=== PATIENT | female | born 1940 | race Caucasian/White ===

== ENCOUNTER → 2016-10-26 | Outpatient (CLI) | payer OTHER, MEDICARE | LOC: CIMAGING 11:27 | PROVIDERS: ATTEND Family Medicine | DX: J40 Bronchitis, not specified as acute or chronic (principal); J98.11 Atelectasis | CPT/HCPCS: 71020-PO ==

== ENCOUNTER 2017-01-10 07:35 | Inpatient (IN) | payer OTHER, MEDICARE ==
--- NOTE | 2017-01-10 07:48 | CPEKG ---
Heart Rate: 138 RR Interval: 435 QRSD Interval: 78 QT Interval: 292 QTC Interval: 443 QRS [place]: 88 T Wave [place]: -90 EKG Severity - ABNORMAL ECG - EKG Impression: ATRIAL FIBRILLATION, V-RATE 90-156 EKG Impression: BORDERLINE RIGHT AXIS DEVIATION EKG Impression: CONSIDER ANTERIOR INFARCT EKG Impression: REPOLARIZATION ABNORMALITY, PROB RATE RELATED Electronically Signed By: Gregory Rios 10-Jan-2017 08:15:11
[2017-01-10 08:00] LABS: % IMMATURE GRANULYOCYTES 0.7 % (0.0-1.1); ABSOLUTE IMMATURE GRANULOCYTES 0.05 10^3/uL (0.00-0.10); ADD DIFF? NO; ADD MORPH? NO; ADD SCAN? YES; FRAGMENT RBC FLAG 0 (0-99); HEMATOCRIT 41.1 % (38.0-47.0); HEMOGLOBIN 13.9 g/dL (12.6-16.3); LEFT SHIFT FLG 10 (0-99); LIPEMIA HEMOLYSIS FLAG 90 (0-99); MEAN CELL HEMOGLOBIN 28.3 pg (27.9-34.1); MEAN CELL HEMOGLOBIN CONCENTR. 33.8 g/dL (32.4-36.7); MEAN CELL VOLUME 83.5 fL (81.5-99.8); MEAN PLATELET VOLUME 9.7 fL (8.7-11.7); PLATELET CLUMPS FLAG 0 (0-99); PLATELET COUNT 137 10^3/uL (150-400); RED BLOOD CELL COUNT 4.92 10^6/uL (4.18-5.33); RED CELL DISTRIBUTION WIDTH 14.9 % (11.5-15.2)
[2017-01-10] MEDS ORDERED: DILTIAZEM 25 MG/5 ML VIAL IVP ONE ×2 (08:00→08:26)
[2017-01-10 08:02] LABS: ATYPICAL LYMPHOCYTE FLAG 150 (0-99)
--- NOTE | 2017-01-10 08:07 | EDPHY ---
H & P Stated Complaint: weakness and shortness of breath for 2 days, reports a-fib Time Seen by Provider: 01/10/17 07:44 HPI/ROS: This patient reports a 3 day history of increasing fatigue and weakness. She 1st noticed the symptoms on Tuesday reporting associated decreased appetite. Over the past 48 hours for symptoms of increased. She consider coming yesterday but held off due to mother's Day. She describes increasing lightheadedness while standing and weakness chest generalized over that period of time. At times she has noticed that her heart rate feels faster than usual. She has longstanding history of rate controlled atrial fibrillation on atenolol, cardia and Xarelto. She reports compliance with her medications. She did not take her morning dose yet of the atenolol with the cardia. She reports mild chest pressure at times associated with her symptoms peak intensity 5/10. Currently she does not have any pressure. She notes no exacerbating for this substernal pressure that does not radiate. Patient reports that her dyspnea worsens with exertion. She is accompanied by her son' s girlfriend this morning. ROS: Constitutional: As per HPI fatigue and generalized weakness. No fevers. She reports that she is always cold no recent change in that. HEENT: She has mild seasonal allergies with coryza but no other HEENT complaints Neuro: No headache. No numbness tingling or focal weakness. No confusion. Pulmonary: No cough. Cardiovascular: No recent lower extremity swelling. No diaphoresis. She reports no calf swelling or pain. GI: She has a couple days of intermittent periumbilical discomfort that she describes as slightly achy. She attributes the symptoms to hunger pains. She reports anorexia associated with her generalized weakness for the past 2 days. : No urinary symptoms or other complaints Integumentary: No skin rash Endocrine: She reports that they have been reducing her Synthroid dose which was initially 0.11-2 a current dose of 0.75 mcg. The most recent change in this occurred 2.5 weeks ago Complete review of symptoms is otherwise negative Source: Patient Exam Limitations: No limitations - Personal History Tetanus Vaccine Date: 2013 - Medical/Surgical History PMH: Sick sinus syndrome with dual-chamber pacemaker placed by Dr. Barnes on October 2011 Longstanding atrial fibrillation with rate control Diastolic dysfunction with mild CHF Hypothyroidism Hx Asthma: No Hx Chronic Respiratory Disease: No Hx Diabetes: No Hx Cardiac Disease: Yes Hx Renal Disease: No Hx Cirrhosis: No Hx Alcoholism: No Hx HIV/AIDS: No Hx Splenectomy or Spleen Trauma: No Other PMH: PPM, afib, htn, hypothyroid, CVA 2009 - Family History Significant Family History: No pertinent family hx - Social History Smoking Status: Former smoker Alcohol Use: None Drug Use: None Additional Social History: She lives alone - Physical Exam Exam: General Appearance: Alert, no distress. Eyes: Pupils equal and round no pallor or injection. ENT, Mouth: Mucous membranes moist. Respiratory: There are no retractions, lungs are clear to auscultation except for Minimal rales at the bases. Cardiovascular: Tachycardic with an irregularly irregular rhythm. No significant JVD. No significant peripheral edema. Gastrointestinal: Abdomen is soft and nontender, no masses, bowel sounds normal. Neurological: GCS of 15. Appreciate no focal deficits this morning Skin: Warm and dry, no rashes. Musculoskeletal: Neck is supple nontender. Extremities are symmetrical, full range of motion. Psychiatric: Mood and affect normal DIFFERENTIAL DIAGNOSIS: After history and physical exam differential diagnosis was considered for rapid AFib coma CHF exacerbation, metabolic disarray, UTI, functional thyroid disease-hypo versus hyper thyroid Constitutional: Initial Vital Signs Heart Rate 130 H 01/10/17 07:35 Respiratory Rate 20 01/10/17 07:35 Blood Pressure 122/90 H 01/10/17 07:35 O2 Sat (%) 90 L 01/10/17 07:35 O2 Delivery Mode Nasal Cannula O2 (L/minute) 2 Allergies/Adverse Reactions: NICKEL Allergy (Intermediate, Uncoded 01/10/17 07:44) Rash BRANDT SILVER Allergy (Intermediate, Uncoded 01/10/17 07:44) Rash Home Medications: Medication Instructions Recorded Atenolol [Tenormin 50 mg (*)] 50 mg PO DAILY 10/26/11 Levothyroxine [Synthroid 112 mcg 112 mcg PO DAILY06 05/04/12 (*)] Atorvastatin Calcium [Lipitor 20 20 mg PO HS 08/17/16 mg (*)] C/E/Zn/Cu/OM3/DHA/EPA/LUT/ZEAX 1 each PO BID 08/17/16 [Preservision Areds 2 Softgel] Cyanocobalamin [Vitamin B12 (*)] 1,000 mcg PO DAILY 08/17/16 Diltiazem HCl [Cartia Xt] 120 mg PO BID 08/17/16 Multivitamins [Multivitamin (*)] 1 each PO DAILY 08/17/16 [place]-3 Fatty Acids [Fish Oil 1000 1,000 mg PO DAILY 08/17/16 mg (*)] Rivaroxaban [Xarelto 10mg (*)] 20 mg PO HS 08/17/16 Furosemide [Lasix 20 MG (*)] 20 mg PO DAILY #0 tab 08/18/16 Medical Decision Making - Diagnostics EKG Interpretation: 12 lead EKG performed at 7:45 a.m. reveals atrial fibrillation at 1:38 a.m. Patient has associated right axis deviation and mild rate-related repolarization abnormality. Appreciate no significant interval change when compared to an EKG dated August 17, 2016. That is a EKG revealed AFib at 1: 57 a.m. with similar findings. Overall assessment rapid AFib with right axis deviation Please refer to trace master for complete read. Imaging Results: Chest [id number]-mild cardiomegaly and mild failure by my interpretation Imaging: I viewed and interpreted images myself ED Course/Re-evaluation: IV, monitor, diltiazem IV - 20 mg Her rate only knee decreased slightly to the 1 teens to 120s. After initial diltiazem bolus her systolic pressure is 102. Will hold on IV Lasix at this time and proceed with another diltiazem dose given her low slightly low blood pressure. A repeat diltiazem bolus is given - 30 mg with better rate control between 80 and 100. Her systolic pressure remained around 100. Discussion: Patient with longstanding history of rate controlled atrial fibrillation now with a rapid AFib-cause unclear resulting in mild CHF in dyspnea. Given that she lives alone and reports compliance with all of her medications, I feel she warrants admission for further evaluation workup and rate control. Patient agrees with this plan. No evidence today of acute cardiac ischemia or DC. I spoke with Sharmila, mid-level practitioner with the hospitalist group who agrees with plan for admission to telemetry. Dr. Julian will be the accepting physician At 9:18 a.m. the EMS crew was here for transport. Patient is comfortable with feels improved. A review of her labs reveals BNP elevated to 3200 or so, electrolytes without significant abnormality, CBC normal, TSH pending, troponin negative - Data Points Laboratory Results: Laboratory Results 01/10/17 07:45 01/10/17 07:45 01/10/17 01/10/17 01/10/17 07:45 07:45 07:45 WBC 7.07 10^3/uL 10^3/uL (3.80-9.50) RBC 4.92 10^6/uL 10^6/uL (4.18-5.33) Hgb 13.9 g/dL g/dL (12.6-16.3) Hct 41.1 % % (38.0-47.0) MCV 83.5 fL fL (81.5-99.8) MCH 28.3 pg pg (27.9-34.1) MCHC 33.8 g/dL g/dL (32.4-36.7) RDW 14.9 % % (11.5-15.2) Plt Count 137 10^3/uL L 10^3/uL (150-400) MPV 9.7 fL fL (8.7-11.7) Neut % (Auto) 77.8 % H % (39.3-74.2) Lymph % (Auto) 7.4 % L % (15.0-45.0) [place] % (Auto) 13.3 % H % (4.5-13.0) Eos % (Auto) 0.4 % L % (0.6-7.6) Baso % (Auto) 0.4 % % (0.3-1.7) Nucleat RBC Rel Count 0.0 % % (0.0-0.2) Absolute Neuts (auto) 5.50 10^3/uL 10^3/uL (1.70-6.50) Absolute Lymphs (auto) 0.52 10^3/uL L 10^3/uL (1.00-3.00) Absolute Monos (auto) 0.94 10^3/uL H 10^3/uL (0.30-0.80) Absolute Eos (auto) 0.03 10^3/uL 10^3/uL (0.03-0.40) Absolute Basos (auto) 0.03 10^3/uL 10^3/uL (0.02-0.10) Absolute Nucleated RBC 0.00 10^3/uL 10^3/uL (0-0.01) Immature Gran % 0.7 % % (0.0-1.1) Seg Neutrophils % 68 % % Band Neutrophils % 10 % % Lymphocytes % 12 % % Monocytes % 10 % % Immature Gran # 0.05 10^3/uL 10^3/uL (0.00-0.10) Absolute Seg Neuts 4.8 K/MM3 K/MM3 (1.8-7) Absolute Band Neuts 0.7 K/MM3 K/MM3 (0-0.7) Absolute Lymphocytes 0.8 K/mm3 L K/mm3 (1.0-4.8) Absolute Monocytes 0.7 K/mm3 K/mm3 (0-0.8) RBC/WBC/PLT Morphology NORMAL (NORMAL) Atypical Lymphocytes 3+ H Toxic Granulation PRESENT H Platelet Estimate DECREASED L (ADEQ) Smear Review By Pending Sodium 137 mEq/L mEq/L (134-144) Potassium 4.0 mEq/L mEq/L (3.5-5.2) Chloride 96 mEq/L L mEq/L (97-110) Carbon Dioxide 23 mEq/l mEq/l (22-31) Anion Gap 18 mEq/L H mEq/L (8-16) BUN 15 mg/dL mg/dL (7-23) Creatinine 1.0 mg/dL mg/dL (0.6-1.0) Estimated GFR 54 Glucose 124 mg/dL H mg/dL (70-100) Calcium 9.2 mg/dL mg/dL (8.5-10.4) Troponin I < 0.012 ng/mL ng/mL (0-0.034) NT-Pro-B Natriuret Pep 3260 pg/mL H pg/mL (0-450) TSH 2.820 uIU/mL uIU/mL (0.465-4.680) Medications Given: Discontinued Medications Diltiazem HCl (Cardizem 25 Mg/5 Ml Vial) 20 mg IVP EDNOW ONE Stop: 01/10/17 08:01 Last Admin: 01/10/17 08:10 Dose: 20 mg Diltiazem HCl (Cardizem 25 Mg/5 Ml Vial) 30 mg IVP EDNOW ONE Stop: 01/10/17 08:27 Last Admin: 01/10/17 09:15 Dose: 30 mg Departure - Departure Disposition: [facility] Inpatient Acute Clinical Impression: Rapid atrial fibrillation CHF (congestive heart failure) Qualifiers: Congestive heart failure type: diastolic Congestive heart failure chronicity: acute on chronic Qualified Code(s): I50.33 - Acute on chronic diastolic ( congestive) heart failure Condition: Fair
[2017-01-10 08:21] LABS: ANION GAP 18 mEq/L (8-16); CALCIUM 9.2 mg/dL (8.5-10.4); CARBON DIOXIDE 23 mEq/l (22-31); CHLORIDE 96 mEq/L (97-110); GLOMERULAR FILTRATION RATE 54; GLUCOSE 124 mg/dL (70-100); SCAN POSITIVE; SODIUM 137 mEq/L (134-144)
[2017-01-10 08:28] LABS: PLATELET ESTIMATE DECREASED (ADEQ); TOXIC GRANULATION PRESENT
[2017-01-10 08:44] LABS: TROPONIN I < 0.012 ng/mL (0-0.034)
[2017-01-10] MEDS ORDERED: HYPROMELLOSE EACHEYE PRN (11:32)
[2017-01-10] MEDS ORDERED: CARBOXYMETHYLCELL EACHEYE PRN (11:32)
[2017-01-10] MEDS: ATENOLOL 50 MG TAB PO SCH ×2 (12:25→19:50)
[2017-01-10] MEDS: DILTIAZEM CD 120 MG CAP PO SCH ×2 (12:26→19:50)
--- NOTE | 2017-01-10 13:24 | PDGENHP ---
History and Physical - Chief Complaint weakness, fatigue, and afib - History of Present Illness 76yo female with history of rate controlled atrial fibrillation, CHF, HTN, hypothyroidism presenting to the ED with weakness and fatigue. Last Tuesday morning she reports starting to feel symptoms of lightheadedness, loss of appetite, shortness of breath and a dull headache. She states having a similar episode last July for which she was admitted for complications related to her atrial fibrillation and CHF. Rest, taking deep breaths, and meditation alleviate her symptoms. Exertion makes her symptoms worse. She reports intermittent lower extremity swelling that gets worse when she is on her feet. At night she sleeps on an adjustable reclining bed and cannot lie flat. She reports to be compliant with her medications. She currently denies fevers, chest pain, dyspnea, abdominal pain, nausea, vomiting, and diarrhea. Recently, she had her synthroid adjusted from 100 to 75 3 weeks ago and has not had a blood test since. History Information - Allergies/Home Medication List Allergies/Adverse Reactions: NICKEL Allergy (Intermediate, Uncoded 01/10/17 07:44) Rash BRANDT SILVER Allergy (Intermediate, Uncoded 01/10/17 07:44) Rash Home Medications: Atenolol [Tenormin 50 mg (*)] 50 mg PO BID 10/26/11 [Last Taken 01/09/17 21:00] Atorvastatin Calcium [Lipitor 20 mg (*)] 20 mg PO HS 08/17/16 [Last Taken ] C/E/Zn/Cu/OM3/DHA/EPA/LUT/ZEAX [Preservision Areds 2 Softgel] 1 each PO BID [Last Taken 01/09/17 21:00] Cyanocobalamin [Vitamin B12 (*)] 1,000 mcg PO DAILY 08/17/16 [Last Taken ] Diltiazem HCl [Cartia Xt] 120 mg PO BID 08/17/16 [Last Taken 01/09/17 21:00] Multivitamins [Multivitamin (*)] 1 each PO DAILY 08/17/16 [Last Taken 01/09/17] [place]-3 Fatty Acids [Fish Oil 1000 mg (*)] 1,000 mg PO DAILY 08/17/16 [Last Taken 01/09/17] Rivaroxaban [Xarelto 10mg (*)] 20 mg PO HS 08/17/16 [Last Taken 01/09/17] Carboxymethylcell/Hypromellose [Genteal Gel Drops] 1 drop EACHEYE DAILY PRN [Last Taken Unknown] Cholecalciferol Vit D3 [Vitamin D3 2000 units tab (OTC)] 2,000 units PO DAILY [Last Taken 01/09/17] Levothyroxine [Synthroid 75 mcg (*)] 75 mcg PO DAILY06 01/10/17 [Last Taken ] I have personally reviewed and updated: family history, medical history, social history, surgical history Past Medical History: sick sinus syndrome with dual chamber pacemaker- 2011. atrial fibrillation. Diastolic dysfunction with mild CHF. hypothyroidism. stroke 2009. Macular degeneration. HTN - Surgical History Additional surgical history: right knee replacement. vaginal hysterectomy 2005. ppm - Social History Smoking Status: Former smoker Alcohol Use: None Drug Use: None Review of Systems ROS: 10pt was reviewed & negative except for what was stated in HPI & below Gastrointestinal: Reports: abdominal pain (dull diffuse) Physical Exam Temp Pulse Resp BP Pulse Ox 36.8 C 127 H 20 108/84 H 94 01/10/17 10:57 01/10/17 10:57 01/10/17 10:57 01/10/17 10:57 01/10/17 10:57 O2 (L/minute) 2 Constitutional: no apparent distress, appears nourished, not in pain Eyes: PERRL, anicteric sclera, EOMI Ears, Nose, Mouth, Throat: moist mucous membranes, hearing normal, ears appear normal, no oral mucosal ulcers Cardiovascular: irregularly irregular, JVD, tachycardia, edema (trace), No systolic murmur Respiratory: no respiratory distress, no rales or rhonchi, clear to auscultation , No reduced air movement Gastrointestinal: normoactive bowel sounds, soft, non-tender abdomen, no palpable masses, No ascites, No guarding, No rebound Genitourinary: no bladder fullness, no bladder tenderness Skin: warm, normal color, no rashes or abrasions, no fluctuance, no induration, No mottled Musculoskeletal: full muscle strength, no muscle tenderness, normal joint ROM, no joint effusions Neurologic: AAOx3, CN II-XII Intact, No facial droop Psychiatric: interacting appropriately, not anxious, not encephalopathic, thought process linear Lab Data & Imaging Review 01/10/17 07:45 01/10/17 07:45 WBC 7.07 10^3/uL (3.80-9.50) 01/10/17 07:45 RBC 4.92 10^6/uL (4.18-5.33) 01/10/17 07:45 Hgb 13.9 g/dL (12.6-16.3) 01/10/17 07:45 Hct 41.1 % (38.0-47.0) 01/10/17 07:45 MCV 83.5 fL (81.5-99.8) 01/10/17 07:45 MCH 28.3 pg (27.9-34.1) 01/10/17 07:45 MCHC 33.8 g/dL (32.4-36.7) 01/10/17 07:45 RDW 14.9 % (11.5-15.2) 01/10/17 07:45 Plt Count 137 10^3/uL (150-400) L 01/10/17 07:45 MPV 9.7 fL (8.7-11.7) 01/10/17 07:45 Neut % (Auto) 77.8 % (39.3-74.2) H 01/10/17 07:45 Lymph % (Auto) 7.4 % (15.0-45.0) L 01/10/17 07:45 [place] % (Auto) 13.3 % (4.5-13.0) H 01/10/17 07:45 Eos % (Auto) 0.4 % (0.6-7.6) L 01/10/17 07:45 Baso % (Auto) 0.4 % (0.3-1.7) 01/10/17 07:45 Nucleat RBC Rel Count 0.0 % (0.0-0.2) 01/10/17 07:45 Absolute Neuts (auto) 5.50 10^3/uL (1.70-6.50) 01/10/17 07:45 Absolute Lymphs (auto) 0.52 10^3/uL (1.00-3.00) L 01/10/17 07:45 Absolute Monos (auto) 0.94 10^3/uL (0.30-0.80) H 01/10/17 07:45 Absolute Eos (auto) 0.03 10^3/uL (0.03-0.40) 01/10/17 07:45 Absolute Basos (auto) 0.03 10^3/uL (0.02-0.10) 01/10/17 07:45 Absolute Nucleated RBC 0.00 10^3/uL (0-0.01) 01/10/17 07:45 Immature Gran % 0.7 % (0.0-1.1) 01/10/17 07:45 Seg Neutrophils % 68 % 01/10/17 07:45 Band Neutrophils % 10 % 01/10/17 07:45 Lymphocytes % 12 % 01/10/17 07:45 Monocytes % 10 % 01/10/17 07:45 Immature Gran # 0.05 10^3/uL (0.00-0.10) 01/10/17 07:45 Absolute Seg Neuts 4.8 K/MM3 (1.8-7) 01/10/17 07:45 Absolute Band Neuts 0.7 K/MM3 (0-0.7) 01/10/17 07:45 Absolute Lymphocytes 0.8 K/mm3 (1.0-4.8) L 01/10/17 07:45 Absolute Monocytes 0.7 K/mm3 (0-0.8) 01/10/17 07:45 RBC/WBC/PLT Morphology NORMAL (NORMAL) 01/10/17 07:45 Atypical Lymphocytes 3+ H 01/10/17 07:45 Toxic Granulation PRESENT H 01/10/17 07:45 Platelet Estimate DECREASED (ADEQ) L 01/10/17 07:45 Sodium 137 mEq/L (134-144) 01/10/17 07:45 Potassium 4.0 mEq/L (3.5-5.2) 01/10/17 07:45 Chloride 96 mEq/L (97-110) L 01/10/17 07:45 Carbon Dioxide 23 mEq/l (22-31) 01/10/17 07:45 Anion Gap 18 mEq/L (8-16) H 01/10/17 07:45 BUN 15 mg/dL (7-23) 01/10/17 07:45 Creatinine 1.0 mg/dL (0.6-1.0) 01/10/17 07:45 Estimated GFR 54 01/10/17 07:45 Glucose 124 mg/dL (70-100) H 01/10/17 07:45 Calcium 9.2 mg/dL (8.5-10.4) 01/10/17 07:45 Troponin I < 0.012 ng/mL (0-0.034) 01/10/17 07:45 NT-Pro-B Natriuret Pep 3260 pg/mL (0-450) H 01/10/17 07:45 TSH 2.820 uIU/mL (0.465-4.680) 01/10/17 07:45 Visualized and Interpreted Chest x-ray results: Yes Chest X-Ray results: other (CM with signs of pulm vascular congestion) Visualized and Interpreted EKG results: Yes EKG Interpretation: Positive for: other (afib 138 bpm) Assessment & Plan Assessment: #rapid atrial fibrillation now with improved rate control s/p IVP dilt and resuming home meds -continue home meds for now -ivp dilt prn hr>110 -cont Xarelto #diastolic dysfunction with mild CHF with elevated BNP of 3260 -Lasix 20mg IVP x 1 -echo #hypothyroidism with recent adjustment to Synthroid dose -check TSH #abnormal EKG with abd pain -repeat troponin #thrombocytopenia -unknown etiology; continue to monitor dispo: place in observation
[2017-01-10] MEDS ORDERED: FUROSEMIDE 20 MG/2 ML VIAL IVP ONE (14:48)
[2017-01-10] MEDS ORDERED: DILTIAZEM 25 MG/5 ML VIAL IVP PRN (14:51)
[2017-01-10] MEDS: TEARS/DEXTRAN 70/HYPROMELLOSE 15 ML OPHT.BTL EACHEYE PRN ×2 (17:20→20:49)
[2017-01-10] MEDS: ATORVASTATIN CALCIUM 20 MG TAB PO SCH (19:50)
[2017-01-10] MEDS: PRESERVISION AREDS2 FORMULA EYE VIT 1 EACH PO SCH (19:51)
[2017-01-10] MEDS: RIVAROXABAN 10 MG TAB PO SCH (19:51)
[2017-01-11 05:08] LABS: % IMMATURE GRANULYOCYTES 1.1 % (0.0-1.1); ABSOLUTE IMMATURE GRANULOCYTES 0.07 10^3/uL (0.00-0.10); ADD DIFF? NO; ADD MORPH? NO; ADD SCAN? YES; FRAGMENT RBC FLAG 0 (0-99); HEMATOCRIT 38.9 % (38.0-47.0); LEFT SHIFT FLG 10 (0-99); LIPEMIA HEMOLYSIS FLAG 80 (0-99); MEAN CELL HEMOGLOBIN 28.3 pg (27.9-34.1); MEAN CELL HEMOGLOBIN CONCENTR. 33.4 g/dL (32.4-36.7); MEAN CELL VOLUME 84.7 fL (81.5-99.8); MEAN PLATELET VOLUME 10.5 fL (8.7-11.7); PLATELET CLUMPS FLAG 10 (0-99); PLATELET COUNT 122 10^3/uL (150-400); RED BLOOD CELL COUNT 4.59 10^6/uL (4.18-5.33); RED CELL DISTRIBUTION WIDTH 15.1 % (11.5-15.2)
[2017-01-11 05:11] LABS: ATYPICAL LYMPHOCYTE FLAG 170 (0-99)
[2017-01-11 05:37] LABS: ANION GAP 13 mEq/L (8-16); CALCIUM 9.2 mg/dL (8.5-10.4); CARBON DIOXIDE 24 mEq/l (22-31); CHLORIDE 99 mEq/L (97-110); CREATININE 0.9 mg/dL (0.6-1.0); GLOMERULAR FILTRATION RATE > 60; GLUCOSE 119 mg/dL (70-100); POTASSIUM 3.8 mEq/L (3.5-5.2); SODIUM 136 mEq/L (134-144)
[2017-01-11] MEDS: LEVOTHYROXINE 75 MCG TAB PO SCH (05:49)
[2017-01-11 06:02] LABS: SCAN NEGATIVE
[2017-01-11] MEDS: CHOLECALCIFEROL VIT D3 2,000 UNITS TAB/CAP PO SCH (07:57)
[2017-01-11] MEDS: PRESERVISION AREDS2 FORMULA EYE VIT 1 EACH PO SCH ×2 (07:58→20:03)
[2017-01-11] MEDS: DILTIAZEM CD 120 MG CAP PO SCH ×2 (07:58→19:51)
[2017-01-11] MEDS: MULTIVITAMINS 1 EACH TAB PO SCH (07:58)
[2017-01-11] MEDS: CYANO/VITAMIN B12 1000 MCG TAB PO SCH (07:58)
[2017-01-11] MEDS: OMEGA-3 FATTY ACIDS 1,000 MG CAP PO SCH (07:58)
[2017-01-11] MEDS: ATENOLOL 50 MG TAB PO SCH (07:59)
[2017-01-11] MEDS ORDERED: METOPROLOL TARTRATE 25 MG TAB PO ONE (11:48)
[2017-01-11] MEDS ORDERED: FUROSEMIDE 40 MG/4 ML VIAL IVP ONE (12:26)
[2017-01-11] MEDS ORDERED: POTASSIUM CL 20 MEQ TAB PO ONE (12:27)
--- NOTE | 2017-01-11 13:27 | GCON ---
[f rep st] CONSULTATION CARDIOLOGY CONSULTATION. INDICATION FOR CONSULTATION: 1. Atrial fibrillation with RVR. 2. Mild BNP elevation. HISTORY OF PRESENT ILLNESS: The patient is a 76-year-old female, who is known to our practice. She is in permanent atrial fibrillation, her primary angiographer is Dr. Rios. She also has a significant past history that includes hypertension, hypothyroidism, and a previous CVA. She reports starting last Tuesday she had noted that she had a more significantly elevated heart rate, feeling that she was also more short of breath and fatigue. She denies of any chest pressure or pain. She thought the symptoms would subside, and waited until yesterday afternoon to present to the ER with worsening SOB. Upon arrival it was found that her heart rates were running between 130 to 140 BPM. She does report lightheadedness with these symptoms, but has had no syncope or syncopal events. She reports prior to hospitalization, prior to last Tuesday, she had been in her normal state health, reporting no fevers, chills, or night sweats. She does report over the last month she has had 3 dosage changes in her thyroid and her Synthroid with a downward decrease. She reports she has not noticed a significant weight gain, has continued to have mild peripheral edema, but this is unchanged from her usual condition. She does also reports similar times having heart rate increasing and having ongoing abdominal pain. She denies any hematemesis or blood in stools. She does report she has been medication compliant, she has had lack of appetite for 3 days prior to admission, reporting only small food intake. PAST MEDICAL HISTORY: 1. Permanent atrial fibrillation. 2. Hypertension. 3. Sick sinus syndrome with previous PPM implantation ([employer]tr[employer]). 4. Diastolic dysfunction. 5. Previous CVA. 6. Hypothyroidism. 7. Macular degeneration. 8. Hyperlipidemia. PAST SURGICAL HISTORY: Right knee replacement, hysterectomy, and permanent pacemaker implantation. FAMILY HISTORY: Patient reports father has a history of heart disease. SOCIAL HISTORY: She is retired, she lives independently, she is a former smoker , she denies any alcohol use. Denies any illicit drug use. ALLERGIES: Nickel and nini silver. MEDICATIONS: 1. Genteal gel drops 1 drop to each eye daily p.r.n. 2. Fish oil 1000 mg p.o. daily. 3. Multivitamin 1 tablet p.o. daily. 4. Synthroid 75 mcg p.o. daily. 5. Lasix 20 mg p.o. daily. 6. Diltiazem 120 mg p.o. b.i.d. 7. Vitamin B12 1000 mg p.o. daily. 8. Vitamin D3 2000 units p.o. daily. 9. Preservision Areds2, soft gel tablets, one p.o. b.i.d. 10. Atorvastatin 20 mg p.o. at bedtime. 11. Atenolol 50 mg p.o. twice daily. 12. Xarelto 20 mg p.o. at bedtime. REVIEW OF SYSTEMS: A 10-point review of systems is done on this patient, all negative except as mentioned above. PHYSICAL EXAMINATION: GENERAL APPEARANCE: Medium built, mildly obese female. She is alert and oriented to person, place, time, and situation, currently appears to be under no acute distress. VITAL SIGNS: Current vital signs are a blood pressure of 127/88, heart rate of 117, atrial fibrillation on the monitor, respirations 18, saturating 92% on 2 L nasal cannula. Temperature of 36.6 degrees Celsius. HEENT: Head is normocephalic. Lips and tongue are pink and moist with no signs of cyanosis. Conjunctivae pink. NECK: Trachea is midline, +2 carotid pulses bilateral, no auscultated bruits, about 5-6 cm of JVD noted at a 45 degree angle above sternal notch. RESPIRATORY: Lungs are clear, but diminished in bases bilateral. No rhonchi, rales or wheezes, no accessory muscle use, no intercostal muscle retraction noted. CARDIAC: Irregular tachycardic rate, irregular rhythm, S1 and S2, no S3 noted. ABDOMEN: Firm, nontender to palpation, bowel sounds x4 quadrants. No palpable masses. SKIN: [place], warm, dry. No cyanosis, no clubbing, trace to +1 peripheral edema in bilateral lower extremities to knees. VASCULAR: With +2 carotids bilateral, +2 radials bilateral, +1 dorsal pedal and posterior tibial pulses bilateral. NEURO: Cranial nerves 2-12 grossly intact. LABORATORY STUDIES: From today showed WBC 6.32, hemoglobin 13.0, hematocrit of 38.9, platelet count 122. Sodium of 136, potassium 3.8, chloride 99, CO2 of 24 , BUN 17, creatinine 0.8, glucose 119, calcium 9.2 on admission, it was noted troponin was less than 0.012. BNP was 3260, and TSH was 2.820. STUDIES: Electrocardiogram on admission showed atrial fibrillation RVR, ventricular rate is 138 beats per minute, normal axis, slow R-wave progression in anterior leads. Chest x-ray, borderline failure with trace bibasilar edema and bibasilar atelectasis, a dual-lead pacemaker. Echocardiogram done this morning showed normal LV size, with atrial fibrillation , LV systolic function is low normal with EF of 50% to 55%, LA is severely dilated, RA is severely dilated, mild mitral annular calcification, mild mitral regurgitation, mild to moderate TR, RVSP is normal, aortic valve is normal in structure and function. In comparison to previous echocardiogram, no significant left ventricular function changes or valvular changes, atrium are both more severely dilated at this time. ASSESSMENT AND PLAN: 1. Atrial fibrillation with rapid ventricular response: Patient has a known history of chronic atrial fibrillation, reporting fairly well rate-controlled, does mention that she has recently had her atenolol increased to 50 mg p.o. b.i.d., reporting sudden increase of elevated heart rate with symptoms of shortness of breath and fatigue. Has had no chest pain, negative troponin, echocardiogram showing severely dilated atriums, but no significant change in left ventricular function, no wall motion abnormality. TSH drawn on admission within normal limits, patient does report compliant with medications. At this time, after discussing, I would like to attempt to take her off atenolol and put her on metoprolol, which is potentially more of a beta 1 beta-veronica, see if we get better rate control with that. If we have problems then we can also increase her diltiazem, if we do have problems with her blood pressure, then consideration could always be made of putting her on digoxin, if unable to improve with any of them due to her having a permanent pacemaker, we can potentially have electrophysiology services see patient to discuss potential arteriovenous node ablation. She remains on home dose of Xarelto for anticoagulation. We will continue to monitor. 2. Sick sinus syndrome: Patient with permanent pacemaker implantation done, most recent device check was done on December 01, 2016, showing device functioning within normal limits. 3. Hypothyroidism, patient has been resumed on Synthroid, TSH within normal limits. 4. Hypertension: Blood pressures appear to be adequately controlled on current home medications, we will continue to monitor with titration of beta veronica. 5. Diastolic dysfunction with elevated BNP: Patient received 1 dose of Lasix and reported mild improvement in shortness of breath. Will receive Lasix dose again today at 20 mg IV this afternoon. Potentially resume home medications tomorrow, potentially with better rate control. This will help self correct. 6. Abdominal pain: Being followed by hospitalist services, recently underwent abdominal x-ray, pending results. Thank you for this consultation. We will be glad to follow along with you. /[id number]/MODL MTDD
[2017-01-11] MEDS: PANTOPRAZOLE SODIUM 40 MG TAB PO SCH (13:50)
--- NOTE | 2017-01-11 14:35 | HOSPPROG ---
Hospitalist Progress Note Assessment/Plan: 76 yo F with PMH of a fib, CHF, HTN pw weakness and fatigue found to be in a fib w/rvr # a rib w/rvr: rates slightly better controlled after IVP dilt and transitioning from atenolol to metoprolol. Rate still increased however on personal review of tele monitoring /ecg. If rates not improving on metop, will consider increased dilt vs starting digoxin vs AVN ablation. Monitoring for now. Sxs improved some but not resolved. # anorexia/abdominal pain: patient c/o mid epigastric abdominal discomfort along with loss of appetite and poor po intake all of which is abnormal for her. Some nausea but no real vomiting. Abd xray personally reviewed and interpreted w/o e/o SBO etc. Will add lfts/lipase and consider abd US if abnormal or not improving. She notes that she wonders if some of this could be related to her a fib which tends to affect "everything" when she is in it. # acute on chronic diastolic heart failure: mildly volume overloaded, echo report reviewed and no change from prior. Continue IV lasix today. # sss: s/p PPM and pacer interrogation unremarkable # hypothyroid: tsh wnl, continue op medications # thrombocytopenia: mild but new from prior hospitalization, stable overnight # DNR # dispo: IP status, will need > 48 hours stay for eval/mgmt of above given high risk presenting issues Patient new to my care. Old records reviewed and summarized as above. Care plan reviewed with cardiology including plans for medication adjustment. Subjective: no significant overnight events, patient continues to feel fatigued and is having difficulty with her appetite--does not feel like eating and having some abd pain as well Objective: Vital Signs Temp Pulse Resp BP Pulse Ox 36.6 C 117 H 18 127/88 H 92 01/11/17 11:17 01/11/17 11:17 01/11/17 11:17 01/11/17 11:17 01/11/17 11:17 Laboratory Results 01/11/17 04:24 01/11/17 04:24 01/10/17 01/11/17 01/12/17 05:59 05:59 05:59 Intake Total 500 Output Total 150 Balance 350 awake alert nad anicteric op clear irreg irreg tachy cta w/dec bs at bases soft nt nd trace ble edema warm dry well perfused oriented appropriate ICD10 Worksheet Patient Problems: Problems Problem Status Onset CHF (congestive heart failure) Acute Rapid atrial fibrillation Acute Afib - Atrial fibrillation Active Dyslipidemia Active Hypothyroidism Active Peripheral vascular disease Active Atrial fibrillation Acute Congestive heart failure Acute Hypoxia Acute
[2017-01-11] MEDS ORDERED: METOPROLOL TARTRATE 50 MG TAB PO ONE (16:15)
[2017-01-11 16:30] LABS: ALBUMIN 3.8 g/dL (3.5-5.0); BILIRUBIN,TOTAL 1.5 mg/dL (0.1-1.4); BILIRUBIN-CONJUGATED 0.6 mg/dL (0.0-0.5); BILIRUBIN-UNCONJUGATED 0.9 mg/dL (0.0-1.1); TOTAL PROTEIN 6.3 g/dL (6.3-8.2)
[2017-01-11] MEDS: METOPROLOL TARTRATE 50 MG TAB PO SCH (19:50)
[2017-01-11] MEDS: TEARS/DEXTRAN 70/HYPROMELLOSE 15 ML OPHT.BTL EACHEYE PRN (19:52)
[2017-01-11] MEDS: RIVAROXABAN 10 MG TAB PO SCH (20:03)
[2017-01-11] MEDS: ATORVASTATIN CALCIUM 20 MG TAB PO SCH (20:03)
[2017-01-11] MEDS: DILTIAZEM 25 MG/5 ML VIAL IVP PRN (23:59)
[2017-01-12] MEDS: LEVOTHYROXINE 75 MCG TAB PO SCH (05:36)
[2017-01-12] MEDS: PRESERVISION AREDS2 FORMULA EYE VIT 1 EACH PO SCH ×2 (08:07→20:25)
[2017-01-12] MEDS: CHOLECALCIFEROL VIT D3 2,000 UNITS TAB/CAP PO SCH (08:07)
[2017-01-12] MEDS: PANTOPRAZOLE SODIUM 40 MG TAB PO SCH (08:07)
[2017-01-12] MEDS: OMEGA-3 FATTY ACIDS 1,000 MG CAP PO SCH (08:07)
[2017-01-12] MEDS: MULTIVITAMINS 1 EACH TAB PO SCH (08:08)
[2017-01-12] MEDS: DILTIAZEM CD 120 MG CAP PO SCH (08:08)
[2017-01-12] MEDS: METOPROLOL TARTRATE 50 MG TAB PO SCH ×2 (08:08→20:28)
[2017-01-12] MEDS: CYANO/VITAMIN B12 1000 MCG TAB PO SCH (08:08)
[2017-01-12] MEDS: DILTIAZEM 25 MG/5 ML VIAL IVP PRN (09:11)
[2017-01-12] MEDS ORDERED: METOPROLOL TARTRATE 50 MG TAB PO ONE (09:40)
--- NOTE | 2017-01-12 16:29 | HOSPPROG ---
Hospitalist Progress Note Assessment/Plan: 76 yo F with PMH of a fib, CHF, HTN pw weakness and fatigue found to be in a fib w/rvr # a rib w/rvr: rates slightly better controlled after IVP dilt and transitioning from atenolol to metoprolol. Rate still increased however on personal review of tele monitoring /ecg. Continue medication adjustment--have increased metop and dilt and given additional dose of IV dilt but rate still increased. Consider digoxin pending bp. # anorexia/abdominal pain: improved and eating now # acute on chronic diastolic heart failure: mildly volume overloaded on arrival , echo report reviewed and no change from prior. Appears euvolemic now # sss: s/p PPM and pacer interrogation unremarkable # hypothyroid: tsh wnl, continue op medications # thrombocytopenia: mild but new from prior hospitalization, stable overnight # DNR # dispo: IP status, will need > 48 hours stay for eval/mgmt of above given high risk presenting issues . Care plan reviewed with cardiology including plans for medication adjustment. Subjective: no significant overnight events, continues to have elevated hr, sob with exertion Objective: Vital Signs Temp Pulse Resp BP Pulse Ox 36.3 C 155 H 18 92/68 L 97 01/12/17 11:23 01/12/17 11:55 01/12/17 11:23 01/12/17 11:23 01/12/17 11:23 01/11/17 01/12/17 01/13/17 05:59 05:59 05:59 Intake Total 610 Output Total 800 125 Balance -190 -125 awake alert nad anicteric op clear irreg irreg tachy cta w/dec bs at bases soft nt nd trace ble edema warm dry well perfused oriented appropriate - Time Spent With Patient Time Spent with Patient: greater than 35 minutes Time Spent with Patient: Greater than 35 minutes spent on this patients care, greater than 50% of time spent counseling, educating, and coordinating care regarding the above mentioned plan. ICD10 Worksheet Patient Problems: Problems Problem Status Onset CHF (congestive heart failure) Acute Rapid atrial fibrillation Acute Afib - Atrial fibrillation Active Dyslipidemia Active Hypothyroidism Active Peripheral vascular disease Active Atrial fibrillation Acute Congestive heart failure Acute Hypoxia Acute
--- NOTE | 2017-01-12 18:03 | PDCARPN ---
Cardiology Progress Note Chief Complaint: Ongoing fatigue symptoms. Assessment/Plan: Assessment: 76-year-old female with known history of permanent atrial fibrillation, hypertension, hypothyroidism, sick sinus syndrome with ppm implantation, and previous CVA. Admitted for AFib with RVR and mildly elevated BNP. Echocardiogram done on 01/01 showing normal LV size, low normal LV systolic function with EF 50-55%, LA and RA severely dilated, mild MR, [id number] TR, RVSP within normal limits. In attempt to get better rate control, patient has been switched over from atenolol to metoprolol. Unfortunately, throughout the night she has been having ventricular rates between 110-130 BPM. She is also needed IV diltiazem 1 time boluses to decreased heart rate. She is also noted to be mildly fluid overloaded, has required IV diuretics for last 2 days. Today she reports she report significantly less short of breath, continuous cardiac monitoring shows AFib with RVR. No malignant arrhythmias. No pauses. She denies of any chest pressure or symptoms suggesting of ischemia. Reviewing her most recent device interrogation from our office (12/01/2016), showing patient 100% AFib burden, she is noted to have ventricular rates between 110- 160 BPM 20% of the time. Plan: 1. Atrial fibrillation with rapid ventricular response: rate still poorly controlled. TSH within normal limits. Have given her a 1 time dose of metoprolol tartrate at 50 mg this a.m., and have increased her metoprolol tartrate to 75 mg p. o. twice daily. Have also increased her diltiazem CD to 180 mg p.o. twice daily. Pending on her blood pressure, consideration of starting her also on digoxin if necessary. I have also talked to Dr. Albarran of electrophysiology Services, he is willing to see the patient in the office next week, and discuss AV node ablation. Will continue cardiac monitoring. She remains on Xarelto for anticoagulation. 2. Diastolic dysfunction: Elevated BNP on admission, IV Lasix given last 2 days. Patient reports improvement in shortness of breath. Blood pressure in low 100s, will hold off dosing today, consider starting on oral Lasix in a.m.. 3. Sick sinus syndrome: Patient has [employer]tr[employer] pacemaker implantation, last interrogation November of this year showing device functioning within normal limits. 4. Hypothyroidism: Patient continues on home medication. TSH within normal limits.. 01/12/17 18:10 Subjective: Patient reports fatigue, mild shortness of breath, denies any chest pressure or pain. denies of any palpitations, lightheadedness, near-syncope or syncopal events. Reviewed/Discussed With: hospitalist (Dr Velarde), other (Dr Menon, Dr Albarran) Objective: Vital Signs (8 Hrs) Temp Pulse Resp BP Pulse Ox 01/12/17 16:26 37.0 C 133 H 16 109/78 92 01/12/17 11:55 155 H 01/12/17 11:23 36.3 C 138 H 18 92/68 L 97 Intake/Output (24 Hrs) 01/11/17 01/12/17 01/13/17 05:59 05:59 05:59 Intake Total 610 250 Output Total 800 275 Balance -190 -25 Intake: Oral (ml) 600 250 IV Intake (ml) 10 Output: Urine (ml) 800 275 Toilet 800 275 Other: Intake Quantity Yes Sufficient Number of Voids Toilet 2 Number of Stools Toilet 1 Result Diagrams: 01/11/17 04:24 01/11/17 04:24 - Physical Exam Constitutional: no apparent distress, obese Ears, Nose, Mouth, Throat: moist mucous membranes Cardiovascular: no rubs, systolic murmur ( 1/6 systolic murmur noted along left sternal border.), irregularly irregular ( Atrial fibrillation with rapid ventricular response), jugular vein distention ( 4 cm above sternal notch at 45 degree angle), pulses symmetric bilat, No carotid bruit Peripheral Pulses: 1+: dorsalis-pedis (R), dorsalis-pedis (L), 2+: carotid (R), carotid (L) Respiratory: other ( clear, but diminished in bases bilateral, no rhonchi, rales , or wheezing noted.) Gastrointestinal: normoactive bowel sounds Skin: No no edema ( Trace to +1 peripheral edema bilateral lower extremities to knees.) Neurologic: AAOx3 Psychiatric: cooperative, interactive, following commands ICD10 Worksheet Patient Problems: Problems Problem Status Onset Afib - Atrial fibrillation Active Hypothyroidism Active Dyslipidemia Active Peripheral vascular disease Active Congestive heart failure Acute Atrial fibrillation Acute Hypoxia Acute Rapid atrial fibrillation Acute CHF (congestive heart failure) Acute
[2017-01-12] MEDS ORDERED: DILTIAZEM CD 180 MG CAP PO ONE (18:30)
[2017-01-12] MEDS: ATORVASTATIN CALCIUM 20 MG TAB PO SCH (20:25)
[2017-01-12] MEDS: RIVAROXABAN 10 MG TAB PO SCH (20:25)
[2017-01-13 05:18] LABS: ANION GAP 12 mEq/L (8-16); CALCIUM 8.9 mg/dL (8.5-10.4); CARBON DIOXIDE 26 mEq/l (22-31); CHLORIDE 97 mEq/L (97-110); CREATININE 1.2 mg/dL (0.6-1.0); GLOMERULAR FILTRATION RATE 44; GLUCOSE 83 mg/dL (70-100); POTASSIUM 3.8 mEq/L (3.5-5.2); SODIUM 135 mEq/L (134-144)
[2017-01-13] MEDS: TEARS/DEXTRAN 70/HYPROMELLOSE 15 ML OPHT.BTL EACHEYE PRN ×2 (06:20→20:40)
[2017-01-13] MEDS: LEVOTHYROXINE 75 MCG TAB PO SCH (06:20)
[2017-01-13] MEDS ORDERED: DIGOXIN 500 MCG/2 ML AMP IVP ONE (08:22)
[2017-01-13] MEDS: CYANO/VITAMIN B12 1000 MCG TAB PO SCH (08:30)
[2017-01-13] MEDS: MULTIVITAMINS 1 EACH TAB PO SCH (08:30)
[2017-01-13] MEDS: PRESERVISION AREDS2 FORMULA EYE VIT 1 EACH PO SCH ×2 (08:30→20:38)
[2017-01-13] MEDS: CHOLECALCIFEROL VIT D3 2,000 UNITS TAB/CAP PO SCH (08:31)
[2017-01-13] MEDS: METOPROLOL TARTRATE 50 MG TAB PO SCH ×2 (08:31→20:39)
[2017-01-13] MEDS: OMEGA-3 FATTY ACIDS 1,000 MG CAP PO SCH (08:31)
[2017-01-13] MEDS: PANTOPRAZOLE SODIUM 40 MG TAB PO SCH (08:32)
[2017-01-13] MEDS ORDERED: DILTIAZEM CD 180 MG CAP PO SCH (09:00)
[2017-01-13] MEDS: DILTIAZEM CD 120 MG CAP PO SCH ×2 (09:09→20:38)
[2017-01-13] MEDS: DIGOXIN 500 MCG/2 ML AMP IVP SCH ×2 (13:29→18:14)
--- NOTE | 2017-01-13 13:51 | HOSPPROG ---
Hospitalist Progress Note Assessment/Plan: 76 yo F with PMH of a fib, CHF, HTN pw weakness and fatigue found to be in a fib w/rvr # a rib w/rvr: rates slightly better controlled after IVP dilt and transitioning from atenolol to metoprolol. Rate still increased however on personal review of tele monitoring /ecg. Continue medication adjustment--have increased metop and dilt and now started dig loading, continue xarelto # anorexia/abdominal pain: improved and eating now # acute on chronic diastolic heart failure: mildly volume overloaded on arrival , echo report reviewed and no change from prior. Appears euvolemic now # sss: s/p PPM and pacer interrogation unremarkable # hypothyroid: tsh wnl, continue op medications # thrombocytopenia: mild but new from prior hospitalization, stable overnight # DNR # dispo: IP status, will need > 48 hours stay for eval/mgmt of above given high risk presenting issues Subjective: no significant overnight events, patient feeling a bit better but even with mild exertion HR increasing to the 140s Objective: Vital Signs Temp Pulse Resp BP Pulse Ox 36.7 C 122 H 19 110/82 H 92 01/13/17 12:20 01/13/17 13:29 01/13/17 12:20 01/13/17 12:20 01/13/17 12:20 Laboratory Results 01/13/17 04:25 01/12/17 01/13/17 01/14/17 05:59 05:59 05:59 Intake Total 610 600 Output Total 800 275 Balance -190 325 awake alert nad anicteric op clear irreg irreg tachy cta w/dec bs at bases soft nt nd trace ble edema warm dry well perfused oriented appropriate - Time Spent With Patient Time Spent with Patient: greater than 35 minutes Time Spent with Patient: Greater than 35 minutes spent on this patients care, greater than 50% of time spent counseling, educating, and coordinating care regarding the above mentioned plan. ICD10 Worksheet Patient Problems: Problems Problem Status Onset CHF (congestive heart failure) Acute Rapid atrial fibrillation Acute Afib - Atrial fibrillation Active Dyslipidemia Active Hypothyroidism Active Peripheral vascular disease Active Atrial fibrillation Acute Congestive heart failure Acute Hypoxia Acute
[2017-01-13] MEDS ORDERED: NS 1,000 ML IV SCH (14:00)
--- NOTE | 2017-01-13 15:48 | PDCARPN ---
Cardiology Progress Note Chief Complaint: Patient reports ultimately feeling better, less short of breath. Assessment/Plan: Assessment: 76-year-old female with known history of permanent atrial fibrillation, hypertension, hypothyroidism, sick sinus syndrome with ppm implantation, and previous CVA. Admitted for AFib with RVR and mildly elevated BNP. Echocardiogram done on 01/01 showing normal LV size, low normal LV systolic function with EF 50-55%, LA and RA severely dilated, mild MR, [id number] TR, RVSP within normal limits. Most recent device interrogation from our office (12/01/2016), showing patient 100% AFib burden, she is noted to have ventricular rates between 110-160 BPM 20% of the time. Yesterday, and attempt to get better rate control, we increased both her metoprolol and oral diltiazem. Today Mild bump in BUN at 36 and creatinine at 1.2. Last evening, heart rate continued to remain elevated, rate as high as 159 BPM, despite increasing metoprolol and diltiazem. Patient also noted to be mildly hypotensive, with blood pressure at 81/58 at 8:00 p.m. last evening. Patient reports no chest pressure or pain. Reports shortness of breath is improved. Denies of any lightheadedness, near-syncope or syncopal events. Increase oral diltiazem dose Plan: 1. Atrial fibrillation with rapid ventricular response: rate still poorly controlled despite increased metoprolol and diltiazem oral dosage. Patient also noted to be mildly hypotensive last evening. Today, will return diltiazem back to original dosage of 120 mg twice daily. Continue on metoprolol at 75 mg p.o. twice daily. Will attempt to start her on digoxin, load her with 0.25 mg q.6 hours x3. TSH within normal limits. Will continue cardiac monitoring. She remains on Xarelto for anticoagulation. Have discussed case with Dr. Albarran, patient will follow up with him in office next , for possible discussion to set up for AV node ablation. 2. Diastolic dysfunction: Elevated BNP on admission, IV Lasix given last 2 days. Patient reports improvement in shortness of breath. BUN creatinine up mildly today, patient mildly hypotensive. Hold off of further diuresis at this time. 3. Sick sinus syndrome: Patient has [employer] pacemaker implantation, interrogation today showing device functioning within normal limits. 4. Hypothyroidism: Patient continues on home medication. TSH within normal limits.. 01/13/17 15:48 Subjective: Patient denies of any chest pressure or pain, lightheadedness, palpitations, near-syncope, or syncopal events. Reviewed/Discussed With: other (Dr Menon and Dr Parker) Objective: Vital Signs (8 Hrs) Temp Pulse Resp BP Pulse Ox 01/13/17 13:29 122 H 01/13/17 12:20 36.7 C 116 H 19 110/82 H 92 01/13/17 09:09 140 H Intake/Output (24 Hrs) 01/12/17 01/13/17 01/14/17 05:59 05:59 05:59 Intake Total 610 600 Output Total 800 275 Balance -190 325 Intake: Oral (ml) 600 600 IV Intake (ml) 10 Output: Urine (ml) 800 275 Toilet 800 275 Other: Weight 88.9 kg Intake Quantity Yes Sufficient Number of Voids Toilet 2 1 Number of Stools Toilet 1 Result Diagrams: 01/11/17 04:24 01/13/17 04:25 - Physical Exam Constitutional: no apparent distress, obese Ears, Nose, Mouth, Throat: moist mucous membranes Cardiovascular: no rubs, systolic murmur (1-2/6 systolic murmur noted along left sternal border), irregularly irregular (AFib with RVR.), pulses symmetric bilat, No jugular vein distention, No carotid bruit Peripheral Pulses: 1+: dorsalis-pedis (R), dorsalis-pedis (L), 2+: carotid (R), carotid (L) Respiratory: other (Diminished in bases, no rhonchi, rales, or wheezing noted.) Gastrointestinal: normoactive bowel sounds Skin: warm, No no edema (Trace pedal edema bilateral lower extremities.) Neurologic: AAOx3 Psychiatric: cooperative, interactive, following commands ICD10 Worksheet Patient Problems: Problems Problem Status Onset Afib - Atrial fibrillation Active Hypothyroidism Active Dyslipidemia Active Peripheral vascular disease Active Congestive heart failure Acute Atrial fibrillation Acute Hypoxia Acute Rapid atrial fibrillation Acute CHF (congestive heart failure) Acute
[2017-01-13] MEDS: ATORVASTATIN CALCIUM 20 MG TAB PO SCH (20:37)
[2017-01-13] MEDS: RIVAROXABAN 10 MG TAB PO SCH (20:38)
[2017-01-14 05:02] VITALS: RESP 15
[2017-01-14 05:19] LABS: ANION GAP 7 mEq/L (8-16); CALCIUM 8.6 mg/dL (8.5-10.4); CARBON DIOXIDE 24 mEq/l (22-31); CHLORIDE 102 mEq/L (97-110); CREATININE 0.8 mg/dL (0.6-1.0); GLOMERULAR FILTRATION RATE > 60; GLUCOSE 87 mg/dL (70-100); POTASSIUM 3.8 mEq/L (3.5-5.2); SODIUM 133 mEq/L (134-144)
[2017-01-14] MEDS: LEVOTHYROXINE 75 MCG TAB PO SCH (06:26)
[2017-01-14 07:47] VITALS: BP 113/68; TEMP 97.9
[2017-01-14] MEDS: OMEGA-3 FATTY ACIDS 1,000 MG CAP PO SCH (07:52)
[2017-01-14] MEDS: DILTIAZEM CD 120 MG CAP PO SCH (07:53)
[2017-01-14] MEDS: CYANO/VITAMIN B12 1000 MCG TAB PO SCH (07:53)
[2017-01-14] MEDS: CHOLECALCIFEROL VIT D3 2,000 UNITS TAB/CAP PO SCH (07:53)
[2017-01-14] MEDS: PRESERVISION AREDS2 FORMULA EYE VIT 1 EACH PO SCH (07:53)
[2017-01-14] MEDS: METOPROLOL TARTRATE 50 MG TAB PO SCH (07:54)
[2017-01-14] MEDS: MULTIVITAMINS 1 EACH TAB PO SCH (07:54)
[2017-01-14] MEDS: PANTOPRAZOLE SODIUM 40 MG TAB PO SCH (07:55)
[2017-01-14 07:59] VITALS: O2SAT 91
[2017-01-14 09:57] VITALS: PULSE 107
[2017-01-14] MEDS ORDERED: DIGOXIN 125 MCG TAB PO SCH (10:00)
--- NOTE | 2017-01-14 12:02 | GDS ---
[f rep st] DISCHARGE SUMMARY DISCHARGE DIAGNOSES: 1. Atrial fibrillation with rapid ventricular response. 2. Acute kidney injury, resolved. 3. Acute on chronic diastolic heart failure with volume overload. 4. Sick sinus syndrome, status post pacemaker placement. 5. Hypothyroidism. 6. Thrombocytopenia. 7. Resolved anorexia/abdominal pain. CONSULTANTS: [facility]. HOSPITAL COURSE AND STAY BY PROBLEM: 1. Atrial fibrillation with rapid ventricular response causing acute on chronic diastolic heart dora lure with volume overload: The patient was admitted to the hospital where she was treated with IV d iltiazem and uptitrated on her home diltiazem and switched from atenolol to metoprolol 75 mg p.o. tw ice daily. After adjusting her medications, she developed some bouts of hypotension. Subsequently, her creatinine increased from 0.9 to 1.2 between 01/11 and 01/13/2017. On the , she is normote nsive with a creatinine of 0.8. On day of discharge, she tells me she feels better. I discussed he r case with Enoch Ocasio from [facility] who is recommending that she follow up [facility] Dr. Albarran as outpatient to be considered for AV node ablation. She was started on digoxin yesterda y. PHYSICAL EXAM: VITAL SIGNS: On day of discharge, blood pressure 113/68, pulse of 81, respiratory r ate 15, O2 saturation 91% on room air, temperature afebrile. GENERAL: No acute distress. HEART: S1, S2. Irregularly irregular. LUNGS: Clear. ABDOMEN: Soft. EXTREMITIES: No edema. CURRENT LABS AND STUDIES: TSH was within normal range at 2.550. BNP 3260 on 01/10/2017. DISCHARGE MEDICATIONS: Please refer to discharge medication reconciliation in [facility] for details. DISCHARGE INSTRUCTIONS: The patient will be discharged from the hospital where she plans to follow up with Dr. Albarran next week to be evaluated for AV node ablation. She will seek medical attention if her condition worsens. /[id number]/MODL
--- NOTE | 2017-01-14 12:42 | PDCARPN ---
Cardiology Progress Note Chief Complaint: Patient reports she would like to go home. Feels she can get more rest there. Assessment/Plan: Assessment: 76-year-old female with known history of permanent atrial fibrillation, hypertension, hypothyroidism, sick sinus syndrome with ppm implantation, and previous CVA. Admitted for AFib with RVR and mildly elevated BNP. Echocardiogram done on 01/01 showing normal LV size, low normal LV systolic function with EF 50-55%, LA and RA severely dilated, mild MR, [id number] TR, RVSP within normal limits. Most recent device interrogation from our office (12/01/2016), showing patient 100% AFib burden, she is noted to have ventricular rates between 110-160 BPM 20% of the time. Yesterday, and attempt to get better rate control, we increased both her metoprolol and oral diltiazem. Creatinine down to 0.8 today. Blood pressure improved throughout the evening., heart rates down to 76 BPM. Patient is rate still varying between 80-120 BPM. She denies of any chest pressure or pain. Overnight telemetry showing atrial fib, no other malignant arrhythmias or pauses noted. Plan: 1. Atrial fibrillation with rapid ventricular response: Improved rate control with metoprolol tartrate at 75 mg p. o. twice daily, diltiazem CD at 120 mg p.o. twice daily, and digoxin (IV loaded yesterday), started on 0.125 mg orally today. No further episodes hypotension overnight. Creatinine improved. Continue current home medication dosage. Patient will remain on Xarelto for anticoagulation. I have had long conversations with patient his hospitalization consideration of AV alesha ablation the future. She will like to discuss this further, I have scheduled her to be seen next with Dr. Albarran and the [facility] office. 2. Diastolic dysfunction: She appears to be euvolemic, her blood pressure is well controlled. Creatinine within normal limits. 3. Sick sinus syndrome: Patient has [employer] pacemaker implantation, interrogated yesterday showing within normal limits. 4. Hypothyroidism: Patient continues on home medication. TSH within normal limits.. Patient to be discharged today, we have discussed medication compliance he, and all new medications that she will be taking. I would like her to get a digoxin level drawn before she sees Dr. Albarran next . She has been told that if she has any problems or concerns she should call [facility] or return to the hospital. 01/14/17 12:38 Subjective: She denies of any chest pressure, palpitations, shortness of breath, lightheadedness, feeling of near-syncope or syncopal events Objective: Vital Signs (8 Hrs) Temp Pulse BP Pulse Ox 01/14/17 09:55 107 H 01/14/17 07:59 91 L 01/14/17 07:47 36.6 C 81 113/68 94 Intake/Output (24 Hrs) 01/13/17 01/14/17 01/15/17 05:59 05:59 05:59 Intake Total 600 2117 Output Total 275 1120 Balance 325 997 Intake: Oral (ml) 600 820 IV Infused (ml) 1297 Ns 1,000 ml @ 100 mls/hr 1297 IV CONT KARLA Rx#: [id number] Output: Urine (ml) 275 1120 Toilet 275 1120 Other: Weight 88.9 kg 90.7 kg Number of Voids Toilet 1 Number of Stools Toilet 1 1 Result Diagrams: 01/11/17 04:24 01/14/17 04:40 - Physical Exam Constitutional: WDWN, no apparent distress, obese Ears, Nose, Mouth, Throat: moist mucous membranes Cardiovascular: irregularly irregular, pulses symmetric bilat, No jugular vein distention Peripheral Pulses: 1+: dorsalis-pedis (R), dorsalis-pedis (L), 2+: carotid (R), carotid (L) Respiratory: clear to auscultate bilat, no crackles, no wheezes Gastrointestinal: normoactive bowel sounds Skin: no rashes, No no edema (Trace peripheral edema bilateral lower extremity) Neurologic: AAOx3 Psychiatric: cooperative, interactive, following commands ICD10 Worksheet Patient Problems: Problems Problem Status Onset Afib - Atrial fibrillation Active Hypothyroidism Active Dyslipidemia Active Peripheral vascular disease Active Congestive heart failure Acute Atrial fibrillation Acute Hypoxia Acute Rapid atrial fibrillation Acute CHF (congestive heart failure) Acute
== END 2017-01-14 14:12 | disposition home or self-care (01) | DRG 308 ==
LOC: CED 07:35 → F2W 09:57 → OBSVTOIN 01-11 14:29
PROVIDERS: ADMIT Family Medicine; ATTEND Family Medicine
DX: I48.91 Unspecified atrial fibrillation (principal); I50.33 Acute on chronic diastolic (congestive) heart failure; N17.9 Acute kidney failure, unspecified; E03.9 Hypothyroidism, unspecified; D69.6 Thrombocytopenia, unspecified; I11.0 Hypertensive heart disease with heart failure; Z96.651 Presence of right artificial knee joint; Z66 Do not resuscitate; Z95.0 Presence of cardiac pacemaker; Z86.73 Personal history of transient ischemic attack (TIA), and cerebral infarction without residual deficits; Z87.891 Personal history of nicotine dependence
CPT/HCPCS: 71010-PO; 80048-PO; 83880-PO; 84443-PO; 84484-PO; 85025-PO; 96374; 97116-GP; 97161-GP; 97165-GO; 97535-GO; G0378; G8978-GP-CJ; G8979-GP-CI; G8987-GO-CI; G8988-GO-CI; J1160

== ENCOUNTER 2017-01-31 06:50 | Observation (INO) | payer OTHER, MEDICARE ==
[2017-01-31] MEDS ORDERED: BUPIVACAINE 0.5% 30 ML SDV ONE (07:37)
[2017-01-31] MEDS ORDERED: LIDOCAINE 1% 300 MG/30 ML SDV ONE (07:37)
[2017-01-31] MEDS ORDERED: HEPARIN 10,000 UNIT/10 ML MDV ONE (07:37)
[2017-01-31] MEDS ORDERED: PROPOFOL/EMULSION 500 MG/50 ML BOTTLE IV ONE (08:35)
[2017-01-31] MEDS ORDERED: PROPOFOL 200 MG/20 ML VIAL ONE (08:47)
[2017-01-31] MEDS ORDERED: PHENYLEPHRINE HCL 100 MCG/ML SYR ONE (08:58)
[2017-01-31] MEDS ORDERED: ATROPINE SULFATE 1 MG/10 ML SYR ONE (09:54)
[2017-01-31] MEDS ORDERED: ACETAMINOPHEN 325 MG TAB ONE (10:37)
[2017-01-31] MEDS ORDERED: ACETAMINOPHEN 325 MG TAB PO PRN ×2 (10:46→13:27)
[2017-01-31] MEDS ORDERED: ONDANSETRON 4 MG/2 ML VIAL IVP PRN (10:46)
--- NOTE | 2017-01-31 13:11 | CPEKG ---
Heart Rate: 74 RR Interval: 811 P-R Interval: 148 QRSD Interval: 146 QT Interval: 420 QTC Interval: 466 P [place]: 150 QRS [place]: -83 T Wave [place]: 88 EKG Severity - ABNORMAL ECG - EKG Impression: VENTRICULAR-PACED COMPLEXES EKG Impression: RBBB AND LAFB EKG Impression: PROBABLE LVH WITH SECONDARY REPOL ABNRM Electronically Signed By: Dilshad Mane 31-Jan-2017 13:28:03
--- NOTE | 2017-01-31 13:19 | CPEKG ---
Heart Rate: 124 RR Interval: 484 QRSD Interval: 76 QT Interval: 324 QTC Interval: 466 QRS [place]: 78 T Wave [place]: 259 EKG Severity - ABNORMAL ECG - EKG Impression: ATRIAL FIBRILLATION, V-RATE 85-181 EKG Impression: SINUS PAUSE/ARREST WITH VENTRICULAR ESCAPE EKG Impression: ABERRANT COMPLEX, POSSIBLY SUPRAVENTRICULAR EKG Impression: REPOL ABNRM SUGGESTS ISCHEMIA, DIFFUSE LEADS EKG Impression: BORDERLINE PROLONGED QT INTERVAL Electronically Signed By: Dilshad Mane 31-Jan-2017 13:27:55
[2017-01-31] MEDS ORDERED: ATORVASTATIN CALCIUM 20 MG TAB PO SCH (21:00)
[2017-01-31] MEDS ORDERED: RIVAROXABAN 10 MG TAB PO SCH (21:00)
--- NOTE | 2017-01-31 21:21 | EPPROC ---
Electrophysiology Procedure Note: CATHETER MEDIATED ABLATION OF THE AV JUNCTION Procedures performed: 10315 AV node ablation Fluoroscopy Pacemaker reprogramming INDICATION: Atrial fibrillation, unable to rate control despite maximally tolerated medical therapy Catheters & Anesthesia: The patient arrived in the Electrophysiology Laboratory in the fasting state. Moderate sedation was administered by anesthesiologist. The right groin and left groin area were prepped and draped in the usual sterile manner. Appropriate non-invasive blood pressure, pulse oximetry and end-tidal CO2 monitoring was established. All catheters were placed percutaneously using the modified Seldinger technique and advanced into position under fluoroscopic guidance). At baseline the patient was noted to be in AFIB with a mean ventricular rate of 110 bpm. A #7 [place]ut deflectable quadrapolar electrode catheter (2mm-5mm-2mm spacing) with 8 mm tip electrode was advanced to the right atrium. A total of 4 RF applications were delivered. RF#1 was applied in the area of the compact AV node. RF#2 was applied to the same area as RF#1. RF#3 was applied to the area of the fast AV alesha pathway. RF#4 was applied to the right midseptal tricuspid annulus. There was complete AV block after RF1.. Pacing at 30 ppm revealed that there was no escape rhythm. Pacemaker implantation was done previously. The pacemaker was programmed to a lower rate of 80 ppm to reduce the risk of sudden associated with torsades de pointes. The lower rate will gradually be reduced to 60 ppm after 1 month . Fluoroscopically pacemaker lead positions were unchanged after procedure Pacemaker thresholds and impedances were unchanged after the procedure The catheters were removed. The patient was transferred to the cardiovascular holding area in stable condition. Vascular access sheaths were removed in the holding area. There were no apparent complications. CONCLUSIONS: 1. Atrial fibrillation with rapid ventricular response. 2. Successful ablation of the AV junction producing complete AV block. 3. No escape rhythm while pacing at a rate of 30 bpm. 4. No complications. Patient Problems: Problems Problem Status Onset Afib - Atrial fibrillation Active Hypothyroidism Active Dyslipidemia Active Peripheral vascular disease Active Congestive heart failure Acute Atrial fibrillation Acute Hypoxia Acute Rapid atrial fibrillation Acute CHF (congestive heart failure) Acute
[2017-01-31] MEDS: PRESERVISION AREDS2 FORMULA EYE VIT 1 EACH PO SCH (21:25)
[2017-01-31] MEDS: METOPROLOL TARTRATE 50 MG TAB PO SCH (21:27)
[2017-02-01 04:04] LABS: % IMMATURE GRANULYOCYTES 0.8 % (0.0-1.1); ABSOLUTE IMMATURE GRANULOCYTES 0.05 10^3/uL (0.00-0.10); ADD DIFF? NO; ADD MORPH? NO; ADD SCAN? NO; ATYPICAL LYMPHOCYTE FLAG 40 (0-99); FRAGMENT RBC FLAG 0 (0-99); HEMATOCRIT 38.6 % (38.0-47.0); HEMOGLOBIN 12.8 g/dL (12.6-16.3); LEFT SHIFT FLG 10 (0-99); LIPEMIA HEMOLYSIS FLAG 80 (0-99); MEAN CELL HEMOGLOBIN 28.4 pg (27.9-34.1); MEAN CELL HEMOGLOBIN CONCENTR. 33.2 g/dL (32.4-36.7); MEAN CELL VOLUME 85.6 fL (81.5-99.8); MEAN PLATELET VOLUME 9.8 fL (8.7-11.7); PLATELET CLUMPS FLAG 0 (0-99); PLATELET COUNT 169 10^3/uL (150-400); RED BLOOD CELL COUNT 4.51 10^6/uL (4.18-5.33); RED CELL DISTRIBUTION WIDTH 14.9 % (11.5-15.2)
[2017-02-01 04:49] LABS: ANION GAP 9 mEq/L (8-16); CALCIUM 9.1 mg/dL (8.5-10.4); CARBON DIOXIDE 25 mEq/l (22-31); CHLORIDE 107 mEq/L (97-110); CREATININE 0.7 mg/dL (0.6-1.0); GLOMERULAR FILTRATION RATE > 60; GLUCOSE 115 mg/dL (70-100); SODIUM 141 mEq/L (134-144)
[2017-02-01 04:58] LABS: CREATINE KINASE-MB FRACTION 2.21 ng/mL (0-3.19); TROPONIN I 0.046 ng/mL (0-0.034)
[2017-02-01] MEDS ORDERED: LEVOTHYROXINE 75 MCG TAB PO SCH (06:00)
[2017-02-01 07:58] VITALS: PULSE 82; O2SAT 92
[2017-02-01] MEDS ORDERED: OMEGA-3 FATTY ACIDS 1,000 MG CAP PO SCH (09:00)
[2017-02-01] MEDS ORDERED: CYANO/VITAMIN B12 1000 MCG TAB PO SCH (09:00)
[2017-02-01] MEDS ORDERED: MULTIVITAMINS 1 EACH TAB PO SCH (09:00)
[2017-02-01] MEDS: PRESERVISION AREDS2 FORMULA EYE VIT 1 EACH PO SCH (09:17)
[2017-02-01] MEDS: FUROSEMIDE 20 MG TAB PO SCH ×2 (09:18→09:26)
[2017-02-01] MEDS: METOPROLOL TARTRATE 50 MG TAB PO SCH (09:18)
--- NOTE | 2017-02-01 09:20 | CPEKG ---
Heart Rate: 97 RR Interval: 619 P-R Interval: 154 QRSD Interval: 132 QT Interval: 384 QTC Interval: 488 P [place]: 0 QRS [place]: -86 T Wave [place]: 96 EKG Severity - ABNORMAL ECG - EKG Impression: ATRIAL-SENSED VENTRICULAR-PACED RHYTHM Electronically Signed By: Dilshad Mane 01-Feb-2017 11:11:56
[2017-02-01 12:18] VITALS: BP 142/93; RESP 13; TEMP 97.6
--- NOTE | 2017-02-01 14:26 | ECHO ---
[id number] + + [address] : : [place] [address] : : [phone] + + Adult Echocardiographic Report + + :Name: CHRISS OKEEFE MStudy Date: 02/01/2017 10:42 AM : : Hospital Admission Number: [id number] : :: 1940 Gender: Female Height: 67 in : :Age: 77 yrs Race: WH,White Weight: 196 lb : :Reason For Study: F/U post EP study : : BSA: 2.0 meters2: :History: Pacer : + + MMode/2D Measurements \T\ Calculations IVSd: 1.0 cm LVIDd: 4.8 cm FS: 27.0 % MV Diam: 3.6 cm LVPWd: 0.78 cm LVIDs: 3.5 cm EDV(Teich): 108.8 ml ESV(Teich): 51.7 ml EF(Teich): 52.5 % Ao root diam: 3.2 cm LVOT diam: 1.9 cm LA dimension: 4.5 cm LVOT area: 3.0 cm2 Normal Measurement Values: + + :LVIDd (3.5-5.7cm) IVSd (0.6-1.1cm) LVPWd (0.6-1.1cm) Aortic Root (2.0-3.7cm)Left Atrium (1.5-4.0cm): :LV Vol(d) (76-115ml) LV Vol(s) (29-48ml) Ejec Fraction (50-65%)PV Bhaskar (0.6- 1.2m/s) TV Bhaskar (0.4-1.0m/s) : :MV E Bhaskar (0.8-1.0m/s)MV A Bhaskar (0.3-1.0m/s)LVOT Bhaskar (0.7-1.2m/s) Asc Ao Bhaskar ( 0.9-1.8m/s) : + + Doppler Measurements \T\ Calculations MV V2 mean: Ao mean PG: LV V1 max: MR max bhaskar: 82.6 cm/sec 3.4 mmHg 66.6 cm/sec 545.4 cm/sec MV mean P.4 mmHgAo V2 mean: LV V1 max PG: MR max PG: MV V2 VTI: 25.6 cm 84.5 cm/sec 1.8 mmHg 119.0 mmHg MV area (1 diam): Ao V2 VTI: 23.2 cm LV V1 mean P.89 mmHg 10.4 cm2 MALINI(I,D): 1.6 cm2 LV V1 mean: MVA(VTI): 1.4 cm2 43.5 cm/sec MV Flow area(1diam): LV V1 VTI: 12.2 cm 10.4 cm2 MR(RF 1 diam): 6.1 %SV(MV 1 diam): TR max bhaskar: RF(MV,Ao)(1 diam): 267.6 ml 283.7 cm/sec 0.32 SI(MV 1 diam): TR max PG: RF(MV,LVOT) 32.2 mmHg (1diam): 0.86 133.5 ml/m2 RAP systole: SV(LVOT): 36.3 ml 10.0 mmHg RVSP(TR): 42.2 mmHg Left Ventricle The left ventricle is normal in size. There is normal left ventricular wall thickness. Left ventricular systolic function is low normal. Ejection Fraction = 55-60%. Septal motion is consistent with conduction abnormality. Right Ventricle The right ventricle is normal in size and function. There is a pacemaker lead in the right ventricle. Atria The left atrium is severely dilated. The right atrium is severely dilated. The interatrial septum is intact with no evidence for an atrial septal defect. Mitral Valve Calcified mitral apparatus. There is no evidence of mitral valve prolapse. There is no mitral valve stenosis. There is moderate mitral regurgitation. Tricuspid Valve Normal tricuspid valve. There is moderate to severe tricuspid regurgitation. Right ventricular systolic pressure is 42mmHg. There is Doppler evidence for mild pulmonary hypertension. Aortic Valve The aortic valve is trileaflet. The aortic valve opens well. Mild aortic calcification. There is no aortic stenosis. There is no aortic insufficiency. Pulmonic Valve The pulmonic valve is normal in structure and function. There is no pulmonic valvular regurgitation. Great Vessels The aortic root is normal size. Pericardium/Pleural There is no pericardial effusion. Conclusion A complete two-dimensional transthoracic echocardiogram was performed (2D, M-mode, Doppler and color flow Doppler). Left ventricular systolic function is low normal. Ejection Fraction = 55-60%. Septal motion is consistent with conduction abnormality. The left atrium is severely dilated. The right atrium is severely dilated. Calcified mitral apparatus. There is moderate mitral regurgitation. There is moderate to severe tricuspid regurgitation. Right ventricular systolic pressure is 42mmHg. There is Doppler evidence for mild pulmonary hypertension. Mild aortic calcification. There is no pericardial effusion. Final Reading Physician: Blayne Meza signed on 02/01/2017 02:24 PM Ordering Physician: Galdino Albarran Performed By: Kelly Carrero RDCS
--- NOTE | 2017-02-01 17:24 | GDS ---
[f rep st] DISCHARGE SUMMARY ADMITTING DIAGNOSES: 1. Persistent atrial fibrillation with rapid ventricular response. 2. Prior dual chamber pacemaker implant. 3. Essential hypertension. 4. History of congestive heart failure with diastolic dysfunction. DISCHARGE DIAGNOSES: 1. Persistent atrial fibrillation, status post atrioventricular node ablation. 2. Dual chamber pacemaker implant previously. 3. Hypertension. 4. Diastolic dysfunction. BRIEF HISTORY: The patient is a 77-year-old woman with a long history of persistent atrial fibrillation with difficult to control ventricular rate despite maximally tolerated medications. She had previously had a dual chamber pacemaker implanted which is functioning normally by interrogation prior to AV node ablation. HOSPITAL COURSE: Dr. Albarran performed a successful ablation of the AV node junction. There was no escape rhythm when pacing at 30 beats per minute. The patient did well overnight without any bleeding from her groin site. This morning, she reports feeling much better. She denies any chest pain, shortness of breath, or leg pain. Of note, her pacemaker rate is set at a base rate of 80 beats per minute to decrease the risk of torsades over the first month postablation. Rate will be gradually decreased in the office. LABORATORY DATA: Labs from 02/01/17, WBC is 6.58, hemoglobin 12.8, hematocrit 38.6, platelets 169. Sodium 141, potassium 4.0, chloride 107, bicarb 25, BUN 11 , creatinine 0.7. CK 59, troponin is 0.046 which is elevated, and to be expected postablation. TESTING DONE: Echocardiogram on 02/01/17, ejection fraction 55% to 60%, severely dilated right and left atria, moderate MR, moderate to severe TR, and estimated RVSP of 42 mmHg. No effusion. PHYSICAL EXAMINATION: VITAL SIGNS: Blood pressure is 140/84, pulse 82, respirations 16, O2 saturation on room air is 92%, temperature is 36.7. GENERAL : She is alert and oriented in no acute distress, ambulating in her room. CARDIAC: Regular rate with a 2/6 systolic murmur. LUNGS: Clear to auscultation. EXTREMITIES: Warm without edema, +2 pedal pulses. Right groin is without ecchymosis or hematoma, and no bruit. DISCHARGE MEDICATIONS: Please see medication reconciliation discharge form. Of note, digoxin was stopped and metoprolol was decreased to 50 mg b.i.d. She will also continue diltiazem 120 mg that she has been taking for blood pressure control; BP and medications will be evaluated in office setting and potentially decreased if blood pressure allows as she does not need it for rate control now. FOLLOW UP: She has an appointment with Dr. Albarran on February 23 at 1:45. /[id number]/MODL MTDD
== END 2017-02-01 15:27 | disposition home or self-care (01) ==
LOC: F2W 06:50
PROVIDERS: ADMIT Internal Medicine Cardiovascular Disease; ATTEND Internal Medicine Cardiovascular Disease
PROC: 4B02XSZ Measurement of Cardiac Pacemaker, External Approach (ICD-10-PCS; principal; 2017-01-31)
PROC: 02563ZZ Destruction of Right Atrium, Percutaneous Approach (ICD-10-PCS; principal; 2017-01-31)
DX: I48.1 Persistent atrial fibrillation (principal); I10 Essential (primary) hypertension; I50.30 Unspecified diastolic (congestive) heart failure; Z95.0 Presence of cardiac pacemaker
CPT/HCPCS: 93005; 93288; 93306; 93650; J1644; J2370; J2704; J0461

== ENCOUNTER → 2017-02-23 | Outpatient (CLI) | payer OTHER, MEDICARE | LOC: BHFA 13:45 | PROVIDERS: ATTEND Internal Medicine Cardiovascular Disease | DX: I48.91 Unspecified atrial fibrillation (principal) ==

== ENCOUNTER 2017-03-14 06:20 | Emergency (ER) | payer OTHER, MEDICARE ==
[2017-03-14 06:29] VITALS: TEMP 97.5
--- NOTE | 2017-03-14 06:59 | CPEKG ---
Heart Rate: 70 RR Interval: 857 QRSD Interval: 144 QT Interval: 460 QTC Interval: 497 QRS [place]: -84 T Wave [place]: 95 EKG Severity - ABNORMAL ECG - EKG Impression: AFIB/FLUTTER AND VENTRICULAR-PACED RHYTHM Electronically Signed By: Elpidio Olsen 14-Mar-2017 07:27:01
[2017-03-14 07:17] LABS: % IMMATURE GRANULYOCYTES 0.8 % (0.0-1.1); ABSOLUTE IMMATURE GRANULOCYTES 0.04 10^3/uL (0.00-0.10); ADD DIFF? NO; ADD MORPH? NO; ADD SCAN? NO; ATYPICAL LYMPHOCYTE FLAG 30 (0-99); FRAGMENT RBC FLAG 0 (0-99); HEMATOCRIT 40.8 % (38.0-47.0); HEMOGLOBIN 13.6 g/dL (12.6-16.3); LEFT SHIFT FLG 10 (0-99); LIPEMIA HEMOLYSIS FLAG 80 (0-99); MEAN CELL HEMOGLOBIN 28.4 pg (27.9-34.1); MEAN CELL HEMOGLOBIN CONCENTR. 33.3 g/dL (32.4-36.7); MEAN CELL VOLUME 85.2 fL (81.5-99.8); MEAN PLATELET VOLUME 9.7 fL (8.7-11.7); PLATELET CLUMPS FLAG 10 (0-99); PLATELET COUNT 192 10^3/uL (150-400); RED BLOOD CELL COUNT 4.79 10^6/uL (4.18-5.33)
[2017-03-14 07:25] LABS: ALANINE AMINOTRANSFERASE 29 IU/L (9-52); ALBUMIN 4.2 g/dL (3.5-5.0); ALKALINE PHOSPHATASE 84 IU/L (38-126); ANION GAP 15 mEq/L (8-16); ASPARTATE AMINOTRANSFERASE 26 IU/L (14-46); BILIRUBIN,TOTAL 0.9 mg/dL (0.1-1.4); BILIRUBIN-CONJUGATED 0.3 mg/dL (0.0-0.5); BILIRUBIN-UNCONJUGATED 0.6 mg/dL (0.0-1.1); CALCIUM 9.7 mg/dL (8.5-10.4); CARBON DIOXIDE 24 mEq/l (22-31); CHLORIDE 103 mEq/L (97-110); CREATININE 0.8 mg/dL (0.6-1.0); GLOMERULAR FILTRATION RATE > 60; GLUCOSE 119 mg/dL (70-100); POTASSIUM 3.7 mEq/L (3.5-5.2); SODIUM 142 mEq/L (134-144); TOTAL PROTEIN 6.9 g/dL (6.3-8.2)
--- NOTE | 2017-03-14 07:25 | EDPHY ---
H & P Time Seen by Provider: 03/14/17 06:51 HPI/ROS: CHIEF COMPLAINT: Weakness HISTORY OF PRESENT ILLNESS: Patient had ablation for atrial fibrillation performed by Dr. Albarran on January 31 of this year. She did well initially but then over the past 2-3 weeks is felt increasingly more fatigued. She feels very weak with exertion and gets tired when she tries to walk across the house to get the bathroom. Before the ablation she could get out and do grocery shopping and was much more active. His weakness is associated with feeling forgetful. She has difficulty giving specifics but her son said that she called him in a panic when she was trying to drive and the car could not move because it was in neutral and not in drive or reverse. That is not usually a source of confusion for her. She also has had decreased appetite with decreased oral intake. Symptoms moderate, stable for 2 weeks, not improving. REVIEW OF SYSTEMS: Eye: no change in vision ENT: no sore throat Cardiac: no chest pain or syncope Pulmonary: no cough or SOB Abdomen: no vomiting, diarrhea, abdominal pain Musculoskeletal: no back pain Skin: Patient did have a rash back in December but continues to have itching. The rash has resolved. Neuro: no headache Constitutional: no fever : no urinary symptoms A comprehensive 10 point review of systems is otherwise negative aside from elements mentioned in the history of present illness. PAST MEDICAL HISTORY: Includes ablation, atrial fibrillation on anticoagulant. Hypertension. Hypothyroid. Stroke in 2010, CHF, right knee replacement, macular degeneration with cataract surgery. Social history: Lives independently, here with her son. General Appearance: Alert and conversant, cooperative. Eyes: No scleral icterus. ENT, Mouth: slightly dry mucous membranes. EOMI. Respiratory: Normal respiratory effort, breath sounds equal, lungs are clear to auscultation. Cardiovascular: Regular rate and rhythm. 2/6 systolic murmur. Gastrointestinal: Abdomen is soft and non tender. Neurological: Alert and oriented. Normally conversant. Face symmetric, normal movement and sensation in all extremities. Ambulatory from triage to room. Normal sentences. Skin: Warm and dry, no urticaria. Musculoskeletal: No peripheral edema and no joint swelling. Psychiatric: Not agitated. Emergency Department course/MDM: Head CT, chest x-ray, labs to include liver function test and electrolytes. EKG shows atrial fibrillation underlying with pacemaker normal function. 745: Noncontrast head CT: Indication is new onset confusion and forgetfulness. Bilateral cortical infarcts in the watershed area, right greater than left, not significantly different from previous imaging [place] [address] Nicholson. Personally reviewed and interpreted by myself. 828: Labs reviewed with the patient. Plan to treat with Macrobid for UTI. Discussed with Dr. Pinto at this time was on-call for [place], will call the patient today and adjust her thyroid dosing. Patient states she is comfortable going home I think it is reasonable to treat her UTI and adjust her thyroid medication dosing and follow her clinically as an outpatient. She is agreeable. Smoking Status: Former smoker Constitutional: Initial Vital Signs Temperature (C) 36.4 C 03/14/17 06:24 Heart Rate 91 03/14/17 06:24 Respiratory Rate 18 03/14/17 06:24 Blood Pressure 151/82 H 03/14/17 06:24 O2 Sat (%) 92 03/14/17 06:24 O2 Delivery Mode Nasal Cannula O2 (L/minute) 2 Allergies/Adverse Reactions: NICKEL Allergy (Intermediate, Uncoded 03/14/17 06:29) Rash BRANDT SILVER Allergy (Intermediate, Uncoded 03/14/17 06:29) Rash Home Medications: Medication Instructions Recorded Atorvastatin Calcium [Lipitor 20 20 mg PO HS 08/17/16 mg (*)] C/E/Zn/Cu/OM3/DHA/EPA/LUT/ZEAX 1 each PO BID 08/17/16 [Preservision Areds 2 Softgel] Cyanocobalamin [Vitamin B12 (*)] 1,000 mcg PO DAILY 08/17/16 Multivitamins [Multivitamin (*)] 1 each PO DAILY 08/17/16 [place]-3 Fatty Acids [Fish Oil 1000 1,000 mg PO DAILY 08/17/16 mg (*)] Rivaroxaban [Xarelto 10mg (*)] 20 mg PO DAILY 08/17/16 Furosemide [Lasix 20 MG (*)] 20 mg PO DAILY #0 tab 08/18/16 Carboxymethylcell/Hypromellose 1 drop EACHEYE DAILY PRN 01/10/17 [Genteal Gel Drops] Levothyroxine [Synthroid 75 mcg 75 mcg PO DAILY06 01/10/17 (*)] Metoprolol Tartrate [Lopressor 50 75 mg PO BID #90 tab 01/14/17 mg (*)] Nitrofurantoin Macrobid [Macrobid] 100 mg PO Q12 #14 cap 03/14/17 Medical Decision Making - Diagnostics EKG Interpretation: 12-lead EKG interpreted by me; official reading is in trace master. My interpretation is underlying atrial fibrillation with ventricular pacing at a rate of 70. Imaging Results: Imaging Impressions Chest X-Ray 03/14/17 07:09 Impression: Stable mild cardiomegaly with bibasilar diskoid subsegmental atelectasis versus linear scar, and no evidence of congestive heart failure. Head CT 03/14/17 07:10 Impression: 1. Negative for acute hemorrhage. 2. Elderly brain with atrophy and probable white matter small vessel disease. 3. Remote cortical infarcts present bilaterally. A preliminary report was called to Dr. Olsen in the Emergency Department. The final report is concordant with the preliminary reading. Differential Diagnosis: Differential considered including but not limited to subdural, anemia, electrolyte dysfunction, acute coronary syndrome. - Data Points Laboratory Results: Laboratory Results 03/14/17 06:50 03/14/17 06:50 03/14/17 03/14/17 03/14/17 07:40 06:50 06:50 WBC 4.92 10^3/uL 10^3/uL (3.80-9.50) RBC 4.79 10^6/uL 10^6/uL (4.18-5.33) Hgb 13.6 g/dL g/dL (12.6-16.3) Hct 40.8 % % (38.0-47.0) MCV 85.2 fL fL (81.5-99.8) MCH 28.4 pg pg (27.9-34.1) MCHC 33.3 g/dL g/dL (32.4-36.7) RDW 15.0 % % (11.5-15.2) Plt Count 192 10^3/uL 10^3/uL (150-400) MPV 9.7 fL fL (8.7-11.7) Neut % (Auto) 65.3 % % (39.3-74.2) Lymph % (Auto) 13.8 % L % (15.0-45.0) [place] % (Auto) 13.0 % % (4.5-13.0) Eos % (Auto) 5.5 % % (0.6-7.6) Baso % (Auto) 1.6 % % (0.3-1.7) Nucleat RBC Rel Count 0.0 % % (0.0-0.2) Absolute Neuts (auto) 3.21 10^3/uL 10^3/uL (1.70-6.50) Absolute Lymphs (auto) 0.68 10^3/uL L 10^3/uL (1.00-3.00) Absolute Monos (auto) 0.64 10^3/uL 10^3/uL (0.30-0.80) Absolute Eos (auto) 0.27 10^3/uL 10^3/uL (0.03-0.40) Absolute Basos (auto) 0.08 10^3/uL 10^3/uL (0.02-0.10) Absolute Nucleated RBC 0.00 10^3/uL 10^3/uL (0-0.01) Immature Gran % 0.8 % % (0.0-1.1) Immature Gran # 0.04 10^3/uL 10^3/uL (0.00-0.10) Sodium 142 mEq/L mEq/L (134-144) Potassium 3.7 mEq/L mEq/L (3.5-5.2) Chloride 103 mEq/L mEq/L (97-110) Carbon Dioxide 24 mEq/l mEq/l (22-31) Anion Gap 15 mEq/L mEq/L (8-16) BUN 13 mg/dL mg/dL (7-23) Creatinine 0.8 mg/dL mg/dL (0.6-1.0) Estimated GFR > 60 Glucose 119 mg/dL H mg/dL (70-100) Calcium 9.7 mg/dL mg/dL (8.5-10.4) Total Bilirubin 0.9 mg/dL mg/dL (0.1-1.4) Conjugated Bilirubin 0.3 mg/dL mg/dL (0.0-0.5) Unconjugated Bilirubin 0.6 mg/dL mg/dL (0.0-1.1) AST 26 IU/L IU/L (14-46) ALT 29 IU/L IU/L (9-52) Alkaline Phosphatase 84 IU/L IU/L (38-126) Troponin I < 0.012 ng/mL ng/mL (0-0.034) Total Protein 6.9 g/dL g/dL (6.3-8.2) Albumin 4.2 g/dL g/dL (3.5-5.0) TSH 30.500 uIU/mL H uIU/mL (0.465-4.680) Urine Color YELLOW Urine Appearance CLEAR Urine pH 6.0 (5.0-7.5) Ur Specific [place] 1.005 (1.002-1.030) Urine Protein NEGATIVE (NEGATIVE) Urine Ketones NEGATIVE (NEGATIVE) Urine Blood NEGATIVE (NEGATIVE) Urine Nitrate NEGATIVE (NEGATIVE) Urine Bilirubin NEGATIVE (NEGATIVE) Urine Urobilinogen NEGATIVE EU EU (0.2-1.0) Ur Leukocyte Esterase TRACE H (NEGATIVE) Urine RBC 1-3 /hpf /hpf (0-3) Urine WBC 3-5 /hpf H /hpf (0-3) Ur Epithelial Cells TRACE /lpf /lpf (NONE-1+) Urine Bacteria TRACE /hpf H /hpf (NONE SEEN) Urine Glucose NEGATIVE (NEGATIVE) Medications Given: Discontinued Medications Nitrofurantoin Macrocrystals (Macrobid) 100 mg PO EDNOW ONE PRN Reason: Protocol Stop: 03/14/17 08:33 Last Admin: 03/14/17 08:45 Dose: 100 mg Departure - Departure Disposition: Home, Routine, Self-Care Clinical Impression: Hypothyroidism Urinary tract infection Qualifiers: Urinary tract infection type: acute cystitis Hematuria presence: without hematuria Qualified Code(s): N30.00 - Acute cystitis without hematuria Condition: Good Instructions: Urinary Tract Infection in Women (ED) Additional Instructions: Your primary care physician's office will call you today to discuss a change in your thyroid dosing. Referrals: Yocasta Johnson MD [Primary Care Provider] - As per Instructions Prescriptions: Nitrofurantoin Macrobid [Macrobid] 100 mg PO Q12 #14 cap
[2017-03-14 07:37] LABS: TROPONIN I < 0.012 ng/mL (0-0.034)
[2017-03-14 07:54] LABS: COLOR YELLOW; LEUKOCYTE ESTERASE,URINE TRACE (NEGATIVE); NITRITE,URINE NEGATIVE (NEGATIVE)
[2017-03-14 07:57] LABS: BACTERIA TRACE /hpf (NONE SEEN)
[2017-03-14 08:22] VITALS: BP 135/77; PULSE 70; O2SAT 95
[2017-03-14] MEDS ORDERED: NITROFURANTOIN MACROBID 100 MG CAP PO ONE (08:32)
[2017-03-14 08:56] VITALS: RESP 16
== END 2017-03-14 08:56 | disposition home or self-care (01) ==
DX: E03.9 Hypothyroidism, unspecified (principal); N30.00 Acute cystitis without hematuria; B96.89 Other specified bacterial agents as the cause of diseases classified elsewhere; Z87.891 Personal history of nicotine dependence

== ENCOUNTER 2017-04-29 11:44 | Inpatient (IN) | payer OTHER, MEDICARE ==
--- NOTE | 2017-04-29 12:04 | EDPHY ---
H & P Time Seen by Provider: 04/29/17 11:58 HPI/ROS: Chief complaint. Shortness of breath, hypoxia HPI. 77-year-old female with history of CHF and atrial fibrillation presents with wheezing and shortness of breath for about 1 week. She has had decreased energy, fatigue, increased sleeping. She has a nonproductive cough and no fever. No chest pain. She is especially short of breath with exertion. She tells me that walking from the parking lot into the building this morning she had to stop and catch her breath which previously she has not had the problem. Her oxygen saturation on arrival was 80% saturation room air. She is not normally on oxygen at home. In February 2017 the patient had an ablation for atrial fibrillation. Her Lasix was decreased at that point. She has had recent weight gain. She has been sleeping slightly elevated. She has had increased swelling of her legs that is worse at the end of the day and better in the morning. She has had recent adjustments to her thyroid medication for inadequate thyroid control. No unusual leg pain with the swelling. ROS Constitutional. Generalized weakness and fatigue Eyes. no problems with vision ENT. no sore throat, no nasal drainage Cardiovascular. no chest pain Respiratory. Shortness of breath with exertion. Nonproductive cough Abdominal. no abdominal pain, no nausea/vomiting, no diarrhea. Decreased appetite . no problems urinating MS. calf and ankle swelling Skin. no rash Lymph. no swollen glands Neuro. no headache, no dizziness, no difficulty walking or with speech Past Medical/Surgical History: Atrial fibrillation status post ablation, hypertension renal insufficiency, congestive heart failure, hypothyroid, CVA, depression, dyslipidemia, chronic fatigue, vitamin B12 deficiency Social History: , nonsmoker, no alcohol Smoking Status: Former smoker Physical Exam: General Appearance: Alert pleasant well-developed female mild distress vital signs significant for oxygen saturation 80% on room air Eyes: Pupils equal and round no pallor or injection. ENT, Mouth: Mucous membranes are moist. Respiratory: No retractions but bilateral rales Cardiovascular: Regular rate and rhythm. Gastrointestinal: Abdomen is soft and nontender, no masses, bowel sounds normal. Neurological: Awake and alert, sensory and motor exams grossly normal. Skin: Warm and dry, no rashes. Musculoskeletal: Neck is supple nontender. Extremities 3+ edema to legs Psychiatric: Patient is oriented X 3, there is no agitation. Constitutional: Initial Vital Signs Heart Rate 81 09/01/17 12:12 Respiratory Rate 18 04/29/17 12:12 Blood Pressure 153/82 H 04/29/17 12:12 O2 Sat (%) 80 L 04/29/17 12:12 O2 Delivery Mode Room Air Allergies/Adverse Reactions: lisinopril Allergy (Verified 04/29/17 13:23) NICKEL Allergy (Intermediate, Uncoded 04/29/17 13:23) Rash BRANDT SILVER Allergy (Intermediate, Uncoded 04/29/17 13:23) Rash Home Medications: Medication Instructions Recorded Atorvastatin Calcium [Lipitor 20 20 mg PO HS 08/17/16 mg (*)] C/E/Zn/Cu/OM3/DHA/EPA/LUT/ZEAX 1 each PO BID 08/17/16 [Preservision Areds 2 Softgel] Cyanocobalamin [Vitamin B12 (*)] 1,000 mcg PO DAILY 08/17/16 [place]-3 Fatty Acids [Fish Oil 1000 1,000 mg PO DAILY 08/17/16 mg (*)] Rivaroxaban [Xarelto 10mg (*)] 20 mg PO DAILY 08/17/16 Furosemide [Lasix 20 MG (*)] 20 mg PO DAILY #0 tab 08/18/16 Levothyroxine [Synthroid 75 mcg 75 mcg PO DAILY06 01/10/17 (*)] Metoprolol Tartrate [Lopressor 50 75 mg PO BID #90 tab 01/14/17 mg (*)] Diltiazem 04/29/17 Medical Decision Making - Diagnostics EKG Interpretation: EKG interpreted by me shows atrial fibrillation with a paced rhythm. Left axis deviation. Interventricular conduction delay. No significant ST elevation or depression. Ventricular response is 84 Imaging Results: Imaging Impressions Chest X-Ray 04/29/17 11:53 Impression: Right middle lobe pneumonia +- acute CHF. Chest x-ray interpreted by me shows possible right middle lobe pneumonia and CHF with blunting of costophrenic angles. Much worse since previous EKG 2 months ago Procedures: IV normal saline, monitor. Patient is placed on oxygen. At 3 L patient is now 96% saturation ED Course/Re-evaluation: Re-evaluation 1:45 p.m.. Patient is stable. The patient and I discussed laboratory evaluation, imaging and EKG evaluation. We discussed treatment plan including recommendation for admission. She expresses understanding and agreement I consulted and discussed this with Dr. Velarde, hospitalist, who agrees to the admission Differential Diagnosis: This appears to be congestive heart failure. In February following for ablation her right 6 doses been reduced markedly to 10 mg daily. She has had gradual weight gain and swelling in her legs. She now has significant dyspnea on exertion and hypoxia. I considered acute coronary syndrome. Chest x-ray was read by radiologist as possible pneumonia however clinically the patient has acute congestive heart failure. Plan is admission to [facility]. Transport by ambulance on oxygen to maintain oxygen saturation. - Data Points Laboratory Results: Laboratory Results 04/29/17 12:55 04/29/17 12:55 04/29/17 04/29/17 04/29/17 12:55 12:55 12:55 WBC RBC Hgb Hct MCV MCH MCHC RDW Plt Count MPV Neut % (Auto) Lymph % (Auto) [place] % (Auto) Eos % (Auto) Baso % (Auto) Nucleat RBC Rel Count Absolute Neuts (auto) Absolute Lymphs (auto) Absolute Monos (auto) Absolute Eos (auto) Absolute Basos (auto) Absolute Nucleated RBC Immature Gran % Immature Gran # PT 21.5 SEC H SEC (12.0-15.0) INR 1.89 H (0.83-1.16) VBG Lactic Acid 2.1 mmol/L mmol/L (0.7-2.1) Sodium 134 mEq/L mEq/L (134-144) Potassium 4.0 mEq/L mEq/L (3.5-5.2) Chloride 96 mEq/L L mEq/L (97-110) Carbon Dioxide 24 mEq/l mEq/l (22-31) Anion Gap 14 mEq/L mEq/L (8-16) BUN 13 mg/dL mg/dL (7-23) Creatinine 0.9 mg/dL mg/dL (0.6-1.0) Estimated GFR > 60 Glucose 96 mg/dL mg/dL (70-100) Calcium 9.1 mg/dL mg/dL (8.5-10.4) Total Bilirubin 1.1 mg/dL mg/dL (0.1-1.4) Troponin I < 0.012 ng/mL ng/mL (0.000-0.034) NT-Pro-B Natriuret Pep 4120 pg/mL H pg/mL (0-450) Urine Color Urine Appearance Urine pH Ur Specific [place] Urine Protein Urine Ketones Urine Blood Urine Nitrate Urine Bilirubin Urine Urobilinogen Ur Leukocyte Esterase Urine RBC Urine WBC Ur Epithelial Cells Amorphous Sediment Urine Bacteria Hyaline Casts Urine Mucus Urine Glucose 04/29/17 04/29/17 12:55 12:30 WBC 7.54 10^3/uL 10^3/uL (3.80-9.50) RBC 4.03 10^6/uL L 10^6/uL (4.18-5.33) Hgb 11.0 g/dL L g/dL (12.6-16.3) Hct 33.3 % L % (38.0-47.0) MCV 82.6 fL fL (81.5-99.8) MCH 27.3 pg L pg (27.9-34.1) MCHC 33.0 g/dL g/dL (32.4-36.7) RDW 15.0 % % (11.5-15.2) Plt Count 301 10^3/uL 10^3/uL (150-400) MPV 9.7 fL fL (8.7-11.7) Neut % (Auto) 80.5 % H % (39.3-74.2) Lymph % (Auto) 7.0 % L % (15.0-45.0) [place] % (Auto) 9.2 % % (4.5-13.0) Eos % (Auto) 1.2 % % (0.6-7.6) Baso % (Auto) 0.5 % % (0.3-1.7) Nucleat RBC Rel Count 0.0 % % (0.0-0.2) Absolute Neuts (auto) 6.07 10^3/uL 10^3/uL (1.70-6.50) Absolute Lymphs (auto) 0.53 10^3/uL L 10^3/uL (1.00-3.00) Absolute Monos (auto) 0.69 10^3/uL 10^3/uL (0.30-0.80) Absolute Eos (auto) 0.09 10^3/uL 10^3/uL (0.03-0.40) Absolute Basos (auto) 0.04 10^3/uL 10^3/uL (0.02-0.10) Absolute Nucleated RBC 0.00 10^3/uL 10^3/uL (0-0.01) Immature Gran % 1.6 % H % (0.0-1.1) Immature Gran # 0.12 10^3/uL H 10^3/uL (0.00-0.10) PT INR VBG Lactic Acid Sodium Potassium Chloride Carbon Dioxide Anion Gap BUN Creatinine Estimated GFR Glucose Calcium Total Bilirubin Troponin I NT-Pro-B Natriuret Pep Urine Color YELLOW Urine Appearance CLEAR Urine pH 5.5 (5.0-7.5) Ur Specific [place] 1.020 (1.002-1.030) Urine Protein 1+ H (NEGATIVE) Urine Ketones NEGATIVE (NEGATIVE) Urine Blood NEGATIVE (NEGATIVE) Urine Nitrate NEGATIVE (NEGATIVE) Urine Bilirubin NEGATIVE (NEGATIVE) Urine Urobilinogen 0.2 EU EU (0.2-1.0) Ur Leukocyte Esterase NEGATIVE (NEGATIVE) Urine RBC NONE SEEN /hpf /hpf (0-3) Urine WBC 0-1 /hpf /hpf (0-3) Ur Epithelial Cells 2+ /lpf H /lpf (NONE-1+) Amorphous Sediment 4+ /hpf H /hpf (NONE-1+) Urine Bacteria TRACE /hpf H /hpf (NONE SEEN) Hyaline Casts 3-5 /lpf H /lpf (0-1) Urine Mucus 2+ /lpf H /lpf (NONE-1+) Urine Glucose NEGATIVE (NEGATIVE) Departure - Departure Disposition: [facility] [place] [facility] Inpatient Acute Clinical Impression: Hypoxia, Afib - Atrial fibrillation Acute exacerbation of congestive heart failure Qualifiers: Congestive heart failure type: combined Qualified Code(s): I50.43 - Acute on chronic combined systolic (congestive) and diastolic (congestive) heart failure Condition: Fair Referrals: Yocasta Johnson MD [Primary Care Provider] - As per Instructions
--- NOTE | 2017-04-29 12:12 | CPEKG ---
Heart Rate: 84 RR Interval: 714 QRSD Interval: 140 QT Interval: 424 QTC Interval: 502 QRS [place]: -80 T Wave [place]: 95 EKG Severity - ABNORMAL ECG - EKG Impression: AFIB/FLUTTER AND VENTRICULAR-PACED RHYTHM Electronically Signed By: Abrahan Hoover 29-Apr-2017 12:43:57
[2017-04-29 12:49] LABS: COLOR YELLOW; LEUKOCYTE ESTERASE,URINE NEGATIVE (NEGATIVE); NITRITE,URINE NEGATIVE (NEGATIVE); PH,URINE 5.5 (5.0-7.5)
[2017-04-29 13:01] LABS: % IMMATURE GRANULYOCYTES 1.6 % (0.0-1.1); ABSOLUTE IMMATURE GRANULOCYTES 0.12 10^3/uL (0.00-0.10); ADD DIFF? NO; ADD MORPH? NO; ADD SCAN? NO; ATYPICAL LYMPHOCYTE FLAG 30 (0-99); FRAGMENT RBC FLAG 0 (0-99); HEMATOCRIT 33.3 % (38.0-47.0); LEFT SHIFT FLG 10 (0-99); LIPEMIA HEMOLYSIS FLAG 80 (0-99); MEAN CELL HEMOGLOBIN 27.3 pg (27.9-34.1); MEAN CELL VOLUME 82.6 fL (81.5-99.8); MEAN PLATELET VOLUME 9.7 fL (8.7-11.7); PLATELET CLUMPS FLAG 20 (0-99); PLATELET COUNT 301 10^3/uL (150-400); RED BLOOD CELL COUNT 4.03 10^6/uL (4.18-5.33)
[2017-04-29 13:02] LABS: BACTERIA TRACE /hpf (NONE SEEN); MUCUS 2+ /lpf (NONE-1+); RBC,URINE NONE SEEN /hpf (0-3)
[2017-04-29 13:03] LABS: AMORPHOUS 4+ /hpf (NONE-1+); WBC,URINE 0-1 /hpf (0-3)
[2017-04-29 13:18] LABS: ANION GAP 14 mEq/L (8-16); BILIRUBIN,TOTAL 1.1 mg/dL (0.1-1.4); CALCIUM 9.1 mg/dL (8.5-10.4); CARBON DIOXIDE 24 mEq/l (22-31); CHLORIDE 96 mEq/L (97-110); CREATININE 0.9 mg/dL (0.6-1.0); GLOMERULAR FILTRATION RATE > 60; GLUCOSE 96 mg/dL (70-100); SODIUM 134 mEq/L (134-144)
[2017-04-29 13:31] LABS: TROPONIN I < 0.012 ng/mL (0.000-0.034)
[2017-04-29 13:44] LABS: INR 1.89 (0.83-1.16); PROTIME(PATIENT) 21.5 SEC (12.0-15.0)
[2017-04-29] MEDS ORDERED: HYDROmorphONE/DILAUDID 1 MG/ML SYR IVP PRN (16:53)
[2017-04-29] MEDS ORDERED: ONDANSETRON 4 MG/2 ML VIAL IVP PRN (16:53)
[2017-04-29] MEDS ORDERED: ONDANSETRON DISINTEGRATING 4 MG TAB PO PRN (16:53)
[2017-04-29] MEDS ORDERED: ALBUTEROL 3 ML DEYVIAL IH PRN (16:53)
[2017-04-29] MEDS ORDERED: ACETAMINOPHEN 325 MG TAB PO PRN (16:53)
[2017-04-29] MEDS ORDERED: oxyCODONE IR 5 MG TAB PO PRN (16:53)
[2017-04-29] MEDS ORDERED: FUROSEMIDE 20 MG/2 ML VIAL IVP ONE (17:35)
--- NOTE | 2017-04-29 17:47 | PDGENHP ---
History and Physical - Chief Complaint sob/weakness - History of Present Illness 77 yo F with PMH of chronic a fib, diastolic heart failure and prior CVA admitted with approximately 1 week of worsening shortness of breath, weakness and lack of energy along with increased swelling in her lower extremities and non productive cough. She also has had night sweats for the past 2 weeks, but no fever or chills that she is aware of. She notes that she had a recent increase in her thyroid medication and thought that was the reason for her sweating at night. About 1.5 months ago, she was told to decrease her lasix to half her usual dose, but when the swelling became worse she increased it again to the full dose for the last 3 days. She has had dyspnea on exertion to where she has to stop when doing chores or walking a short distance which is not usual for her. She denies orthopnea or PND, she has not had any chest pain or palpitations. She states that since the ablation for a fib she has not had any lower extremity swelling until recently. History Information - Allergies/Home Medication List Allergies/Adverse Reactions: lisinopril Allergy (Severe, Verified 04/29/17 17:21) Swelling/neck,face,throat NICKEL Allergy (Intermediate, Uncoded 04/29/17 13:23) Rash BRANDT SILVER Allergy (Intermediate, Uncoded 04/29/17 13:23) Rash Home Medications: Atorvastatin Calcium [Lipitor 20 mg (*)] 20 mg PO HS 08/17/16 [Last Taken ] C/E/Zn/Cu/OM3/DHA/EPA/LUT/ZEAX [Preservision Areds 2 Softgel] 1 each PO BID [Last Taken 04/28/17] Cyanocobalamin [Vitamin B12 (*)] 1,000 mcg PO DAILY@12 08/17/16 [Last Taken ] [place]-3 Fatty Acids [Fish Oil 1000 mg (*)] 1,000 mg PO DAILY@12 08/17/16 [Last Taken 04/28/17] Rivaroxaban [Xarelto 10mg (*)] 20 mg PO HS 08/17/16 [Last Taken 04/28/17] Cholecalciferol Vit D3 [Vitamin D3 2000 units tab (OTC)] 2,000 units PO DAILY@ 04/29/17 [Last Taken 04/28/17] Dextran/Hypromellose/Glycerin [Genteal Tears 0.1%-0.2%-0.3%] 1 drop EACHEYE DAILY PRN 04/29/17 [Last Taken Unknown] Diltiazem HCl [Cartia Xt] 120 mg PO BID 04/29/17 [Last Taken 04/28/17] Furosemide [Lasix 20 MG (*)] 10 mg PO DAILY 04/29/17 [Last Taken 04/28/17 20mg] Levothyroxine [Synthroid 112 mcg (*)] 112 mcg PO DAILY06 04/29/17 [Last Taken ] Metoprolol Tartrate [Lopressor 50 mg (*)] 50 mg PO BID 04/29/17 [Last Taken ] Multivitamins [Multivitamin (*)] 1 each PO DAILY@12 04/29/17 [Last Taken ] Naproxen Sodium [Aleve 220 MG (*)] 220 mg PO DAILY PRN 04/29/17 [Last Taken ] I have personally reviewed and updated: family history, medical history, social history, surgical history Past Medical History: sick sinus syndrome with dual chamber pacemaker- 2011. atrial fibrillation. Diastolic dysfunction with mild CHF. hypothyroidism. stroke 2009. Macular degeneration. HTN - Past Medical History atrial fibrillation (s/p AVN ablation 01/2017), CHF (diastolic, EF of 50-55%), hypertension, hyperlipidemia Additional medical history: VHD with moderate MR, mod to severe TR - Surgical History Additional surgical history: right knee replacement. vaginal hysterectomy 2005. ppm - Social History Smoking Status: Former smoker (>50 pack year smoking hx) Alcohol Use: Rarely Drug Use: None Additional social history: lives independently, Review of Systems ROS: 10pt was reviewed & negative except for what was stated in HPI & below Physical Exam Temp Pulse Resp BP Pulse Ox 36.7 C 82 20 142/56 H 93 04/29/17 17:02 04/29/17 17:02 04/29/17 17:02 04/29/17 17:02 04/29/17 17:02 O2 (L/minute) 2 Constitutional: no apparent distress, appears nourished Eyes: PERRL, anicteric sclera Ears, Nose, Mouth, Throat: moist mucous membranes, hearing normal Cardiovascular: regular rate and rhythym, systolic murmur, edema (L>R) Respiratory: no respiratory distress, expiratory wheeze, inspiratory crackles Gastrointestinal: normoactive bowel sounds, soft, non-tender abdomen Genitourinary: no bladder tenderness Skin: warm, normal color Musculoskeletal: full muscle strength Neurologic: AAOx3, CN II-XII Intact Psychiatric: interacting appropriately, not anxious, not encephalopathic Lab Data & Imaging Review 04/29/17 12:55 04/29/17 12:55 WBC 7.54 10^3/uL (3.80-9.50) 04/29/17 12:55 RBC 4.03 10^6/uL (4.18-5.33) L 04/29/17 12:55 Hgb 11.0 g/dL (12.6-16.3) L 04/29/17 12:55 Hct 33.3 % (38.0-47.0) L 04/29/17 12:55 MCV 82.6 fL (81.5-99.8) 04/29/17 12:55 MCH 27.3 pg (27.9-34.1) L 04/29/17 12:55 MCHC 33.0 g/dL (32.4-36.7) 04/29/17 12:55 RDW 15.0 % (11.5-15.2) 04/29/17 12:55 Plt Count 301 10^3/uL (150-400) 04/29/17 12:55 MPV 9.7 fL (8.7-11.7) 04/29/17 12:55 Neut % (Auto) 80.5 % (39.3-74.2) H 04/29/17 12:55 Lymph % (Auto) 7.0 % (15.0-45.0) L 04/29/17 12:55 [place] % (Auto) 9.2 % (4.5-13.0) 04/29/17 12:55 Eos % (Auto) 1.2 % (0.6-7.6) 04/29/17 12:55 Baso % (Auto) 0.5 % (0.3-1.7) 04/29/17 12:55 Nucleat RBC Rel Count 0.0 % (0.0-0.2) 04/29/17 12:55 Absolute Neuts (auto) 6.07 10^3/uL (1.70-6.50) 04/29/17 12:55 Absolute Lymphs (auto) 0.53 10^3/uL (1.00-3.00) L 04/29/17 12:55 Absolute Monos (auto) 0.69 10^3/uL (0.30-0.80) 04/29/17 12:55 Absolute Eos (auto) 0.09 10^3/uL (0.03-0.40) 04/29/17 12:55 Absolute Basos (auto) 0.04 10^3/uL (0.02-0.10) 04/29/17 12:55 Absolute Nucleated RBC 0.00 10^3/uL (0-0.01) 04/29/17 12:55 Immature Gran % 1.6 % (0.0-1.1) H 04/29/17 12:55 Immature Gran # 0.12 10^3/uL (0.00-0.10) H 04/29/17 12:55 PT 21.5 SEC (12.0-15.0) H 04/29/17 12:55 INR 1.89 (0.83-1.16) H 04/29/17 12:55 VBG Lactic Acid 2.1 mmol/L (0.7-2.1) 04/29/17 12:55 Sodium 134 mEq/L (134-144) 04/29/17 12:55 Potassium 4.0 mEq/L (3.5-5.2) 04/29/17 12:55 Chloride 96 mEq/L (97-110) L 04/29/17 12:55 Carbon Dioxide 24 mEq/l (22-31) 04/29/17 12:55 Anion Gap 14 mEq/L (8-16) 04/29/17 12:55 BUN 13 mg/dL (7-23) 04/29/17 12:55 Creatinine 0.9 mg/dL (0.6-1.0) 04/29/17 12:55 Estimated GFR > 60 04/29/17 12:55 Glucose 96 mg/dL (70-100) 04/29/17 12:55 Calcium 9.1 mg/dL (8.5-10.4) 04/29/17 12:55 Total Bilirubin 1.1 mg/dL (0.1-1.4) 04/29/17 12:55 Troponin I < 0.012 ng/mL (0.000-0.034) 04/29/17 12:55 NT-Pro-B Natriuret Pep 4120 pg/mL (0-450) H 04/29/17 12:55 Urine Color YELLOW 04/29/17 12:30 Urine Appearance CLEAR 04/29/17 12:30 Urine pH 5.5 (5.0-7.5) 04/29/17 12:30 Ur Specific [place] 1.020 (1.002-1.030) 04/29/17 12:30 Urine Protein 1+ (NEGATIVE) H 04/29/17 12:30 Urine Ketones NEGATIVE (NEGATIVE) 04/29/17 12:30 Urine Blood NEGATIVE (NEGATIVE) 04/29/17 12:30 Urine Nitrate NEGATIVE (NEGATIVE) 04/29/17 12:30 Urine Bilirubin NEGATIVE (NEGATIVE) 04/29/17 12:30 Urine Urobilinogen 0.2 EU (0.2-1.0) 04/29/17 12:30 Ur Leukocyte Esterase NEGATIVE (NEGATIVE) 04/29/17 12:30 Urine RBC NONE SEEN /hpf (0-3) 04/29/17 12:30 Urine WBC 0-1 /hpf (0-3) 04/29/17 12:30 Ur Epithelial Cells 2+ /lpf (NONE-1+) H 04/29/17 12:30 Amorphous Sediment 4+ /hpf (NONE-1+) H 04/29/17 12:30 Urine Bacteria TRACE /hpf (NONE SEEN) H 04/29/17 12:30 Hyaline Casts 3-5 /lpf (0-1) H 04/29/17 12:30 Urine Mucus 2+ /lpf (NONE-1+) H 04/29/17 12:30 Urine Glucose NEGATIVE (NEGATIVE) 04/29/17 12:30 Visualized and Interpreted Chest x-ray results: Yes Chest X-Ray results: infiltrate, other (? RML pna, interstitial infiltrates? chf , no effusion--rml infiltrate new since last cxr) Visualized and Interpreted EKG results: Yes EKG additional interpertation: a fib/flutter and v paced rythm Assessment & Plan Assessment: 77 yo F with PMH of a fib, diastolic heart failure presenting with 1 week of increasing sob, cough, weakness and wheeze with RML pna on cxr as well as mild chf exacerbation # PNA: noted in RML, without associated sepsis or HD instability. Will start on levofloxacin, blood cultures have been sent. # acute exacerbation of diastolic heart failure: with mild volume overload noted both in the lower extremities and on CXR, will treat with IV lasix, 20 bid and monitor daily weights and I/O's. Did have an echocardiogram in January so will defer repeating that now. Will monitor on tele with serial trops and cardiology consult in am. Has VHD and mild pulm htn based on most recent echo as well. # suspected copd with acute exacerbation: patient reports 50+ pack year smoking hx and hx of intermittent wheezing but denies having a hx of copd and not listed in her prior records. Will start scheduled duonebs, prn albuterol. Will hold off on steroids as she has reasonable air movement currently. Will need PFT and this could be performed prior to dc if her pulmonary status improves significantly. # anemia: h/h today quite a bit lower than her usual baseline which is normal, she denies any s/s of GI bleed but will check hemoccult/iron studies and trend while in house. If stable would recommend f/u for colonoscopy versus more urgent w/u in house if she continues to trend down. # asymmetric lower extremity edema: will check US of LLE # permanent a fib: patient is s/p PPM and subsequent AV alesha ablation in January, rate controlled and v paced, continue on metoprolol/dilt/xarelto # hx of CVA: without residual sxs, continue xarelto and atorvastatin, last LDL of 56 # hypothyroid: continue synthroid, dose recently increased to 112 with a TSH of 30 noted in January, most recently TSH of 11 with a slightly low T3 and per patient plan is for repeat thyroid function tests in 6 weeks # IP status, will need > 48 hours stay given multiple active medical issues and high risk presenting issues requiring IV lasix DNR--son Mikie would be MDPOA Patient new to my care. Old records reviewed and summarized as above. Care plan reviewed with ER doctor including plans for tx of chf. [facility] [employer] Gabriel
[2017-04-29 20:07] LABS: % SATURATION 13 % (20-55); TOTAL IRON BINDING CAPACITY 314 ug/dL (260-490)
[2017-04-29] MEDS: IPRATROPIUM/ALBUTEROL 3 ML DEYVIAL IH SCH (20:30)
[2017-04-29 20:33] LABS: FERRITIN - BCH 93.9 ng/mL (6.2-264.0)
[2017-04-29] MEDS: RIVAROXABAN 20 MG TAB PO SCH (20:46)
[2017-04-29] MEDS: DILTIAZEM CD 120 MG CAP PO SCH (20:46)
[2017-04-29] MEDS: METOPROLOL TARTRATE 50 MG TAB PO SCH (20:46)
[2017-04-29] MEDS: ATORVASTATIN CALCIUM 20 MG TAB PO SCH (20:46)
[2017-04-29] MEDS: PRESERVISION AREDS2 FORMULA EYE VIT 1 EACH PO SCH (20:46)
[2017-04-30] MEDS: LEVOTHYROXINE 112 MCG TAB PO SCH (05:08)
[2017-04-30 05:29] LABS: % IMMATURE GRANULYOCYTES 1.3 % (0.0-1.1); ABSOLUTE IMMATURE GRANULOCYTES 0.08 10^3/uL (0.00-0.10); ADD DIFF? NO; ADD MORPH? NO; ADD SCAN? NO; ATYPICAL LYMPHOCYTE FLAG 30 (0-99); FRAGMENT RBC FLAG 0 (0-99); HEMATOCRIT 32.2 % (38.0-47.0); HEMOGLOBIN 10.4 g/dL (12.6-16.3); LEFT SHIFT FLG 10 (0-99); LIPEMIA HEMOLYSIS FLAG 80 (0-99); MEAN CELL HEMOGLOBIN 27.4 pg (27.9-34.1); MEAN CELL HEMOGLOBIN CONCENTR. 32.3 g/dL (32.4-36.7); MEAN CELL VOLUME 84.7 fL (81.5-99.8); MEAN PLATELET VOLUME 9.6 fL (8.7-11.7); PLATELET CLUMPS FLAG 0 (0-99); PLATELET COUNT 261 10^3/uL (150-400); RED CELL DISTRIBUTION WIDTH 14.9 % (11.5-15.2)
[2017-04-30 05:47] LABS: ANION GAP 10 mEq/L (8-16); CALCIUM 9.2 mg/dL (8.5-10.4); CARBON DIOXIDE 25 mEq/l (22-31); CHLORIDE 99 mEq/L (97-110); GLOMERULAR FILTRATION RATE 54; GLUCOSE 75 mg/dL (70-100); POTASSIUM 3.9 mEq/L (3.5-5.2); SODIUM 134 mEq/L (134-144)
[2017-04-30] MEDS: IPRATROPIUM/ALBUTEROL 3 ML DEYVIAL IH SCH ×4 (06:11→20:58)
[2017-04-30] MEDS: METOPROLOL TARTRATE 50 MG TAB PO SCH ×2 (08:26→21:14)
[2017-04-30] MEDS: PRESERVISION AREDS2 FORMULA EYE VIT 1 EACH PO SCH ×3 (08:26→21:17)
[2017-04-30] MEDS: DILTIAZEM CD 120 MG CAP PO SCH ×2 (08:26→21:15)
[2017-04-30] MEDS: FUROSEMIDE 20 MG/2 ML VIAL IVP SCH ×2 (08:27→16:31)
[2017-04-30] MEDS ORDERED: ENOXAPARIN 40 MG/0.4 ML SYR SC SCH (09:00)
--- NOTE | 2017-04-30 10:51 | PDCARCONS ---
Cardiology Consult Reason for Consult: Heart failure Chief Complaint: weak Requesting Physician: Syd History of Present Illness: 77-year-old female well known to our practice cared for by Dr. Rios. Admitted with profound weakness, malaise, no appetite. This was associated with a dry cough and mild increase in peripheral swelling. Her son became concerned and took her to her primary office. She was then sent to [place] urgent care. She was admitted to the hospital for further evaluation. This morning she continues to feel weak and tired with no energy. This has been going on for several months. She had 4 good days after recent AV node ablation but now has returned to her current state. She lives alone. She does a little bit of housework and continues to drive. Patient denies chest pain, PND, orthopnea. She has had no palpitations, syncope or near syncope. She had mild peripheral edema which has resolved. She is not on chronic home oxygen. She ambulates there without difficulty. She does use a walker for stability. Patient has longstanding persistent atrial fibrillation. In light of the symptoms of weakness and fatigue and difficulty controlling rate she had an AV node ablation done last month. This was uncomplicated. She has longstanding history of sick sinus syndrome associated with her atrial fibrillation. I put a dual-chamber pacemaker in her in 2015. She has no history of coronary artery disease with history of negative nuclear stress test. She has moderate valvular heart disease by echocardiography. Her last evaluation was on February 12. At that time she had an ejection fraction of 60% with biatrial enlargement and moderate mitral regurgitation. She has moderate to severe tricuspid regurgitation with a pulmonary artery pressure estimated at 42 mm of mercury. She was last seen by Dr. Rios on March 25. At that time the plan was to start to begin to reduce her medications that she has been using for rate control. In light of her atrial fibrillation and her chads Vasc score she has been on chronic Xarelto. She has been compliant. She does have a history of chronic diastolic heart failure and has been on daily Lasix. Underlying cardiac risk include hyperlipidemia for which she has been on statin. She does have allergies with angioneurotic edema to Sascha inhibitors. Her atrial fibrillation has been complicated by a CVA that required thrombolytic therapy. She has had underlying hypertension which has been well controlled. She does seem to be taking chronic Naprosyn for osteoarthritis. All of above has been complicated by hypothyroidism requiring replacement. History Information - Allergies/Home Medication List Allergies/Adverse Reactions: lisinopril Allergy (Severe, Verified 04/29/17 17:21) Swelling/neck,face,throat NICKEL Allergy (Intermediate, Uncoded 04/29/17 13:23) Rash BRANDT SILVER Allergy (Intermediate, Uncoded 04/29/17 13:23) Rash Home Medications: Atorvastatin Calcium [Lipitor 20 mg (*)] 20 mg PO HS 08/17/16 [Last Taken ] C/E/Zn/Cu/OM3/DHA/EPA/LUT/ZEAX [Preservision Areds 2 Softgel] 1 each PO BID [Last Taken 04/28/17] Cyanocobalamin [Vitamin B12 (*)] 1,000 mcg PO DAILY@12 08/17/16 [Last Taken ] [place]-3 Fatty Acids [Fish Oil 1000 mg (*)] 1,000 mg PO DAILY@12 08/17/16 [Last Taken 04/28/17] Rivaroxaban [Xarelto 10mg (*)] 20 mg PO HS 08/17/16 [Last Taken 04/28/17] Cholecalciferol Vit D3 [Vitamin D3 2000 units tab (OTC)] 2,000 units PO DAILY@ 12 04/29/17 [Last Taken 04/28/17] Dextran/Hypromellose/Glycerin [Genteal Tears 0.1%-0.2%-0.3%] 1 drop EACHEYE DAILY PRN 04/29/17 [Last Taken Unknown] Diltiazem HCl [Cartia Xt] 120 mg PO BID 04/29/17 [Last Taken 04/28/17] Furosemide [Lasix 20 MG (*)] 10 mg PO DAILY 04/29/17 [Last Taken 04/28/17 20mg] Levothyroxine [Synthroid 112 mcg (*)] 112 mcg PO DAILY06 04/29/17 [Last Taken ] Metoprolol Tartrate [Lopressor 50 mg (*)] 50 mg PO BID 04/29/17 [Last Taken ] Multivitamins [Multivitamin (*)] 1 each PO DAILY@12 04/29/17 [Last Taken ] Naproxen Sodium [Aleve 220 MG (*)] 220 mg PO DAILY PRN 04/29/17 [Last Taken ] I have personally reviewed and updated: family history, medical history, social history, surgical history - Past Medical History atrial fibrillation, hypertension, hyperlipidemia - Surgical History Reports: ablation, pacemaker/AICD - Family History Positive for: non-pertinent - Social History Smoking Status: Former smoker (>50 pack year smoking hx) Alcohol Use: Rarely Drug Use: None Cardiac History - Cardiac History Cardiac Risk Factors: hypertension (>140/90), lipidemia, age > 65 Age in Years: 75 or older Sex: Female Congestive Heart Failure History: Yes Hypertension History: Yes Stroke/TIA/Thromboembolism History: Yes Vascular Disease History: Yes Diabetes Mellitus: No [id number] Score: 1L Physical Exam Temp Pulse Resp BP Pulse Ox 36.4 C 68 12 120/63 92 04/30/17 07:25 04/30/17 07:25 04/30/17 07:25 04/30/17 07:25 04/30/17 07:25 O2 (L/minute) 2 Constitutional: no apparent distress Eyes: PERRL, anicteric sclera, EOMI Ears, Nose, Mouth, Throat: moist mucous membranes, no oral mucosal ulcers Cardiovascular: systolic murmur, irregularly irregular, No JVD, No edema Peripheral Pulses: 1+: carotid (R), carotid (L), femoral (R), femoral (L) Respiratory: other ( tachypnea, inspitaroy rales r>l) Gastrointestinal: normoactive bowel sounds, soft, non-tender abdomen, no palpable masses, No tenderness Genitourinary: no bladder fullness Skin: warm, normal color, no rashes or abrasions Musculoskeletal: full muscle strength Neurologic: AAOx3, CN II-XII Intact, No facial droop Psychiatric: interacting appropriately Lymph, Heme, Immunologic: no cervical LAD, no supraclavicular LAD Lab and Imaging 04/30/17 04:43 04/30/17 04:43 WBC 6.21 10^3/uL (3.80-9.50) 04/30/17 04:43 RBC 3.80 10^6/uL (4.18-5.33) L 04/30/17 04:43 Hgb 10.4 g/dL (12.6-16.3) L 04/30/17 04:43 Hct 32.2 % (38.0-47.0) L 04/30/17 04:43 MCV 84.7 fL (81.5-99.8) 04/30/17 04:43 MCH 27.4 pg (27.9-34.1) L 04/30/17 04:43 MCHC 32.3 g/dL (32.4-36.7) L 04/30/17 04:43 RDW 14.9 % (11.5-15.2) 04/30/17 04:43 Plt Count 261 10^3/uL (150-400) 04/30/17 04:43 MPV 9.6 fL (8.7-11.7) 04/30/17 04:43 Neut % (Auto) 80.2 % (39.3-74.2) H 04/30/17 04:43 Lymph % (Auto) 5.6 % (15.0-45.0) L 04/30/17 04:43 [place] % (Auto) 10.8 % (4.5-13.0) 04/30/17 04:43 Eos % (Auto) 1.6 % (0.6-7.6) 04/30/17 04:43 Baso % (Auto) 0.5 % (0.3-1.7) 04/30/17 04:43 Nucleat RBC Rel Count 0.0 % (0.0-0.2) 04/30/17 04:43 Absolute Neuts (auto) 4.98 10^3/uL (1.70-6.50) 04/30/17 04:43 Absolute Lymphs (auto) 0.35 10^3/uL (1.00-3.00) L 04/30/17 04:43 Absolute Monos (auto) 0.67 10^3/uL (0.30-0.80) 04/30/17 04:43 Absolute Eos (auto) 0.10 10^3/uL (0.03-0.40) 04/30/17 04:43 Absolute Basos (auto) 0.03 10^3/uL (0.02-0.10) 04/30/17 04:43 Absolute Nucleated RBC 0.00 10^3/uL (0-0.01) 04/30/17 04:43 Immature Gran % 1.3 % (0.0-1.1) H 04/30/17 04:43 Immature Gran # 0.08 10^3/uL (0.00-0.10) 04/30/17 04:43 PT 21.5 SEC (12.0-15.0) H 04/29/17 12:55 INR 1.89 (0.83-1.16) H 04/29/17 12:55 VBG Lactic Acid 2.1 mmol/L (0.7-2.1) 04/29/17 12:55 Sodium 134 mEq/L (134-144) 04/30/17 04:43 Potassium 3.9 mEq/L (3.5-5.2) 04/30/17 04:43 Chloride 99 mEq/L (97-110) 04/30/17 04:43 Carbon Dioxide 25 mEq/l (22-31) 04/30/17 04:43 Anion Gap 10 mEq/L (8-16) 04/30/17 04:43 BUN 13 mg/dL (7-23) 04/30/17 04:43 Creatinine 1.0 mg/dL (0.6-1.0) 04/30/17 04:43 Estimated GFR 54 04/30/17 04:43 Glucose 75 mg/dL (70-100) 04/30/17 04:43 Calcium 9.2 mg/dL (8.5-10.4) 04/30/17 04:43 Iron 40.0 mcg/dL (37.0-170.0) 04/29/17 19:17 TIBC 314 ug/dL (260-490) 04/29/17 19:17 Iron Saturation 13 % (20-55) L 04/29/17 19:17 Ferritin 93.9 ng/mL (6.2-264.0) 04/29/17 19:17 Total Bilirubin 1.1 mg/dL (0.1-1.4) 04/29/17 12:55 Troponin I < 0.012 ng/mL (0.000-0.034) 04/29/17 22:45 NT-Pro-B Natriuret Pep 4120 pg/mL (0-450) H 04/29/17 12:55 Urine Color YELLOW 04/29/17 12:30 Urine Appearance CLEAR 04/29/17 12:30 Urine pH 5.5 (5.0-7.5) 04/29/17 12:30 Ur Specific [place] 1.020 (1.002-1.030) 04/29/17 12:30 Urine Protein 1+ (NEGATIVE) H 04/29/17 12:30 Urine Ketones NEGATIVE (NEGATIVE) 04/29/17 12:30 Urine Blood NEGATIVE (NEGATIVE) 04/29/17 12:30 Urine Nitrate NEGATIVE (NEGATIVE) 04/29/17 12:30 Urine Bilirubin NEGATIVE (NEGATIVE) 04/29/17 12:30 Urine Urobilinogen 0.2 EU (0.2-1.0) 04/29/17 12:30 Ur Leukocyte Esterase NEGATIVE (NEGATIVE) 04/29/17 12:30 Urine RBC NONE SEEN /hpf (0-3) 04/29/17 12:30 Urine WBC 0-1 /hpf (0-3) 04/29/17 12:30 Ur Epithelial Cells 2+ /lpf (NONE-1+) H 04/29/17 12:30 Amorphous Sediment 4+ /hpf (NONE-1+) H 04/29/17 12:30 Urine Bacteria TRACE /hpf (NONE SEEN) H 04/29/17 12:30 Hyaline Casts 3-5 /lpf (0-1) H 04/29/17 12:30 Urine Mucus 2+ /lpf (NONE-1+) H 04/29/17 12:30 Urine Glucose NEGATIVE (NEGATIVE) 04/29/17 12:30 Visualized and Interpreted Chest x-ray results: Yes Chest X-ray Interpretation: infiltrate, other ( dual chamber permanent pacemaker in the appropriate location. Right pleural effusion with infiltrate) EKG additional interpertation: EKG shows ventricular pacing at a rate of 84. Echocardiogram: echocardiogram from February 12 revealed ejection fraction 55-60%, biatrial enlargement, moderate mitral regurgitation, moderate to severe tricuspid regurgitation with a PA pressure 42 mm of mercury. No pericardial effusion A/P Assessment: cardiac problems: 1. chronic atrial fibrillation status post AV node ablation for rate control with dual chamber permanent pacemaker. 2. acute on chronic diastolic heart failure with BNP of 4120 mild edema now resolved. 3. vascular disease by x-ray. 4. hypertension 5. Hyperlipidemia 6. History of CVA on chronic anticoagulation. 7. dual AV node blocking agents 8. Anemia. 9. hypothyroidism. 10. Use of nonsteroidal anti-inflammatory drugs. Discussion: Patient's predominant symptoms are 3 month progressive complaint of weakness and fatigue. This is clearly multifactorial with some component of medical depression. Her acute admission with dry cough and mild edema could be a very mild decompensation of her chronic diastolic heart failure. Her atrial fibrillation is well controlled with AV node ablation. She is appropriately anticoagulated. Troponins not suggest acute coronary syndrome. There is a persistent mild anemia with a hemoglobin of 10 that is currently unexplained. Her medications may be contributing some. She is on metoprolol and diltiazem. She has been using nonsteroidal anti-inflammatory drugs intermittently which could contribute to her heart failure, anemia.Her chest x-ray does show focal infiltrate with a pleural effusion on the right. She is being treated for atypical pneumonia. There does not appear to be a acute single etiology for her complaints. From my point of view would recommend decreasing her medications. In particular will begin to wean off her metoprolol and diltiazem as she should need these for rate control going forward. She does need chronic anticoagulation. She may benefit from Aldactone to maintain volume status with her diastolic heart failure. Would not add this at this point until she is feeling somewhat better. P.r.n. use of Lasix makes some sense. Dr. Rios knows her well and will follow her up as an outpatient upon discharge. No further cardiac evaluation at this point. Plan: 1. Agree with gentle diuresis. 2. Reduce metoprolol to 25 mg twice daily with a goal to discontinue this medicine over the next 3-4 weeks. 3. continue chronic anticoagulation with Xarelto. 4. continued education regarding use of nonsteroidal anti-inflammatory drugs in the setting of diastolic heart failure. 5. Consider workup for anemia. 6. Continue statin therapy for hyperlipidemia and vascular disease seen on x- ray. 7. Rehabilitation. Safety evaluation at home. Review of Systems - Review of Systems Constitutional: chills, malaise, weakness. denies: fever EENTM: no symptoms reported Respiratory: cough, shortness of breath. denies: orthopnea, wheezing, hurts to breath Cardiac: edema. denies: chest pain, irregular heart rate, lightheadedness, palpitations, syncope Gastrointestinal/Abdominal: nausea. denies: abdominal pain, abdominal distention, diarrhea, vomiting, black stools Genitourinary: no symptoms Musculoskelatal: no symptoms Skin: no symptoms Neurological: depressed Hematologic/Lymphatic: no symptoms reported Immunologic/allergic: no symptoms reported Past Medical History - Personal History Current Tetanus Diphtheria and Acellular Pertussis (TDAP): Yes Tetanus Vaccine Date: 2013 - Medical/Surgical History Hx Asthma: No Hx Chronic Respiratory Disease: Yes Hx Cardiac Disease: Yes Hx Diabetes: No Hx Renal Disease: Yes Hx Alcoholism: No Hx Cirrhosis: No Hx HIV/AIDS: No Hx Splenectomy or Spleen Trauma: No Other PMH: PPM, afib, htn, hypothyroid, CVA 2009, CHF, Macular Degeneration, R knee replaced 2011, L & R cataracts removed 2014,ablation in February,depression - Social History Smoking Status: Former smoker (>50 pack year smoking hx)
[2017-04-30] MEDS: TEARS/DEXTRAN 70/HYPROMELLOSE 15 ML OPHT.BTL EACHEYE PRN (13:19)
[2017-04-30] MEDS: CHOLECALCIFEROL VIT D3 2,000 UNITS TAB/CAP PO SCH (13:25)
[2017-04-30] MEDS: MULTIVITAMINS 1 EACH TAB PO SCH (13:25)
[2017-04-30] MEDS: CYANO/VITAMIN B12 1000 MCG TAB PO SCH (13:25)
[2017-04-30] MEDS: OMEGA-3 FATTY ACIDS 1,000 MG CAP PO SCH (13:25)
--- NOTE | 2017-04-30 14:43 | HOSPPROG ---
Hospitalist Progress Note Assessment/Plan: DIAGNOSES: -acute diastolic congestive heart failure -acute hypoxemic respiratory failure -COPD, question acute exacerbation -chronic atrial fibrillation rate control -question of possible pneumonia; at this time with no fever or elevated white blood cell count or significant cough I think pneumonia is unlikely but will check a procalcitonin and respiratory pathogen panel PLANS: Check procalcitonin and respiratory pathogen panel Continue diuresis with IV Lasix Continue current respiratory care and rate control and anticoagulation SUBJECTIVE: Feels slightly better today than yesterday but overall still very fatigued, with decreased appetite, difficulty finding food tastes good She is walking but more slowly than usual No chest pain or fever symptoms OBJECTIVE Vitals reviewed: Stable without fever, good heart rate It Security Project Manager, 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: Rate controlled atrial fibrillation Exam: alert oriented skin warm dry color ok resps not labored lungs very diminished but otherwise clear BSs heart regular abd soft nondistended nontender, bowel sounds present limbs warm, still with significant left greater than right leg edema iv site ok On ultrasound of the legs there is no DVT present Objective: Vital Signs Temp Pulse Resp BP Pulse Ox 36.4 C 83 13 119/66 94 04/30/17 11:20 04/30/17 11:33 04/30/17 11:33 04/30/17 11:20 04/30/17 11:33 Laboratory Results 04/30/17 04:43 04/30/17 04:43 04/29/17 04/30/17 05/01/17 06:59 06:59 06:59 Intake Total 300 330 Output Total 850 300 Balance -550 30 PT 21.5 SEC (12.0-15.0) H 04/29/17 12:55 INR 1.89 (0.83-1.16) H 04/29/17 12:55 ICD10 Worksheet Patient Problems: Problems Problem Status Onset Acute exacerbation of congestive heart failure Acute Afib - Atrial fibrillation Acute Hypoxia Acute Dyslipidemia Active Peripheral vascular disease Active Atrial fibrillation Acute CHF (congestive heart failure) Acute Congestive heart failure Acute Hypoxia Acute Rapid atrial fibrillation Acute
--- NOTE | 2017-04-30 15:56 | ASMTCMCOM ---
CM Note CM Note Notes: Reviewed chart, spoke w/PT and RN. Met w/pt to discuss recommendations for home PT and RN at d/c. Pt in agreement. Faxed referrals to Home Health Agencies for RN and PT, awaiting response. Case management d/c poc home with agency help RN and PT. Confirmed address and phone number. Case managment to follow. Date Signed: 04/30/2017 03:55 PM Electronically Signed By:Sabina Ny
[2017-04-30] MEDS: RIVAROXABAN 20 MG TAB PO SCH (21:14)
[2017-04-30] MEDS: ATORVASTATIN CALCIUM 20 MG TAB PO SCH (21:15)
[2017-05-01 04:57] LABS: % IMMATURE GRANULYOCYTES 1.4 % (0.0-1.1); ABSOLUTE IMMATURE GRANULOCYTES 0.08 10^3/uL (0.00-0.10); ADD DIFF? NO; ADD MORPH? NO; ADD SCAN? NO; ATYPICAL LYMPHOCYTE FLAG 40 (0-99); FRAGMENT RBC FLAG 0 (0-99); HEMATOCRIT 31.4 % (38.0-47.0); HEMOGLOBIN 9.9 g/dL (12.6-16.3); LEFT SHIFT FLG 10 (0-99); LIPEMIA HEMOLYSIS FLAG 80 (0-99); MEAN CELL HEMOGLOBIN 26.9 pg (27.9-34.1); MEAN CELL HEMOGLOBIN CONCENTR. 31.5 g/dL (32.4-36.7); MEAN CELL VOLUME 85.3 fL (81.5-99.8); MEAN PLATELET VOLUME 9.4 fL (8.7-11.7); PLATELET CLUMPS FLAG 0 (0-99); PLATELET COUNT 245 10^3/uL (150-400); RED BLOOD CELL COUNT 3.68 10^6/uL (4.18-5.33)
[2017-05-01 05:12] LABS: ANION GAP 14 mEq/L (8-16); CALCIUM 9.2 mg/dL (8.5-10.4); CARBON DIOXIDE 25 mEq/l (22-31); CHLORIDE 99 mEq/L (97-110); GLOMERULAR FILTRATION RATE 54; GLUCOSE 87 mg/dL (70-100); POTASSIUM 3.9 mEq/L (3.5-5.2); SODIUM 138 mEq/L (134-144)
[2017-05-01] MEDS: IPRATROPIUM/ALBUTEROL 3 ML DEYVIAL IH SCH ×4 (05:39→20:15)
[2017-05-01] MEDS: LEVOTHYROXINE 112 MCG TAB PO SCH (06:19)
[2017-05-01] MEDS: FUROSEMIDE 20 MG/2 ML VIAL IVP SCH ×2 (08:16→15:42)
[2017-05-01] MEDS: TEARS/DEXTRAN 70/HYPROMELLOSE 15 ML OPHT.BTL EACHEYE PRN ×2 (08:16→20:39)
[2017-05-01] MEDS: PRESERVISION AREDS2 FORMULA EYE VIT 1 EACH PO SCH ×2 (08:17→20:37)
[2017-05-01] MEDS: DILTIAZEM CD 120 MG CAP PO SCH ×2 (08:17→20:37)
[2017-05-01] MEDS: METOPROLOL TARTRATE 50 MG TAB PO SCH ×2 (08:17→20:37)
[2017-05-01] MEDS: CYANO/VITAMIN B12 1000 MCG TAB PO SCH (13:02)
[2017-05-01] MEDS: MULTIVITAMINS 1 EACH TAB PO SCH (13:02)
[2017-05-01] MEDS: CHOLECALCIFEROL VIT D3 2,000 UNITS TAB/CAP PO SCH (13:02)
[2017-05-01] MEDS: OMEGA-3 FATTY ACIDS 1,000 MG CAP PO SCH (13:03)
--- NOTE | 2017-05-01 17:22 | HOSPPROG ---
Hospitalist Progress Note Assessment/Plan: DIAGNOSES: -acute diastolic congestive heart failure -acute hypoxemic respiratory failure -COPD, question acute exacerbation -chronic atrial fibrillation rate controlled -question of possible pneumonia; at this time with no fever or elevated white blood cell count or significant cough I think pneumonia is unlikely but will check a procalcitonin and respiratory pathogen panel PLANS: Continue diuresis with IV Lasix Continue current respiratory care and rate control and anticoagulation Will add Isael stockings Increase ambulation as able SUBJECTIVE: Feels better overall today but not back to her baseline at this point. She notices slightly better energy, walking slightly faster, and slightly better appetite though does not feel normal in any of these symptoms. She has less malaise that she had yesterday and slept better last night the night before OBJECTIVE Vitals reviewed: Stable without fever, good heart rate Suture Winder Hand, my review: Rate controlled atrial fibrillation Exam: alert oriented skin warm dry color ok resps not labored lungs very diminished but otherwise clear BSs heart irregular abd soft nondistended nontender, bowel sounds present limbs warm, still with significant left greater than right leg edema though a bit better than yesterday iv site ok Her respiratory pathogen panel is negative Blood cultures remain negative to date Objective: Vital Signs Temp Pulse Resp BP Pulse Ox 36.4 C 70 20 113/60 96 05/01/17 15:25 05/01/17 16:01 05/01/17 16:01 05/01/17 15:25 05/01/17 16:01 Microbiology 04/30/17 14:50 Respiratory Panel (PCR) - Final Nasal, Sinus - Swab No Organism Detected Laboratory Results 05/01/17 04:37 05/01/17 04:37 04/30/17 05/01/17 05/02/17 06:59 06:59 06:59 Intake Total 300 730 Output Total 850 900 175 Balance -550 -170 -175 PT 21.5 SEC (12.0-15.0) H 04/29/17 12:55 INR 1.89 (0.83-1.16) H 04/29/17 12:55 ICD10 Worksheet Patient Problems: Problems Problem Status Onset Acute exacerbation of congestive heart failure Acute Afib - Atrial fibrillation Acute Hypoxia Acute Dyslipidemia Active Peripheral vascular disease Active Atrial fibrillation Acute CHF (congestive heart failure) Acute Congestive heart failure Acute Hypoxia Acute Rapid atrial fibrillation Acute
[2017-05-01] MEDS: ATORVASTATIN CALCIUM 20 MG TAB PO SCH (20:37)
[2017-05-01] MEDS: RIVAROXABAN 20 MG TAB PO SCH (20:38)
[2017-05-02] MEDS: IPRATROPIUM/ALBUTEROL 3 ML DEYVIAL IH SCH ×3 (06:06→15:14)
[2017-05-02] MEDS: LEVOTHYROXINE 112 MCG TAB PO SCH (06:57)
[2017-05-02] MEDS: METOPROLOL TARTRATE 50 MG TAB PO SCH (08:39)
[2017-05-02] MEDS: PRESERVISION AREDS2 FORMULA EYE VIT 1 EACH PO SCH (08:39)
[2017-05-02] MEDS: TEARS/DEXTRAN 70/HYPROMELLOSE 15 ML OPHT.BTL EACHEYE PRN (08:40)
[2017-05-02] MEDS: FUROSEMIDE 20 MG/2 ML VIAL IVP SCH ×2 (08:40→14:16)
[2017-05-02] MEDS: DILTIAZEM CD 120 MG CAP PO SCH (08:41)
[2017-05-02] MEDS: OMEGA-3 FATTY ACIDS 1,000 MG CAP PO SCH (08:44)
--- NOTE | 2017-05-02 09:58 | PDHOMEO2F ---
Home Oxygen Face to Face Home Orders: I certify that a physician or a nurse practitioner or physician's assistant auto center manager has had a [id number] encounter with this patient on the date of this order due to the diagnosis listed, which relates to the primary reason the patient requires home oxygen. Alternative treatments have been tried, or considered, and deemed ineffective. It is anticipated that supplemental oxygen will result in improvement with treatment. Home oxygen qualifying diagnosis: chf Home oxygen secondary diagnosis: copd SpO2 on room air (%): 84% PaO2 on room air (mmHG): 84% Frequency of home oxygen needed: continuous Home oxygen liters per minute: 2 Home oxygen delivery device: nasal cannula Concentrator: Yes E-tanks for mobility and back up: Yes If ordering portable O2, is the patient mobile in the home?: Yes I certify that, based on these findings, the home oxygen is medically necessary for this patient for the following length of time. Length of time home oxygen needed: 1 month
[2017-05-02] MEDS: CHOLECALCIFEROL VIT D3 2,000 UNITS TAB/CAP PO SCH (11:02)
[2017-05-02] MEDS: CYANO/VITAMIN B12 1000 MCG TAB PO SCH (11:02)
[2017-05-02] MEDS: MULTIVITAMINS 1 EACH TAB PO SCH (11:02)
[2017-05-02 12:12] VITALS: BP 102/54; TEMP 96.8
[2017-05-02 15:15] VITALS: PULSE 91; RESP 18
[2017-05-02 15:23] VITALS: O2SAT 82
--- NOTE | 2017-05-02 17:07 | PDDCSUM ---
Discharge Summary Discharge Summary: DISCHARGE DIAGNOSES: -acute diastolic congestive heart failure -acute hypoxemic respiratory failure -COPD, question acute exacerbation -chronic atrial fibrillation rate controlled -it is felt that she did not have pneumonia and there was no growth in cultures or organisms found on respiratory pathogen panel HOSPITAL COURSE SUMMARY: This patient came into the hospital hospital with recent onset of shortness of breath, fatigue, ankle swelling, and decreased appetite. There is evidence of edema and heart failure on examination. She did not have fever the white blood cell count was not significantly elevated, cultures were negative, and Respiratory Pepcid panel was negative. Chest x-ray significant for evidence of some heart failure. The patient was treated with diuresis and responded quite well to this although it was somewhat slow. There is no evidence of ischemia. She has chronic AFib which was rate controlled here. At this time she is now feeling notably better with almost no shortness of breath, much better physical activity levels walking in hallway, and has her normal appetite back. She is stable for discharge to home. We are sending her with some home oxygen as she does still have some hypoxemia and does better with the oxygen here. PENDING TEST RESULTS: None MEDICATION CHANGES: Her Lasix dose is increased to 20 mg daily FOLLOW-UP PLAN: With her primary care physician within 1 week Greater than 35 minutes bedside and care coordination time today
--- NOTE | 2017-05-02 17:09 | PDIAF ---
- Diagnosis Diagnosis: chf exacerbation Code Status: Do Not Resuscitate - Medication Management Discharge Medications: Medications to Continue on Transfer Atorvastatin Calcium [Lipitor 20 mg (*)] 20 mg PO HS 08/17/16 [Last Taken ] C/E/Zn/Cu/OM3/DHA/EPA/LUT/ZEAX [Preservision Areds 2 Softgel] 1 each PO BID [Last Taken 04/28/17] Cyanocobalamin [Vitamin B12 (*)] 1,000 mcg PO DAILY@12 08/17/16 [Last Taken ] [place]-3 Fatty Acids [Fish Oil 1000 mg (*)] 1,000 mg PO DAILY@12 08/17/16 [Last Taken 04/28/17] Rivaroxaban [Xarelto 10mg (*)] 20 mg PO HS 08/17/16 [Last Taken 04/28/17] Cholecalciferol Vit D3 [Vitamin D3 2000 units tab (OTC)] 2,000 units PO DAILY@ 04/29/17 [Last Taken 04/28/17] Dextran/Hypromellose/Glycerin [Genteal Tears 0.1%-0.2%-0.3%] 1 drop EACHEYE DAILY PRN 04/29/17 [Last Taken Unknown] Diltiazem HCl [Cartia Xt] 120 mg PO BID 04/29/17 [Last Taken 04/28/17] Levothyroxine [Synthroid 112 mcg (*)] 112 mcg PO DAILY06 04/29/17 [Last Taken ] Metoprolol Tartrate [Lopressor 50 mg (*)] 50 mg PO BID 04/29/17 [Last Taken ] Multivitamins [Multivitamin (*)] 1 each PO DAILY@12 04/29/17 [Last Taken ] Furosemide [Lasix 20 MG (*)] 20 mg PO DAILY #60 tab 05/02/17 [Last Taken Unknown ] Discharge Medications: Refer to the Discharge Home Medication list for PRN reason. - Orders Services needed: Home Care, Registered Nurse, Physical Therapy Home Care Face to Face: I certify that this patient was under my care and that I had the required [id number] encounter meeting the encounter requirements on the discharge day. My findings support the fact that the patient is homebound as defined in CMS Chapter 7 Medicare Benefits Manual 30.1.1, The condition of the patient is such that there exists a normal inability to leave home and consequently, leaving home would require a considerable and taxing effort. Diet Recommendation: sodium restricted Diet Texture: Regular Texture Diet - Follow Up Care Current Providers and Referrals: Yocasta Johnson MD [Primary Care Provider] - As per Instructions
--- NOTE | 2017-05-02 17:24 | ASMTCMCOM ---
CM Note CM Note Notes: Pt d/c home with family. [facility] home [facility] [phone] with start of care on 05/03/2017. Date Signed: 05/02/2017 05:23 PM Electronically Signed By:Kelly Yuen
--- NOTE | 2017-05-02 17:35 | ASDISCHSUM ---
Discharge Information Plan Status:Home with Home Health Medically Cleared to Leave:05/02/2017 Discharge Date:05/02/2017 05:26 PM D/C Disposition:Home Health Service ADT D/C Disposition:Home Health Service Projected Discharge Date:05/02/2017 07:00 PM Transportation at D/C:Family Discharge Delay Reason: Follow-Up Date:05/02/2017 07:00 PM Discharge Slot: Final Diagnosis: Placement Information Referral Type:*Home Health Care Services Referral ID:[id number] Provider Name:[facility]) Address 1:[address] [place] [address] Address 2: City:[place] Selection Factors: State:[place] Patient Contact Information Contact Name:CAMILLAOLIMPIA Relationship:Son Address: Work Phone: City: [facility] Phone: [facility] Code: Email: Financial Information Financial Class: Primary Plan Desc:MEDICARE INPATIENT Primary Plan Number:[id number] Secondary Plan Desc:AARP/MDR SUPPLEMENT Secondary Plan Number:[id number] Assessment Information [facility] CM Progress Note CM Note CM Note Notes: Reviewed chart, spoke w/PT and RN. Met w/pt to discuss recommendations for home PT and RN at d/c. Pt in agreement. Faxed referrals to Home Health Agencies for RN and PT, awaiting response. Case management d/c poc home with agency help RN and PT. Confirmed address and phone number. Case managment to follow. Date Signed: 04/30/2017 03:55 PM Electronically Signed By:Sabina Ny [facility] CM Progress Note CM Note CM Note Notes: Pt d/c home with family. [facility] home [facility] [phone] with start of care on 05/03/2017. Date Signed: 05/02/2017 05:23 PM Electronically Signed By:Kelly Yuen Intervention Information
== END 2017-05-02 17:26 | disposition home health service (06) | DRG 291 ==
LOC: CED 11:44 → F2W 16:45
PROVIDERS: ADMIT Internal Medicine; ATTEND Internal Medicine
DX: I13.0 Hypertensive heart and chronic kidney disease with heart failure and stage 1 through stage 4 chronic kidney disease, or unspecified chronic kidney disease (principal); I50.33 Acute on chronic diastolic (congestive) heart failure; J96.01 Acute respiratory failure with hypoxia; J44.1 Chronic obstructive pulmonary disease with (acute) exacerbation; I48.91 Unspecified atrial fibrillation; Z79.01 Long term (current) use of anticoagulants; Z95.0 Presence of cardiac pacemaker; I36.1 Nonrheumatic tricuspid (valve) insufficiency; I34.0 Nonrheumatic mitral (valve) insufficiency; N28.9 Disorder of kidney and ureter, unspecified; R53.83 Other fatigue; E03.9 Hypothyroidism, unspecified; F32.9 Major depressive disorder, single episode, unspecified; E78.5 Hyperlipidemia, unspecified; D51.9 Vitamin B12 deficiency anemia, unspecified; Z87.891 Personal history of nicotine dependence; Z96.651 Presence of right artificial knee joint
CPT/HCPCS: 71020-PO; 80048-PO; 81003-PO; 81015-PO; 82247-PO; 83605-PO; 83880-PO; 84484-PO; 85025-PO; 85610-PO; 97116-GP; 97161-GP; 97165-GO; 97535-GO; G8978-GP-CJ; G8979-GP-CI; G8987-GO-CI; G8988-GO-CI; G8989-GO-CI; J1940

== ENCOUNTER 2017-05-16 11:40 | Inpatient (IN) | payer OTHER, MEDICARE ==
--- NOTE | 2017-05-16 12:24 | CPEKG ---
Heart Rate: 71 RR Interval: 845 QRSD Interval: 138 QT Interval: 464 QTC Interval: 505 QRS [place]: -81 T Wave [place]: 95 EKG Severity - ABNORMAL ECG - EKG Impression: AFIB/FLUT AND V-PACED COMPLEXES EKG Impression: IVCD, CONSIDER ATYPICAL RBBB EKG Impression: LVH WITH SECONDARY REPOLARIZATION ABNORMALITY Electronically Signed By: Alexander Staples 16-May-2017 14:17:07
[2017-05-16 12:51] LABS: % IMMATURE GRANULYOCYTES 0.8 % (0.0-1.1); ABSOLUTE IMMATURE GRANULOCYTES 0.04 10^3/uL (0.00-0.10); ADD DIFF? NO; ADD MORPH? NO; FRAGMENT RBC FLAG 0 (0-99); HEMATOCRIT 31.5 % (38.0-47.0); HEMOGLOBIN 10.2 g/dL (12.6-16.3); LEFT SHIFT FLG 10 (0-99); LIPEMIA HEMOLYSIS FLAG 80 (0-99); MEAN CELL HEMOGLOBIN 27.1 pg (27.9-34.1); MEAN CELL HEMOGLOBIN CONCENTR. 32.4 g/dL (32.4-36.7); MEAN CELL VOLUME 83.8 fL (81.5-99.8); MEAN PLATELET VOLUME 10.1 fL (8.7-11.7); PLATELET CLUMPS FLAG 0 (0-99); PLATELET COUNT 229 10^3/uL (150-400); RED BLOOD CELL COUNT 3.76 10^6/uL (4.18-5.33); RED CELL DISTRIBUTION WIDTH 15.2 % (11.5-15.2)
[2017-05-16 12:53] LABS: ATYPICAL LYMPHOCYTE FLAG 160 (0-99)
[2017-05-16 12:55] LABS: ADD SCAN? NO
[2017-05-16 13:00] LABS: INR 2.19 (0.83-1.16); PROTIME(PATIENT) 24.5 SEC (12.0-15.0)
[2017-05-16 13:01] LABS: APTT 37.6 SEC (23.0-38.0)
[2017-05-16 13:02] LABS: ANION GAP 12 mEq/L (8-16); BILIRUBIN,TOTAL 1.1 mg/dL (0.1-1.4); CALCIUM 9.2 mg/dL (8.5-10.4); CARBON DIOXIDE 30 mEq/l (22-31); CHLORIDE 92 mEq/L (97-110); CREATININE 0.9 mg/dL (0.6-1.0); GLOMERULAR FILTRATION RATE > 60; GLUCOSE 93 mg/dL (70-100); POTASSIUM 3.5 mEq/L (3.5-5.2); SODIUM 134 mEq/L (134-144)
[2017-05-16 13:12] LABS: TROPONIN I 0.017 ng/mL (0.000-0.034)
[2017-05-16] MEDS ORDERED: FUROSEMIDE 40 MG/4 ML VIAL IVP ONE (14:12)
--- NOTE | 2017-05-16 14:13 | EDPHY ---
H & P Stated Complaint: fatigue, no apetite, sob increasing since d/c CHF 05/02 HPI/ROS: CHIEF COMPLAINT: Weakness, fever HISTORY OF PRESENT ILLNESS: Patient complains of 2-3 days of increasing weakness, fever, shortness of breath. Associated with body aches, anorexia and generalized malaise. Gradual onset. Constant duration. Difficulty ambulating to the restroom. No chest pain. Minimal cough. No neck pain or stiffness. No headache. No abdominal pain. Does have frequent urination which is relatively unchanged for her. No incontinence. No trauma or injury. She is concerned about her thyroid in the possibility of pneumonia. She was in the hospital and discharged 2 weeks ago for CHF exacerbation. Lasix was increased to 30 mg daily at that time. She is not taking her Lasix chest today. No other associated complaints or modifying factors. REVIEW OF SYSTEMS: Ten systems reviewed and are negative unless otherwise noted in the HPI PAST MEDICAL HISTORY: Reviewed PAST SURGICAL HISTORY: Reviewed SOCIAL HISTORY: Previous smoker remotely. Resides in assisted living. FAMILY HISTORY: Noncontributory EXAMINATION General Appearance: Alert, no distress Head: normocephalic, atraumatic Eyes: Pupils equal and round, no conjunctival pallor or injection ENT, Mouth: Mucous membranes moist. Airway patent Neck: Normal inspection, supple, non-tender. No meningismus or rigidity. Painless range of motion in all planes Respiratory: Mild crackles at the bases. No retractions or distress. No consolidation. No wheezing. Cardiovascular: Irregular rhythm. Regular rate. No murmur pain Gastrointestinal: Abdomen is soft and nontender. No tympany rigidity. Back: non-tender, no bony abnormalities Neurological: GCS 15 A&O, nonfocal, normal gait Skin: Warm and dry, no rash. No petechiae or purpura Extremities: Nontender, no pedal edema Psychiatric: Mood and affect normal DIFFERENTIAL DIAGNOSES: Including but not limited to pneumonia, CHF exacerbation, influenza, bronchitis , UTI, hypothyroid, dehydration, electrolyte disturbance MDM: 12:05 p.m. Weakness, fever, shortness of breath. Patient has the appearance of CHF and less likely pneumonia. She does have some urinary complaints. She does not meet SIRS criteria, but I have ordered lactic acid and cultures due to beta- veronica use and recent admission to the hospital with documented fever. I did a suspicion infection but less likely sepsis. 1:00 p.m. Laboratory studies reveal no leukocytosis. She has elevation of her BNP but no abnormality of creatinine. 2:15 p.m. CHF exacerbation with no definite pneumonia. No white count. She is borderline febrile with documented fever prior to hospital arrival. She has no chest pain. Urinalysis is pending. She has not had her Lasix yet today. I have discussed all this with the hospitalist Dr. Avelar. He will admit the patient to his service. He would like a procalcitonin ordered. He would like 40 mg of IV Lasix. He would like the flu test to result prior to initiating antibiotics. He will follow up on this test and determine if the patient meets criteria for antibiotics. 2:25 p.m. Urinalysis does not reveal any infection. Influenza test pending Source: Patient Exam Limitations: No limitations - Personal History Current Tetanus/Diphtheria Vaccine: Unsure Current Tetanus Diphtheria and Acellular Pertussis (TDAP): Unsure Tetanus Vaccine Date: 2013 - Medical/Surgical History Hx Asthma: No Hx Chronic Respiratory Disease: Yes Hx Diabetes: No Hx Cardiac Disease: Yes Hx Renal Disease: No Hx Cirrhosis: No Hx Alcoholism: No Hx HIV/AIDS: No Hx Splenectomy or Spleen Trauma: No Other PMH: PPM, afib ablation 01/31/17, htn, CHF, hypothyroid, CVA 2009, CHF, Macular Degeneration, R knee replaced 2011, L & R cataracts removed 2014, depression - Social History Smoking Status: Former smoker Constitutional: Initial Vital Signs Temperature (C) 99.5 F 05/16/17 11:44 Heart Rate 89 05/16/17 11:44 Respiratory Rate 18 05/16/17 11:44 Blood Pressure 148/74 H 05/16/17 11:44 O2 Sat (%) 89 L 05/16/17 11:44 O2 Delivery Mode Nasal Cannula O2 (L/minute) 3 Allergies/Adverse Reactions: lisinopril Allergy (Severe, Verified 04/29/17 17:21) Swelling/neck,face,throat NICKEL Allergy (Intermediate, Uncoded 04/29/17 13:23) Rash BRANDT SILVER Allergy (Intermediate, Uncoded 04/29/17 13:23) Rash Home Medications: Medication Instructions Recorded Rivaroxaban [Xarelto 10mg (*)] 20 mg PO HS 08/17/16 Dextran/Hypromellose/Glycerin 1 drop EACHEYE DAILY PRN 04/29/17 [Genteal Tears 0.1%-0.2%-0.3%] Diltiazem HCl [Cartia Xt] 120 mg PO BID 04/29/17 Levothyroxine [Synthroid 112 mcg 112 mcg PO DAILY06 04/29/17 (*)] Metoprolol Tartrate [Lopressor 50 50 mg PO BID 04/29/17 mg (*)] Multivitamins [Multivitamin (*)] 1 each PO DAILY@12 04/29/17 Atorvastatin Calcium [Lipitor 20 20 mg PO HS 05/16/17 mg (*)] Furosemide [Lasix 20 MG (*)] 30 mg PO DAILY 05/16/17 Herbals/Supplements -Info Only 1 ea PO DAILY 05/16/17 Medical Decision Making - Diagnostics Imaging Results: Imaging Impressions Chest X-Ray 05/16/17 12:06 Impression: Worsening of congestive heart failure. - Data Points Laboratory Results: Laboratory Results 05/16/17 12:35 05/16/17 12:35 05/16/17 05/16/17 05/16/17 14:00 12:50 12:35 WBC RBC Hgb Hct MCV MCH MCHC RDW Plt Count MPV Neut % (Auto) Lymph % (Auto) [place] % (Auto) Eos % (Auto) Baso % (Auto) Nucleat RBC Rel Count Absolute Neuts (auto) Absolute Lymphs (auto) Absolute Monos (auto) Absolute Eos (auto) Absolute Basos (auto) Absolute Nucleated RBC Immature Gran % Immature Gran # PT INR APTT VBG Lactic Acid Sodium Potassium Chloride Carbon Dioxide Anion Gap BUN Creatinine Estimated GFR Glucose Calcium Total Bilirubin Troponin I NT-Pro-B Natriuret Pep Lipase Procalcitonin 0.18 ng/mL H ng/mL (0.02-0.10) TSH Urine Color ANTHONY Urine Appearance TURBID Urine pH 5.0 (5.0-7.5) Ur Specific [place] 1.020 (1.002-1.030) Urine Protein 2+ H (NEGATIVE) Urine Ketones NEGATIVE (NEGATIVE) Urine Blood NEGATIVE (NEGATIVE) Urine Nitrate NEGATIVE (NEGATIVE) Urine Bilirubin NEGATIVE (NEGATIVE) Urine Urobilinogen NEGATIVE EU EU (0.2-1.0) Ur Leukocyte Esterase NEGATIVE (NEGATIVE) Urine RBC 3-5 /hpf H /hpf (0-3) Urine WBC 15-25 /hpf H /hpf (0-3) Ur Epithelial Cells 2+ /lpf H /lpf (NONE-1+) Urine Glucose NEGATIVE (NEGATIVE) Influenza A & B (PCR) NEGATIVE FOR FLU (NEGATIVE) 05/16/17 05/16/17 05/16/17 12:35 12:35 12:35 WBC 5.18 10^3/uL 10^3/uL (3.80-9.50) RBC 3.76 10^6/uL L 10^6/uL (4.18-5.33) Hgb 10.2 g/dL L g/dL (12.6-16.3) Hct 31.5 % L % (38.0-47.0) MCV 83.8 fL fL (81.5-99.8) MCH 27.1 pg L pg (27.9-34.1) MCHC 32.4 g/dL g/dL (32.4-36.7) RDW 15.2 % % (11.5-15.2) Plt Count 229 10^3/uL 10^3/uL (150-400) MPV 10.1 fL fL (8.7-11.7) Neut % (Auto) 78.5 % H % (39.3-74.2) Lymph % (Auto) 7.5 % L % (15.0-45.0) [place] % (Auto) 12.4 % % (4.5-13.0) Eos % (Auto) 0.2 % L % (0.6-7.6) Baso % (Auto) 0.6 % % (0.3-1.7) Nucleat RBC Rel Count 0.0 % % (0.0-0.2) Absolute Neuts (auto) 4.07 10^3/uL 10^3/uL (1.70-6.50) Absolute Lymphs (auto) 0.39 10^3/uL L 10^3/uL (1.00-3.00) Absolute Monos (auto) 0.64 10^3/uL 10^3/uL (0.30-0.80) Absolute Eos (auto) 0.01 10^3/uL L 10^3/uL (0.03-0.40) Absolute Basos (auto) 0.03 10^3/uL 10^3/uL (0.02-0.10) Absolute Nucleated RBC 0.00 10^3/uL 10^3/uL (0-0.01) Immature Gran % 0.8 % % (0.0-1.1) Immature Gran # 0.04 10^3/uL 10^3/uL (0.00-0.10) PT 24.5 SEC H SEC (12.0-15.0) INR 2.19 H (0.83-1.16) APTT 37.6 SEC SEC (23.0-38.0) VBG Lactic Acid Sodium 134 mEq/L mEq/L (134-144) Potassium 3.5 mEq/L mEq/L (3.5-5.2) Chloride 92 mEq/L L mEq/L (97-110) Carbon Dioxide 30 mEq/l mEq/l (22-31) Anion Gap 12 mEq/L mEq/L (8-16) BUN 18 mg/dL mg/dL (7-23) Creatinine 0.9 mg/dL mg/dL (0.6-1.0) Estimated GFR > 60 Glucose 93 mg/dL mg/dL (70-100) Calcium 9.2 mg/dL mg/dL (8.5-10.4) Total Bilirubin 1.1 mg/dL mg/dL (0.1-1.4) Troponin I 0.017 ng/mL ng/mL (0.000-0.034) NT-Pro-B Natriuret Pep 5620 pg/mL H pg/mL (0-450) Lipase 49 IU/L IU/L (23-300) Procalcitonin TSH 8.870 uIU/mL H uIU/mL (0.465-4.680) Urine Color Urine Appearance Urine pH Ur Specific [place] Urine Protein Urine Ketones Urine Blood Urine Nitrate Urine Bilirubin Urine Urobilinogen Ur Leukocyte Esterase Urine RBC Urine WBC Ur Epithelial Cells Urine Glucose Influenza A & B (PCR) 05/16/17 12:35 WBC RBC Hgb Hct MCV MCH MCHC RDW Plt Count MPV Neut % (Auto) Lymph % (Auto) [place] % (Auto) Eos % (Auto) Baso % (Auto) Nucleat RBC Rel Count Absolute Neuts (auto) Absolute Lymphs (auto) Absolute Monos (auto) Absolute Eos (auto) Absolute Basos (auto) Absolute Nucleated RBC Immature Gran % Immature Gran # PT INR APTT VBG Lactic Acid 1.5 mmol/L mmol/L (0.7-2.1) Sodium Potassium Chloride Carbon Dioxide Anion Gap BUN Creatinine Estimated GFR Glucose Calcium Total Bilirubin Troponin I NT-Pro-B Natriuret Pep Lipase Procalcitonin TSH Urine Color Urine Appearance Urine pH Ur Specific [place] Urine Protein Urine Ketones Urine Blood Urine Nitrate Urine Bilirubin Urine Urobilinogen Ur Leukocyte Esterase Urine RBC Urine WBC Ur Epithelial Cells Urine Glucose Influenza A & B (PCR) Medications Given: Discontinued Medications Furosemide (Lasix Injection) 40 mg IVP EDNOW ONE Stop: 05/16/17 14:13 Last Admin: 05/16/17 15:02 Dose: 40 mg Departure - Departure Disposition: [facility] Inpatient Acute Clinical Impression: CHF exacerbation Qualifiers: Congestive heart failure type: diastolic Qualified Code(s): I50.33 - Acute on chronic diastolic (congestive) heart failure Respiratory failure Qualifiers: Chronicity: acute Respiratory failure complication: unspecified whether with hypoxia or hypercapnia Qualified Code(s): J96.00 - Acute respiratory failure, unspecified whether with hypoxia or hypercapnia Fever Qualifiers: Fever type: unspecified Qualified Code(s): R50.9 - Fever, unspecified Condition: Good
[2017-05-16 14:15] LABS: COLOR AMBER; LEUKOCYTE ESTERASE,URINE NEGATIVE (NEGATIVE); NITRITE,URINE NEGATIVE (NEGATIVE)
[2017-05-16 15:06] LABS: WBC,URINE 15-25 /hpf (0-3)
[2017-05-16] MEDS ORDERED: ONDANSETRON 4 MG/2 ML VIAL IVP PRN (15:38)
[2017-05-16] MEDS ORDERED: ACETAMINOPHEN 325 MG TAB PO PRN (15:38)
[2017-05-16] MEDS ORDERED: ZOLPIDEM TARTRATE 5 MG TAB PO PRN (15:38)
--- NOTE | 2017-05-16 15:38 | PDGENHP ---
History and Physical History and Physical: CC: Weakness, difficulty walking, increased need for oxygen HISTORY: Ms. Johnson is a woman who was just at this hospital at the beginning of this month with an episode of diastolic congestive heart failure and atrial fibrillation. She has chronic atrial fibrillation on rate control and anticoagulation, and an ejection fraction measured at 60% in January of this year at [facility]. She does have some moderate valvular disease but nothing severe. She improved nicely at the beginning of the month here with IV Lasix diuresis with marked decrease in edema, increased appetite, decreased dyspnea and increased ability to ambulate and was discharged home with home care. She was to have a an appointment with Dr. Shaw, but apparently was informed that things were looking good on her blood tests and she would not need that appointment. She presents now with weakness and fatigue. She says that this actually started up along with decrease in appetite probably within several days after leaving the hospital. She was compliant with all the medications which included an increase in her Lasix dose from previous. These symptoms persisted. Now in the last couple of days she has developed a mild dry cough, temperature of 99 degrees, loose stool 1 day without pain or blood, the and mild nausea. There is no chest pain, abdominal pain, neck pain, headache. She has had no rashes or joint pains. She is not in particular had any increase in shortness of breath during the day with activities, however she says she has been waking up a little bit more short of breath than usual and has increased her oxygen at night and this has helped. It is unclear exactly what the time course of this particular symptom was. Her main complaint at this time however remains severe fatigue that interferes with her general activities. ROS: A comprehensive 10 system review revealed no other significant findings PAST MEDICAL HISTORY: Diastolic congestive heart failure Atrial fib atrial flutter Pacemaker Chronic anticoagulation Hypertension hyperlipidemia Pulmonary hypertension and severe tricuspid regurgitation Moderate mitral regurgitation FAMILY MEDICAL HISTORY: No family history of heart disease SOCIAL HISTORY: Hypothyroidism on replacement lives alone Has been having regular services with home care since her stay here previously Former smoker with more than 50 pack years exposure MEDICATIONS: The patients list has been reconciled by our clinical pharmacist in the EMR. I have reviewed the list and ordered appropriate medicines. PHYSICAL EXAMINATION: Vital Signs: Temperature normal, blood pressure pulse and respirations all normal Lumber Sticker: Paced rhythm by monitor, possible underlying atrial flutter is visible in 1 lead Examination: General: alert, oriented, good mentation, relaxed Skin: warm, dry, good color, no rash HEENT: normal Neck: no mass or jvd Resps: relaxed Lungs: clear breath sounds Heart: regular, systolic murmur is present Abdomen: soft, nondistended, nontender, +BS, no mass Upper Extremities: normal Lower Extremities: Notably no edema (during her previous hospital admission earlier this month she had quite a bit of edema), warm and good capillary refill No Bleeding or bruising Neurologic: normal speech/language, 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 I am not confident that we can determine from this x- ray whether this is actually pulmonary edema as opposed to an interstitial infiltrate 12 LEAD EKG: My reading of the tracing shows paced ventricular rhythm with possible underlying atrial flutter, nothing that looks ischemic ASSESSMENT: -acute hypoxemic respiratory failure with increasing oxygen need, dyspnea, and abnormal chest x-ray -low-grade fever and cough at home, also loose stool for past two days -BNP is elevated compared to earlier this month, however she has notably less edema and now than at her previous admission -marked fatigue and anorexia, failure to thrive -chronic atrial flutter, fibrillation, with currently paced rhythm in good range and on chronic anticoagulation -chronic pulmonary hypertension and tricuspid regurgitation due to likely combination of my moderate micro regurgitation as well as smoking related lung injury I am uncertain as to the cause of her current presenting symptoms. Her chest x- ray was read as states congestive heart failure in the ER and she was started on diuretic therapy there for that. However despite her higher BNP she comes in here now with much less peripheral edema than she had when she came in April 29, in fact really has no edema now. She has been compliant with her increased dose of Lasix, is in good rate control with a paced rhythm, has no ischemic symptoms or EKG changes. How she would end up with pulmonary edema despite effective diuresis for her peripheral edema with no ischemic symptoms or EKG changes will be unclear to me. Nonetheless her chest x-ray is certainly consistent with possible CHF. I could not however rule out an interstitial process which could either be a viral infection or other infection, or noninfectious interstitial lung disease. I have asked for respiratory pathogen panel will ask for a Pulmonary consultation and order bedside spirometry. At this point she has had a dose of IV Lasix given and will see if this makes any difference in how she feels and will order a repeat chest x-ray for tomorrow. I have also ordered an echocardiogram to be certain that she does not have for some reason worsening left ventricular function or more severe valvular function than her previous echo from January. PLANS: I have reviewed the patient's case in detail with . I have reviewed the patient's past medical records as part of this assessment, including previous hospital records including physician notes, labs, chest x- ray images THE
[2017-05-16] MEDS ORDERED: HYPROMELLOSE EACHEYE PRN (15:41)
[2017-05-16] MEDS ORDERED: DEXTRAN EACHEYE PRN (15:41)
[2017-05-16] MEDS ORDERED: [UNRECOGNIZED DRUG - OTHER] EACHEYE PRN (15:41)
[2017-05-16] MEDS ORDERED: GLYCERIN EACHEYE PRN (15:41)
[2017-05-16] MEDS ORDERED: TEARS/DEXTRAN 70/HYPROMELLOSE 15 ML OPHT.BTL EACHEYE PRN (15:46)
[2017-05-16] MEDS: METOPROLOL TARTRATE 50 MG TAB PO SCH (21:16)
[2017-05-16] MEDS: DILTIAZEM CD 120 MG CAP PO SCH (21:16)
[2017-05-16] MEDS: ATORVASTATIN CALCIUM 20 MG TAB PO SCH (21:16)
[2017-05-16] MEDS: RIVAROXABAN 20 MG TAB PO SCH (21:16)
[2017-05-17 04:59] LABS: ANION GAP 10 mEq/L (8-16); CALCIUM 9.4 mg/dL (8.5-10.4); CARBON DIOXIDE 33 mEq/l (22-31); CHLORIDE 93 mEq/L (97-110); GLOMERULAR FILTRATION RATE 54; GLUCOSE 88 mg/dL (70-100); MAGNESIUM 1.7 mg/dL (1.6-2.3); POTASSIUM 3.5 mEq/L (3.5-5.2); SODIUM 136 mEq/L (134-144)
[2017-05-17] MEDS: LEVOTHYROXINE 112 MCG TAB PO SCH (05:53)
[2017-05-17] MEDS: METOPROLOL TARTRATE 50 MG TAB PO SCH (08:28)
[2017-05-17] MEDS: DILTIAZEM CD 120 MG CAP PO SCH ×2 (08:29→21:04)
[2017-05-17] MEDS ORDERED: FUROSEMIDE 20 MG TAB PO SCH (09:00)
--- NOTE | 2017-05-17 09:18 | ECHO ---
[id number] + + [address] : : [place] [address] : : [phone] + + Adult Echocardiographic Report + + :Name: CHRISS OKEEFE MStudy Date: 05/16/2017 04:18 PM : : Hospital Admission Number: [id number] : :: 1940 Gender: Female Height: 69 in : :Age: 77 yrs Race: WH,White Weight: 183 lb : : : : BSA: 2.0 meters2: + + MMode/2D Measurements & Calculations IVSd: 1.1 cm LVIDd: 4.7 cm FS: 27.5 % Ao root diam: 2.6 cm LVPWd: 0.98 cm LVIDs: 3.4 cm EDV(Teich): 100.4 ml ACS: 1.3 cm ESV(Teich): 46.8 ml EF(Teich): 53.5 % LVOT diam: 1.9 cm LVOT area: 2.8 cm2 Normal Measurement Values: + + :LVIDd (3.5-5.7cm) IVSd (0.6-1.1cm) LVPWd (0.6-1.1cm) Aortic Root (2.0-3.7cm)Left Atrium (1.5-4.0cm): :LV Vol(d) (76-115ml) LV Vol(s) (29-48ml) Ejec Fraction (50-65%)PV Bhaskar (0.6- 1.2m/s) TV Bhaskar (0.4-1.0m/s) : :MV E Bhaskar (0.8-1.0m/s)MV A Bhaskar (0.3-1.0m/s)LVOT Bhaskar (0.7-1.2m/s) Asc Ao Bhaskar ( 0.9-1.8m/s) : + + Doppler Measurements & Calculations MV E max bhaskar: Ao V2 max: LV V1 mean PG: MR max bhaskar: 145.3 cm/sec 223.9 cm/sec 1.8 mmHg 517.9 cm/sec Ao max PG: LV V1 mean: MR max P.0 mmHg 61.7 cm/sec 107.3 mmHg Ao mean PG: LV V1 VTI: 18.2 cm 10.9 mmHg Ao V2 mean: 153.6 cm/sec Ao V2 VTI: 41.1 cm MALINI(I,D): 1.3 cm2 SV(LVOT): 51.7 ml PA V2 max: TR max bhaskar: 150.7 cm/sec 382.6 cm/sec PA max PG: TR max P.1 mmHg 58.5 mmHg RAP systole: 5.0 mmHg RVSP(TR): 63.5 mmHg Left Ventricle The left ventricle is normal in size. There is mild concentric left ventricular hypertrophy. Left ventricular systolic function is low normal. There is Doppler evidence for diastolic dysfunction. Ejection Fraction = 55- 60%. Right Ventricle The right ventricle is normal size. There is a pacemaker lead in the right ventricle. Atria The left atrium is moderate to severely dilated. The right atrium is severely dilated. Mitral Valve There is mild mitral annular calcification. There is no mitral valve stenosis. There is moderate mitral regurgitation. Tricuspid Valve Right ventricular systolic pressure is 62mmHg. There is Doppler evidence for moderate pulmonary hypertension. Aortic Valve The aortic valve is trileaflet. There is no aortic stenosis. There is no aortic insufficiency. Pulmonic Valve The pulmonic valve is normal in structure and function. There is no pulmonic valvular regurgitation. Great Vessels The aortic root is normal size. Pericardium/Pleural There is no pericardial effusion. Conclusion There is mild concentric left ventricular hypertrophy. Left ventricular systolic function is low normal. There is Doppler evidence for diastolic dysfunction. Ejection Fraction = 55-60%. There is a pacemaker lead in the right ventricle. The left atrium is moderate to severely dilated. The right atrium is severely dilated. There is mild mitral annular calcification. There is moderate mitral regurgitation. Right ventricular systolic pressure is 62mmHg. There is Doppler evidence for moderate pulmonary hypertension. The aortic valve is trileaflet. There is no aortic stenosis. There is no aortic insufficiency. The aortic root is normal size. There is no pericardial effusion. Compare to the previous exam of 02/12 the pulmonary pressures are higher. Final Reading Physician: Blayne Duarte signed on 05/17/2017 09:16 AM Ordering Physician: Pop Avelar
[2017-05-17] MEDS: MULTIVITAMINS 1 EACH TAB PO SCH (13:57)
[2017-05-17] MEDS ORDERED: IPRATROPIUM/ALBUTEROL 3 ML DEYVIAL IH PRN (14:00)
--- NOTE | 2017-05-17 14:04 | HOSPPROG ---
Hospitalist Progress Note Assessment/Plan: # acute on chronic hypoxic respiratory failure- suspect multifactorial heart failure and possible underlying viral upper respiratory infection CXR (personally reviewed and interpreted) bilateral interstitial infiltrates oxygen saturations 91% on 5L - continue IV Lasix - send respiratory PCR panel - consider nebulized medications # atrial fibrillation//flutter- with permanent pacemaker- cardiology working on weaning Medications as an outpatient Patient reports being very symptomatic from metoprolol - DC beta-veronica - Cardiology intended on discontinuing post last hospitalization - continue anticoagulation - continue diltiazem # severe fatigue- also expect multifactorial potentially acute viral infection + /- medication side effects TSH> 8 at admission - send T3/T4 # hypothyroid - cont home dosing - T3/T4 pending # mild pulmonary hypertension # Moderate -severe tricuspid regurgitation # proph - full dose anticoagulation # diet-cardiac # disposition- greater than 2 midnights as the patient receiving IV diuresis for presumed acute systolic heart failure I have discussed the case with RN- continue diuresis will send studies for respiratory PCR panel Subjective: tired Objective: Vital Signs Temp Pulse Resp BP Pulse Ox 36.8 C 74 20 118/54 L 95 05/17/17 11:28 05/17/17 11:28 05/17/17 11:28 05/17/17 11:28 05/17/17 11:28 Laboratory Results 05/17/17 03:58 05/16/17 05/17/17 05/18/17 05:59 05:59 05:59 Intake Total 920 300 Output Total 1100 Balance -180 300 PT 24.5 SEC (12.0-15.0) H 05/16/17 12:35 INR 2.19 (0.83-1.16) H 05/16/17 12:35 - Physical Exam Constitutional: chronically ill appearing Eyes: anicteric sclera Ears, Nose, Mouth, Throat: moist mucous membranes Cardiovascular: regular rate and rhythym Respiratory: no respiratory distress, inspiratory crackles, No expiratory wheeze Gastrointestinal: normoactive bowel sounds Genitourinary: no bladder fullness Skin: warm Musculoskeletal: No asymmetric calves Neurologic: AAOx3 Psychiatric: interacting appropriately Lymph, Heme, Immunologic: no cervical LAD ICD10 Worksheet Patient Problems: Problems Problem Status Onset CHF exacerbation Acute Fever Acute Respiratory failure Acute Dyslipidemia Active Peripheral vascular disease Active Acute exacerbation of congestive heart failure Acute Afib - Atrial fibrillation Acute Atrial fibrillation Acute CHF (congestive heart failure) Acute Congestive heart failure Acute Hypoxia Acute Hypoxia Acute Rapid atrial fibrillation Acute chronic disease mgmt/transitional care Acute
[2017-05-17] MEDS: FUROSEMIDE 40 MG/4 ML VIAL IVP SCH (15:40)
[2017-05-17] MEDS: guaiFENesin 600 MG TAB.ER PO SCH ×2 (15:40→21:05)
--- NOTE | 2017-05-17 16:12 | ASMTCMCOM ---
CM Note CM Note Notes: 05/17/2017 Case Management Note: Reviewed chart. Pt recently d/c from [facility] in early April w/ @ [facility] ([phone]) RN and PT. PT deon recommending Home Care om 05/17/2017 Case management d/c poc: Home w/ family support and resumption of Home Care Services. Date Signed: 05/17/2017 04:11 PM Electronically Signed By:Sabina Ny RN
--- NOTE | 2017-05-17 16:32 | PDCARPN ---
Cardiology Progress Note Assessment/Plan: Assessment: D-CHF On Lasix IV 40 mg BID with good results. She is breathing easier with face mask oxygen in place. Leg edema improved She is fatigued. EF 55 to 60 %. Viral Infection likely prior to admit. She has 2 days of diarrhea. Likely became dehydrated. Atrial Fib-- On Diltiazem 120 BID. She has PPM with rate 70. TSH 8 on admit. Moderate MR by echo. Will continue with diuresis, and Diltiazem. She had Ablation in December this year. Will discuss with Dr Albarran, and recommendation for treatment. Plan:Continue on Dilt, oxygen and Lasix. 05/17/17 16:26 Objective: Vital Signs (8 Hrs) Temp Pulse Resp BP Pulse Ox 05/17/17 16:00 36.7 C 115 H 16 113/58 L 93 05/17/17 11:28 36.8 C 74 20 118/54 L 95 05/17/17 08:29 70 125/64 H 05/17/17 08:28 70 125/64 H Intake/Output (24 Hrs) 05/16/17 05/17/17 05/18/17 05:59 05:59 05:59 Intake Total 920 540 Output Total 1100 450 Balance -180 90 Intake: Oral (ml) 920 540 Output: Urine (ml) 1100 450 Toilet 1100 450 Other: Weight 80.91 kg Intake Quantity Yes Sufficient Number of Voids Toilet 1 Result Diagrams: 05/16/17 12:35 05/17/17 03:58 - Physical Exam Constitutional: no apparent distress Cardiovascular: no rubs, no gallops, irregularly irregular, No no murmurs (2/6 systolic murmur) Respiratory: no wheezes, No no crackles (mild) Skin: no rashes, warm Neurologic: AAOx3 ICD10 Worksheet Patient Problems: Problems Problem Status Onset CHF exacerbation Acute Fever Acute Respiratory failure Acute Dyslipidemia Active Peripheral vascular disease Active Acute exacerbation of congestive heart failure Acute Afib - Atrial fibrillation Acute Atrial fibrillation Acute CHF (congestive heart failure) Acute Congestive heart failure Acute Hypoxia Acute Hypoxia Acute Rapid atrial fibrillation Acute chronic disease mgmt/transitional care Acute
[2017-05-17 16:42] LABS: T3 (TRIIODOTHYRONINE) TOTAL 0.418 ng/mL (0.970-1.690)
[2017-05-17] MEDS: ATORVASTATIN CALCIUM 20 MG TAB PO SCH (21:05)
[2017-05-17] MEDS: RIVAROXABAN 20 MG TAB PO SCH (21:05)
[2017-05-18] MEDS: LEVOTHYROXINE 112 MCG TAB PO SCH (05:12)
[2017-05-18 05:33] LABS: ANION GAP 9 mEq/L (8-16); CALCIUM 9.3 mg/dL (8.5-10.4); CARBON DIOXIDE 34 mEq/l (22-31); CHLORIDE 91 mEq/L (97-110); GLOMERULAR FILTRATION RATE 54; GLUCOSE 87 mg/dL (70-100); POTASSIUM 3.4 mEq/L (3.5-5.2); SODIUM 134 mEq/L (134-144)
[2017-05-18 05:35] LABS: HEMATOCRIT 28.8 % (38.0-47.0); HEMOGLOBIN 9.1 g/dL (12.6-16.3); MEAN CELL HEMOGLOBIN 26.5 pg (27.9-34.1); MEAN CELL HEMOGLOBIN CONCENTR. 31.6 g/dL (32.4-36.7); RED BLOOD CELL COUNT 3.43 10^6/uL (4.18-5.33); RED CELL DISTRIBUTION WIDTH 15.1 % (11.5-15.2)
[2017-05-18] MEDS: guaiFENesin 600 MG TAB.ER PO SCH ×2 (08:50→21:22)
[2017-05-18] MEDS: DILTIAZEM CD 120 MG CAP PO SCH ×2 (08:50→21:20)
[2017-05-18] MEDS: FUROSEMIDE 40 MG/4 ML VIAL IVP SCH ×2 (08:50→12:53)
[2017-05-18] MEDS ORDERED: PROTOCOL POTASSIUM 1 DOSE MISC PRN (12:09)
[2017-05-18] MEDS ORDERED: POTASSIUM CL 10 MEQ TAB PO ONE ×2 (12:34→21:34)
[2017-05-18] MEDS: MULTIVITAMINS 1 EACH TAB PO SCH (12:53)
--- NOTE | 2017-05-18 15:48 | HOSPPROG ---
Hospitalist Progress Note Assessment/Plan: # Acute on chronic hypoxic respiratory failure- suspect multifactorial heart failure and possible underlying viral upper respiratory infection CXR (personally reviewed and interpreted) bilateral interstitial infiltrates -respiratory PCR panel negative creatinine 0.9 this am oxygen saturations 91% on 2L - continue IV Lasix - consider nebulized medications # atrial fibrillation//flutter- with permanent pacemaker- cardiology working on weaning Medications as an outpatient Patient reports being very symptomatic from metoprolol TELE (personally reviewed and interpreted) paced in 70's - DC beta-veronica - Cardiology intended on discontinuing post last hospitalization - continue anticoagulation - continue diltiazem # severe fatigue- also expect multifactorial potentially acute viral infection + /- medication side effects TSH> 8 at admission - T3 slightly low - increase synthroid to 125mcg today # hypothyroid - as above # mild pulmonary hypertension # Moderate -severe tricuspid regurgitation # proph - full dose anticoagulation # diet-cardiac # disposition- greater than 2 midnights as the patient receiving IV diuresis for presumed acute systolic heart failure I have discussed the case with [facility] - will continue current IV diuresis as tolerating well - can discuss PO transition tomorrow Subjective: feeling better Objective: Vital Signs Temp Pulse Resp BP Pulse Ox 36.5 C 76 17 105/50 L 90 L 05/18/17 11:59 05/18/17 11:59 05/18/17 11:59 05/18/17 11:59 05/18/17 13:33 Microbiology 05/17/17 15:30 Respiratory Panel (PCR) - Final Nasal, Sinus - Swab No Organism Detected Laboratory Results 05/18/17 04:16 05/18/17 04:16 05/17/17 05/18/17 05/19/17 05:59 05:59 05:59 Intake Total 920 1200 250 Output Total 1100 700 400 Balance -180 500 -150 PT 24.5 SEC (12.0-15.0) H 05/16/17 12:35 INR 2.19 (0.83-1.16) H 05/16/17 12:35 - Physical Exam Constitutional: appears nourished Eyes: anicteric sclera Ears, Nose, Mouth, Throat: moist mucous membranes Cardiovascular: regular rate and rhythym, systolic murmur Respiratory: no respiratory distress, No expiratory wheeze, No inspiratory crackles Gastrointestinal: normoactive bowel sounds Genitourinary: no bladder fullness Skin: warm Musculoskeletal: No asymmetric calves Neurologic: AAOx3 Psychiatric: interacting appropriately Lymph, Heme, Immunologic: no cervical LAD ICD10 Worksheet Patient Problems: Problems Problem Status Onset CHF exacerbation Acute Fever Acute Respiratory failure Acute Dyslipidemia Active Peripheral vascular disease Active Acute exacerbation of congestive heart failure Acute Afib - Atrial fibrillation Acute Atrial fibrillation Acute CHF (congestive heart failure) Acute Congestive heart failure Acute Hypoxia Acute Hypoxia Acute Rapid atrial fibrillation Acute chronic disease mgmt/transitional care Acute
[2017-05-18 18:13] LABS: POTASSIUM 3.3 mEq/L (3.5-5.2)
--- NOTE | 2017-05-18 18:19 | PDCARPN ---
Cardiology Progress Note Assessment/Plan: Assessment: D-CHF On Lasix IV 40 mg BID with good results. She is breathing easier with face mask oxygen in place. Leg edema improved She is fatigued. EF 55 to 60 %. Viral Infection likely prior to admit. She has 2 days of diarrhea. Likely became dehydrated. Atrial Fib-- On Diltiazem 120 BID. She has PPM with rate 70. TSH 8 on admit. Moderate MR by echo. Will continue with diuresis, and Diltiazem. She had Ablation in December this year. Will discuss with Dr Albarran, and recommendation for treatment. Plan:Continue on Dilt, oxygen and Lasix. 05/17/17 16:26 05/18/17 18:17 Today feeling much better. Oxygen per [employer], up more in room. Minimal JAIMIE. Less fatigued today. A Fib well managed on Diltiazem. Objective: Vital Signs (8 Hrs) Temp Pulse Resp BP Pulse Ox 05/18/17 16:00 36.7 C 73 20 114/56 L 92 05/18/17 13:33 90 L 05/18/17 12:55 91 L 05/18/17 11:59 36.5 C 76 17 105/50 L 93 Intake/Output (24 Hrs) 05/17/17 05/18/17 05/19/17 05:59 05:59 05:59 Intake Total 920 1200 450 Output Total 1100 700 400 Balance -180 500 50 Intake: Oral (ml) 920 1200 450 Output: Urine (ml) 1100 700 400 Toilet 1100 700 400 Other: Weight 80.91 kg 80.9 kg Intake Quantity Yes Yes Yes Sufficient Number of Voids Toilet 1 1 Result Diagrams: 05/18/17 04:16 05/18/17 17:50 - Physical Exam Cardiovascular: no rubs, irregularly irregular, No no murmurs (3/6 sys murmur) Respiratory: no crackles, no wheezes, reduced air movement Skin: warm, no edema Neurologic: AAOx3 Psychiatric: cooperative, interactive ICD10 Worksheet Patient Problems: Problems Problem Status Onset CHF exacerbation Acute Fever Acute Respiratory failure Acute Dyslipidemia Active Peripheral vascular disease Active Acute exacerbation of congestive heart failure Acute Afib - Atrial fibrillation Acute Atrial fibrillation Acute CHF (congestive heart failure) Acute Congestive heart failure Acute Hypoxia Acute Hypoxia Acute Rapid atrial fibrillation Acute chronic disease mgmt/transitional care Acute
[2017-05-18] MEDS: RIVAROXABAN 20 MG TAB PO SCH (21:22)
[2017-05-18] MEDS: ATORVASTATIN CALCIUM 20 MG TAB PO SCH (21:22)
[2017-05-19] MEDS ORDERED: LEVOTHYROXINE 125 MCG TAB PO SCH (06:00)
[2017-05-19 06:10] LABS: ANION GAP 12 mEq/L (8-16); CALCIUM 9.4 mg/dL (8.5-10.4); CARBON DIOXIDE 31 mEq/l (22-31); CHLORIDE 93 mEq/L (97-110); CREATININE 0.9 mg/dL (0.6-1.0); GLOMERULAR FILTRATION RATE > 60; GLUCOSE 91 mg/dL (70-100); POTASSIUM 3.7 mEq/L (3.5-5.2); SODIUM 136 mEq/L (134-144)
[2017-05-19] MEDS ORDERED: POTASSIUM CL 10 MEQ TAB PO ONE (07:14)
[2017-05-19 08:29] VITALS: BP 115/54; PULSE 75; RESP 19; TEMP 96.5; O2SAT 92
[2017-05-19] MEDS: DILTIAZEM CD 120 MG CAP PO SCH (08:45)
[2017-05-19] MEDS: FUROSEMIDE 40 MG/4 ML VIAL IVP SCH (08:46)
[2017-05-19] MEDS: guaiFENesin 600 MG TAB.ER PO SCH (08:46)
--- NOTE | 2017-05-19 12:42 | ASMTCMCOM ---
CM Note CM Note Notes: Pt is being discharged home today w/ HC. CM notified [facility] about discharge. CM faxed over d/c orders. CM available for changes. Date Signed: 05/19/2017 12:41 PM Electronically Signed By:NILAY Danielson
--- NOTE | 2017-05-19 14:23 | PDIAF ---
- Diagnosis Diagnosis: heart failure Code Status: Do Not Resuscitate - Medication Management Discharge Medications: Medications to Continue on Transfer Rivaroxaban [Xarelto 10mg (*)] 20 mg PO HS 08/17/16 [Last Taken 05/15/17] Dextran/Hypromellose/Glycerin [Genteal Tears 0.1%-0.2%-0.3%] 1 drop EACHEYE DAILY PRN 04/29/17 [Last Taken 05/15/17] Diltiazem HCl [Cartia Xt] 120 mg PO BID 04/29/17 [Last Taken 05/15/17 21:00] Multivitamins [Multivitamin (*)] 1 each PO DAILY@12 04/29/17 [Last Taken ] Atorvastatin Calcium [Lipitor 20 mg (*)] 20 mg PO HS 05/16/17 [Last Taken ] Herbals/Supplements -Info Only 1 ea PO DAILY 05/16/17 [Last Taken Unknown] Furosemide [Lasix 20 MG (*)] 40 mg PO BID #60 tab 05/19/17 [Last Taken Unknown] Levothyroxine [Synthroid 125 mcg (*)] 125 mcg PO DAILY AT 6AM #30 tab 05/19/17 [ Last Taken Unknown] Potassium Chloride 20 meq PO DAILY #30 tablet.er 05/19/17 [Last Taken Unknown] Discharge Medications: Refer to the Discharge Home Medication list for PRN reason. - Orders Services needed: Home Care, Registered Nurse, Physical Therapy, Occupational Therapy Home Care Face to Face: I certify that this patient was under my care and that I had the required [id number] encounter meeting the encounter requirements on the discharge day. My findings support the fact that the patient is homebound as defined in Home Care Face to Face Continued: CMS Chapter 7 Medicare Benefits Manual 30.1.1 , The condition of the patient is such that there exists a normal inability to leave home and consequently, leaving home would require a considerable and taxing effort. Diet Recommendation: cardiac -low fat low salt Diet Texture: Regular Texture Diet - Follow Up Care Current Providers and Referrals: Yocasta Johnson MD [Primary Care Provider] - As per Instructions Leeroy Rois MD [Medical Doctor] - (Follow up appointment May 27 at 10:[address] Shaw in [place] office Pacemaker check June 01 2017 at 10:30 in [place] Follow up appointment June 03 2017 at 1:[address] Rios in [facility]
[2017-05-19] MEDS: MULTIVITAMINS 1 EACH TAB PO SCH (14:29)
--- NOTE | 2017-05-19 14:34 | PDCARPN ---
Cardiology Progress Note Assessment/Plan: Assessment: D-CHF On Lasix IV 40 mg BID with good results. She is breathing easier with face mask oxygen in place. Leg edema improved She is fatigued. EF 55 to 60 %. Viral Infection likely prior to admit. She has 2 days of diarrhea. Likely became dehydrated. Atrial Fib-- On Diltiazem 120 BID. She has PPM with rate 70. TSH 8 on admit. Moderate MR by echo. Will continue with diuresis, and Diltiazem. She had Ablation in December this year. Will discuss with Dr Albarran, and recommendation for treatment. Plan:Continue on Dilt, oxygen and Lasix. 05/17/17 16:26 05/18/17 18:17 Today feeling much better. Oxygen per [employer] STRETCHER, up more in room. Minimal JAIMIE. Less fatigued today. A Fib well managed on Diltiazem. 05/19/17 14:30 Feeling much better today. She has energy today. She is using oxygen per [employer]CH[employer]. She has no SOB, CP or edema. She is up ambulating and doing well. She feels she is ready for discharge. She will continue on Lasix PO 40 mg BID, K+ supplement, Cardizem, Xarleto, She is asked to keep a weight diary and bring to next appointment. She is stable for discharge. 05/19/17 14:38 Objective: Vital Signs (8 Hrs) Temp Pulse Resp BP Pulse Ox 05/19/17 08:00 35.8 C L 75 19 115/54 L 92 Intake/Output (24 Hrs) 05/18/17 05/19/17 05/20/17 05:59 05:59 05:59 Intake Total 1200 850 Output Total 700 1350 100 Balance 500 -500 -100 Intake: Oral (ml) 1200 850 Output: Urine (ml) 700 1350 100 Toilet 700 1350 100 Other: Weight 80.9 kg 81.2 kg Intake Quantity Yes Yes Sufficient Number of Voids Toilet 2 1 Number of Stools Toilet 1 Result Diagrams: 05/18/17 04:16 05/19/17 04:17 - Physical Exam Constitutional: no apparent distress Cardiovascular: no murmurs, no rubs, no gallops, irregularly irregular Respiratory: clear to auscultate bilat, no crackles Skin: warm, no edema Neurologic: AAOx3 Psychiatric: cooperative, interactive ICD10 Worksheet Patient Problems: Problems Problem Status Onset CHF exacerbation Acute Fever Acute Respiratory failure Acute Dyslipidemia Active Peripheral vascular disease Active Acute exacerbation of congestive heart failure Acute Afib - Atrial fibrillation Acute Atrial fibrillation Acute CHF (congestive heart failure) Acute Congestive heart failure Acute Hypoxia Acute Hypoxia Acute Rapid atrial fibrillation Acute chronic disease mgmt/transitional care Acute
--- NOTE | 2017-05-19 21:53 | GDS ---
[f rep st] DISCHARGE SUMMARY DISCHARGE DIAGNOSES: Include. 1. Acute systolic heart failure. 2. Acute hypoxic respiratory failure secondary to heart failure. 3. Atrial fibrillation/flutter, on anticoagulation. 4. Hypothyroidism. HISTORY OF PRESENT ILLNESS: This is a 77-year-old female with known history of heart failure, atrial fibrillation/flutter, who presents with complaints of shortness of breath. For details of the ozzie viveros's initial presentation, please see the history and physical dated 05/16/2017. CONSULTATIVE SERVICES: Include Cardiology. PROCEDURES: 05/16/2017, patient had a PA and lateral chest x-ray that showed bilateral infiltrates c onsistent with pulmonary edema. HOSPITAL COURSE: By issue. 1. Acute hypoxic respiratory failure. The patient had a respiratory panel sent which was negative f or any viral pathogens. She was initiated on IV Lasix for acute systolic heart failure and had rapid diuresis, as well as improvement with this diuresis over the course of the first 24 hours of her hos pital stay. Her oxygen requirements dropped from 5 L to nearly none. The patient has lower extremity edema improved and her exercise capacity improved. She was continued on IV diuretics for 48 hours. On the day of disposition, she was transition to 40 mg p.o. twice daily of Lasix. She is to follow manohar khalil [facility] in 72 hours post disposition for her first post discharge followup, lab check and v olume assessment. 2. Hypothyroidism. Patient did describe fatigue. TSH was drawn and elevated. Patient's T3 was addit ionally low. We did increase her Synthroid therapy from 112 mcg and 125 mcg daily. She will follow i n the outpatient setting for thyroid monitoring with her primary care provider. 3. Atrial fibrillation/flutter. Patient was continued on her rate control medications as well as fu ll-dose anticoagulation. She will see [facility] for scheduling in the next 7 days for her first p ost discharge followup. I spent greater than 30 minutes in the planning and coordination of this discharge. PENDING STUDIES: At the time of discharge are none. MEDICATIONS: Please reference med reconciliation printed on 05/19/2017. /[id number]/MODL
--- NOTE | 2017-05-20 09:20 | ASDISCHSUM ---
Discharge Information Plan Status:Home with Home Health Medically Cleared to Leave:05/19/2017 Discharge Date:05/19/2017 03:45 PM CM D/C Disposition:Home Health Service ADT D/C Disposition:Home Health Service Projected Discharge Date:05/19/2017 12:00 AM Transportation at D/C: Discharge Delay Reason: Follow-Up Date:05/19/2017 12:00 AM Discharge Slot: Final Diagnosis: Placement Information Referral Type:*Home Health Care Services Referral ID:[id number] Provider Name:[facility] ([facility]) Address 1:[address] [place] [address] Address 2: City:[place] Selection Factors: State:[place] Patient Contact Information Contact Name:DAMARISVAUGHN Relationship:Son Address: Work Phone: City: [facility] Phone: [facility] Code: Email: Financial Information Financial Class: Primary Plan Desc:MEDICARE INPATIENT Primary Plan Number:[id number] Secondary Plan Desc:[employer]/MDR SUPPLEMENT Secondary Plan Number:[id number] Assessment Information [facility] CM Progress Note CM Note CM Note Notes: 05/17/2017 Case Management Note: Reviewed chart. Pt recently d/c from [facility] in early April w/ @ [facility] ([phone]) RN and PT. PT eval recommending Home Care om 05/17/2017 Case management d/c poc: Home w/ family support and resumption of Home Care Services. Date Signed: 05/17/2017 04:11 PM Electronically Signed By:Sabina Ny RN [facility] CM Progress Note CM Note CM Note Notes: Pt is being discharged home today w/ HC. CM notified [facility] about discharge. CM faxed over d/c orders. CM available for changes. Date Signed: 05/19/2017 12:41 PM Electronically Signed By:NILAY Danielson Intervention Information Intervention Type:*IM-Signed Date of Service:05/19/2017 12:02 PM Patient Type:Inpatient Staff Member:Yasmin Barnes Hours: Discipline: Severity: Comment:
--- NOTE | 2017-05-23 14:06 | PQFORM ---
PHYSICIAN QUERY FORM Needs Your Response This query form is being sent to you to assure this patient record is coded properly. Please respond to the question below: HEMATOLOGY NURSE EDUCATOR QUESTION: Dr. Pickens, On your discharge summary, you state the patient had acute systolic heart failure. The records from [facility], the Emergency Department report and the progress notes from Michelle Salgado CNP all state the congestive heart failure as diastolic. To clarify, can the diagnosis for this patient be considered: 1. Acute systolic congestive heart failure (discharge summary) ____x__ 2. Acute diastolic congestive heart failure (progress notes by Michelle) 3. Acute on chronic congestive heart failure ([facility] records) 4. Other 5. Unknown Thank you for clarifying, OLEGARIO Rojas HIM Coding INSTRUCTIONS FOR RESPONSE: Answer question by clicking on the "Edit Document" button. Move cursor to area below the stars. When complete, hit "Save." Click on the "Sign" button, then click "Sign" again. Type in your PIN and hit "Enter." MTDD
== END 2017-05-19 15:45 | disposition home health service (06) | DRG 291 ==
LOC: F2W 15:30
PROVIDERS: ADMIT Internal Medicine; ATTEND Hospitalist
DX: I11.0 Hypertensive heart disease with heart failure (principal); I50.31 Acute diastolic (congestive) heart failure; J96.01 Acute respiratory failure with hypoxia; I48.2 Chronic atrial fibrillation; I48.92 Unspecified atrial flutter; Z79.01 Long term (current) use of anticoagulants; E03.9 Hypothyroidism, unspecified; E78.5 Hyperlipidemia, unspecified; I27.2 Other secondary pulmonary hypertension; I08.1 Rheumatic disorders of both mitral and tricuspid valves; Z86.73 Personal history of transient ischemic attack (TIA), and cerebral infarction without residual deficits; Z95.0 Presence of cardiac pacemaker; Z87.891 Personal history of nicotine dependence; Z66 Do not resuscitate
CPT/HCPCS: 84480-90; 96374; 97116-GP; 97161-GP; 97165-GO; 97530-GO; G8978-GP-CJ; G8979-GP-CI; G8980-GP-CI; G8987-GO-CI; G8988-GO-CI; G8989-GO-CI; J1940

== ENCOUNTER 2017-06-25 21:17 | Inpatient (IN) | payer OTHER, MEDICARE ==
[2017-06-25] MEDS ORDERED: NS 500 ML IV ONE ×2 (21:19→22:03)
--- NOTE | 2017-06-25 21:22 | EDPHY ---
H & P HPI/ROS: HPI CHIEF COMPLAINT: Generalized weakness, rash, noted to be hypoxic upon arrival. HISTORY OF PRESENT ILLNESS: This patient is a 77-year-old female significant past medical history for hypoxic respiratory failure, she is on chronic O2 2 L during the night 0.5 L at day. Additionally she has diastolic heart failure she presents emergency room with generalized weakness globally. Additionally she reports she has this rash. She is unsure exactly when this rash started she started a new medication 2-3 days ago Wellbutrin for depression. She reports to me that she felt fine Tuesday but today she woke up feeling very weak globally. She had 1 episode of vomiting. No diarrhea. She denies any chest pain. Denies abdominal pain. Denies shortness of breath. Upon arrival here to the emergency room she is noted to be hypoxic 80% on 2 L. Past Medical History: Diastolic heart failure, hypertension, hyperlipidemia, AFib, hypoxic respiratory failure Past Surgical History: No recent surgery Social History: Denies daily use of drugs alcohol tobacco products. Family History: Noncontributory. ROS REVIEW OF SYSTEMS: A comprehensive 10 point review of systems is otherwise negative aside from elements mentioned in the history of present illness. Exam Constitutional appears nontoxic but elderly, triage nursing summary reviewed, vital signs reviewed, awake/alert. Eyes normal conjunctivae and sclera, EOMI, PERRLA. HENT normal inspection, atraumatic, moist mucus membranes, no epistaxis, neck supple/ no meningismus, no raccoon eyes. Respiratory decreased breath sounds bilaterally, no audible wheezing, clear to auscultation bilaterally, normal breath sounds, no respiratory distress, Cardiovascular rate normal, regular rhythm, no murmur, no edema, distal pulses normal. Gastrointestinal soft, non-tender, no rebound, no guarding, normal bowel sounds, no distension, no pulsatile mass. Genitourinary no CVA tenderness. Musculoskeletal no midline vertebral tenderness, full range of motion, no calf swelling, no tenderness of extremities, no meningismus, good pulses, neurovascularly intact. Skin diffuse erythematous blanchable rash consistent with most likely a drug rash. No particular purpura. Neurologic awake, alert and oriented x 3, AAOx3, moves all 4 extremities equally, motor intact, sensory intact, CN II-XII intact, normal cerebellar, normal vision, normal speech. Psychiatric normal mood/affect. Heme/Lymph/Immune no lymphadenopathy. Differential Diagnosis: Includes but is not limited to in a particular order, pneumonia, sepsis, bacteremia, electrolyte disturbance, dehydration, drug rash Medical Decision Making: Plan for this patient x-ray chest rule pneumonia, IV establishment blood draw, check lactic acid, check blood cultures, gentle IV hydration, check urinalysis, check electrolytes. Most likely admit for generalized weakness. Re-evaluation: EKG interpretation by me on record in Dibspace system. Impression time of EKG 09/17/2040, this is a paced rhythm ventricularly paced. Otherwise unremarkable EKG. No acute ischemic changes seen on the paced rhythm. Patient's chest x-ray reviewed. Shows pulmonary edema with interstitial pulmonary edema throughout. No significant cardiomegaly. She did have hypoxic 80% room air when she arrived. Additionally her BNP is elevated. I have held her IV fluids. Will give her 40 mg IV Lasix. Plan will be for admission for decompensated heart failure. 2214: This patient be admitted to the hospitalist service for decompensated heart failure. Decompensated heart failure indicated by elevated BNP, interstitial pulmonary edema on chest x-ray. I have ordered 40 mg IV Lasix. Troponin negative. Admission to the hospital service spoke with Dr. Capellan. Source: Patient - Personal History Tetanus Vaccine Date: 2013 - Medical/Surgical History Hx Asthma: No Hx Chronic Respiratory Disease: Yes Hx Diabetes: No Hx Cardiac Disease: Yes Hx Renal Disease: No Hx Cirrhosis: No Hx Alcoholism: No Hx HIV/AIDS: No Hx Splenectomy or Spleen Trauma: No Other PMH: PPM, afib ablation 01/31/17, htn, CHF, hypothyroid, CVA 2009, CHF, Macular Degeneration, R knee replaced 2011, L & R cataracts removed 2014, depression - Social History Smoking Status: Former smoker Constitutional: Initial Vital Signs Temperature (C) 37.7 C 06/25/17 21:13 Heart Rate 98 06/25/17 21:13 Respiratory Rate 16 06/25/17 21:13 Blood Pressure 134/61 H 06/25/17 21:13 O2 Sat (%) 84 L 06/25/17 21:13 O2 Delivery Mode Nasal Cannula O2 (L/minute) 4 Allergies/Adverse Reactions: lisinopril Allergy (Severe, Verified 04/29/17 17:21) Swelling/neck,face,throat NICKEL Allergy (Intermediate, Uncoded 04/29/17 13:23) Rash BRANDT SILVER Allergy (Intermediate, Uncoded 04/29/17 13:23) Rash Home Medications: Medication Instructions Recorded Rivaroxaban [Xarelto 10mg (*)] 20 mg PO HS 08/17/16 Dextran/Hypromellose/Glycerin 1 drop EACHEYE DAILY PRN 04/29/17 [Genteal Tears 0.1%-0.2%-0.3%] Diltiazem HCl [Cartia Xt] 120 mg PO BID 04/29/17 Multivitamins [Multivitamin (*)] 1 each PO DAILY@12 04/29/17 Atorvastatin Calcium [Lipitor 20 20 mg PO HS 05/16/17 mg (*)] Herbals/Supplements -Info Only 1 ea PO DAILY 05/16/17 Levothyroxine [Synthroid 125 mcg 125 mcg PO DAILY AT 6AM #30 tab 05/19/17 (*)] Bupropion HCl [Bupropion HCl Sr] 150 mg PO DAILY 06/25/17 C/E/Zn/Cu/OM3/DHA/EPA/LUT/ZEAX 1 each PO BID 06/25/17 [Preservision Areds 2 Softgel] Cholecalciferol Vit D3 [Vitamin D3 2,000 units PO DAILY 06/25/17 2000 units tab (OTC)] Clotrimazole [Clotrimazole] 1 ana TP BID 06/25/17 Cyanocobalamin [Vitamin B12 (*)] 1,000 mcg PO DAILY 06/25/17 hydrOXYzine HCL [hydrOXYzine HCL 25 mg PO HS PRN 06/25/17 (RX)] Medical Decision Making - Data Points Laboratory Results: Laboratory Results 06/26/17 04:14 06/26/17 04:14 06/26/17 06/26/17 06/26/17 04:14 04:14 03:00 WBC 5.30 10^3/uL 10^3/uL (3.80-9.50) RBC 3.79 10^6/uL L 10^6/uL (4.18-5.33) Hgb 10.1 g/dL L g/dL (12.6-16.3) Hct 29.9 % L % (38.0-47.0) MCV 78.9 fL L fL (81.5-99.8) MCH 26.6 pg L pg (27.9-34.1) MCHC 33.8 g/dL g/dL (32.4-36.7) RDW 16.5 % H % (11.5-15.2) Plt Count 197 10^3/uL 10^3/uL (150-400) MPV 9.8 fL fL (8.7-11.7) Neut % (Auto) 70.8 % % (39.3-74.2) Lymph % (Auto) 7.9 % L % (15.0-45.0) [place] % (Auto) 14.5 % H % (4.5-13.0) Eos % (Auto) 4.9 % % (0.6-7.6) Baso % (Auto) 0.4 % % (0.3-1.7) Nucleat RBC Rel Count 0.0 % % (0.0-0.2) Absolute Neuts (auto) 3.75 10^3/uL 10^3/uL (1.70-6.50) Absolute Lymphs (auto) 0.42 10^3/uL L 10^3/uL (1.00-3.00) Absolute Monos (auto) 0.77 10^3/uL 10^3/uL (0.30-0.80) Absolute Eos (auto) 0.26 10^3/uL 10^3/uL (0.03-0.40) Absolute Basos (auto) 0.02 10^3/uL 10^3/uL (0.02-0.10) Absolute Nucleated RBC 0.00 10^3/uL 10^3/uL (0-0.01) Immature Gran % 1.5 % H % (0.0-1.1) Immature Gran # 0.08 10^3/uL 10^3/uL (0.00-0.10) Sodium 134 mEq/L mEq/L (134-144) Potassium 3.9 mEq/L mEq/L (3.5-5.2) Chloride 97 mEq/L mEq/L (97-110) Carbon Dioxide 23 mEq/l mEq/l (22-31) Anion Gap 14 mEq/L mEq/L (8-16) BUN 32 mg/dL H mg/dL (7-23) Creatinine 1.3 mg/dL H mg/dL (0.6-1.0) Estimated GFR 40 Glucose 86 mg/dL mg/dL (70-100) Calcium 9.9 mg/dL mg/dL (8.5-10.4) Magnesium 1.6 mg/dL mg/dL (1.6-2.3) Ur Random Creatinine 34.2 mg/dL mg/dL Ur Random Sodium 84 mEq/L mEq/L (30-90) Ur Random Urea Nitrogn 266.0 mg/dL mg/dL Microbiology Results: MICROBIOLOGY 06/26/17 01:00 Nasal, Sinus - [place] Viral Transport Respiratory Panel ( PCR) - Final No Organism Detected Medications Given: Acetaminophen (Tylenol) 650 mg PO Q4HRS PRN PRN Reason: Pain, Mild/Fever, Can Take PO Stop: 12/22/17 22:12 Last Admin: 06/26/17 04:39 Dose: 650 mg Cholecalciferol (Vitamin D) 2,000 units PO DAILY KARLA Stop: 12/23/17 08:59 Last Admin: 06/26/17 11:28 Dose: Not Given Diltiazem HCl (Cardizem Er Q24hr) 120 mg PO BID KARLA Stop: 12/23/17 08:59 Last Admin: 06/26/17 11:53 Dose: 120 mg Sodium Chloride (Ns) 500 mls @ 50 mls/hr IV ONCE ONE Stop: 06/26/17 20:24 Last Admin: 06/26/17 11:49 Dose: 500 mls Levothyroxine Sodium (Synthroid) 125 mcg PO DAILY AT 6AM [facility] Stop: 12/23/17 09:14 Last Admin: 06/26/17 09:45 Dose: 125 mcg Multivitamins/Minerals (Preservision Areds2 Formula) 1 each PO BID KARLA Stop: 12/23/17 08:59 Last Admin: 06/26/17 10:17 Dose: 1 each Ondansetron HCl (Zofran) 4 mg IVP Q4HRS PRN PRN Reason: Nausea/Vomiting, Can't Take PO Stop: 12/22/17 22:12 Last Admin: 06/26/17 11:49 Dose: 4 mg Vitamin B Complex (Vitamin B12) 1,000 mcg PO DAILY KARLA Stop: 12/23/17 08:59 Last Admin: 06/26/17 11:27 Dose: Not Given Discontinued Medications Bupropion HCl (Wellbutrin Sr) 150 mg PO DAILY KARLA Stop: 12/23/17 08:59 Last Admin: 06/26/17 11:42 Dose: Not Given Diphenhydramine HCl (Benadryl Injection) 25 mg IVP EDNOW ONE Stop: 06/25/17 22:24 Last Admin: 06/25/17 22:23 Dose: 25 mg Furosemide (Lasix Injection) 40 mg IVP EDNOW ONE Stop: 06/25/17 22:09 Last Admin: 06/25/17 22:20 Dose: 40 mg Furosemide (Lasix Injection) 40 mg IVP EDNOW ONE Stop: 06/25/17 22:05 Last Admin: 06/25/17 23:25 Dose: Not Given Sodium Chloride (Ns) 500 mls @ 1,000 mls/hr IV EDNOW ONE PRN Reason: Protocol Stop: 06/25/17 21:48 Last Admin: 06/25/17 21:23 Dose: 500 mls Sodium Chloride (Ns) 500 mls @ 0 mls/hr IV ONCE ONE PRN Reason: Wide Open Stop: 06/25/17 22:04 Last Admin: 06/25/17 22:07 Dose: Not Given Sodium Chloride (Ns) 250 mls @ 250 mls/hr IV ONCE ONE Stop: 06/26/17 01:40 Last Admin: 06/26/17 01:30 Dose: 250 mls Departure - Departure Disposition: [facility] Inpatient Acute Clinical Impression: Acute decompensated heart failure Condition: Fair
[2017-06-25 21:32] LABS: % IMMATURE GRANULYOCYTES 1.5 % (0.0-1.1); ADD DIFF? NO; ADD MORPH? NO; ADD SCAN? NO; ATYPICAL LYMPHOCYTE FLAG 70 (0-99); FRAGMENT RBC FLAG 0 (0-99); HEMATOCRIT 33.1 % (38.0-47.0); HEMOGLOBIN 11.3 g/dL (12.6-16.3); LEFT SHIFT FLG 10 (0-99); LIPEMIA HEMOLYSIS FLAG 90 (0-99); MEAN CELL HEMOGLOBIN CONCENTR. 34.1 g/dL (32.4-36.7); PLATELET CLUMPS FLAG 10 (0-99); PLATELET COUNT 241 10^3/uL (150-400); RED BLOOD CELL COUNT 4.19 10^6/uL (4.18-5.33); RED CELL DISTRIBUTION WIDTH 16.5 % (11.5-15.2)
--- NOTE | 2017-06-25 21:43 | CPEKG ---
Heart Rate: 68 RR Interval: 882 QRSD Interval: 132 QT Interval: 424 QTC Interval: 451 QRS Jerome: -78 T Wave Jerome: 91 EKG Severity - ABNORMAL ECG - EKG Impression: AFIB/FLUTTER AND VENTRICULAR-PACED RHYTHM Electronically Signed By: Mando Durbin 26-Jun-2017 03:00:34
[2017-06-25 21:46] LABS: ALANINE AMINOTRANSFERASE 36 IU/L (9-52); ALKALINE PHOSPHATASE 89 IU/L (38-126); ANION GAP 15 mEq/L (8-16); ASPARTATE AMINOTRANSFERASE 26 IU/L (14-46); BILIRUBIN,TOTAL 0.9 mg/dL (0.1-1.4); BILIRUBIN-CONJUGATED 0.3 mg/dL (0.0-0.5); BILIRUBIN-UNCONJUGATED 0.6 mg/dL (0.0-1.1); CALCIUM 10.9 mg/dL (8.5-10.4); CARBON DIOXIDE 25 mEq/l (22-31); CHLORIDE 93 mEq/L (97-110); CREATININE 1.4 mg/dL (0.6-1.0); GLOMERULAR FILTRATION RATE 37; GLUCOSE 104 mg/dL (70-100); MAGNESIUM 1.8 mg/dL (1.6-2.3); POTASSIUM 4.6 mEq/L (3.5-5.2); SODIUM 133 mEq/L (134-144); TOTAL PROTEIN 5.5 g/dL (6.3-8.2)
[2017-06-25 21:53] LABS: INR 4.89 (0.83-1.16); PROTIME(PATIENT) 46.6 SEC (12.0-15.0)
[2017-06-25 21:54] LABS: APTT 44.8 SEC (23.0-38.0)
[2017-06-25 21:58] LABS: TROPONIN I 0.013 ng/mL (0.000-0.034)
[2017-06-25] MEDS ORDERED: FUROSEMIDE 40 MG/4 ML VIAL IVP ONE ×2 (22:04→22:08)
[2017-06-25] MEDS ORDERED: FUROSEMIDE 40 MG/4 ML VIAL ONE (22:06)
[2017-06-25] MEDS ORDERED: ONDANSETRON DISINTEGRATING 4 MG TAB PO PRN (22:13)
[2017-06-25 22:25] LABS: COLOR YELLOW; LEUKOCYTE ESTERASE,URINE NEGATIVE (NEGATIVE); NITRITE,URINE NEGATIVE (NEGATIVE)
[2017-06-25 22:31] LABS: BACTERIA TRACE /hpf (NONE SEEN)
[2017-06-25 22:33] LABS: WBC,URINE NONE SEEN /hpf (0-3)
--- NOTE | 2017-06-26 00:22 | PDGENHP ---
History and Physical - Chief Complaint Fatigue - History of Present Illness 77 yo F w/ AF s/p AVN ablation and PPM, diastolic dysfunction, moderate MVR, and pHTN presents with 3 days of fatigue. Patient was admitted in April for a CHF exacerbation. She was discharged at that time with a weight of 81.2 kg and a lasix dose of 40 mg PO BID and aldactone. She saw her birth certificate clerk Dr. Shaw on 06/23 and was thought to be dehydrated. Oral diuretics were stopped at that time. Over the next 3 days she felt increasingly fatigued and developed a new, diffuse, erythematous macular rash. She started wellbutrin just a few days earlier and she also had a fever of >101 F one day ago. She denies leg swelling or increase in shortness of breath. Son states that her grandson may have had a cold. In the ED, CXR showed interstitial edema so patient was given Lasix with the thinking that his may be a CHF exacerbation. However, upon my evaluation, patient appears euvolemic or perhaps somewhat dehydrated. This is supported by an admission weight of 72 kg, about 9 kg lower than her last discharge weight. At this time she is complaining of fatigue and pruritis due to her rash. History Information - Allergies/Home Medication List Allergies/Adverse Reactions: lisinopril Allergy (Severe, Verified 04/29/17 17:21) Swelling/neck,face,throat NICKEL Allergy (Intermediate, Uncoded 04/29/17 13:23) Rash BRANDT SILVER Allergy (Intermediate, Uncoded 04/29/17 13:23) Rash Home Medications: Rivaroxaban [Xarelto 10mg (*)] 20 mg PO HS 08/17/16 [Last Taken 06/25/17] Dextran/Hypromellose/Glycerin [Genteal Tears 0.1%-0.2%-0.3%] 1 drop EACHEYE DAILY PRN 04/29/17 [Last Taken 05/15/17] Diltiazem HCl [Cartia Xt] 120 mg PO BID 04/29/17 [Last Taken 06/24/17] Multivitamins [Multivitamin (*)] 1 each PO DAILY@12 04/29/17 [Last Taken ] Atorvastatin Calcium [Lipitor 20 mg (*)] 20 mg PO HS 05/16/17 [Last Taken ] Herbals/Supplements -Info Only 1 ea PO DAILY 05/16/17 [Last Taken Unknown] Bupropion HCl [Bupropion HCl Sr] 150 mg PO DAILY 06/25/17 [Last Taken 06/24/17] C/E/Zn/Cu/OM3/DHA/EPA/LUT/ZEAX [Preservision Areds 2 Softgel] 1 each PO BID [Last Taken 06/24/17] Cholecalciferol Vit D3 [Vitamin D3 2000 units tab (OTC)] 2,000 units PO DAILY [Last Taken 06/24/17] Clotrimazole [Clotrimazole] 1 ana TP BID 06/25/17 [Last Taken 06/24/17] Cyanocobalamin [Vitamin B12 (*)] 1,000 mcg PO DAILY 06/25/17 [Last Taken ] hydrOXYzine HCL [hydrOXYzine HCL (RX)] 25 mg PO HS PRN 06/25/17 [Last Taken ] I have personally reviewed and updated: family history, medical history Past Medical History: sick sinus syndrome with dual chamber pacemaker- 2011. atrial fibrillation. Diastolic dysfunction with mild CHF. hypothyroidism. stroke 2009. Macular degeneration. HTN - Past Medical History atrial fibrillation, hypertension, hyperlipidemia Additional medical history: VHD with moderate MR, mod to severe TR - Surgical History Reports: ablation, pacemaker/AICD Additional surgical history: right knee replacement. vaginal hysterectomy 2005. ppm - Family History Positive for: non-pertinent - Social History Smoking Status: Former smoker Additional social history: lives independently, Review of Systems Review of Systems: ROS: 10pt was reviewed & negative except for what was stated in HPI & below Physical Exam Physical Exam: Temp Pulse Resp BP Pulse Ox 37.3 C 70 16 121/53 H 94 06/25/17 23:40 06/25/17 23:40 06/25/17 23:40 06/25/17 23:40 06/25/17 23:40 O2 (L/minute) 4 Constitutional: no apparent distress, not in pain Eyes: PERRL, EOMI Ears, Nose, Mouth, Throat: moist mucous membranes, no oral mucosal ulcers Cardiovascular: regular rate and rhythym, no murmur, rub, or gallop, JVD (JVP visible 1 cm above clavicle @ 30 degrees), No edema Respiratory: no respiratory distress, clear to auscultation Gastrointestinal: normoactive bowel sounds, soft, non-tender abdomen Skin: warm, rash (Diffuse erythematous, macular rash) Neurologic: AAOx3, CN II-XII Intact Psychiatric: interacting appropriately, not anxious Lab Data & Imaging Review 06/25/17 21:10 06/25/17 21:10 WBC 6.71 10^3/uL (3.80-9.50) 06/25/17 21:10 RBC 4.19 10^6/uL (4.18-5.33) 06/25/17 21:10 Hgb 11.3 g/dL (12.6-16.3) L 06/25/17 21:10 Hct 33.1 % (38.0-47.0) L 06/25/17 21:10 MCV 79.0 fL (81.5-99.8) L 06/25/17 21:10 MCH 27.0 pg (27.9-34.1) L 06/25/17 21:10 MCHC 34.1 g/dL (32.4-36.7) 06/25/17 21:10 RDW 16.5 % (11.5-15.2) H 06/25/17 21:10 Plt Count 241 10^3/uL (150-400) 06/25/17 21:10 MPV 10.0 fL (8.7-11.7) 06/25/17 21:10 Neut % (Auto) 74.1 % (39.3-74.2) 06/25/17 21:10 Lymph % (Auto) 9.4 % (15.0-45.0) L 06/25/17 21:10 [place] % (Auto) 12.2 % (4.5-13.0) 06/25/17 21:10 Eos % (Auto) 2.5 % (0.6-7.6) 06/25/17 21:10 Baso % (Auto) 0.3 % (0.3-1.7) 06/25/17 21:10 Nucleat RBC Rel Count 0.0 % (0.0-0.2) 06/25/17 21:10 Absolute Neuts (auto) 4.97 10^3/uL (1.70-6.50) 06/25/17 21:10 Absolute Lymphs (auto) 0.63 10^3/uL (1.00-3.00) L 06/25/17 21:10 Absolute Monos (auto) 0.82 10^3/uL (0.30-0.80) H 06/25/17 21:10 Absolute Eos (auto) 0.17 10^3/uL (0.03-0.40) 06/25/17 21:10 Absolute Basos (auto) 0.02 10^3/uL (0.02-0.10) 06/25/17 21:10 Absolute Nucleated RBC 0.00 10^3/uL (0-0.01) 06/25/17 21:10 Immature Gran % 1.5 % (0.0-1.1) H 06/25/17 21:10 Immature Gran # 0.10 10^3/uL (0.00-0.10) 06/25/17 21:10 PT 46.6 SEC (12.0-15.0) H 06/25/17 21:10 INR 4.89 (0.83-1.16) H 06/25/17 21:10 APTT 44.8 SEC (23.0-38.0) H 06/25/17 21:10 D-Dimer 0.61 ug/mLFEU (0.00-0.50) H 06/25/17 21:10 VBG Lactic Acid 2.4 mmol/L (0.7-2.1) H 06/25/17 21:44 Sodium 133 mEq/L (134-144) L 06/25/17 21:10 Potassium 4.6 mEq/L (3.5-5.2) 06/25/17 21:10 Chloride 93 mEq/L (97-110) L 06/25/17 21:10 Carbon Dioxide 25 mEq/l (22-31) 06/25/17 21:10 Anion Gap 15 mEq/L (8-16) 06/25/17 21:10 BUN 32 mg/dL (7-23) H 06/25/17 21:10 Creatinine 1.4 mg/dL (0.6-1.0) H 06/25/17 21:10 Estimated GFR 37 06/25/17 21:10 Glucose 104 mg/dL (70-100) H 06/25/17 21:10 Calcium 10.9 mg/dL (8.5-10.4) H 06/25/17 21:10 Phosphorus 3.6 mg/dL (2.5-4.5) 06/25/17 21:10 Magnesium 1.8 mg/dL (1.6-2.3) 06/25/17 21:10 Total Bilirubin 0.9 mg/dL (0.1-1.4) 06/25/17 21:10 Conjugated Bilirubin 0.3 mg/dL (0.0-0.5) 06/25/17 21:10 Unconjugated Bilirubin 0.6 mg/dL (0.0-1.1) 06/25/17 21:10 AST 26 IU/L (14-46) 06/25/17 21:10 ALT 36 IU/L (9-52) 06/25/17 21:10 Alkaline Phosphatase 89 IU/L (38-126) 06/25/17 21:10 Troponin I 0.013 ng/mL (0.000-0.034) 06/25/17 21:10 NT-Pro-B Natriuret Pep 4440 pg/mL (0-450) H 06/25/17 21:10 Total Protein 5.5 g/dL (6.3-8.2) L 06/25/17 21:10 Albumin 3.0 g/dL (3.5-5.0) L 06/25/17 21:10 Lipase 58 IU/L (23-300) 06/25/17 21:10 Urine Color YELLOW 06/25/17 22:15 Urine Appearance MODERATELY TURBID 06/25/17 22:15 Urine pH 5.0 (5.0-7.5) 06/25/17 22:15 Ur Specific [place] 1.020 (1.002-1.030) 06/25/17 22:15 Urine Protein 1+ (NEGATIVE) H 06/25/17 22:15 Urine Ketones NEGATIVE (NEGATIVE) 06/25/17 22:15 Urine Blood NEGATIVE (NEGATIVE) 06/25/17 22:15 Urine Nitrate NEGATIVE (NEGATIVE) 06/25/17 22:15 Urine Bilirubin NEGATIVE (NEGATIVE) 06/25/17 22:15 Urine Urobilinogen NEGATIVE EU (0.2-1.0) 06/25/17 22:15 Ur Leukocyte Esterase NEGATIVE (NEGATIVE) 06/25/17 22:15 Urine RBC 1-3 /hpf (0-3) 06/25/17 22:15 Urine WBC NONE SEEN /hpf (0-3) 06/25/17 22:15 Ur Epithelial Cells TRACE /lpf (NONE-1+) 06/25/17 22:15 Urine Bacteria TRACE /hpf (NONE SEEN) H 06/25/17 22:15 Urine Glucose NEGATIVE (NEGATIVE) 06/25/17 22:15 Visualized and Interpreted Chest x-ray results: Yes Chest X-Ray results: other (Interstitial edema) Visualized and Interpreted EKG results: Yes EKG Interpretation: Positive for: other (V-paced with underlying A-flutter) Assessment & Plan Assessment: 77 yo F w/ AF s/p PPM, diastolic dysfunction, moderate MR, and pHTN presents with 3 days of fatigue. Plan: 1. Fatigue - I do not suspect this is related to a heart failure exacerbation noting euvolemic/dehydrated appearance on exam and admission weight of 72 kg ( 81 kg on recent discharge) despite interstitial edema seen on CXR. Noting constellation of fever, fatigue, and widespread erythematous, macular rash this could represent viral infection and exanthem or a drug eruption with systemic symptoms, although timing does not fit DRESS noting she has only been taking Wellbutrin for 2 days. Eosinophil % is 2.5%, elevated from 0.2% during last admission. - Respiratory PCR to evaluate for viral infection - Supportive care - Will transfuse 250 mL NS noting Lasix dose in ED 2. HFpEF - Severe biatrial dilation noted on most recent TTE along with moderate MR, which I suspect is contributing to interstitial edema along with abnormal atrial rhythm despite seeming intravascularly fluid depleted. She was seen by Dr. Shaw 3 days prior to admission and her oral diuretics were stopped due to dehydration. Admission weight 72 kg, 81 kg at discharge on 05/16. - Small bolus as above - Continue to hold diuretics - Cardiology consult 3. AF, SSS - S/p AV node ablation and PPM. On Xarelto for anticoagulation and diltiazem 120 mg PO BID for rate control. 4. pHTN - Noted on recent TTE, possibly Group 2 from moderate MR and likely contributing to small O2 requirement. 5. CHRF - Has required 2 L/min 02 over the last month, she is stable on this currently. This may be related to pHTN and valvular disease. 6. ANDRY - Cr 1.4 on admission. I suspect this is pre-renal azotemia based on clinical picture. - Small bolus as above - Obtain FeNa (will be skewed by lasix in ED) and FeUrea 7. Hyponatremia - Mild, likely hypovolemic, monitor BMP Diet - Regular Code - Full Ppx - Xarelto Dispo - Admit to observation status
[2017-06-26] MEDS ORDERED: NS 250 ML IV ONE (00:41)
[2017-06-26] MEDS: ACETAMINOPHEN 325 MG TAB PO PRN ×2 (04:39→19:40)
[2017-06-26 05:01] LABS: % IMMATURE GRANULYOCYTES 1.5 % (0.0-1.1); ABSOLUTE IMMATURE GRANULOCYTES 0.08 10^3/uL (0.00-0.10); ADD DIFF? NO; ADD MORPH? NO; ADD SCAN? NO; ATYPICAL LYMPHOCYTE FLAG 0 (0-99); FRAGMENT RBC FLAG 0 (0-99); HEMATOCRIT 29.9 % (38.0-47.0); HEMOGLOBIN 10.1 g/dL (12.6-16.3); LEFT SHIFT FLG 10 (0-99); LIPEMIA HEMOLYSIS FLAG 90 (0-99); MEAN CELL HEMOGLOBIN 26.6 pg (27.9-34.1); MEAN CELL HEMOGLOBIN CONCENTR. 33.8 g/dL (32.4-36.7); MEAN CELL VOLUME 78.9 fL (81.5-99.8); MEAN PLATELET VOLUME 9.8 fL (8.7-11.7); PLATELET CLUMPS FLAG 10 (0-99); PLATELET COUNT 197 10^3/uL (150-400); RED BLOOD CELL COUNT 3.79 10^6/uL (4.18-5.33); RED CELL DISTRIBUTION WIDTH 16.5 % (11.5-15.2)
[2017-06-26 05:18] LABS: ANION GAP 14 mEq/L (8-16); CALCIUM 9.9 mg/dL (8.5-10.4); CARBON DIOXIDE 23 mEq/l (22-31); CHLORIDE 97 mEq/L (97-110); CREATININE 1.3 mg/dL (0.6-1.0); GLOMERULAR FILTRATION RATE 40; GLUCOSE 86 mg/dL (70-100); MAGNESIUM 1.6 mg/dL (1.6-2.3); POTASSIUM 3.9 mEq/L (3.5-5.2); SODIUM 134 mEq/L (134-144)
[2017-06-26] MEDS ORDERED: HYPROMELLOSE EACHEYE PRN (08:53)
[2017-06-26] MEDS ORDERED: hydrOXYzine HCL 25 MG TAB PO PRN (08:53)
[2017-06-26] MEDS ORDERED: DEXTRAN EACHEYE PRN (08:53)
[2017-06-26] MEDS ORDERED: GLYCERIN EACHEYE PRN (08:53)
[2017-06-26] MEDS ORDERED: [UNRECOGNIZED DRUG - OTHER] EACHEYE PRN (08:53)
[2017-06-26] MEDS ORDERED: buPROPion SR 150 MG TAB PO SCH (09:00)
[2017-06-26] MEDS ORDERED: Herbals/Supplements -Info Only PO SCH (09:00)
[2017-06-26] MEDS ORDERED: TEARS/DEXTRAN 70/HYPROMELLOSE 15 ML OPHT.BTL EACHEYE PRN (09:07)
[2017-06-26] MEDS: LEVOTHYROXINE 125 MCG TAB PO SCH (09:45)
[2017-06-26] MEDS: CYANO/VITAMIN B12 1000 MCG TAB PO SCH ×2 (10:16→11:27)
[2017-06-26] MEDS: DILTIAZEM CD 120 MG CAP PO SCH ×3 (10:17→19:40)
[2017-06-26] MEDS: PRESERVISION AREDS2 FORMULA EYE VIT 1 EACH PO SCH ×2 (10:17→19:40)
[2017-06-26] MEDS: MULTIVITAMINS 1 EACH TAB PO SCH ×2 (10:17→15:38)
[2017-06-26] MEDS: CHOLECALCIFEROL VIT D3 2,000 UNITS TAB/CAP PO SCH ×2 (10:17→11:28)
[2017-06-26] MEDS ORDERED: NS 500 ML IV ONE (10:25)
--- NOTE | 2017-06-26 10:39 | HOSPPROG ---
Hospitalist Progress Note Assessment/Plan: First encounter with this patient 77 yo Female with admitted for fatigue, dehydration, rash, and weakness and deconditioning #Fatigue #?Viral syndrome: PCR negative #Dehydrations, persists #acute kidney injury #?FTT #PCMN #Macular Rash involving abdomen and thighs, getting worse per her report. Etiology unclear, viral vs ?Drug related (started 2 days after starting Wellbutrin per her report) #CHF, preserved ejection fraction, not in exacerbation #Chronic resp failure, on 2 LO2 24/ at baseline #Chronic Afib/SSS, s/p AV node ablation and PPM, on Dilatiazem #chronic AC, on Xarelto #Hyponatremia, slight, improved Plan: The etiology of her fatigue is likely multifactorial. Acutely she is dehydrated , will give her additional 500ml of fluid. She is on 4 L o2 but unclear if she was hypoxic on her baseline of 2L. Her lungs exam is overall reassuring. Cont to hold diuretics for now The etiology of her rash is unclear, will provide supportive care. No Wellbutrin She has had very little PO over the last week. I suspect that the this has been chronically progressing. Low protein. Nutrition to consult PT/OT w/u anemia check TSH cont Diltiazem at current dose, no e/o of hypotension cont Xarelto for now. PT will work with her to determine if she is a fall risk. Diet - Regular Code - Full Ppx - Xarelto Dispo - change to inpatient Subjective: Feels lousy. No Resp sx's. No CV symptoms. Generalized malaise. generalized weakness. Objective: Vital Signs Temp Pulse Resp BP Pulse Ox 36.6 C 76 20 129/47 H 95 06/26/17 08:00 06/26/17 08:00 06/26/17 08:00 06/26/17 08:00 06/26/17 08:00 Microbiology 06/26/17 01:00 Respiratory Panel (PCR) - Final Nasal, Sinus - [place] Viral Transport No Organism Detected Laboratory Results 06/26/17 04:14 06/26/17 04:14 06/25/17 06/26/17 06/27/17 05:59 05:59 05:59 Intake Total 500 Output Total 650 Balance -150 PT 46.6 SEC (12.0-15.0) H 06/25/17 21:10 INR 4.89 (0.83-1.16) H 06/25/17 21:10 - Physical Exam Constitutional: chronically ill appearing Eyes: PERRL, EOMI Ears, Nose, Mouth, Throat: dry mucous membranes Cardiovascular: regular rate and rhythym, No edema Respiratory: clear to auscultation Gastrointestinal: normoactive bowel sounds, soft, non-tender abdomen Skin: warm Musculoskeletal: generalized weakness Neurologic: AAOx3 Psychiatric: interacting appropriately, not anxious, not encephalopathic, thought process linear ICD10 Worksheet Patient Problems: Problems Problem Status Onset Acute decompensated heart failure Acute Dyslipidemia Active Peripheral vascular disease Active Acute exacerbation of congestive heart failure Acute Afib - Atrial fibrillation Acute Atrial fibrillation Acute CHF (congestive heart failure) Acute CHF exacerbation Acute Congestive heart failure Acute Fever Acute Hypoxia Acute Hypoxia Acute Rapid atrial fibrillation Acute Respiratory failure Acute chronic disease mgmt/transitional care Acute
--- NOTE | 2017-06-26 11:19 | PDMN ---
Medical Necessity Medical necessity: C/M review: est. > 2 MN LOS for eval and TX of acuter and persistent fatigue, dehydration, acute kidney injury, possible viral syndrome, possible failure to thrive, worsening macular rash involving abdomen, thighs of unclear etiology, generalized weakness, deconditioning, hyponatremia requiring IV fluids, ongoing cardiac monitoring, pulse oximetry, increased O2 requirement 4L/min., acute inpt PT/OT, comorbid CHF, chronic failure with baseline O2 2L/ min requirement, chronic atrial fibrillation, sick sinus syndrome S/P AV nor ablation and permanent pacemaker, chronic anticoagulation per 06/26/2017 Hospitalist progress note.
[2017-06-26] MEDS: ONDANSETRON 4 MG/2 ML VIAL IVP PRN (11:49)
--- NOTE | 2017-06-26 13:04 | SOAPPROG ---
SOAP Progress Note Assessment/Plan: Assessment: 1. Permanent atrial fibrillation. She has a history of an AV node ablation and permanent pacemaker implantation. She takes Xarelto for thromboprophylaxis. 2. History of chronic congestive heart failure with a preserved ejection fraction associated with moderate mitral regurgitation. 3. Chronic 2 L oxygen dependence likely related to primary pulmonary disease. 4. Acute on chronic renal insufficiency. This is initially thought to be related to over diuresis. 5. Current admission with fatigue. 6. Anemia. She presents with symptoms of fatigue. These appear to be fairly abrupt onset symptoms. She notes that she is doing a little bit better today. Her laboratory assessment would indicate that she continues to have evidence of an elevated BUN and creatinine suggesting pre renal azotemia. Her brain atretic peptide is, however, markedly elevated and her chest x-ray demonstrates interstitial markings which, at least partially, are chronic in nature. She has no evidence of effusions on her chest x-ray. Plan: 1. I did stop her IV fluids. 2. I would like her to have a PA and lateral chest x-ray in the morning. 3. I think she would benefit from ordering a noncontrast chest CT to evaluate for interstitial edema and possible effusions or. Additionally, it was recommended that she have this study in light of her pulmonary nodules. 4. I turned her oxygen down to 2 L. Will plan to recheck her oxygen levels. 5. Will assess her renal function in the morning. 06/26/17 13:05 Subjective: She is typically followed as an outpatient by Dr. Leeroy Rios. She has a history of chronic congestive heart failure with a preserved ejection fraction, permanent atrial fibrillation, history of AV node ablation and permanent pacemaker implantation and hypertension. She was seen in our office on June 22. At that time, her diuretics were held given the fact that she was thought to be dehydrated and over diuresed. She is admitted now with symptoms of fatigue. She states that she awoke yesterday feeling so fatigued that she did want to get out of bed. She denies worsening symptoms of dyspnea. She notes no edema. She has not had any worsening of her baseline exertional dyspnea on oxygen needs. Because of these symptoms, she came to the emergency department. She was hemodynamically stable. There is a room air saturation that indicates that she was 84% on arrival. Because of her elevated BUN and creatinine she has been started on intravenous fluids here. She is in atrial fibrillation with a paced heart rate. She takes Xarelto for thromboprophylaxis. She also notes that she has had a slight chills. She notes no eneida rigors. She complains of a slight cough. She has not had any dysuria. Objective: Vital Signs Temp Pulse Resp BP Pulse Ox 36.7 C 61 14 114/49 L 94 06/26/17 11:43 06/26/17 11:43 06/26/17 11:43 06/26/17 11:43 06/26/17 11:43 PT 46.6 SEC (12.0-15.0) H 06/25/17 21:10 INR 4.89 (0.83-1.16) H 06/25/17 21:10 Physical Exam - Physical Exam General Appearance: WD/WN, no apparent distress, other (She is wearing nasal cannula oxygen) Neck: non-tender Respiratory: chest non-tender, crackles (At both bases), No respiratory distress , No accessory muscle use Cardiac/Chest: regular rate, rhythm, other (She has a pacemaker in place), No edema, No gallop, No JVD Peripheral Pulses: 2+: carotid (R), carotid (L) Abdomen: non-tender, soft Pelvic Exam: deferred Rectal: deferred Neuro/Psych: alert, oriented x 3 ICD10 Worksheet Patient Problems: Problems Problem Status Onset CHF exacerbation Acute Respiratory failure Acute Fever Acute Acute decompensated heart failure Acute chronic disease mgmt/transitional care Acute Afib - Atrial fibrillation Acute Dyslipidemia Active Peripheral vascular disease Active Congestive heart failure Acute Atrial fibrillation Acute Hypoxia Acute Rapid atrial fibrillation Acute CHF (congestive heart failure) Acute Acute exacerbation of congestive heart failure Acute Hypoxia Acute
--- NOTE | 2017-06-26 15:51 | ASMTCMCOM ---
CM Note CM Note Notes: 77 year old female admitted for fatigue, rash, anemia. She has a hx of Afib w/ablation, moderate MVR, pHTN, HTN, HLD, CHF, Chronic Respiratory Failure-2 lits O2. Patient lives alone in [place] and has a son named John Paul. At this time PT recommending SNF vs HC; OT HC w/24 hr supervision. CM to follow for discharge planning. Date Signed: 06/26/2017 03:51 PM Electronically Signed By:Argelia Nur LCSW
[2017-06-26] MEDS: CLOTRIMAZOLE 1% 15 GM CRTUBE TP SCH ×2 (17:29→22:11)
[2017-06-26] MEDS: RIVAROXABAN 10 MG TAB PO SCH (19:40)
[2017-06-26] MEDS: ATORVASTATIN CALCIUM 20 MG TAB PO SCH (19:40)
[2017-06-27 04:50] LABS: ANION GAP 18 mEq/L (8-16); CALCIUM 10.8 mg/dL (8.5-10.4); CARBON DIOXIDE 19 mEq/l (22-31); CHLORIDE 98 mEq/L (97-110); CREATININE 1.5 mg/dL (0.6-1.0); GLOMERULAR FILTRATION RATE 34; GLUCOSE 75 mg/dL (70-100); MAGNESIUM 1.8 mg/dL (1.6-2.3); POTASSIUM 4.4 mEq/L (3.5-5.2); SODIUM 135 mEq/L (134-144)
[2017-06-27 04:55] LABS: % IMMATURE GRANULYOCYTES 1.7 % (0.0-1.1); ABSOLUTE IMMATURE GRANULOCYTES 0.09 10^3/uL (0.00-0.10); ADD DIFF? NO; ADD MORPH? NO; ADD SCAN? NO; ATYPICAL LYMPHOCYTE FLAG 0 (0-99); FRAGMENT RBC FLAG 0 (0-99); HEMATOCRIT 30.2 % (38.0-47.0); HEMOGLOBIN 10.2 g/dL (12.6-16.3); LEFT SHIFT FLG 20 (0-99); LIPEMIA HEMOLYSIS FLAG 90 (0-99); MEAN CELL HEMOGLOBIN 26.6 pg (27.9-34.1); MEAN CELL HEMOGLOBIN CONCENTR. 33.8 g/dL (32.4-36.7); MEAN CELL VOLUME 78.9 fL (81.5-99.8); PLATELET CLUMPS FLAG 0 (0-99); PLATELET COUNT 170 10^3/uL (150-400); RED BLOOD CELL COUNT 3.83 10^6/uL (4.18-5.33); RED CELL DISTRIBUTION WIDTH 16.4 % (11.5-15.2)
[2017-06-27 05:01] LABS: % SATURATION 9 % (20-55); PREALBUMIN 5.9 mg/dL (17.6-36.0); TOTAL IRON BINDING CAPACITY 226 ug/dL (260-490)
[2017-06-27 05:44] LABS: VITAMIN D 25-HYDROXY TOTAL 50.5 ng/mL (30.0-100.0)
[2017-06-27 06:32] LABS: FOLATE SERUM > 20.00 ng/mL (2.80 - >20.00)
[2017-06-27] MEDS: LEVOTHYROXINE 125 MCG TAB PO SCH (07:15)
--- NOTE | 2017-06-27 10:41 | HOSPPROG ---
Hospitalist Progress Note Assessment/Plan: DIAGNOSES: -fever, cough, rash, and progressing chest x-ray abnormalities, and acute renal failure without hematuria, these all associated with significant fatigue and weakness -differential diagnosis including viral pneumonia, other atypical pneumonia, sarcoid disease, and Tb, and other inflammatory illness or immune illness -she has a negative respiratory pathogen panel making viral less likely -she does have exposure to tuberculosis from 56 years ago when a friend with a cough was diagnosed and treated -notably this is her 3rd hospital admission over the period of about a month and half and she has had a significant complaint of ongoing marked fatigue and weakness during all of these admissions -history of diastolic congestive heart failure probably fairly close to compensated baseline at this time -history of AFib on chronic anticoagulation -history of pulmonary hypertension PLANS: -she is in a negative pressure room on droplet precaution and airborne precaution -sputum samples for PPD are being collected -I will ask pulmonology and Infectious Disease to see her at this time -I reviewed the patient's case in detail today with doctors to see [place] and Murtaza Gomez -I have ordered number of laboratory studies done including procalcitonin, QuantiFERON, inflammatory markers, and further urine studies -renal ultrasound SUBJECTIVE: Patient still has quite a bit of fatigue and weakness Mild cough, coughing up minimal clear sputum phlegm at this time OBJECTIVE Vitals reviewed: No fever so far today or yesterday, vitals otherwise stable [employer], my review: Mostly a paced ventricular rhythm with underlying atrial fibrillation Exam: alert oriented skin warm dry color ok; little change in her diffuse rash from yesterday resps mildly labored lungs some fine rales at both lung bases heart regular abd soft nondistended nontender, bowel sounds present limbs warm, no edema iv site ok I reviewed the CT scan images from this admission, the chest x-ray from this admission as well as chest x-rays going back to July of this year. It appears that her lungs really were quite clear on x-rays and until last month when the 1st abnormalities were noted and there is a progression of the abnormality since then at this time. There is a diffuse nodular type interstitial abnormality Objective: Vital Signs Temp Pulse Resp BP Pulse Ox 37.0 C 80 18 118/58 L 94 06/27/17 07:17 06/27/17 07:17 06/27/17 07:17 06/27/17 07:17 06/27/17 07:17 Laboratory Results 06/27/17 04:50 06/27/17 03:22 06/26/17 06/27/17 06/28/17 06:59 06:59 06:59 Intake Total 700 Output Total 600 50 Balance 100 -50 PT 46.6 SEC (12.0-15.0) H 06/25/17 21:10 INR 4.89 (0.83-1.16) H 06/25/17 21:10 - Time Spent With Patient Time Spent with Patient: greater than 35 minutes Time Spent with Patient: Greater than 35 minutes spent on this patients care, greater than 50% of time spent counseling, educating, and coordinating care regarding the above mentioned plan. ICD10 Worksheet Patient Problems: Problems Problem Status Onset Acute decompensated heart failure Acute Dyslipidemia Active Peripheral vascular disease Active Acute exacerbation of congestive heart failure Acute Afib - Atrial fibrillation Acute Atrial fibrillation Acute CHF (congestive heart failure) Acute CHF exacerbation Acute Congestive heart failure Acute Fever Acute Hypoxia Acute Hypoxia Acute Rapid atrial fibrillation Acute Respiratory failure Acute chronic disease mgmt/transitional care Acute
--- NOTE | 2017-06-27 10:47 | SOAPPROG ---
ANGELA Progress Note Assessment/Plan: Assessment: 1. Permanent atrial fibrillation. She has a history of an AV node ablation and permanent pacemaker implantation. She takes Xarelto for thromboprophylaxis. 2. History of chronic congestive heart failure with a preserved ejection fraction associated with moderate mitral regurgitation. 3. Chronic 2 L oxygen dependence likely related to primary pulmonary disease. 4. Acute on chronic renal insufficiency. This is initially thought to be related to over diuresis. 5. Current admission with fatigue. 6. Anemia. 7. Abnormal chest CT suggesting possible sarcoidosis or tuberculosis. Plan: 1. Continue to withhold diuretics. 2. She will be seen by pulmonology and Infectious Disease. 3. Will follow along peripherally. 06/27/17 10:46 Subjective: She has had no real clinical change overnight. She continues to complain of symptoms of fatigue. The results of her chest CT were noted. Objective: Vital Signs Temp Pulse Resp BP Pulse Ox 37.0 C 80 18 118/58 L 94 06/27/17 07:17 06/27/17 07:17 06/27/17 07:17 06/27/17 07:17 06/27/17 07:17 Laboratory Results 06/27/17 04:50 06/27/17 03:22 06/26/17 06/27/17 06/28/17 05:59 05:59 05:59 Intake Total 700 Output Total 600 50 Balance 100 -50 PT 46.6 SEC (12.0-15.0) H 06/25/17 21:10 INR 4.89 (0.83-1.16) H 06/25/17 21:10 Physical Exam - Physical Exam General Appearance: WD/WN, no apparent distress Neck: non-tender Respiratory: lungs clear Cardiac/Chest: regular rate, rhythm ICD10 Worksheet Patient Problems: Problems Problem Status Onset CHF exacerbation Acute Respiratory failure Acute Fever Acute Acute decompensated heart failure Acute chronic disease mgmt/transitional care Acute Afib - Atrial fibrillation Acute Dyslipidemia Active Peripheral vascular disease Active Congestive heart failure Acute Atrial fibrillation Acute Hypoxia Acute Rapid atrial fibrillation Acute CHF (congestive heart failure) Acute Acute exacerbation of congestive heart failure Acute Hypoxia Acute
[2017-06-27] MEDS: PRESERVISION AREDS2 FORMULA EYE VIT 1 EACH PO SCH ×2 (10:52→22:08)
[2017-06-27] MEDS: DILTIAZEM CD 120 MG CAP PO SCH ×2 (10:53→22:08)
[2017-06-27] MEDS: CYANO/VITAMIN B12 1000 MCG TAB PO SCH (10:53)
[2017-06-27] MEDS: CHOLECALCIFEROL VIT D3 2,000 UNITS TAB/CAP PO SCH (10:53)
[2017-06-27] MEDS: CLOTRIMAZOLE 1% 15 GM CRTUBE TP SCH ×2 (10:58→22:12)
[2017-06-27 14:25] LABS: HEMATOCRIT 32.1 % (38.0-47.0)
[2017-06-27] MEDS: MULTIVITAMINS 1 EACH TAB PO SCH (16:33)
[2017-06-27 16:46] LABS: PROCALCITONIN 5.07 ng/mL (0.02-0.10)
[2017-06-27 21:23] LABS: C-REACTIVE PROTEIN 228.3 mg/L (<10.0)
[2017-06-27] MEDS: ATORVASTATIN CALCIUM 20 MG TAB PO SCH (22:09)
[2017-06-27] MEDS: RIVAROXABAN 10 MG TAB PO SCH (22:09)
[2017-06-28 04:53] LABS: RANDOM URINE PROTEIN 26 mg/dL (0-11)
--- NOTE | 2017-06-28 05:23 | GCON ---
[f rep st] CONSULTATION INPATIENT INFECTIOUS DISEASE CONSULTATION REFERRING PHYSICIAN: Pop Avelar MD REASON FOR REFERRAL: Query tuberculosis. HISTORY OF PRESENT ILLNESS: Patient is a 77-year-old female who was admitted to [facility] through the emergency room on the evening of 06/25/2017. Patient presented with generalized wea kness, and a worsening rash on her trunk. She was also noted to be hypoxic. Patient notes that appr oximately 3-4 weeks ago she began developing an itchy, macular, red rash on her belt line. Patient h ad been started on Wellbutrin a few days before so discontinued this medication. Over the next coupl e of weeks however, this rash began to spread up her trunk and down her legs. She now has a diffuse macular rash that is pruritic over a good portion of her body. Patient noted also, she became more s hort of breath. On evaluation in the emergency room, her chest x-ray showed bilateral diffuse inters titial infiltrates. Followup CT scan showed interstitial infiltrates with small nodules. 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 The patient does have a history, over 40 years ago, of an [facility] having been diagnosed with and treated for tuberculosis. She does not note any evaluation for TB in the interim time frame. Patient notes that she has had no new addition of medications othe r than the Wellbutrin in the past 4-8 weeks. PAST MEDICAL HISTORY: 1. Hypertension. 2. Hyperlipidemia. 3. Atrial fibrillation. 4. Moderate mitral regurgitation. 5. Severe tricuspid regurgitation. PAST SURGICAL HISTORY: 1. History of cardiac ablation. 2. History of pacemaker AICD placement. 3. History of a right-sided total knee arthroplasty. 4. Status post vaginal hysterectomy. ANTIBIOTICS: None currently. ALLERGIES: Patient is allergic to lisinopril, nickel and silver. SOCIAL HISTORY: Patient is a remote tobacco user. She is and lives independently. FAMILY HISTORY: Reviewed but noncontributory. REVIEW OF SYSTEMS: Other than that detailed above in History of Present Illness, a comprehensive 10- system review is negative. PHYSICAL EXAMINATION: VITAL SIGNS: Temperature maximum is 38.2, temperature current is 37.4. Heart rate is 74, respiratory rate is 18, blood pressure is 119/54. GENERAL: Patient is a well-formed, w ell-nourished, older female in no acute distress. She is not toxic in appearance. She is alert and oriented x3. She is in a pleasant demeanor. HEENT: Normocephalic for age. Atraumatic. No scleral icterus. No oral lesion. No drainage from the nares. Eyes: Lids and conjunctivae are within norm al limits. Pupils are equal and round bilaterally. NECK: Supple. No meningismus. LUNGS: Clear t o auscultation, with fine crackles in the bases bilaterally. Good effort. HEART: Regular rate and rhythm. No significant peripheral edema. ABDOMEN: Soft, nontender. No masses. SKIN: Patient has a diffuse erythematous macular rash over her abdomen, upper thighs bilaterally, as well as her chest , shoulders, and upper arms. It is mildly pruritic. It is not painful or warm to touch. MUSCULOSKE LETAL: No other muscle belly tenderness is noted. No joint line effusion or arthritis seen. NEURO: Cranial nerves 2-12 seem to be intact. Peripheral sensation seems intact in extremities. LABORATORY DATA: Patient has a CBC, dated 06/27/2017, shows white blood cell count of 5.16, hemoglob in of 10.2, hematocrit of 30.2, and a platelet count of 170. Differential is left-shifted with 80% s egmented neutrophils, eosinophil percentage 2.5. Serum chemistries, on 06/27/2017, show sodium of 13 5, potassium of 4.4, chloride of 98, bicarbonate of 19, BUN of 42, and creatinine of 1.5. Ferritin l evels are elevated at 553, total bilirubin is 0.9. AST is 26, ALT is 36, total protein is 5.2, album in is 3.0. Thyroid-stimulating hormone is 0.6. Urinalysis shows 1+ protein, 1-3 red cells per high- power field. HANK screen, as well as proteinase 3, and myeloperoxidase antibodies are pending. MICROBIOLOGIC DATA: Patient has blood cultures, dated 06/25/2017, which are no growth to date. Nasa l viral PCR shows no organisms detected. RADIOLOGIC DATA: Patient has a chest CT, dated 06/26/2017, which shows findings suspicious for sarco idosis. Also raises a possibility of miliary TB. There is prominent pretracheal, precarinal, and crespo bcarinal right hilar adenopathy. There are also large bilateral noncalcified axillary nodes. ASSESSMENT: Maculopapular pruritic rash in the setting of hypoxia and acute renal failure. I do not think this is secondary to miliary tuberculosis. We will obtain AFB blood cultures to prove this, b ut I think that the unifying diagnosis is much more likely to be on the autoimmune spectrum such as s arcoidosis, or even hematologic/oncologic such as lymphoma. At this point, we will allow them to con tinue her sputum samples for AFB. The utility in yield of getting AFB positive smears in a miliary t uberculosis picture without coincident pulmonary manifestations of tuberculosis is low. Will send a blood culture for AFB as well. Will also investigate other etiologies. I suspect that she will need an axillary lymph node biopsy to make a diagnosis. PLAN: 1. Continue sputum AFB collections. 2. Send AFB blood cultures. 3. Continue to observe off antibiotics. 4. Discuss with surgery and hospitalist about obtaining axillary lymph node biopsy. /[id number]/MODL
[2017-06-28] MEDS: LEVOTHYROXINE 125 MCG TAB PO SCH (05:35)
[2017-06-28] MEDS: CHOLECALCIFEROL VIT D3 2,000 UNITS TAB/CAP PO SCH (09:41)
[2017-06-28] MEDS: DILTIAZEM CD 120 MG CAP PO SCH ×2 (09:41→19:56)
[2017-06-28] MEDS: CYANO/VITAMIN B12 1000 MCG TAB PO SCH (09:41)
[2017-06-28] MEDS: PRESERVISION AREDS2 FORMULA EYE VIT 1 EACH PO SCH ×2 (09:41→19:56)
[2017-06-28] MEDS: CLOTRIMAZOLE 1% 15 GM CRTUBE TP SCH ×2 (09:43→19:57)
--- NOTE | 2017-06-28 09:51 | PCMIDPN ---
Assessment/Plan: # Fever, #20 weight loss, rash, proteinuria/renal insufficiency, hypoxia with CT showing intraseptal thickening, nodules - suspect underlying inflammatory process such as sarcoid or vasculitis. Nonetheless it is critical to rule out underlying infectious etiology due to potential immune suppressing medications in the future. Past history of exposure to TB (that patient denies to me today) . --AFB sputum NAAT --continue isolation until NAAT returns --would hold off bronchoscopy until results from lymph node biopsy and nucleic acid testing of sputum. No antibiotics Care was coordinated with Drs. Edison Avelar and Geo Peter Reviewed CT chest Subjective: Patient frustrated due to duration of feeling fatigued. She still feels extremely weak which is her primary complaint. She is intermittently coughing. Objective: Vital Signs Temp Pulse Resp BP Pulse Ox 36.9 C 61 14 108/44 L 95 06/28/17 07:58 06/28/17 07:58 06/28/17 07:58 06/28/17 07:58 06/28/17 07:58 Laboratory Results 06/27/17 14:05 06/27/17 03:22 06/27/17 06/28/17 06/29/17 05:59 05:59 05:59 Intake Total 700 600 Output Total 600 650 Balance 100 -50 ESR 50 MM/HR (0-30) H 06/27/17 14:05 C-Reactive Protein 228.3 mg/L (<10.0) H 06/27/17 14:05 - Physical Exam General Appearance: alert, no apparent distress EENT: poor dentition, No pharyngeal erythema, No thrush Respiratory: coarse breath sounds, No accessory muscle use Neck: supple Cardiac/Chest: regular rate, rhythm Abdomen: non-tender, soft Skin: rash (Diffuse maculopapular eruption upper thighs and trunk. No mucosal involvement) Neuro/Psych: alert, normal mood/affect, oriented x 3 - Line/s PIV Lines: No drainage, No erythema - Time Spent With Patient Time Spent with Patient: greater than 35 minutes Time Spent with Patient: Greater than 35 minutes spent on this patients care, greater than 50% of time spent counseling, educating, and coordinating care regarding the above mentioned plan. ICD10 Worksheet Patient Problems: Problems Problem Status Onset Acute decompensated heart failure Acute Dyslipidemia Active Peripheral vascular disease Active Acute exacerbation of congestive heart failure Acute Afib - Atrial fibrillation Acute Atrial fibrillation Acute CHF (congestive heart failure) Acute CHF exacerbation Acute Congestive heart failure Acute Fever Acute Hypoxia Acute Hypoxia Acute Rapid atrial fibrillation Acute Respiratory failure Acute chronic disease mgmt/transitional care Acute
--- NOTE | 2017-06-28 12:03 | ASMTCMCOM ---
CM Note CM Note Notes: 06/28/2017 Case Management Note Met w/ pt to discuss multiple hospitalizations in last 6 months. Pt in agreement that Home Care is not addressing issues adequately. Discussed PT recommendation for SNF rehab. Pt in agreement. Requested referrals to [facility] in [place]. Faxed referrals, awaiting acceptance. Case management d/c poc: To SNF rehab once accepted when medically stable. Case management to follow. Date Signed: 06/28/2017 12:03 PM Electronically Signed By:Sabina Ny RN
--- NOTE | 2017-06-28 13:02 | HOSPPROG ---
Hospitalist Progress Note Assessment/Plan: DIAGNOSES: -fever, cough, rash, and progressing chest x-ray abnormalities, and acute renal failure without hematuria, these all associated with significant fatigue and weakness -differential diagnosis including viral pneumonia, other atypical pneumonia, sarcoid disease, and Tb, and other inflammatory illness or immune illness -she has a negative respiratory pathogen panel making viral less likely -she does have exposure to tuberculosis from 56 years ago when a friend with a cough was diagnosed and treated -notably this is her 3rd hospital admission over the period of about a month and half and she has had a significant complaint of ongoing marked fatigue and weakness during all of these admissions -history of diastolic congestive heart failure probably fairly close to compensated baseline at this time -history of AFib on chronic anticoagulation -history of pulmonary hypertension I have discussed the patient's care in detail with doctors Lexy Barajas, Murtaza Gomez, nasir Peter. At this point is still important to rule out infection. However there is significant concern about a potential vasculitis or other autoimmune disease, or other possible causes. PLANS: -she is in a negative pressure room on droplet precaution and airborne precaution -sputum samples for nucleic acid amplification of AFB, AFB cultures, and QuantiFERON are all pending -lymph node biopsy has been discussed, I will need to check in with whether Dr. Gomez actually did speak with surgery about this -other diagnostic studies will probably be needed but will discuss further with Dr. Gomez -will arrange for rheumatology consultation SUBJECTIVE: Patient still has quite a bit of fatigue and weakness unchanged at this time Mild cough, coughing up minimal clear sputum phlegm at this time No chills or sweats No new aches or pains OBJECTIVE Vitals reviewed: Afebrile, vitals otherwise stable Glass Driller, my review: Mostly a paced ventricular rhythm with underlying atrial fibrillation Exam: alert oriented, looks very fatigued and weak but in no distress skin warm dry color ok; little change in her diffuse rash from yesterday resps mildly labored lungs some fine rales at both lung bases heart regular abd soft nondistended nontender, bowel sounds present limbs warm, no edema iv site ok Laboratory data: CRP 280 ESR 50 Ferritin 553 Proteinuria present on UA Renal ultrasound, I reviewed the images and the radiologist's report: Some increased echogenicity suggesting medical renal disease, no signs of obstruction Objective: Vital Signs Temp Pulse Resp BP Pulse Ox 36.7 C 72 17 106/55 L 94 06/28/17 11:25 06/28/17 11:25 06/28/17 11:25 06/28/17 11:25 06/28/17 11:25 Microbiology 06/27/17 20:00 Mycobacterial Smear (JOE) - Final Blood Laboratory Results 06/27/17 14:05 06/27/17 03:22 06/27/17 06/28/17 06/29/17 06:59 06:59 06:59 Intake Total 700 600 Output Total 600 650 Balance 100 -50 PT 46.6 SEC (12.0-15.0) H 06/25/17 21:10 INR 4.89 (0.83-1.16) H 06/25/17 21:10 - Time Spent With Patient Time Spent with Patient: greater than 35 minutes Time Spent with Patient: Greater than 35 minutes spent on this patients care, greater than 50% of time spent counseling, educating, and coordinating care regarding the above mentioned plan. ICD10 Worksheet Patient Problems: Problems Problem Status Onset Acute decompensated heart failure Acute Dyslipidemia Active Peripheral vascular disease Active Acute exacerbation of congestive heart failure Acute Afib - Atrial fibrillation Acute Atrial fibrillation Acute CHF (congestive heart failure) Acute CHF exacerbation Acute Congestive heart failure Acute Fever Acute Hypoxia Acute Hypoxia Acute Rapid atrial fibrillation Acute Respiratory failure Acute chronic disease mgmt/transitional care Acute
[2017-06-28] MEDS: ACETAMINOPHEN 325 MG TAB PO PRN (13:09)
[2017-06-28] MEDS: MULTIVITAMINS 1 EACH TAB PO SCH (13:09)
[2017-06-28] MEDS ORDERED: SODIUM CL FOR INH 10% 15 ML VIAL.NEB IH ONE (16:00)
[2017-06-28] MEDS: RIVAROXABAN 15 MG TAB PO SCH (19:56)
[2017-06-28] MEDS: ATORVASTATIN CALCIUM 20 MG TAB PO SCH (19:56)
--- NOTE | 2017-06-28 23:32 | GCON ---
[f rep st] CONSULTATION PULMONARY CONSULTATION DATE OF CONSULTATION: 06/28/2017 The patient is a 77-year-old female, who was admitted on 06/25 with issues of fatigue and cough. She has been hospitalized 5 times since December of 2016 this year and has had difficulty with fatigue for qu ite a few years, going back to 2011 when she was diagnosed with atrial fibrillation and recurrent syn cope. At that time, she ended up with a permanent pacemaker. In December of this year, she had issues of AFib and CHF. At the time was treated with diuretics. She had several other admissions of similar types of problems. When she was admitted on this current admission, she complained of about 2 months of fatigue and reports night sweats to me on a regular basis. Subsequently, she has turned her [facility] [employer] thermostat down to 63. She has had cough over the last 2 weeks with sputum that is mostly rox r, but no hemoptysis, and in the last few weeks also developed a rash, initially in her groin, which was thought to be fungal. This did not improve with antifungal cream. They thought it was Wellbutri n. That has been discontinued, but she thinks it seems to be getting worse. Part of her workup incl uded multiple chest x-rays that were nonspecific, but a CT scan showed nodular infiltrate primarily i n the right upper lobe with what was described as prominent adenopathy bilateral kirti but not excessi vely enlarged. A BNP was 4440 when she arrived, and her recent procalcitonin was 5.07. REVIEW OF SYSTEMS: Otherwise negative. PAST MEDICAL HISTORY: 1. Diastolic congestive heart failure with an ejection fraction of 50% based on an echo from 2016. 2. Pulmonary hypertension with an estimated PA pressure of 62, severe right atrial enlargement and l eft atrial enlargement. 3. Permanent pacer due to sick sinus syndrome. 4. Hypertension. 5. Atrial fibrillation. 6. Hyperlipidemia. 7. Moderate mitral regurgitation. 8. Depression. 9. Stroke in 2009. 10. Anxiety. 11. Hypothyroidism. PAST SURGICAL HISTORY: A permanent pacer, remote vaginal hysterectomy, right total knee arthroplasty , and tonsillectomy. SOCIAL HISTORY: She does have a 50 pack-year smoking history, but quit some time ago. FAMILY HISTORY: Stroke. CURRENT MEDICATIONS: Lipitor, Cardizem, hydroxyzine, Synthroid, Zofran, Xarelto, and B12. PHYSICAL EXAMINATION: VITAL SIGNS: She has been afebrile since admission, though there were some re ports of a low-grade fever at home. Blood pressure is 106/55, heart rate is 72, oxygen saturation 94 % on 3 L. GENERAL: She was alert and oriented x3 and able to speak in full sentences without using accessory muscles for breathing. HEENT: Pupils equally round and reactive to light. Nonicteric and noninjected. Mucous membranes moist without erythema or exudate. No evidence of thrush. NECK: Sup ple with 1 to 1.5 cm lymphadenopathy bilaterally in the cervical chain that were nontender and nonflu ctuant. LUNGS: Breath sounds were mostly clear to auscultation. No wheezes. HEART: Appeared to h ave a regular rate and rhythm without obvious murmur. ABDOMEN: Soft, nontender, nondistended withou t hepatosplenomegaly. EXTREMITIES: Show no clubbing, cyanosis, or edema. NEUROLOGIC: Nonfocal inc luding cranial nerves and deep tendon reflexes. SKIN: Showed a diffuse, mostly macular rash with ar eas of confluence that involved her abdomen, her back, her bilateral thighs, reaching down to her ant erior tibial regions, but not involving her palms or soles. There were no palpable plaques or papule s, and there was no evidence of erythema nodosum. OBJECTIVE DATA: The CT scan as described above. Her white counts been normal throughout the admissi on at 6.7. Creatinine was 1.4, and the urinalysis shows no blood, but 1+ protein. The procalcitonin and BNP as described above. ASSESSMENT AND PLAN: 1. Abnormal CT scan. I suspect this is infectious in origin, though sarcoidosis is a possibility. She has been intermittent about her reports of having known somebody with TB in the remote past, and I believe serum testing is pending at this time. There has been some confusion about her induced spu carlie for AFB. She does remain in respiratory isolation, which is certainly reasonable at this time. I think a biopsy of one of her lymph nodes, including the right axilla or her neck would certainly be appropriate at this time. An alternative plan could be bronchoscopy with transbronchial biopsies, a s well as possible lymph node biopsies via bronchoscopy, but these would have to be a blind procedure without endobronchial ultrasound. 2. Rash is presumably related to #1 given her symptom complex and could be related to underlying heath coid or drug rash. In either case, she lacks eosinophiles in her urine, as well as in her periphery, but further observation is required at this time. /[id number]/MODL
[2017-06-29] MEDS: LEVOTHYROXINE 125 MCG TAB PO SCH (05:36)
[2017-06-29] MEDS: PRESERVISION AREDS2 FORMULA EYE VIT 1 EACH PO SCH ×2 (09:06→21:30)
[2017-06-29] MEDS: DILTIAZEM CD 120 MG CAP PO SCH ×2 (09:06→21:30)
[2017-06-29] MEDS: CHOLECALCIFEROL VIT D3 2,000 UNITS TAB/CAP PO SCH (09:07)
[2017-06-29] MEDS: CYANO/VITAMIN B12 1000 MCG TAB PO SCH (09:07)
[2017-06-29] MEDS: CLOTRIMAZOLE 1% 15 GM CRTUBE TP SCH ×2 (09:08→21:33)
[2017-06-29 09:31] LABS: ANION GAP 12 mEq/L (8-16); CALCIUM 12.3 mg/dL (8.5-10.4); CARBON DIOXIDE 29 mEq/l (22-31); CHLORIDE 92 mEq/L (97-110); CREATININE 1.6 mg/dL (0.6-1.0); GLOMERULAR FILTRATION RATE 31; GLUCOSE 69 mg/dL (70-100); SODIUM 133 mEq/L (134-144)
[2017-06-29] MEDS ORDERED: NS 500 ML IV ONE (09:49)
--- NOTE | 2017-06-29 10:11 | HOSPPROG ---
Hospitalist Progress Note Assessment/Plan: DIAGNOSES: -Progressive illness with fever, cough, rash, and progressing chest x-ray abnormalities (interstitial nodular), and acute renal failure with proteinuria, and hypercalcemia, these all associated with significant fatigue and weakness -sed rate, CRP, and ferritin are all significantly elevated -differential diagnosis including viral pneumonia, other atypical pneumonia, sarcoid disease, Tb, and hematologic malignancy, or other inflammatory illness or immune illness -she has a negative respiratory pathogen panel making viral less likely -she does have exposure to tuberculosis from 56 years ago when a friend with a cough was diagnosed and treated -notably this is her 3rd hospital admission over the period of about a month and half and she has had a significant complaint of ongoing marked fatigue and weakness during all of these admissions -history of diastolic congestive heart failure probably fairly close to compensated baseline at this time -history of AFib on chronic anticoagulation -history of pulmonary hypertension Hypercalcemia notably worse today, question is there worsening underlying process or if she a bit dehydrated Her renal failure is worsened today and this could be due to her underlying acute illness as above, or could potentially be due to poor oral intake of fluids at this time There are no new diagnostic findings as of this time today PLANS: -she is in a negative pressure room on droplet precaution and airborne precaution -sputum samples for nucleic acid amplification of AFB, AFB cultures, and QuantiFERON are all pending -will ask Dr. Pires to see the patient for lymph node biopsies and a biopsy of her rash SUBJECTIVE: Patient still has quite a bit of fatigue and weakness unchanged at this time Not short of breath No chills or sweats No new aches or pains OBJECTIVE Vitals reviewed: Afebrile, pulse a bit faster this morningvitals otherwise stable Turbine Subassembler, my review: Mostly a paced ventricular rhythm with underlying atrial fibrillation Exam: alert oriented, no acute distress skin warm dry color ok; her rash is unchanged in extent, perhaps slightly less red resps mildly labored lungs some fine rales at both lung bases heart regular abd soft nondistended nontender, bowel sounds present limbs warm, no edema iv site ok Laboratory data: CRP 280 ESR 50 Ferritin 553 Proteinuria present on UA Renal ultrasound, I reviewed the images and the radiologist's report: Some increased echogenicity suggesting medical renal disease, no signs of obstruction Objective: Vital Signs Temp Pulse Resp BP Pulse Ox 36.4 C 110 H 20 113/48 L 92 06/29/17 08:00 06/29/17 08:00 06/29/17 08:00 06/29/17 08:00 06/29/17 08:00 Microbiology 06/27/17 20:00 Mycobacterial Smear (JOE) - Final Blood Laboratory Results 06/27/17 14:05 06/29/17 08:50 06/28/17 06/29/17 06/30/17 06:59 06:59 06:59 Intake Total 600 900 Output Total 650 500 Balance -50 400 PT 46.6 SEC (12.0-15.0) H 06/25/17 21:10 INR 4.89 (0.83-1.16) H 06/25/17 21:10 ICD10 Worksheet Patient Problems: Problems Problem Status Onset Acute decompensated heart failure Acute Dyslipidemia Active Peripheral vascular disease Active Acute exacerbation of congestive heart failure Acute Afib - Atrial fibrillation Acute Atrial fibrillation Acute CHF (congestive heart failure) Acute CHF exacerbation Acute Congestive heart failure Acute Fever Acute Hypoxia Acute Hypoxia Acute Rapid atrial fibrillation Acute Respiratory failure Acute chronic disease mgmt/transitional care Acute
[2017-06-29] MEDS: MULTIVITAMINS 1 EACH TAB PO SCH (11:39)
[2017-06-29] MEDS: NS 1,000 ML IV SCH (11:42)
--- NOTE | 2017-06-29 12:25 | PCMIDPN ---
Assessment/Plan: Hypoxia with CT showing intraseptal thickening, nodules, LAD associated with weight loss, rash, proteinuria/renal insufficiency - suspect underlying inflammatory process such as sarcoid or vasculitis - or occult malignancy/ paraneoplastic syndrome. Nonetheless it is critical to rule out underlying infectious etiology due to potential immune suppressing medications in the future. Possible Past history of exposure to TB. Rash has a bit more janis appearance today but no change in fatigue, SOB, weakness --AFB sputum NAAT pending --skin biopsy and possible LN biopsy, consulted surgery No antibiotics Care was coordinated with Drs. Edison Avelar and Geo Peter and Berna Pires Reviewed CT chest Subjective: patient feels the same. Objective: Vital Signs Temp Pulse Resp BP Pulse Ox 36.3 C 62 18 125/55 H 92 06/29/17 11:49 06/29/17 11:49 06/29/17 11:49 06/29/17 11:49 06/29/17 11:49 Microbiology 06/27/17 20:00 Mycobacterial Smear (JOE) - Final Blood Laboratory Results 06/27/17 14:05 06/29/17 08:50 06/28/17 06/29/17 06/30/17 05:59 05:59 05:59 Intake Total 600 900 Output Total 650 500 Balance -50 400 ESR 50 MM/HR (0-30) H 06/27/17 14:05 C-Reactive Protein 228.3 mg/L (<10.0) H 06/27/17 14:05 - Physical Exam General Appearance: alert, no apparent distress Respiratory: crackles, No accessory muscle use Cardiac/Chest: regular rate, rhythm Extremities: pedal edema Abdomen: non-tender, soft Skin: pallor, rash (diffuse MP janis eruption on trunk , upper legs), No jaundice Neuro/Psych: alert, depressed affect - Time Spent With Patient Time Spent with Patient: greater than 25 minutes Time Spent with Patient: Greater than 25 minutes spent on this patients care, greater than 50% of time spent counseling, educating, and coordinating care regarding the above mentioned plan. ICD10 Worksheet Patient Problems: Problems Problem Status Onset Acute decompensated heart failure Acute Dyslipidemia Active Peripheral vascular disease Active Acute exacerbation of congestive heart failure Acute Afib - Atrial fibrillation Acute Atrial fibrillation Acute CHF (congestive heart failure) Acute CHF exacerbation Acute Congestive heart failure Acute Fever Acute Hypoxia Acute Hypoxia Acute Rapid atrial fibrillation Acute Respiratory failure Acute chronic disease mgmt/transitional care Acute
--- NOTE | 2017-06-29 13:46 | SOAPPROG ---
SOAP Progress Note Assessment/Plan: Assessment: to OR today for right axillary lymph node biopsy and skin biopsy NPO abx OCTOR full dictated consult note to follow Objective: Vital Signs Temp Pulse Resp BP Pulse Ox 36.3 C 62 18 125/55 H 92 06/29/17 11:49 06/29/17 11:49 06/29/17 11:49 06/29/17 11:49 06/29/17 11:49 Microbiology 06/27/17 20:00 Mycobacterial Smear (JOE) - Final Blood Laboratory Results 06/27/17 14:05 06/29/17 08:50 06/28/17 06/29/17 06/30/17 05:59 05:59 05:59 Intake Total 600 900 Output Total 650 500 Balance -50 400 PT 46.6 SEC (12.0-15.0) H 06/25/17 21:10 INR 4.89 (0.83-1.16) H 06/25/17 21:10 ICD10 Worksheet Patient Problems: Problems Problem Status Onset Acute decompensated heart failure Acute Dyslipidemia Active Peripheral vascular disease Active Acute exacerbation of congestive heart failure Acute Afib - Atrial fibrillation Acute Atrial fibrillation Acute CHF (congestive heart failure) Acute CHF exacerbation Acute Congestive heart failure Acute Fever Acute Hypoxia Acute Hypoxia Acute Rapid atrial fibrillation Acute Respiratory failure Acute chronic disease mgmt/transitional care Acute
--- NOTE | 2017-06-29 16:46 | PDINTPN ---
Team Facilitator Progress Note Assessment/Plan: Assessment/plan: 77 F admitted 06/26/17 with acute on chronic fatigue and cough in setting of afib and CHF. At one time she was thought to have fluid overload, but did not have a brisk response to diuretics. In addition she reported 2 months of night sweats and 2 weeks of purulent sputum without hemoptysis. Her work up included a chest CT showing small nodular infiltrates of primarily the RUL with prominent MINA (htough not terribly large in the mediastinum). She also had axillary and palpable cervicle adenopathy. She has reported a possible TB exposure 40-50 years ago, but has never been tested for TB. * Abnormal CT with ANDRY and rash but relatively bland UA- She could have a vasculitis, but her procalcitonin was elevated, suggesting (though not proving) a bacterial infection. Surgery has been consulted to obtain tissue from her axillary LN which may provide a diagnosis. Bronchoscopy has been discussed but we are waiting for the LN biopsy first. ANCA negative. HANK pending * ANDRY- as above. Creatinine continues to slowly climb; now at 1.6. May need official renal consult * Rash- she has a diffuse erythematous rash without clear etiology, though may be related to vasculitis. No typical for sarcoidosis, though that remain sin the differential. Subjective: stable overnight without complaints. Objective: Vital Signs Temp Pulse Resp BP Pulse Ox 36.4 C 98 20 124/56 H 92 06/29/17 15:28 06/29/17 15:28 06/29/17 15:28 06/29/17 15:28 06/29/17 15:28 Microbiology 06/27/17 20:00 Mycobacterial Smear (JOE) - Final Blood Laboratory Results 06/27/17 14:05 06/29/17 08:50 06/28/17 06/29/17 06/30/17 05:59 05:59 05:59 Intake Total 600 900 Output Total 650 500 Balance -50 400 PT 46.6 SEC (12.0-15.0) H 06/25/17 21:10 INR 4.89 (0.83-1.16) H 06/25/17 21:10 Physical Exam - Physical Exam General Appearance: alert, no apparent distress EENT: PERRL/EOMI Neck: supple Respiratory: lungs clear, normal breath sounds, No respiratory distress Cardiac/Chest: regular rate, rhythm, No edema Abdomen: non-tender, soft, No distended Skin: rash (diffuse erythematous, pruritic with areas of confluence. No palms/ soles) Lymphatic: axilla node tender (R), other (bilateral small cervical adenopathy) Extremities: No pedal edema, No calf tenderness Neuro/Psych: alert, normal mood/affect, oriented x 3 ICD10 Worksheet Patient Problems: Problems Problem Status Onset Acute decompensated heart failure Acute Dyslipidemia Active Peripheral vascular disease Active Acute exacerbation of congestive heart failure Acute Afib - Atrial fibrillation Acute Atrial fibrillation Acute CHF (congestive heart failure) Acute CHF exacerbation Acute Congestive heart failure Acute Fever Acute Hypoxia Acute Hypoxia Acute Rapid atrial fibrillation Acute Respiratory failure Acute chronic disease mgmt/transitional care Acute
--- NOTE | 2017-06-29 19:08 | PDANEPAE ---
ANE History of Present Illness axillary lymph node biopsy ' ANE Past Medical History - Cardiovascular History Hx Hypertension: Yes Hx Arrhythmias: Yes Hx CHF / Valvular Disease: Yes Cardiovascular History Comment: History of A Fib, s/p ablation in 02/12. History of syncope and pacemaker, placed around 2010, congestive heart failure, on Home O2 - Pulmonary History Hx Oxygen in Use at Home: Yes O2 in Use at Home (L/minute): 2 Hx Sleep Apnea: No Sleep Apnea Screening Result - Last Documented: Positive - Endocrine History Hx Diabetes: No - Renal History Hx Renal Disorders: Yes Renal History Comment: Increased Creatinine on this admission - Chronic Pain History Chronic Pain: No ANE Review of Systems Review of Systems: - Pacemaker Date Pacemaker Last Checked: 04/12/12 ANE Patient History - Allergies Allergies/Adverse Reactions: lisinopril Allergy (Severe, Verified 04/29/17 17:21) Swelling/neck,face,throat NICKEL Allergy (Intermediate, Uncoded 04/29/17 13:23) Rash BRANDT SILVER Allergy (Intermediate, Uncoded 04/29/17 13:23) Rash - Home Medications Home Medications: Rivaroxaban [Xarelto 10mg (*)] 20 mg PO HS 08/17/16 [Last Taken 06/25/17] Dextran/Hypromellose/Glycerin [Genteal Tears 0.1%-0.2%-0.3%] 1 drop EACHEYE DAILY PRN 04/29/17 [Last Taken 05/15/17] Diltiazem HCl [Cartia Xt] 120 mg PO BID 04/29/17 [Last Taken 06/24/17] Multivitamins [Multivitamin (*)] 1 each PO DAILY@12 04/29/17 [Last Taken ] Atorvastatin Calcium [Lipitor 20 mg (*)] 20 mg PO HS 05/16/17 [Last Taken ] Herbals/Supplements -Info Only 1 ea PO DAILY 05/16/17 [Last Taken Unknown] Bupropion HCl [Bupropion HCl Sr] 150 mg PO DAILY 06/25/17 [Last Taken 06/24/17] C/E/Zn/Cu/OM3/DHA/EPA/LUT/ZEAX [Preservision Areds 2 Softgel] 1 each PO BID [Last Taken 06/24/17] Cholecalciferol Vit D3 [Vitamin D3 2000 units tab (OTC)] 2,000 units PO DAILY [Last Taken 06/24/17] Clotrimazole [Clotrimazole] 1 ana TP BID 06/25/17 [Last Taken 06/24/17] Cyanocobalamin [Vitamin B12 (*)] 1,000 mcg PO DAILY 06/25/17 [Last Taken ] hydrOXYzine HCL [hydrOXYzine HCL (RX)] 25 mg PO HS PRN 06/25/17 [Last Taken ] - NPO status NPO Since - Liquids (Date): 06/29/17 NPO Since - Liquids (Time): 08:00 NPO Since - Solids (Date): 06/29/17 NPO Since - Solids (Time): 08:00 - Anes Hx Anes Hx: no prior problems - Smoking Hx Smoking Status: Former smoker (1 ppd for 50 years until 2009) - Alcohol Use Alcohol Use: None - Family Anes Hx Family Anes Hx: none ANE Labs/Vital Signs - Labs Result Diagrams: 06/27/17 14:05 06/29/17 08:50 - Vital Signs Blood Pressure: 127/61 Heart Rate: 59 Respiratory Rate: 18 O2 Sat (%): 92 Height: 170.18 cm Weight: 73.3 kg ANE Physical Exam - Airway Neck exam: decreased ROM Mallampati Score: Class 2 - Pulmonary Pulmonary: inspiratory crackles (at bases) - Cardiovascular Cardiovascular: regular rate and rhythym - ASA Status ASA Status: III ANE Anesthesia Plan Anesthesia Plan: GA w LMA (DNR order discussed with patient and her son. She agrees to suspend it during the perioperative period.)
--- NOTE | 2017-06-29 19:16 | PDHPUP ---
History & Physical Update H&P update statement: This history and physical update is based on an assessment of the patient which was completed after admission or registration (within 24 hours), but prior to the surgery/procedure. H&P update: H&P reviewed & patient examined (examined patient. R axillary biopsy and r thigh skin biopsy. Risks and benefits discussed)
[2017-06-29] MEDS ORDERED: PROPOFOL 200 MG/20 ML VIAL ONE (19:24)
[2017-06-29] MEDS: ceFAZolin 2 GM/SWFI 2 GM/20 ML SYR IVP ONE (20:01)
[2017-06-29] MEDS: BUPIVACAINE 0.5% 30 ML SDV ONE (20:01)
[2017-06-29] MEDS ORDERED: ONDANSETRON 4 MG/2 ML VIAL ONE (20:05)
[2017-06-29] MEDS ORDERED: fentaNYL 100 MCG/2 ML INJ IVP PRN (20:33)
[2017-06-29] MEDS ORDERED: NALOXONE HCL 0.4 MG/ML INJ IVP PRN (20:33)
--- NOTE | 2017-06-29 20:47 | POSTANESTH ---
Post Anesthetic Evaluation Cardiovascular Status: Similar to Pre-Op Cond Respiratory Status: Similar to Pre-op Cond. Level of Consciousness/Mental Status: Can Participate in Eval Pain Control: Adequate, Prn Tx Ordered Nausea/Vomiting Control: Adequate, Prn Tx Ordered Complications Possibly Related to Anesthesia: None Noted
[2017-06-29] MEDS: ATORVASTATIN CALCIUM 20 MG TAB PO SCH (21:31)
[2017-06-29] MEDS: RIVAROXABAN 15 MG TAB PO SCH (21:31)
[2017-06-30] MEDS: ceFAZolin 2 GM/SWFI 2 GM/20 ML SYR IVP ONE (02:01)
[2017-06-30] MEDS: BUPIVACAINE 0.5% 30 ML SDV ONE (02:01)
--- NOTE | 2017-06-30 04:07 | GCON ---
[f rep st] CONSULTATION DATE OF CONSULTATION: 06/29/2017 REFERRING PHYSICIAN: Lexy Barajas MD REASON FOR REFERRAL: Need for axillary lymph node biopsy. HISTORY OF PRESENT ILLNESS: The patient is a very pleasant 77-year-old woman, who was admitted to [facility] on 06/25/2017 due to fatigue and rash. She has a complicated cardiac history and notably became increasingly more short of breath during this hospital stay. She had a chest CT p erformed, which showed interstitial infiltrates with small nodules suspicious for sarcoid, although c annot rule out miliary TB. She also had enlarged bilateral axillary lymph nodes on the scan. She quintanilla s a history of TB exposure over 40 years ago when an acquaintance was diagnosed and treated for TB. She has had no evaluation for TB or other symptoms. She reports lymphadenopathy of her posterior nec k over the past several weeks, which has been improving. PAST MEDICAL HISTORY: Hypertension, hyperlipidemia, AFib, mitral regurgitation, tricuspid regurgitat ion. PAST SURGICAL HISTORY: History of cardiac ablation, pacemaker placement, right total knee arthroplas ty, vaginal hysterectomy. ALLERGIES: Lisinopril, nickel, silver. SOCIAL HISTORY: She is a former smoker. She is and lives independently prior to admission. REVIEW OF SYSTEMS: A 10-point review of systems is negative aside from the HPI. PHYSICAL EXAMINATION: GENERAL: Well-developed, well-nourished woman, in no acute distress. HEENT: Normocephalic, atraumatic. No hearing deficits. Pupils equal and round. No scleral icterus. Muco us membranes moist. NECK: Trachea midline. Palpable left posterior cervical lymphadenopathy. LUNG S: No increased work of breathing. CARDIOVASCULAR: No peripheral edema. LYMPH: She has palpable axillary lymph nodes bilaterally, but there is a large node in the right axilla approximately 2 cm, a ppears superficial, nontender to palpation. SKIN: She has a diffuse macular rash of her bilateral u pper thighs, as well as her low abdomen. This has also recently spread to small areas of her chest a nd arms. It is pruritic. PSYCH: Mood and affect normal. NEURO: Grossly intact. IMPRESSION AND PLAN: A 77-year-old woman with suspicion of sarcoidosis on her chest CT but also poss ibility of miliary tuberculosis. In the clinical setting with her rash, hypoxia, and fatigue, we samir l perform a right axillary lymph node biopsy in order to obtain a definitive diagnosis. We will send the specimen for both microbiology and pathology. We discussed risks of surgery including, but not limited to, heart attack, stroke, blood clots, or . We discussed risk of infection, bleeding, d amage to surrounding structures, need for additional procedures, or inability to obtain a definitive diagnosis. She understands the risks and would like to proceed. She will remain n.p.o. She will re ceive antibiotics on-call to the operating room. She has, additionally, been seen by Dr. Berna Pires , who agrees with the above impression and plan. /[id number]/MODL
[2017-06-30] MEDS: LEVOTHYROXINE 125 MCG TAB PO SCH (05:06)
[2017-06-30] MEDS: CYANO/VITAMIN B12 1000 MCG TAB PO SCH (09:18)
[2017-06-30] MEDS: CHOLECALCIFEROL VIT D3 2,000 UNITS TAB/CAP PO SCH (09:18)
[2017-06-30] MEDS: DILTIAZEM CD 120 MG CAP PO SCH ×2 (10:31→22:14)
[2017-06-30] MEDS: PRESERVISION AREDS2 FORMULA EYE VIT 1 EACH PO SCH ×2 (10:31→22:14)
--- NOTE | 2017-06-30 11:18 | SOAPPROG ---
SOAP Progress Note Assessment/Plan: Assessment: POD # 1 s/p Right axillary lymph node biopsy -sent for pathology for fresh and permanent -sent for micro for anaerobic, aerobic, afb and fungal S/P skin biopsy for rash -path pending Dressings dry Doing well Dressings can be removed tomorrow Plan: 06/30/17 11:16 Objective: Vital Signs Temp Pulse Resp BP Pulse Ox 34.6 C L 101 H 12 143/70 H 99 06/30/17 07:32 06/30/17 10:31 06/30/17 07:32 06/30/17 10:31 06/30/17 07:32 Microbiology 06/29/17 20:00 Gram Stain - Final Axilla - Tissue Laboratory Results 06/27/17 14:05 06/29/17 08:50 06/29/17 06/30/17 07/01/17 05:59 05:59 05:59 Intake Total 900 1699 Output Total 500 650 Balance 400 1049 PT 46.6 SEC (12.0-15.0) H 06/25/17 21:10 INR 4.89 (0.83-1.16) H 06/25/17 21:10 ICD10 Worksheet Patient Problems: Problems Problem Status Onset Acute decompensated heart failure Acute Dyslipidemia Active Peripheral vascular disease Active Acute exacerbation of congestive heart failure Acute Afib - Atrial fibrillation Acute Atrial fibrillation Acute CHF (congestive heart failure) Acute CHF exacerbation Acute Congestive heart failure Acute Fever Acute Hypoxia Acute Hypoxia Acute Rapid atrial fibrillation Acute Respiratory failure Acute chronic disease mgmt/transitional care Acute
[2017-06-30] MEDS: CLOTRIMAZOLE 1% 15 GM CRTUBE TP SCH ×2 (11:52→22:18)
[2017-06-30] MEDS: MULTIVITAMINS 1 EACH TAB PO SCH (11:52)
[2017-06-30] MEDS ORDERED: ZOLEDRONIC ACID 4 MG in D5W 100 ML IV ONE (16:45)
[2017-06-30] MEDS: NS 1,000 ML IV SCH (16:47)
--- NOTE | 2017-06-30 17:12 | PDINTPN ---
Irrigationist Progress Note Assessment/Plan: Assessment/plan: 77 F admitted 06/26/17 with acute on chronic fatigue and cough in setting of afib and CHF. At one time she was thought to have fluid overload, but did not have a brisk response to diuretics. In addition she reported 2 months of night sweats and 2 weeks of purulent sputum without hemoptysis. Her work up included a chest CT showing small nodular infiltrates of primarily the RUL with prominent MINA (htough not terribly large in the mediastinum). She also had axillary and palpable cervicle adenopathy. She has reported a possible TB exposure 40-50 years ago, but has never been tested for TB. * Abnormal CT with ANDRY and rash but relatively bland UA- She could have a vasculitis, but her procalcitonin was elevated, suggesting (though not proving) a bacterial infection. LN biopsy AFB smear negative; await culture. HANK, ANCA serologies negative. She may need BAL if LN biopsy is non-diagnostic. * ANDRY- as above. Creatinine continues to slowly climb; now at 1.6. May need official renal consult * Rash- she has a diffuse erythematous rash without clear etiology, though may be related to vasculitis. No typical for sarcoidosis, though that remains in the differential. Subjective: feels OK Objective: Vital Signs Temp Pulse Resp BP Pulse Ox 34.1 C L 66 18 148/62 H 96 06/30/17 15:50 06/30/17 15:50 06/30/17 15:50 06/30/17 15:50 06/30/17 15:50 Microbiology 06/29/17 20:00 Gram Stain - Final Axilla - Tissue 06/28/17 17:15 Mycobacterial Smear (JOE) - Final Sputum, Expectorated 06/29/17 20:00 Mycobacterial Smear (JOE) - Final Axilla - Tissue Laboratory Results 06/27/17 14:05 06/29/17 08:50 06/29/17 06/30/17 07/01/17 05:59 05:59 05:59 Intake Total 900 1699 Output Total 500 650 300 Balance 400 1049 -300 PT 46.6 SEC (12.0-15.0) H 06/25/17 21:10 INR 4.89 (0.83-1.16) H 06/25/17 21:10 Physical Exam - Physical Exam General Appearance: alert, no apparent distress EENT: PERRL/EOMI Neck: supple Respiratory: lungs clear, normal breath sounds, No respiratory distress Cardiac/Chest: regular rate, rhythm, No edema Abdomen: non-tender, soft, No distended Skin: warm/dry, rash Lymphatic: axilla node tender (R) Extremities: No pedal edema Neuro/Psych: alert, normal mood/affect, oriented x 3 ICD10 Worksheet Patient Problems: Problems Problem Status Onset Acute decompensated heart failure Acute Dyslipidemia Active Peripheral vascular disease Active Acute exacerbation of congestive heart failure Acute Afib - Atrial fibrillation Acute Atrial fibrillation Acute CHF (congestive heart failure) Acute CHF exacerbation Acute Congestive heart failure Acute Fever Acute Hypoxia Acute Hypoxia Acute Rapid atrial fibrillation Acute Respiratory failure Acute chronic disease mgmt/transitional care Acute
--- NOTE | 2017-06-30 17:23 | HOSPPROG ---
Hospitalist Progress Note Assessment/Plan: #. Encephalopathy - possibly related to hypercalcemia. Calcium yesterday was 12 with an albumin of 2. I recommend increasing IVF rate to 150 and starting calcitonin and zolendronic acid. Reassess in AM with ionized calcium. #. Possible sarcoidosis versus lymphoma versus TB - s/p axillary node biopsy. Pending TB studies and biopsy results. #. Chronic Diastolic HF - follow volume status closely as IVF rate increased. #. Atrial Fibrillation - diltiazem for rate control and Xarelto for anticoagulation. #. Hypothyroidism - levothyroxine. #. Bowel/Bladder - bowel regimen if constipation. #. DVT prophylaxis - Anticoagulated. #. Dispo - anticipate SNF placement for rehab. SW was discussing with patient and son today. Subjective: Patient and son at bedside state rash is getting better and nearly gone. We reviewed her high calcium and that it can cause mental changes such as confusion that her son has noted today. No pain complaints and no discomfort in axilla s/p biopsy. Objective: Vital Signs Temp Pulse Resp BP Pulse Ox 34.1 C L 66 18 148/62 H 96 06/30/17 15:50 06/30/17 15:50 06/30/17 15:50 06/30/17 15:50 06/30/17 15:50 Microbiology 06/29/17 20:00 Gram Stain - Final Axilla - Tissue 06/28/17 17:15 Mycobacterial Smear (JOE) - Final Sputum, Expectorated 06/29/17 20:00 Mycobacterial Smear (JOE) - Final Axilla - Tissue Laboratory Results 06/27/17 14:05 06/29/17 08:50 06/29/17 06/30/17 07/01/17 05:59 05:59 05:59 Intake Total 900 1699 Output Total 500 650 300 Balance 400 1049 -300 PT 46.6 SEC (12.0-15.0) H 06/25/17 21:10 INR 4.89 (0.83-1.16) H 06/25/17 21:10 - Physical Exam Constitutional: no apparent distress (Oriented to year, [place] for location.) , appears nourished, not in pain Cardiovascular: no murmur, rub, or gallop, No regular rate and rhythym, No edema Respiratory: no respiratory distress, no rales or rhonchi, clear to auscultation Gastrointestinal: normoactive bowel sounds, soft, non-tender abdomen, no palpable masses Psychiatric: not anxious ICD10 Worksheet Patient Problems: Problems Problem Status Onset Acute decompensated heart failure Acute Dyslipidemia Active Peripheral vascular disease Active Acute exacerbation of congestive heart failure Acute Afib - Atrial fibrillation Acute Atrial fibrillation Acute CHF (congestive heart failure) Acute CHF exacerbation Acute Congestive heart failure Acute Fever Acute Hypoxia Acute Hypoxia Acute Rapid atrial fibrillation Acute Respiratory failure Acute chronic disease mgmt/transitional care Acute
--- NOTE | 2017-06-30 17:52 | PCMIDPN ---
Assessment/Plan: Assessment/Plan: * Lymphadenopathy, rash, abnormal chest CT status post lymph node biopsy and skin biopsy: Diagnostic considerations as previously outlined by Dr. Barajas and Dr. Gomez with considerations including infectious and non infectious etiologies. Blood/sputum x1/lymph node AFB smears all negative. Nucleic acid amplification testing on sputum for TB pending at [facility]. Have asked our lab to follow-up on this. Hypercalcemia may be related to underlying granulomatous process and would be compatible with either sarcoidosis, malignancy, or granulomatous infectious process. Await lymph node and skin biopsy results. Continue observation off antibiotics. May need MRI of brain at some point to assess for any AIR DISPATCHER findings based on cognitive dysfunction although some of this may be related to hypercalcemia. 06/30/17 17:47 Subjective: Patient's son notes that patient with some cognitive dysfunction and was having hallucinations this a.m.. Described seeing cherries on the trees outside. Objective: Vital Signs Temp Pulse Resp BP Pulse Ox 34.1 C L 66 18 148/62 H 96 06/30/17 15:50 06/30/17 15:50 06/30/17 15:50 06/30/17 15:50 06/30/17 15:50 Microbiology 06/29/17 20:00 Gram Stain - Final Axilla - Tissue 06/28/17 17:15 Mycobacterial Smear (JOE) - Final Sputum, Expectorated 06/29/17 20:00 Mycobacterial Smear (JOE) - Final Axilla - Tissue Laboratory Results 06/27/17 14:05 06/29/17 08:50 06/29/17 06/30/17 07/01/17 05:59 05:59 05:59 Intake Total 900 1699 414 Output Total 500 650 300 Balance 400 1049 114 ESR 50 MM/HR (0-30) H 06/27/17 14:05 C-Reactive Protein 228.3 mg/L (<10.0) H 06/27/17 14:05 Sputum NAAT for mycobacterium tuberculosis pending Lymph node Gram stain and AFB smear negative with cultures pending; fungal cultures pending; pathology pending Skin biopsy pathology pending Laboratory Tests 06/27/17 06/27/17 14:05 14:05 HANK Screen 0.55 Proteinase 3 (PR3) < 0.2 Myeloperoxidase Ab <0.2 - Physical Exam General Appearance: alert, no apparent distress, other (Oriented X person, place , year, and month) EENT: No scleral icterus, No conjunctival petechiae Respiratory: lungs clear, No respiratory distress Abdomen: non-tender, No distended Skin: rash (Diffuse macular rash over upper thighs an abdominal wall which by description is significantly less intense in color) ICD10 Worksheet Patient Problems: Problems Problem Status Onset Acute decompensated heart failure Acute Dyslipidemia Active Peripheral vascular disease Active Acute exacerbation of congestive heart failure Acute Afib - Atrial fibrillation Acute Atrial fibrillation Acute CHF (congestive heart failure) Acute CHF exacerbation Acute Congestive heart failure Acute Fever Acute Hypoxia Acute Hypoxia Acute Rapid atrial fibrillation Acute Respiratory failure Acute chronic disease mgmt/transitional care Acute
[2017-06-30] MEDS: ATORVASTATIN CALCIUM 20 MG TAB PO SCH (22:14)
[2017-06-30] MEDS: RIVAROXABAN 15 MG TAB PO SCH (22:15)
[2017-06-30] MEDS: CALCITONIN 200 UNITS/ML SYR SC SCH (22:18)
[2017-07-01] MEDS: ACETAMINOPHEN 325 MG TAB PO PRN ×2 (01:27→11:45)
[2017-07-01 03:36] LABS: % IMMATURE GRANULYOCYTES 2.7 % (0.0-1.1); ADD DIFF? NO; ADD MORPH? NO; ADD SCAN? NO; ATYPICAL LYMPHOCYTE FLAG 80 (0-99); FRAGMENT RBC FLAG 20 (0-99); HEMATOCRIT 32.6 % (38.0-47.0); HEMOGLOBIN 10.9 g/dL (12.6-16.3); LEFT SHIFT FLG 20 (0-99); LIPEMIA HEMOLYSIS FLAG 80 (0-99); MEAN CELL HEMOGLOBIN 26.5 pg (27.9-34.1); MEAN CELL HEMOGLOBIN CONCENTR. 33.4 g/dL (32.4-36.7); MEAN CELL VOLUME 79.1 fL (81.5-99.8); MEAN PLATELET VOLUME 10.6 fL (8.7-11.7); PLATELET CLUMPS FLAG 0 (0-99); PLATELET COUNT 236 10^3/uL (150-400); RED BLOOD CELL COUNT 4.12 10^6/uL (4.18-5.33); RED CELL DISTRIBUTION WIDTH 16.3 % (11.5-15.2)
[2017-07-01 03:42] LABS: IONIZED CALCIUM 1.68 MMOL/L (1.12-1.30)
[2017-07-01 04:15] LABS: ANION GAP 8 mEq/L (8-16); CALCIUM 12.4 mg/dL (8.5-10.4); CARBON DIOXIDE 29 mEq/l (22-31); CHLORIDE 99 mEq/L (97-110); CREATININE 1.2 mg/dL (0.6-1.0); GLOMERULAR FILTRATION RATE 44; GLUCOSE 110 mg/dL (70-100); POTASSIUM 4.3 mEq/L (3.5-5.2); SODIUM 136 mEq/L (134-144)
[2017-07-01] MEDS: NS 1,000 ML IV SCH ×4 (05:12→18:50)
[2017-07-01] MEDS: LEVOTHYROXINE 125 MCG TAB PO SCH ×2 (06:36→06:37)
[2017-07-01] MEDS: ONDANSETRON 4 MG/2 ML VIAL IVP PRN (08:20)
--- NOTE | 2017-07-01 09:22 | SOAPPROG ---
SOAP Progress Note Assessment/Plan: Assessment: POD #2 s/p Right axillary lymph node biopsy, skin biopsy for rash Path and micro pending Dressings removed today May shower with wounds uncovered Sutures will be removed 07/06 We will sign off for now. Please don't hesitate to call Dr. Pires/Anastasiya with any additional issues S: doing well. denies swelling, pain or drainage from incision. no new complaints O: laying in bed resting comfortably, son at bedside Right axillary incision and right lower abdomen incisions CDI no e/o infection 07/01/17 17:03 Objective: Vital Signs Temp Pulse Resp BP Pulse Ox 35.2 C L 67 14 131/62 H 92 07/01/17 08:00 07/01/17 08:00 07/01/17 08:00 07/01/17 08:00 07/01/17 08:00 Microbiology 06/29/17 20:00 Gram Stain - Final Axilla - Tissue 06/28/17 17:15 Mycobacterial Smear (JOE) - Final Sputum, Expectorated 06/29/17 20:00 Mycobacterial Smear (OJE) - Final Axilla - Tissue Laboratory Results 07/01/17 03:31 07/01/17 03:31 06/30/17 07/01/17 07/02/17 05:59 05:59 05:59 Intake Total 1699 1114 1900 Output Total 650 600 300 Balance 3995 277 2980 PT 46.6 SEC (12.0-15.0) H 06/25/17 21:10 INR 4.89 (0.83-1.16) H 06/25/17 21:10 ICD10 Worksheet Patient Problems: Problems Problem Status Onset Acute decompensated heart failure Acute Dyslipidemia Active Peripheral vascular disease Active Acute exacerbation of congestive heart failure Acute Afib - Atrial fibrillation Acute Atrial fibrillation Acute CHF (congestive heart failure) Acute CHF exacerbation Acute Congestive heart failure Acute Fever Acute Hypoxia Acute Hypoxia Acute Rapid atrial fibrillation Acute Respiratory failure Acute chronic disease mgmt/transitional care Acute
[2017-07-01] MEDS: CALCITONIN 200 UNITS/ML SYR SC SCH ×2 (10:42→22:20)
[2017-07-01] MEDS: CLOTRIMAZOLE 1% 15 GM CRTUBE TP SCH ×2 (10:43→22:31)
--- NOTE | 2017-07-01 11:16 | HOSPPROG ---
Hospitalist Progress Note Assessment/Plan: #. Encephalopathy - possibly related to hypercalcemia versus FIRE SAFETY DIRECTOR process. With preliminary biopsy report looking more like a malignant process and LP may be helpful to see if there is any FIRE SAFETY DIRECTOR involvement. I reviewed performing an LP with patient and her son and they were agreeable. She is anticoagulated so this will need to be put on hold in anticipation of. Will consult with IR for the LP. Calcium may also be playing a role as well and this is being treated. #. Hypercalcemia - I will adjust IVF to 125 to avoid any volume overload. I will continue calcitonin and a dose of zolendronic acid was administered yesterday. #. Possible sarcoidosis versus lymphoma versus TB - s/p axillary node biopsy. Preliminary results as discussed with Dr. Seals and pathology are looking more like a malignant process. I have a message in with Dr. Fermin with oncology to discuss and consult. #. Axillary Pain - patient's son notes increase in pain levels today. We discussed that we would make adjustments in her pain regimen but I did caution that it could worsen her mentation. #. Chronic Diastolic HF - follow volume status closely as IVFs. #. Atrial Fibrillation - diltiazem for rate control. Holding Xarelto for anticoagulation for LP. #. Hypothyroidism - levothyroxine. #. Bowel/Bladder - bowel regimen if constipation. #. DVT prophylaxis - resume anticoagulation once LP completed. #. Dispo - anticipate SNF placement for rehab. SW was discussing with patient and son today. 35/40 minutes dedicated to counseling and coordination of care. Subjective: Patient's son was present at the bedside today. He notes that she is becoming more fatigued and having visual hallucinations. Her case was reviewed with Dr. Gomez and her nurse today. She did have nausea and vomiting today. No complaints of shortness of breath or increased work of breathing. Objective: Vital Signs Temp Pulse Resp BP Pulse Ox 35.2 C L 67 14 131/62 H 92 07/01/17 08:00 07/01/17 08:00 07/01/17 08:00 07/01/17 08:00 07/01/17 08:00 Microbiology 06/29/17 20:00 Gram Stain - Final Axilla - Tissue 06/28/17 17:15 Mycobacterial Smear (JOE) - Final Sputum, Expectorated 06/29/17 20:00 Mycobacterial Smear (JOE) - Final Axilla - Tissue Laboratory Results 07/01/17 03:31 07/01/17 03:31 06/30/17 07/01/17 07/02/17 05:59 05:59 05:59 Intake Total 1699 1114 1900 Output Total 650 600 300 Balance 8893 632 3201 PT 46.6 SEC (12.0-15.0) H 06/25/17 21:10 INR 4.89 (0.83-1.16) H 06/25/17 21:10 - Physical Exam Constitutional: chronically ill appearing (appears very fatigued but conversant) Cardiovascular: regular rate and rhythym, no murmur, rub, or gallop Respiratory: no respiratory distress, no rales or rhonchi, clear to auscultation Gastrointestinal: normoactive bowel sounds, soft, non-tender abdomen, no palpable masses Skin: other (right axillary biopsy site clean and intact without purulence) Lymph, Heme, Immunologic: other (enlarged LAD in right axillary. No definite in cervical region.) ICD10 Worksheet Patient Problems: Problems Problem Status Onset Acute decompensated heart failure Acute Dyslipidemia Active Peripheral vascular disease Active Acute exacerbation of congestive heart failure Acute Afib - Atrial fibrillation Acute Atrial fibrillation Acute CHF (congestive heart failure) Acute CHF exacerbation Acute Congestive heart failure Acute Fever Acute Hypoxia Acute Hypoxia Acute Rapid atrial fibrillation Acute Respiratory failure Acute chronic disease mgmt/transitional care Acute
[2017-07-01] MEDS ORDERED: OLANZapine 2.5 MG TAB PO PRN (11:23)
[2017-07-01] MEDS ORDERED: fentaNYL 100 MCG/2 ML INJ IVP PRN (11:25)
[2017-07-01] MEDS ORDERED: oxyCODONE IR 5 MG TAB PO PRN (11:26)
[2017-07-01] MEDS: MULTIVITAMINS 1 EACH TAB PO SCH ×2 (11:46→12:03)
[2017-07-01] MEDS: PRESERVISION AREDS2 FORMULA EYE VIT 1 EACH PO SCH ×2 (12:02→22:26)
[2017-07-01] MEDS: CYANO/VITAMIN B12 1000 MCG TAB PO SCH (12:03)
[2017-07-01] MEDS: DILTIAZEM CD 120 MG CAP PO SCH ×2 (12:03→22:23)
--- NOTE | 2017-07-01 14:00 | PCMIDPN ---
Assessment/Plan: Assessment: Lymphadenopathy with bilateral interstitial lung disease. Patient now with worsening mentation which may represent central nervous system involvement. Skin biopsy nonrevealing. Lymph node biopsy showing complete effacement of normal lymph node architecture with mononuclear cells. The cells do appear heterogenous. In discussion with the pathologist in review the diagnosis leans toward malignancy. Cytology and cytogenetics are pending. Some Sage-vijay cells had been seen raising the possibility of an atypical Hodgkin's lymphoma. Sarcoidosis was ruled out based on the pathology. The lymph nodes did not look like they were reactive to infection either. Will await nuclear acid amplification test results from [facility] before taking her off precautions for tuberculosis however I feel that this diagnosis is very unlikely. Plan: 1. Continue observation off empiric antibiotics. 2. Follow up on nuclear acid amplification test for tuberculosis. 3. Follow clinical course. 4. Discussed case with hospitalist. Pointed out that serve nervous system symptoms may indicate SYSTEM DEVELOPMENT ENGINEER base malignancy. Possible indication for LP. 07/01/17 14:03 Subjective: Patient is resting in her hospital bed. She communicates and response to questions but drifts in an out of sleep. Son is at bedside. He states that her attention and orientation has worsened over the last 48 hours. No fevers or chills. Rash is improved. Objective: No antibiotics Vital Signs Temp Pulse Resp BP Pulse Ox 35.1 C L 60 20 122/66 H 92 07/01/17 12:00 07/01/17 12:00 07/01/17 12:00 07/01/17 12:00 07/01/17 12:00 Microbiology 06/29/17 20:00 Gram Stain - Final Axilla - Tissue 06/28/17 17:15 Mycobacterial Smear (JOE) - Final Sputum, Expectorated 06/29/17 20:00 Mycobacterial Smear (JOE) - Final Axilla - Tissue Laboratory Results 07/01/17 03:31 07/01/17 03:31 06/30/17 07/01/17 07/02/17 05:59 05:59 05:59 Intake Total 1699 1114 1900 Output Total 650 600 300 Balance 3225 583 3768 ESR 50 MM/HR (0-30) H 06/27/17 14:05 C-Reactive Protein 228.3 mg/L (<10.0) H 06/27/17 14:05 - Physical Exam General Appearance: WD/WN, alert (Intermittently), no apparent distress, obtunded (At times), non-toxic Respiratory: lungs clear, normal breath sounds, No respiratory distress Cardiac/Chest: regular rate, rhythm, No tachycardia Skin: normal color, warm/dry, rash (Improved over trunk) ICD10 Worksheet Patient Problems: Problems Problem Status Onset Acute decompensated heart failure Acute Dyslipidemia Active Peripheral vascular disease Active Acute exacerbation of congestive heart failure Acute Afib - Atrial fibrillation Acute Atrial fibrillation Acute CHF (congestive heart failure) Acute CHF exacerbation Acute Congestive heart failure Acute Fever Acute Hypoxia Acute Hypoxia Acute Rapid atrial fibrillation Acute Respiratory failure Acute chronic disease mgmt/transitional care Acute
--- NOTE | 2017-07-01 14:41 | ASMTCMCOM ---
CM Note CM Note Notes: Chart reviewed. Final AFB from [facility] pending.Plan to SNF upon discharge when medically stable. Date Signed: 07/01/2017 02:40 PM Electronically Signed By:Marilynn Zhou RN
[2017-07-01] MEDS: ATORVASTATIN CALCIUM 20 MG TAB PO SCH (22:26)
[2017-07-02] MEDS: NS 1,000 ML IV SCH (02:23)
[2017-07-02 03:48] LABS: % IMMATURE GRANULYOCYTES 1.7 % (0.0-1.1); ABSOLUTE IMMATURE GRANULOCYTES 0.23 10^3/uL (0.00-0.10); ADD DIFF? NO; ADD MORPH? NO; ADD SCAN? NO; ATYPICAL LYMPHOCYTE FLAG 30 (0-99); FRAGMENT RBC FLAG 20 (0-99); HEMATOCRIT 33.1 % (38.0-47.0); HEMOGLOBIN 10.8 g/dL (12.6-16.3); IONIZED CALCIUM 1.48 MMOL/L (1.12-1.30); LEFT SHIFT FLG 10 (0-99); LIPEMIA HEMOLYSIS FLAG 80 (0-99); MEAN CELL HEMOGLOBIN 26.3 pg (27.9-34.1); MEAN CELL HEMOGLOBIN CONCENTR. 32.6 g/dL (32.4-36.7); MEAN CELL VOLUME 80.5 fL (81.5-99.8); MEAN PLATELET VOLUME 10.6 fL (8.7-11.7); PLATELET CLUMPS FLAG 30 (0-99); PLATELET COUNT 251 10^3/uL (150-400); RED BLOOD CELL COUNT 4.11 10^6/uL (4.18-5.33); RED CELL DISTRIBUTION WIDTH 16.7 % (11.5-15.2)
[2017-07-02 04:05] LABS: ANION GAP 12 mEq/L (8-16); CALCIUM 10.5 mg/dL (8.5-10.4); CARBON DIOXIDE 21 mEq/l (22-31); CHLORIDE 110 mEq/L (97-110); CREATININE 0.9 mg/dL (0.6-1.0); GLOMERULAR FILTRATION RATE > 60; GLUCOSE 91 mg/dL (70-100); MAGNESIUM 1.7 mg/dL (1.6-2.3); SODIUM 143 mEq/L (134-144)
[2017-07-02] MEDS: ONDANSETRON 4 MG/2 ML VIAL IVP PRN (09:14)
[2017-07-02 11:30] LABS: APTT 31.4 SEC (23.0-38.0); INR 1.94 (0.83-1.16); PROTIME(PATIENT) 22.3 SEC (12.0-15.0)
--- NOTE | 2017-07-02 11:45 | HOSPPROG ---
Hospitalist Progress Note Assessment/Plan: 77-year-old with a history of chronic diastolic heart failure and pacemaker placement is admitted with weakness and hypercalcemia. Evaluation has noted that lymphadenopathy and she is status post a lymph node biopsy which is currently pending. She continues to decline from a AIRCRAFT SALES REPRESENTATIVE standpoint and has not eaten in 2 days due to poor swallow and poor mental status #. Encephalopathy - possibly related to hypercalcemia versus AIRCRAFT SALES REPRESENTATIVE process. With preliminary biopsy report looking more like a malignant process and LP may be helpful to see if there is any AIRCRAFT SALES REPRESENTATIVE involvement. * LP, unable to do MRI due to pacemaker * Treat calcium * Continue supportive care * Long discussion with son today regarding plan of care. #. Hypercalcemia -continue IV fluids, received calcitonin Zalendronic acid #. Possible sarcoidosis versus lymphoma versus TB - s/p axillary node biopsy. Preliminary results concerning for lymphoma * await final path * NAAT negative, discontinue isolation * continue supportive care. #. Axillary Pain - Pt denied pain today. #. Chronic Diastolic HF - follow volume status closely as IVFs. #. Atrial Fibrillation - diltiazem for rate control. Holding Xarelto for anticoagulation for LP. * resume Xarelto for 24 hours after LP #. Hypothyroidism - levothyroxine. #. Bowel/Bladder - bowel regimen for constipation. #. Nutrition: Poor p.o. intake for 2 days, discussed options with patient's son at bedside. He is reluctant to start any TPN or tube feeds due to his mother's previous feelings about nutrition. Will continue IV fluids for now and readdress this in the future depending on diagnoses. #. DVT prophylaxis - resume anticoagulation once LP completed. #. Dispo - anticipate SNF placement for rehab. SW was discussing with patient and son today. If has lymphoma would need to discuss care options with chemo vs palliative care. Subjective: Patient new to me and chart reviewed. Denies pain just has a little discomfort. Poor p.o. intake. Objective: Vital Signs Temp Pulse Resp BP Pulse Ox 36.4 C 85 17 117/73 92 07/02/17 07:05 07/02/17 07:05 07/02/17 07:05 07/02/17 07:05 07/02/17 07:05 Microbiology 06/29/17 20:00 Gram Stain - Final Axilla - Tissue Laboratory Results 07/02/17 03:42 07/02/17 03:42 07/01/17 07/02/17 07/03/17 05:59 05:59 04:59 Intake Total 1114 5141 599 Output Total 600 400 200 Balance 514 4741 399 PT 46.6 SEC (12.0-15.0) H 06/25/17 21:10 INR 4.89 (0.83-1.16) H 06/25/17 21:10 - Physical Exam Constitutional: chronically ill appearing, uncomfortable Eyes: PERRL, EOMI Ears, Nose, Mouth, Throat: moist mucous membranes Cardiovascular: regular rate and rhythym, No edema Respiratory: no respiratory distress, no rales or rhonchi, clear to auscultation , reduced air movement Gastrointestinal: soft, non-tender abdomen Genitourinary: no bladder fullness Skin: warm Neurologic: weakness, No AAOx3, No facial droop Psychiatric: encephalopathic Lymph, Heme, Immunologic: no cervical LAD ICD10 Worksheet Patient Problems: Problems Problem Status Onset CHF exacerbation Acute Respiratory failure Acute Fever Acute Acute decompensated heart failure Acute chronic disease mgmt/transitional care Acute Afib - Atrial fibrillation Acute Dyslipidemia Active Peripheral vascular disease Active Congestive heart failure Acute Atrial fibrillation Acute Hypoxia Acute Rapid atrial fibrillation Acute CHF (congestive heart failure) Acute Acute exacerbation of congestive heart failure Acute Hypoxia Acute
[2017-07-02 13:10] LABS: FINAL DIAGNOSIS See Comments; MICROSCOPIC DESCRIPTION See Comments
[2017-07-02] MEDS: PRESERVISION AREDS2 FORMULA EYE VIT 1 EACH PO SCH ×2 (13:49→21:54)
[2017-07-02] MEDS: DILTIAZEM CD 120 MG CAP PO SCH ×2 (13:49→21:54)
[2017-07-02] MEDS: CYANO/VITAMIN B12 1000 MCG TAB PO SCH (13:49)
[2017-07-02] MEDS: LEVOTHYROXINE 125 MCG TAB PO SCH (13:50)
[2017-07-02] MEDS: MULTIVITAMINS 1 EACH TAB PO SCH (13:50)
[2017-07-02] MEDS: CALCITONIN 200 UNITS/ML SYR SC SCH (16:02)
[2017-07-02] MEDS: CLOTRIMAZOLE 1% 15 GM CRTUBE TP SCH ×2 (16:03→21:48)
[2017-07-02] MEDS ORDERED: NS 1,000 ML IV SCH (16:30)
--- NOTE | 2017-07-02 17:06 | PDINTPN ---
Braille Duplicating Machine Operator Progress Note Assessment/Plan: Assessment/plan: 77 F admitted 06/26/17 with acute on chronic fatigue and cough in setting of afib and CHF. At one time she was thought to have fluid overload, but did not have a brisk response to diuretics. In addition she reported 2 months of night sweats and 2 weeks of purulent sputum without hemoptysis. Her work up included a chest CT showing small nodular infiltrates of primarily the RUL with prominent MINA (htough not terribly large in the mediastinum). She also had axillary and palpable cervicle adenopathy. She has reported a possible TB exposure 40-50 years ago, but has never been tested for TB. * Abnormal CT with ANDRY and rash but relatively bland UA- LN biopsy consistent with atypical lymphoma, but also plasma cell neoplasm. Her TP/albumin ratio is high, she has ANDRY, and hypercalcemia; all of which could fit with multiple myeloma. I added an SPEP today, and a heme/onc consult is pending. TB has been ruled out, so I dont think a BAL/TBBx is indicated. * ANDRY- as above. * Rash- she has a diffuse erythematous rash without clear etiology, though may be related to vasculitis. No typical for sarcoidosis, though that remains in the differential. * * I'll sign off, but call prn 07/02/17 17:03 Subjective: Events of last days noted. Patient very somnolent but without complaints Objective: Vital Signs Temp Pulse Resp BP Pulse Ox 35.6 C L 71 20 128/66 H 93 07/02/17 15:18 07/02/17 15:18 07/02/17 15:18 07/02/17 15:18 07/02/17 15:18 Microbiology 06/29/17 20:00 Gram Stain - Final Axilla - Tissue Laboratory Results 07/02/17 03:42 07/02/17 03:42 07/01/17 07/02/17 07/03/17 05:59 05:59 04:59 Intake Total 1114 5141 599 Output Total 600 400 450 Balance 514 4741 149 PT 22.3 SEC (12.0-15.0) H 07/02/17 11:00 INR 1.94 (0.83-1.16) H 07/02/17 11:00 Physical Exam - Physical Exam General Appearance: no apparent distress, other (very somnolent ) EENT: PERRL/EOMI Neck: supple Respiratory: lungs clear, normal breath sounds, No respiratory distress Cardiac/Chest: regular rate, rhythm, No edema Abdomen: non-tender, soft, No distended Skin: normal color, warm/dry Lymphatic: no adenopathy Extremities: No pedal edema Neuro/Psych: cognition abnormalities ICD10 Worksheet Patient Problems: Problems Problem Status Onset Acute decompensated heart failure Acute Dyslipidemia Active Peripheral vascular disease Active Acute exacerbation of congestive heart failure Acute Afib - Atrial fibrillation Acute Atrial fibrillation Acute CHF (congestive heart failure) Acute CHF exacerbation Acute Congestive heart failure Acute Fever Acute Hypoxia Acute Hypoxia Acute Rapid atrial fibrillation Acute Respiratory failure Acute chronic disease mgmt/transitional care Acute
[2017-07-02] MEDS: MBX SOLN 30 ML BOTTLE PO PRN ×2 (17:30→21:47)
[2017-07-02] MEDS: ATORVASTATIN CALCIUM 20 MG TAB PO SCH (21:53)
[2017-07-03 04:32] LABS: IONIZED CALCIUM 1.41 MMOL/L (1.12-1.30)
[2017-07-03 04:41] LABS: % IMMATURE GRANULYOCYTES 2.8 % (0.0-1.1); ADD DIFF? NO; ADD MORPH? NO; ADD SCAN? NO; ATYPICAL LYMPHOCYTE FLAG 20 (0-99); FRAGMENT RBC FLAG 20 (0-99); HEMATOCRIT 31.4 % (38.0-47.0); LEFT SHIFT FLG 20 (0-99); LIPEMIA HEMOLYSIS FLAG 80 (0-99); MEAN CELL HEMOGLOBIN 26.2 pg (27.9-34.1); MEAN CELL HEMOGLOBIN CONCENTR. 31.8 g/dL (32.4-36.7); MEAN CELL VOLUME 82.2 fL (81.5-99.8); MEAN PLATELET VOLUME 10.6 fL (8.7-11.7); PLATELET CLUMPS FLAG 20 (0-99); PLATELET COUNT 242 10^3/uL (150-400); RED BLOOD CELL COUNT 3.82 10^6/uL (4.18-5.33); RED CELL DISTRIBUTION WIDTH 17.3 % (11.5-15.2)
[2017-07-03 04:47] LABS: ALANINE AMINOTRANSFERASE 47 IU/L (9-52); ALBUMIN 2.4 g/dL (3.5-5.0); ALKALINE PHOSPHATASE 100 IU/L (38-126); ANION GAP 10 mEq/L (8-16); ASPARTATE AMINOTRANSFERASE 37 IU/L (14-46); BILIRUBIN,TOTAL 0.5 mg/dL (0.1-1.4); CALCIUM 9.9 mg/dL (8.5-10.4); CARBON DIOXIDE 22 mEq/l (22-31); CHLORIDE 116 mEq/L (97-110); CREATININE 0.9 mg/dL (0.6-1.0); GLOMERULAR FILTRATION RATE > 60; GLUCOSE 95 mg/dL (70-100); MAGNESIUM 1.7 mg/dL (1.6-2.3); SODIUM 148 mEq/L (134-144); TOTAL PROTEIN 4.3 g/dL (6.3-8.2)
[2017-07-03] MEDS: LEVOTHYROXINE 125 MCG TAB PO SCH (05:22)
[2017-07-03] MEDS: MBX SOLN 30 ML BOTTLE PO PRN ×2 (08:08→17:24)
[2017-07-03] MEDS: D5W 1/2 NS 1,000 ML IV SCH ×2 (08:25→19:09)
--- NOTE | 2017-07-03 10:26 | HOSPPROG ---
Hospitalist Progress Note Assessment/Plan: 77-year-old with a history of chronic diastolic heart failure and pacemaker placement is admitted with weakness and hypercalcemia. Evaluation has noted that lymphadenopathy and she is status post a lymph node biopsy which is currently pending. She continues to decline from a RURAL ROUTE CARRIER standpoint and has not eaten in 2 days due to poor swallow and poor mental status, Eating today small amounts and drinking more water. #. Encephalopathy - possibly related to hypercalcemia versus RURAL ROUTE CARRIER process. With preliminary biopsy report looking more like a malignant process and LP may be helpful to see if there is any RURAL ROUTE CARRIER involvement. * LP, unable to do MRI due to pacemaker * Treat calcium * Continue supportive care * Long discussion with son today regarding plan of care. #. Hypercalcemia -continue IV fluids, received calcitonin Zalendronic acid #. Possible sarcoidosis versus lymphoma. TB ruled out. s/p axillary node biopsy. Preliminary results concerning for lymphoma * await final path * NAAT negative, discontinue isolation * continue supportive care. #. Axillary Pain - Pt denied pain today. #. Chronic Diastolic HF - follow volume status closely as IVFs. #. Hypernatremia: likely from poor PO, water intake, adjust IVF and recheck sodium today. #. Atrial Fibrillation - diltiazem for rate control. Holding Xarelto for anticoagulation for LP. * resume Xarelto for 24 hours after LP #. Hypothyroidism - levothyroxine. #. Bowel/Bladder - bowel regimen for constipation. #. Nutrition: Poor p.o. intake for 2 days, discussed options with patient's son at bedside. He is reluctant to start any TPN or tube feeds due to his mother's previous feelings about nutrition. Will continue IV fluids for now and readdress this in the future depending on diagnoses. #. DVT prophylaxis - resume anticoagulation once LP completed. #. Dispo - anticipate SNF placement for rehab. SW was discussing with patient and son today. If has lymphoma would need to discuss care options with chemo vs palliative care. Subjective: pt denies pain. Had worse pain all over last night. intermittantly chokes with eating Objective: Vital Signs Temp Pulse Resp BP Pulse Ox 36.5 C 61 30 H 111/56 L 97 07/03/17 08:00 07/03/17 08:00 07/03/17 08:00 07/03/17 08:00 07/03/17 08:00 Microbiology 06/29/17 20:00 Gram Stain - Final Axilla - Tissue Laboratory Results 07/03/17 04:26 07/03/17 04:26 07/02/17 07/03/17 07/04/17 06:59 05:59 05:59 Intake Total Output Total Balance PT 22.3 SEC (12.0-15.0) H 07/02/17 11:00 INR 1.94 (0.83-1.16) H 07/02/17 11:00 - Physical Exam Constitutional: not in pain, chronically ill appearing, No appears nourished Eyes: PERRL, anicteric sclera, EOMI Ears, Nose, Mouth, Throat: moist mucous membranes Cardiovascular: regular rate and rhythym, systolic murmur Respiratory: no respiratory distress, reduced air movement, inspiratory crackles (bases.) Gastrointestinal: normoactive bowel sounds, tenderness (very mild diffuse, without guarding.), No distension Genitourinary: no bladder fullness Skin: warm Musculoskeletal: muscular tenderness Neurologic: No AAOx3, No facial droop Psychiatric: interacting appropriately ICD10 Worksheet Patient Problems: Problems Problem Status Onset CHF exacerbation Acute Respiratory failure Acute Fever Acute Acute decompensated heart failure Acute chronic disease mgmt/transitional care Acute Afib - Atrial fibrillation Acute Dyslipidemia Active Peripheral vascular disease Active Congestive heart failure Acute Atrial fibrillation Acute Hypoxia Acute Rapid atrial fibrillation Acute CHF (congestive heart failure) Acute Acute exacerbation of congestive heart failure Acute Hypoxia Acute
[2017-07-03] MEDS: CLOTRIMAZOLE 1% 15 GM CRTUBE TP SCH ×2 (11:39→19:52)
[2017-07-03] MEDS: PRESERVISION AREDS2 FORMULA EYE VIT 1 EACH PO SCH ×2 (11:39→19:48)
[2017-07-03] MEDS: CYANO/VITAMIN B12 1000 MCG TAB PO SCH (11:39)
[2017-07-03] MEDS: DILTIAZEM CD 120 MG CAP PO SCH ×2 (11:40→19:36)
[2017-07-03] MEDS: MULTIVITAMINS 1 EACH TAB PO SCH (13:07)
--- NOTE | 2017-07-03 14:47 | GCON ---
[f rep st] CONSULTATION HISTORY OF PRESENT ILLNESS: The patient is a 77-year-old female who was admitted last week complaini ng of fatigue and rash. She also had some shortness of breath. A chest CT scan was performed on , which showed subsegmental focal atelectasis in the lingula and right lung bases. There was diffu se interlobular septal thickening, greatest in the upper lobes and the periphery of the lower lobes. There was miliary nodularity present in the right upper lobe. There was prominent noncalcified pret darnell, precarinal, subcarinal and right hilar adenopathy. There were also large bilateral noncalci fied axillary nodes. Splenomegaly was noted and there were multiple enlarged upper abdominal nodes. The patient was also noted to be anemic and hypercalcemic with an initial ionized calcium of 1.68 an d a serum calcium that peaked at 12.4 on 07/01. She was treated with calcitonin, Zometa and hydration and her calcium has improved. She has had some disordered mental status, which may be improving as well. A lymph node biopsy was performed by Dr. Pires. There is some concern on preliminary analysis that it might represent a hematologic malignancy. Flow cytometry shows a kappa light chain restrict ed plasma cell population as well as a kappa light chain restricted B-cell population. The final pat hology is pending. PAST MEDICAL HISTORY: Significant for sick sinus syndrome with pacemaker placement, atrial fibrillat ion, diastolic dysfunction, hypothyroidism, CVA in 2009. PAST SURGICAL HISTORY: Include right knee replacement, vaginal hysterectomy 2005. SOCIAL HISTORY: She is a former smoker. She is accompanied by her son. PHYSICAL EXAMINATION: GENERAL: Currently, she is up eating breakfast. VITAL SIGNS: Stable. HEENT : Pharynx is unremarkable. LUNGS: Show somewhat diminished breath sounds. CARDIAC: She appears t o be in a regular rhythm at this point in time. LYMPHATICS: I detect no cervical, supraclavicular a denopathy. She is status post a right axillary biopsy and also had a right thigh biopsy. ABDOMEN: Not examined in detail today. EXTREMITIES: Show no edema, LABORATORY: White count is 10.75, hemoglobin 10, hematocrit 31.4, platelets are 242,000. Sedimentat ion rate is 50. Chemistry panel shows a sodium of 148, chloride of 116, albumin is 2.4, calcium toda y is 9.9, ionized calcium from this morning is 1.41. A recent B12 level is normal at 849. Ferritin is elevated at 553. IMPRESSION: The patient presenting with general deterioration. She is found to be hypercalcemic wit h pulmonary infiltrate, some in a miliary pattern, and axillary and mediastinal adenopathy, status po st axillary lymph node biopsy. ID has been consulted. 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 Preliminary pathology is significant for a hematologic issue which may account certainly for some of her findings. I discussed the situation with her family today. We will await final pathology. Additional staging may include CT of the abd omen and pelvis or a PET scan. I have added a serum protein electrophoresis and serum free light elder in analysis, also beta 2 microglobulin, and we will check an LDH. If bone marrow biopsy and PET mumtaz ot be obtained, skeletal survey may be indicated although there are no reports of abnormal bony struc tures on her chest CT scan. I do note that she has a suggestion of enlarged upper abdominal nodes an d splenomegaly on her chest CT scan. Our service will follow with you. /[id number]/MODL
[2017-07-03 14:49] LABS: ANION GAP 10 mEq/L (8-16); CALCIUM 9.9 mg/dL (8.5-10.4); CARBON DIOXIDE 24 mEq/l (22-31); CHLORIDE 111 mEq/L (97-110); GLOMERULAR FILTRATION RATE 54; GLUCOSE 174 mg/dL (70-100); LACTATE DEHYDROGENASE 660 IU/L (313-618); SODIUM 145 mEq/L (134-144)
[2017-07-03 14:50] LABS: INR 1.7 (0.83-1.16)
[2017-07-03] MEDS: ACETAMINOPHEN 325 MG TAB PO PRN (19:36)
[2017-07-03] MEDS: ATORVASTATIN CALCIUM 20 MG TAB PO SCH (19:48)
[2017-07-04] MEDS: LEVOTHYROXINE 125 MCG TAB PO SCH (04:13)
[2017-07-04 05:09] LABS: IONIZED CALCIUM 1.33 MMOL/L (1.12-1.30)
[2017-07-04 05:17] LABS: % IMMATURE GRANULYOCYTES 2.5 % (0.0-1.1); ABSOLUTE IMMATURE GRANULOCYTES 0.25 10^3/uL (0.00-0.10); ABSOLUTE NRBC COUNT 0.02 10^3/uL (0-0.01); ADD DIFF? NO; ADD MORPH? NO; ADD SCAN? NO; ATYPICAL LYMPHOCYTE FLAG 10 (0-99); FRAGMENT RBC FLAG 20 (0-99); HEMATOCRIT 31.4 % (38.0-47.0); HEMOGLOBIN 9.7 g/dL (12.6-16.3); LEFT SHIFT FLG 10 (0-99); LIPEMIA HEMOLYSIS FLAG 80 (0-99); MEAN CELL HEMOGLOBIN 26.5 pg (27.9-34.1); MEAN CELL HEMOGLOBIN CONCENTR. 30.9 g/dL (32.4-36.7); MEAN CELL VOLUME 85.8 fL (81.5-99.8); MEAN PLATELET VOLUME 10.8 fL (8.7-11.7); NRBC-AUTO% 0.2 % (0.0-0.2); PLATELET CLUMPS FLAG 10 (0-99); PLATELET COUNT 240 10^3/uL (150-400); RED BLOOD CELL COUNT 3.66 10^6/uL (4.18-5.33); RED CELL DISTRIBUTION WIDTH 17.7 % (11.5-15.2)
[2017-07-04 06:06] LABS: ANION GAP 12 mEq/L (8-16); CALCIUM 9.1 mg/dL (8.5-10.4); CARBON DIOXIDE 18 mEq/l (22-31); CHLORIDE 113 mEq/L (97-110); CREATININE 0.9 mg/dL (0.6-1.0); GLOMERULAR FILTRATION RATE > 60; GLUCOSE 120 mg/dL (70-100); MAGNESIUM 1.7 mg/dL (1.6-2.3); SODIUM 143 mEq/L (134-144)
[2017-07-04] MEDS: MBX SOLN 30 ML BOTTLE PO PRN ×2 (07:03→21:23)
[2017-07-04] MEDS: ACETAMINOPHEN 325 MG TAB PO PRN ×3 (07:15→21:18)
[2017-07-04] MEDS: CLOTRIMAZOLE 1% 15 GM CRTUBE TP SCH ×2 (10:03→21:24)
[2017-07-04] MEDS: PRESERVISION AREDS2 FORMULA EYE VIT 1 EACH PO SCH ×2 (10:04→21:21)
[2017-07-04] MEDS: DILTIAZEM CD 120 MG CAP PO SCH ×2 (10:04→21:20)
[2017-07-04] MEDS: CYANO/VITAMIN B12 1000 MCG TAB PO SCH (10:04)
--- NOTE | 2017-07-04 10:15 | SOAPPROG ---
SOAP Progress Note Assessment/Plan: Assessment: 1. Hypercalcemia of malignancy 2. Mediastinal adenopathy, lung nodules, splenomegaly. lymph node bx pending 3. Anemia of chronic inflammation 4. Altered mental status, due to #1, resolving Flow showed a B cell population and kappa-restricted plasma cells. Likely a lymphoma though exact diagnosis pending. DDx is broad. Plan: - continue fluids for Rx of hypercalcemia - will order additional staging studies (CT, PET-CT, etc) depending on final path - prognosis and treatment will depend on final path. would not discharge patient to a SNF until treatment plan has been set - outpatient Rx of patients in SNFs can be complicated for insurance reasons d/w Dr. Giles 40 min spent w/ family and in coordination of care 07/04/17 10:12 Subjective: still feels tired but better than yesterday. some back pain. Objective: exam: elderly, NAD Lungs CTAB CV RRR no MGR Abd: +BS NT ND Ext: no edema Neuro: a+ox3. Vital Signs Temp Pulse Resp BP Pulse Ox 36.7 C 63 18 117/55 L 95 07/04/17 07:37 07/04/17 07:37 07/04/17 07:37 07/04/17 07:37 07/04/17 07:37 Laboratory Results 07/04/17 09:18 07/04/17 03:49 07/03/17 07/04/17 07/05/17 05:59 05:59 05:59 Intake Total 2475 Output Total 600 Balance 1875 PT 20.0 SEC (12.0-15.0) H 07/03/17 14:29 INR 1.70 (0.83-1.16) H 07/03/17 14:29 ICD10 Worksheet Patient Problems: Problems Problem Status Onset Acute decompensated heart failure Acute Dyslipidemia Active Peripheral vascular disease Active Acute exacerbation of congestive heart failure Acute Afib - Atrial fibrillation Acute Atrial fibrillation Acute CHF (congestive heart failure) Acute CHF exacerbation Acute Congestive heart failure Acute Fever Acute Hypoxia Acute Hypoxia Acute Rapid atrial fibrillation Acute Respiratory failure Acute chronic disease mgmt/transitional care Acute
[2017-07-04 10:52] LABS: INR 1.5 (0.83-1.16); PROTIME(PATIENT) 18.1 SEC (12.0-15.0)
[2017-07-04 10:53] LABS: APTT 33.7 SEC (23.0-38.0)
--- NOTE | 2017-07-04 11:46 | ASMTCMCOM ---
CM Note CM Note Notes: DC needs not clear yet, awaiting more definitive diagnosis. Met w/pt and very supportive family (son-Mikie, dtr in law, and sisters). Pt lives independantly in patio home w/family near by. D/W RN who said family considering palliative care conference but would like to have confirmed diagnosis first. FMLA paperwork for son to fill out in chart- will need more info on diagnosis and plan of treatment to complete. ZINA w/f. Date Signed: 07/04/2017 11:45 AM Electronically Signed By:Heaven Sloan RN
[2017-07-04] MEDS: D5W 1/2 NS 1,000 ML IV SCH (12:59)
[2017-07-04] MEDS: MULTIVITAMINS 1 EACH TAB PO SCH (13:02)
--- NOTE | 2017-07-04 13:13 | HOSPPROG ---
Hospitalist Progress Note Assessment/Plan: 77-year-old with a history of chronic diastolic heart failure and pacemaker placement is admitted with weakness and hypercalcemia. Evaluation has noted that lymphadenopathy and she is status post a lymph node biopsy which is currently pending. 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 #. Encephalopathy - possibly related to hypercalcemia as has improved with decreased calcium levels. With preliminary biopsy report looking more like a malignant process. Discussed with Dr. Hale * LP, unable to do MRI due to pacemaker * Treat calcium * Continue supportive care * Long discussion with son today regarding plan of care. #. Hypercalcemia -continue IV fluids, received calcitonin Zalendronic acid #. Possible sarcoidosis versus lymphoma. TB ruled out. s/p axillary node biopsy. Preliminary results concerning for lymphoma * await final path * NAAT negative, discontinue isolation * continue supportive care. #. Axillary Pain - Pt denied pain today. #. Chronic Diastolic HF - follow volume status closely as IVFs. #. Hypernatremia: likely from poor PO, water intake, improved #. Atrial Fibrillation - diltiazem for rate control. Holding Xarelto for anticoagulation for LP. * Will resume lovenox due to possible ongoing proceedures. #. Hypothyroidism - levothyroxine. #. Bowel/Bladder - bowel regimen for constipation. #. Nutrition: Poor p.o. intake for 2 days, discussed options with patient's son at bedside. He is reluctant to start any TPN or tube feeds due to his mother's previous feelings about nutrition. Will continue IV fluids for now and readdress this in the future depending on diagnoses. #. DVT prophylaxis - resume anticoagulation once LP completed. #. Dispo - anticipate SNF placement for rehab. Since she may need chemo, will await path and determine management before dispo. Subjective: looks improved today. had some pain in back, chronic Objective: Vital Signs Temp Pulse Resp BP Pulse Ox 36.7 C 78 20 117/65 95 07/04/17 07:37 07/04/17 10:54 07/04/17 10:54 07/04/17 10:54 07/04/17 10:54 Laboratory Results 07/04/17 09:18 07/04/17 03:49 07/03/17 07/04/17 07/05/17 05:59 05:59 05:59 Intake Total 2475 Output Total 600 Balance 1875 PT 18.1 SEC (12.0-15.0) H 07/04/17 09:18 INR 1.50 (0.83-1.16) H 07/04/17 09:18 - Physical Exam Constitutional: chronically ill appearing, uncomfortable Eyes: PERRL Ears, Nose, Mouth, Throat: moist mucous membranes Cardiovascular: regular rate and rhythym Respiratory: no respiratory distress, reduced air movement Gastrointestinal: normoactive bowel sounds, soft, non-tender abdomen Genitourinary: no bladder fullness Skin: warm Musculoskeletal: generalized weakness Neurologic: No facial droop Psychiatric: interacting appropriately, not anxious ICD10 Worksheet Patient Problems: Problems Problem Status Onset CHF exacerbation Acute Respiratory failure Acute Fever Acute Acute decompensated heart failure Acute chronic disease mgmt/transitional care Acute Afib - Atrial fibrillation Acute Dyslipidemia Active Peripheral vascular disease Active Congestive heart failure Acute Atrial fibrillation Acute Hypoxia Acute Rapid atrial fibrillation Acute CHF (congestive heart failure) Acute Acute exacerbation of congestive heart failure Acute Hypoxia Acute
[2017-07-04] MEDS: ATORVASTATIN CALCIUM 20 MG TAB PO SCH (21:17)
[2017-07-04] MEDS: RIVAROXABAN 15 MG TAB PO SCH (21:20)
[2017-07-05 05:29] LABS: ADD DIFF? YES; ADD MORPH? NO; ADD SCAN? NO; ATYPICAL LYMPHOCYTE FLAG 10 (0-99); FRAGMENT RBC FLAG 20 (0-99); HEMATOCRIT 31.6 % (38.0-47.0); IONIZED CALCIUM 1.29 MMOL/L (1.12-1.30); LEFT SHIFT FLG 20 (0-99); LIPEMIA HEMOLYSIS FLAG 80 (0-99); MEAN CELL HEMOGLOBIN 25.9 pg (27.9-34.1); MEAN CELL HEMOGLOBIN CONCENTR. 31.6 g/dL (32.4-36.7); MEAN CELL VOLUME 81.9 fL (81.5-99.8); MEAN PLATELET VOLUME 10.6 fL (8.7-11.7); PLATELET CLUMPS FLAG 10 (0-99); PLATELET COUNT 255 10^3/uL (150-400); RED BLOOD CELL COUNT 3.86 10^6/uL (4.18-5.33); RED CELL DISTRIBUTION WIDTH 17.7 % (11.5-15.2)
[2017-07-05 05:43] LABS: ANION GAP 8 mEq/L (8-16); CALCIUM 9.3 mg/dL (8.5-10.4); CARBON DIOXIDE 24 mEq/l (22-31); CHLORIDE 109 mEq/L (97-110); CREATININE 0.9 mg/dL (0.6-1.0); GLOMERULAR FILTRATION RATE > 60; GLUCOSE 90 mg/dL (70-100); MAGNESIUM 1.6 mg/dL (1.6-2.3); POTASSIUM 4.1 mEq/L (3.5-5.2); SODIUM 141 mEq/L (134-144)
[2017-07-05 06:05] LABS: PLATELET ESTIMATE ADEQUATE (ADEQ)
[2017-07-05 06:06] LABS: ELLIPTOCYTES 1+; MACROCYTES 1+; MICROCYTES 1+; POLYCHROMASIA 1+; TOXIC VACUOLIZATION PRESENT
[2017-07-05] MEDS: LEVOTHYROXINE 125 MCG TAB PO SCH (06:07)
[2017-07-05] MEDS: DILTIAZEM CD 120 MG CAP PO SCH ×2 (08:44→21:12)
[2017-07-05] MEDS: CYANO/VITAMIN B12 1000 MCG TAB PO SCH (08:44)
[2017-07-05] MEDS: PRESERVISION AREDS2 FORMULA EYE VIT 1 EACH PO SCH ×2 (08:44→21:12)
[2017-07-05] MEDS: CLOTRIMAZOLE 1% 15 GM CRTUBE TP SCH ×2 (08:44→21:13)
--- NOTE | 2017-07-05 09:44 | SOAPPROG ---
SOAP Progress Note Assessment/Plan: Assessment: 1. Hypercalcemia of malignancy 2. Mediastinal adenopathy, lung nodules, splenomegaly. lymph node bx pending 3. Anemia of chronic inflammation 4. 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 They are fairly confident it is a b-cell malignancy. We discussed that this is a curable disease but that requires multiagent chemo ( R-CHOP or similar) for cure. She will likely feel better once treatment is started since her weakness is likely a result of her disease. She does have some doubts about whether it is "worth it" to do this. Her main complaint is that she feels weak and is "just existing, not living." Plan: - will order CT c/a/p and echo in anticipation of treatment - will hold off on Rx until diagnosis is finalized. She would also need a PICC line for therapy. - will order palliative consult to help make decisions re: her care. 35 min spent w/ pt and family in discussion of diagnosis, prognosis, and potential treatment. Subjective: pt still feels weak but improving. Objective: exam unchanged Vital Signs Temp Pulse Resp BP Pulse Ox 36.3 C 60 18 117/57 L 94 07/05/17 08:00 07/05/17 08:44 07/05/17 08:00 07/05/17 08:44 07/05/17 08:00 Microbiology 06/29/17 20:00 Gram Stain - Final Axilla - Tissue Laboratory Results 07/05/17 05:13 07/05/17 05:13 07/04/17 07/05/17 07/06/17 05:59 05:59 05:59 Intake Total 2475 1166 Output Total 600 1150 Balance 1875 16 PT 18.1 SEC (12.0-15.0) H 07/04/17 09:18 INR 1.50 (0.83-1.16) H 07/04/17 09:18 ICD10 Worksheet Patient Problems: Problems Problem Status Onset Acute decompensated heart failure Acute Dyslipidemia Active Peripheral vascular disease Active Acute exacerbation of congestive heart failure Acute Afib - Atrial fibrillation Acute Atrial fibrillation Acute CHF (congestive heart failure) Acute CHF exacerbation Acute Congestive heart failure Acute Fever Acute Hypoxia Acute Hypoxia Acute Rapid atrial fibrillation Acute Respiratory failure Acute chronic disease mgmt/transitional care Acute
--- NOTE | 2017-07-05 12:36 | ECHO ---
[email or web address] [address] Main: [phone] Fax: Transthoracic Echocardiogram Name: CHRISS OKEEFE MR#: [id number] Study Date: 07/05/2017 Study Time: 11:20 AM Date of : 1940 Age: 77 year(s) Height: 170.2 cm (67 in.) Weight: 78.02 kg (172 lb.) BSA: 1.9 m2 Gender: Female Examination: Echo Indication: Pre Chemo Image Quality: Contrast: Requested by: Doug Hale BP: 117 mmHg/57 mmHg Heart Rate: Rhythm: Indication: Pre Chemo Procedure Staff In House Cra: Vicente Bustillos Reading Physician: Phuc Martins Requesting Provider: Conclusions: According to echocardiographic criteria, 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 Moderately to severely reduced systolic function. EF is 34 %. There is a pacemaker lead noted in the right ventricle. The left atrium is mildly dilated. The right atrium is mildly dilated. Severe tricuspid regurgitation is present. The pulmonary artery pressure is moderately increased. Compared to the previous exam of 05/16/2017 there has been a decrease in the EF Measurements: Chambers Valvular Assessment AV/MV Valvular Assessment TV/PV Normal Normal Normal Name Value Range Name Value Range Name Value Range Ao Disha (MM): 2.9 cm (2.2 cm-3.7 AV Vmax: 1.62 m/s (1 m/s-1.7 TR Vmax: 3.63 mm/s ( - ) cm) m/s) TR PGmax: 53 mmHg ( - ) IVSd (2D): 0.8 cm (0.6 cm-1.1 AV maxP mmHg ( - ) syst. PAP: 63 mmHg ( - ) cm) LVOT Vmax: 0.66 m/s (0.7 m/s-1.1 PV Vmax: 1.29 m/s (0.6 m/s-0.9 LVDd (2D): 5.2 cm (3.9 cm-5.3 m/s) m/s) cm) MV E Vmax: 1.23 m/s ( - ) PV PGmax: 7 mmHg ( - ) LVDs (2D): 4.1 cm (2.1 cm-4 MV A Vmax: 0.59 m/s ( - ) cm) MV E/A: 2.08 ( - ) LVPWd (2D): 0.9 cm ( - ) LVEF (BP): 34 % (>=55 %) Continued Measurements: Chambers Valvular Assessment AV/MV Valvular Assessment TV/PV Patient: CHRISS OKEEFE Study Date: 07/05/2017 Page 1 of 2 11:20 AM Name Value Name Value Name Value LADs Lon.9 cm MV E/E' Septal: 18.00 CVP (est.): 10 mmHg LA Area: 27.6 cm2 MV E/E' Lateral: 20.70 LA Volume: 69 ml LA Volume Index: 36.3 ml/m2 Findings: Left Ventricle: Normal size left ventricle. 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 Moderately to severely reduced systolic function. EF is 34 %. Right Ventricle: Normal size right ventricle. Normal RV function. There is a pacemaker lead noted in the right ventricle. Left Atrium: The left atrium is mildly dilated. Right Atrium: The right atrium is mildly dilated. Mitral Valve: Mild mitral valve leaflet calcification is present. Aortic Valve: The aortic valve is tri-leaflet. The aortic valve is normal in appearance and function. Tricuspid Valve: Severe tricuspid regurgitation is present. The pulmonary artery pressure is moderately increased. Pulmonic Valve: The pulmonic valve is normal in appearance and function. Aorta: The aorta is normal. Pericardium: No pericardial effusion. There is a pleural effusion present. Compared to the previous exam of 05/16/2017 there has been a decrease in the EF (No Signature Object) Patient: CHRISS OKEEFE Study Date: 07/05/2017 Page 2 of 2 11:20 AM [id number]
[2017-07-05] MEDS ORDERED: IOPAMIDOL (ISOVUE-300) 100 ML BTL ONE (13:59)
--- NOTE | 2017-07-05 14:20 | PDPCPN ---
Palliative Care Progress Note Assessment/Plan: Referring provider: Dr Carpenter Reason for consult: Complex medical decision making Symptom control HPI: Ramirez hogue is a 77 yo with PMH Diastolic CHF and pacemaker placement admitted to the hospital for hypercalcemia and weakness. 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 Confusion has improved with treatment of hypercalcemia. Palliative care consulted for complex medical decision making. met with son aniceto, zuhair and Ramirez at her bedside this afternoon. Ramirez shared she just doesn't feel good and wants to feel better again but is not sure it is possible. she states she has not felt "good" since December before her ablation. Aniceto stated after the ablation she was 'back to herself" for about a week before she began getting weak again. Ramirez states to her quality of life is being able to take care of her own ADLs, clean her house, cook, and spend time with family. She has not had a good quality of life in some time and worries that even with treatment she will never return back to that level of baseline she is happy with. We discussed potential options in general terms including treatment and hospice care. We encouraged Ramirez to ask what treatment would be like for her and whether it would return her back to a quality of life she finds acceptable. her son supports her decisions no matter what but also feels ramirez should try treatment and can always stop if needed. Assessment: Physical: - Pain: occasional pain - tylenol PRN - poor appetite - general diet as tolerated - weakness - PT/OT Emotional/psychological: Acute confusion - zyprexa PRN - maintain normal routines Depression: - feels sad about her situation and still grieving the loss of her - recommend continued social work support once she leaves as well as counseling Advanced Care Planning: Is patient decisional?: Yes Code Status: DNR POA: son Aniceto is MDPOA Plan: palliative care will continue to support Ramirez while she is in the hospital and recommend outpatient palliative care to continue to follow once she leaves. She is still undecided about what direction she wants to go but wants to learn more information about what treatment looks like. She is most concerned with not being at her current poor quality of life and would like to get back to what she considers a good quality of life. Subjective: I'm doing ok Objective: Social History: since 2009. She was to her grade [employer] for 47 years. 1 son aniceto who is very involved and lives locally. 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 She enjoys taking care of her house and cooking for her family. Medication list reviewed ROS: General: fatigue, weakness ENT: negative Resp: negative GI: negative : negative MS: occasional pain Skin: skin tear on right arm Neuro: negative Psych: sadness, some confusion Functional assessment: PPS: 50% Functional status: needs assistance with ADLs Vital Signs Temp Pulse Resp BP Pulse Ox 36.3 C 60 18 117/57 L 94 07/05/17 08:00 07/05/17 08:44 07/05/17 08:00 07/05/17 08:44 07/05/17 08:00 Microbiology 06/29/17 20:00 Mycobacterial Smear (JOE) - Final Axilla - Tissue 06/28/17 17:15 Mycobacterial Smear (JOE) - Final Sputum, Expectorated 06/29/17 20:00 Gram Stain - Final Axilla - Tissue Laboratory Results 07/05/17 05:13 07/05/17 05:13 07/04/17 07/05/17 07/06/17 05:59 05:59 05:59 Intake Total 2475 1166 Output Total 600 1150 Balance 1875 16 PT 18.1 SEC (12.0-15.0) H 07/04/17 09:18 INR 1.50 (0.83-1.16) H 07/04/17 09:18 Physical Exam - Physical Exam General Appearance: alert, no apparent distress Respiratory: No respiratory distress, No accessory muscle use Skin: normal color, warm/dry Extremities: No pedal edema Neuro/Psych: alert, oriented x 3 ICD10 Worksheet Patient Problems: Problems Problem Status Onset Acute decompensated heart failure Acute Palliative care encounter Acute Dyslipidemia Active Peripheral vascular disease Active Acute exacerbation of congestive heart failure Acute Afib - Atrial fibrillation Acute Atrial fibrillation Acute CHF (congestive heart failure) Acute CHF exacerbation Acute Congestive heart failure Acute Fever Acute Hypoxia Acute Hypoxia Acute Rapid atrial fibrillation Acute Respiratory failure Acute chronic disease mgmt/transitional care Acute - ICD10 Problem Qualifiers (1) Palliative care encounter
--- NOTE | 2017-07-05 14:37 | HOSPPROG ---
Hospitalist Progress Note Assessment/Plan: 77-year-old with a history of chronic diastolic heart failure and pacemaker placement is admitted with weakness and hypercalcemia. Evaluation has noted that lymphadenopathy and she is status post a lymph node biopsy which is currently pending. 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 #. Encephalopathy - possibly related to hypercalcemia as has improved with decreased calcium levels. With preliminary biopsy report looking more like a malignant process. Discussed with Dr. Hale * MS continues to improve #. Hypercalcemia -continue IV fluids, received calcitonin Zalendronic acid #. Lymphoma, awaiting final path from [place]. 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 * If path back later this week, could potentially give first cycle before discharge. #. Chronic Diastolic HF - follow volume status closely as IVFs. #. Hypernatremia: likely from poor PO, water intake, improved #. Atrial Fibrillation - diltiazem for rate control. * currently on Xarelto, will discuss with onc re changing to Lovenox for possible proceedure. #. Bowel/Bladder - bowel regimen for constipation. #. Nutrition: Poor p.o. intake for 2 days, discussed options with patient's son at bedside. He is reluctant to start any TPN or tube feeds due to his mother's previous feelings about nutrition. Will continue IV fluids for now and readdress this in the future depending on diagnoses. #. DVT prophylaxis - resume anticoagulation once LP completed. #. Dispo - anticipate SNF placement for rehab. Since she may need chemo, will await path and determine management before dispo. Subjective: much more alert, doing well, still complains of being weak Objective: Vital Signs Temp Pulse Resp BP Pulse Ox 36.3 C 60 18 117/57 L 94 07/05/17 08:00 07/05/17 08:44 07/05/17 08:00 07/05/17 08:44 07/05/17 08:00 Microbiology 06/29/17 20:00 Mycobacterial Smear (JOE) - Final Axilla - Tissue 06/28/17 17:15 Mycobacterial Smear (JOE) - Final Sputum, Expectorated 06/29/17 20:00 Gram Stain - Final Axilla - Tissue Laboratory Results 07/05/17 05:13 07/05/17 05:13 07/04/17 07/05/17 07/06/17 05:59 05:59 05:59 Intake Total 2475 1166 Output Total 600 1150 Balance 1875 16 PT 18.1 SEC (12.0-15.0) H 07/04/17 09:18 INR 1.50 (0.83-1.16) H 07/04/17 09:18 - Time Spent With Patient Time Spent with Patient: greater than 35 minutes (discuss disease process with patient and coordination of care) Time Spent with Patient: Greater than 35 minutes spent on this patients care, greater than 50% of time spent counseling, educating, and coordinating care regarding the above mentioned plan. - Physical Exam Constitutional: not in pain, chronically ill appearing Eyes: PERRL Ears, Nose, Mouth, Throat: moist mucous membranes Cardiovascular: regular rate and rhythym, edema Respiratory: no respiratory distress, inspiratory crackles Gastrointestinal: normoactive bowel sounds, soft, non-tender abdomen Skin: warm, normal color Musculoskeletal: generalized weakness Psychiatric: interacting appropriately, not anxious, not encephalopathic ICD10 Worksheet Patient Problems: Problems Problem Status Onset CHF exacerbation Acute Respiratory failure Acute Fever Acute Acute decompensated heart failure Acute Palliative care encounter Acute chronic disease mgmt/transitional care Acute Afib - Atrial fibrillation Acute Dyslipidemia Active Peripheral vascular disease Active Congestive heart failure Acute Atrial fibrillation Acute Hypoxia Acute Rapid atrial fibrillation Acute CHF (congestive heart failure) Acute Acute exacerbation of congestive heart failure Acute Hypoxia Acute
[2017-07-05 15:14] LABS: HEPATITIS Bs Ab QUANT <5.0 mIU/mL
[2017-07-05] MEDS: MULTIVITAMINS 1 EACH TAB PO SCH (15:25)
[2017-07-05] MEDS ORDERED: FUROSEMIDE 20 MG/2 ML VIAL IVP ONE (16:09)
--- NOTE | 2017-07-05 18:39 | ASMTCMCOM ---
CM Note CM Note Notes: Patient had Palliative consult today with Miriam of Palliative care. patient has new diagnosis of B CellLymphoma and is unsure whether she is going to want to proceed with treatment. Her main consideration seems to be her quality of life. Depending on patients plans forward, patient may needs a SNF. Lynne from [facility] came today and said she would be willing to take if she needs SNF. Case management will follow. Date Signed: 07/05/2017 06:38 PM Electronically Signed By:JOSE Lima
[2017-07-05] MEDS ORDERED: FUROSEMIDE 20 MG TAB PO ONE (19:30)
[2017-07-05] MEDS: ATORVASTATIN CALCIUM 20 MG TAB PO SCH (21:13)
[2017-07-05] MEDS: ENOXAPARIN 80 MG/0.8 ML SYR SC SCH (21:13)
[2017-07-06] MEDS: LEVOTHYROXINE 125 MCG TAB PO SCH (05:26)
[2017-07-06] MEDS: PRESERVISION AREDS2 FORMULA EYE VIT 1 EACH PO SCH ×2 (08:40→21:43)
[2017-07-06] MEDS: DILTIAZEM CD 120 MG CAP PO SCH ×2 (08:41→21:43)
[2017-07-06] MEDS: CYANO/VITAMIN B12 1000 MCG TAB PO SCH (08:41)
[2017-07-06] MEDS: ENOXAPARIN 80 MG/0.8 ML SYR SC SCH ×2 (08:44→21:44)
[2017-07-06] MEDS: CLOTRIMAZOLE 1% 15 GM CRTUBE TP SCH ×2 (08:54→21:43)
--- NOTE | 2017-07-06 11:48 | CPEKG ---
Heart Rate: 76 RR Interval: 789 P-R Interval: 156 QRSD Interval: 126 QT Interval: 436 QTC Interval: 491 P Concord: 0 QRS Concord: -81 T Wave Concord: 105 EKG Severity - ABNORMAL ECG - EKG Impression: A-V DUAL-PACED RHYTHM Electronically Signed By: Corky Shaw 07-Jul-2017 08:51:17
--- NOTE | 2017-07-06 12:14 | SOAPPROG ---
SOAP Progress Note Assessment/Plan: Assessment: 1. Hypercalcemia of malignancy 2. Mediastinal adenopathy, lung nodules, splenomegaly. lymph node bx pending 3. Anemia of chronic inflammation 4. 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 They are fairly confident it is a b-cell malignancy. Echo unexpectedly shows EF 35%, down from 60% in April. ?Takusobu cardiomyopathy. CT c/a/p shows stable chest adenopathy, some pelvic adenopathy, and mild splenomegaly. Plan: - cardiology consult to evaluate decreased EF - will need to modify chemo (drop anthracycline) if this is a DLBCL. Likely R- CVP and consider adding etoposide instead of doxorubicin - await final path results - appreciate palliative care consult. pt feeling better today and more inclined to pursue treatment. Subjective: feels much better today. Objective: exam: Gen NAD. sitting up in chair paying bills Lungs CTAB CV RRR no MGR Abd: +BS NT ND Ext: 2+ edema Vital Signs Temp Pulse Resp BP Pulse Ox 36.5 C 62 16 106/62 98 07/06/17 11:59 07/06/17 11:59 07/06/17 11:59 07/06/17 11:59 07/06/17 11:59 Microbiology 06/29/17 20:00 Gram Stain - Final Axilla - Tissue Anaerobic Culture - Final 06/29/17 20:00 Mycobacterial Smear (JOE) - Final Axilla - Tissue 06/28/17 17:15 Mycobacterial Smear (JOE) - Final Sputum, Expectorated Laboratory Results 07/05/17 05:13 07/05/17 05:13 07/05/17 07/06/17 07/07/17 05:59 05:59 05:59 Intake Total 1166 700 Output Total 1150 401 Balance 16 299 PT 18.1 SEC (12.0-15.0) H 07/04/17 09:18 INR 1.50 (0.83-1.16) H 07/04/17 09:18 ICD10 Worksheet Patient Problems: Problems Problem Status Onset Acute decompensated heart failure Acute Palliative care encounter Acute Dyslipidemia Active Peripheral vascular disease Active Acute exacerbation of congestive heart failure Acute Afib - Atrial fibrillation Acute Atrial fibrillation Acute CHF (congestive heart failure) Acute CHF exacerbation Acute Congestive heart failure Acute Fever Acute Hypoxia Acute Hypoxia Acute Rapid atrial fibrillation Acute Respiratory failure Acute chronic disease mgmt/transitional care Acute
[2017-07-06] MEDS: MULTIVITAMINS 1 EACH TAB PO SCH (12:19)
--- NOTE | 2017-07-06 14:58 | HOSPPROG ---
Hospitalist Progress Note Assessment/Plan: 77-year-old with a history of chronic diastolic heart failure and pacemaker placement is admitted with weakness and hypercalcemia being worked up for lymphoma and hospital course complicated by AMS #. Encephalopathy - possibly related to hypercalcemia as has improved with decreased calcium levels. Much improved today, patient reports having hallucinations in prior days but no longer having any. #. Hypercalcemia -continue IV fluids, received calcitonin Zalendronic acid, calcium levels now normalized #. Lymphoma, awaiting final path from [place]. 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 acute systolic heart failure on chronic diastolic HF - does not appear to be significantly volume overloaded, prior EF of 60% and now decreased to 35% with echo read noting concern for Takotsubo's, will ask cardiology to evaluate in am #. Hypernatremia: likely from poor PO, water intake, improved #. Atrial Fibrillation - diltiazem for rate control. Had been on xarelto but holding for now and treating with lovenox for the time being. #. Bowel/Bladder - bowel regimen for constipation. #. Nutrition: continue to work on pushing nutrition #. DVT prophylaxis - resume anticoagulation once LP completed. #. Dispo - anticipate SNF placement for rehab. Since she may need chemo, will await path and determine management before dispo. Subjective: no significant overnight events, patient states her mental status has improved, she is intermittently tearful Objective: Vital Signs Temp Pulse Resp BP Pulse Ox 36.5 C 62 16 106/62 98 07/06/17 11:59 07/06/17 11:59 07/06/17 11:59 07/06/17 11:59 07/06/17 11:59 Microbiology 06/29/17 20:00 Gram Stain - Final Axilla - Tissue Anaerobic Culture - Final 06/29/17 20:00 Mycobacterial Smear (JOE) - Final Axilla - Tissue 06/28/17 17:15 Mycobacterial Smear (JOE) - Final Sputum, Expectorated Laboratory Results 07/05/17 05:13 07/05/17 05:13 07/05/17 07/06/17 07/07/17 05:59 05:59 05:59 Intake Total 1166 700 Output Total 1150 401 Balance 16 299 PT 18.1 SEC (12.0-15.0) H 07/04/17 09:18 INR 1.50 (0.83-1.16) H 07/04/17 09:18 awake alert nad anicteric op clear rrr cta b soft nt nd trace ble edema warm dry well perfused oriented appropriate ICD10 Worksheet Patient Problems: Problems Problem Status Onset CHF exacerbation Acute Respiratory failure Acute Fever Acute Acute decompensated heart failure Acute Palliative care encounter Acute chronic disease mgmt/transitional care Acute Afib - Atrial fibrillation Acute Dyslipidemia Active Peripheral vascular disease Active Congestive heart failure Acute Atrial fibrillation Acute Hypoxia Acute Rapid atrial fibrillation Acute CHF (congestive heart failure) Acute Acute exacerbation of congestive heart failure Acute Hypoxia Acute
--- NOTE | 2017-07-06 16:16 | ASMTCMCOM ---
CM Note CM Note Notes: Pt has possible DLBCl lymphoma. Awaiting final path from [place]. Spoke with Dr Hale today. Pt cannot DC to a SNF and have chemo there. If pt decides to proceed with treatment, best plan would be chemo while inpt at [facility] before DC to [facility]. C/M to follow for DC needs. Date Signed: 07/06/2017 04:15 PM Electronically Signed By:Sushma Hernández LCSW
[2017-07-06] MEDS: ATORVASTATIN CALCIUM 20 MG TAB PO SCH (21:43)
--- NOTE | 2017-07-07 00:03 | GCON ---
[f rep st] CONSULTATION CARDIOLOGY CONSULTATION DATE OF CONSULTATION: 07/06/2017 REFERRING PHYSICIAN: You Velarde MD INDICATION FOR CONSULTATION: New onset of systolic congestive heart failure. HISTORY OF PRESENT ILLNESS: The patient is a pleasant 77-year-old female, who is well known to Dr. Corky Shaw at [facility], who was last seen in his office on June 22 in the setting of a known history of chronic stable diastolic congestive heart failure, hypertension, and permanent atrial fibrillation with underlying permanent pacemaker. The patient states that at the time of her office visit she was thought to be over diuresed at that time and appeared dehydrated. The plan was for her to hold her Lasix and Aldactone for 4 days and then restart Lasix 20 mg in the morning and 25 of Aldactone in the a.m., as well, and no other changes to her medications. Her weight at that office visit was 74.4 kg. She states that she began to feel increasing fatigue, coupled with new onset of bilateral lower extremity edema. She states that the day before admission she was able to work out with physical therapy, but by Tuesday morning, she was so tired she was unable to get out of bed. She also noticed increasing size of lymph nodes in her neck. By Tuesday evening, her son had called 9-1-1 secondary to increased fatigue, weakness, coupled with increasing lymph node size. She underwent complete 2D echocardiogram that demonstrated moderate to severely reduced left ventricular function with LVEF of 34%. The morphology of the decline in ejection fraction looks consistent with possible takotsubo, stress- induced cardiomyopathy. Compared to previous echocardiogram on May 16, 2017, there has been a marked decline in her ejection fraction, which previously was 62%. Currently, at the time of my exam, she is resting comfortably. She is sitting up in a chair. She is very talkative. She has been able to walk loops around the hallway with minimal shortness of breath. She denies complaints of palpitations, dizziness, lightheadedness, near syncope, or syncope. She has no complaints of fevers, chills, sweats, nausea, vomiting, or diaphoresis. She has no complaints of PND or orthopnea. She does notice new onset of bilateral left greater than right lower extremity edema. Of note, her most recent weight is 80.4 kg; this is up 6 kg from her last office visit with Dr. Shaw on June 22, 2017. PAST MEDICAL HISTORY: Chronic diastolic congestive heart failure, chronic atrial fibrillation, hypertension, history of CVA, pacemaker, hyperlipidemia, hypothyroidism, mild renal insufficiency. PAST SURGICAL HISTORY: Includes bladder surgery, hysterectomy. MEDICATIONS ON ADMISSION: Include Aldactone 25 mg once daily, Lasix 20 mg daily , atorvastatin 20 mg daily, diltiazem 120 mg extended release once daily, Xarelto 20 mg daily, vitamin D3 2000 units daily, clotrimazole topical cream, ophthalmic eye drops, krill oil 500 mg caplets 2 times a day, levothyroxine 125 mcg daily, multivitamin daily, vitamin B12, and Wellbutrin SR 150 mg 1 tablet daily. ALLERGIES: To medications include lisinopril. FAMILY HISTORY: Noncontributory. SOCIAL HISTORY: She lives at home. Her son is actively involved in her care DATA: White blood cell count of 10.6, hemoglobin of 10, hematocrit 31.6, platelets 255. Sodium of 141, potassium 4.1, chloride 109, bicarb 24, BUN 28, creatinine 0.9. Echocardiogram as outlined above. LVEF 34% with appearance of takotsubo cardiomyopathy. Marked decline from previous echo in April 2017 with EF of 62%. PHYSICAL EXAMINATION: VITAL SIGNS: Current weight of 80.4 kg. Blood pressure 115/58. Heart rate of 70. Oxygen saturation of 92% on 1.5 L nasal cannula. Respiratory rate 16. GENERAL: She is awake, alert, oriented, appropriate, in no apparent distress. NECK: There is no evidence of JVP while sitting upright in the chair. No carotid bruits. LUNGS: Clear to auscultation bilaterally. CARDIAC: S1, S2. Irregularly, irregular. She has 1 to 2+ bilateral pitting edema in the ankles, left greater than right. IMPRESSION: 1. New onset of systolic congestive heart failure with LVEF of 34%. 2. Chronic diastolic congestive heart failure. 3. Chronic atrial fibrillation, rate controlled, underlying permanent pacemaker. 4. Hypertension. 5. Hyperlipidemia. 6. New diagnosis of lymphoma. Final differentiation results are pending from [facility]. PLAN: 1. Continue current medical therapy. 2. Agree with Lovenox for anticoagulation until further plans for chemotherapy treatment have been made in case she requires a port. 3. Will trend serial cardiac troponins. 4. Would not recommend diagnostic left heart catheterization at this time with decreased EF most likely secondary to new diagnosis of lymphoma. 5. Will continue along with her care. 45 min spent coordinating care. /[id number]/MODL [email or web address]
[2017-07-07 04:29] LABS: % IMMATURE GRANULYOCYTES 1.9 % (0.0-1.1); ABSOLUTE IMMATURE GRANULOCYTES 0.17 10^3/uL (0.00-0.10); ADD DIFF? NO; ADD MORPH? NO; ADD SCAN? NO; ATYPICAL LYMPHOCYTE FLAG 0 (0-99); FRAGMENT RBC FLAG 20 (0-99); HEMOGLOBIN 9.2 g/dL (12.6-16.3); LEFT SHIFT FLG 10 (0-99); LIPEMIA HEMOLYSIS FLAG 80 (0-99); MEAN CELL HEMOGLOBIN 25.5 pg (27.9-34.1); MEAN CELL HEMOGLOBIN CONCENTR. 31.7 g/dL (32.4-36.7); MEAN CELL VOLUME 80.3 fL (81.5-99.8); MEAN PLATELET VOLUME 10.5 fL (8.7-11.7); PLATELET CLUMPS FLAG 0 (0-99); PLATELET COUNT 247 10^3/uL (150-400); RED BLOOD CELL COUNT 3.61 10^6/uL (4.18-5.33)
[2017-07-07] MEDS: LEVOTHYROXINE 125 MCG TAB PO SCH (04:33)
[2017-07-07 04:47] LABS: ALANINE AMINOTRANSFERASE 57 IU/L (9-52); ALKALINE PHOSPHATASE 91 IU/L (38-126); ANION GAP 8 mEq/L (8-16); ASPARTATE AMINOTRANSFERASE 29 IU/L (14-46); BILIRUBIN,TOTAL 0.5 mg/dL (0.1-1.4); CALCIUM 8.6 mg/dL (8.5-10.4); CARBON DIOXIDE 24 mEq/l (22-31); CHLORIDE 107 mEq/L (97-110); GLOMERULAR FILTRATION RATE 54; GLUCOSE 85 mg/dL (70-100); POTASSIUM 3.8 mEq/L (3.5-5.2); SODIUM 139 mEq/L (134-144); TOTAL PROTEIN 4.2 g/dL (6.3-8.2)
[2017-07-07] MEDS: CYANO/VITAMIN B12 1000 MCG TAB PO SCH (08:33)
[2017-07-07] MEDS: DILTIAZEM CD 120 MG CAP PO SCH ×2 (08:34→20:47)
[2017-07-07] MEDS: ENOXAPARIN 80 MG/0.8 ML SYR SC SCH ×2 (08:34→20:46)
[2017-07-07] MEDS: PRESERVISION AREDS2 FORMULA EYE VIT 1 EACH PO SCH ×2 (08:34→20:47)
[2017-07-07] MEDS: CLOTRIMAZOLE 1% 15 GM CRTUBE TP SCH ×2 (08:43→20:46)
--- NOTE | 2017-07-07 09:40 | SOAPPROG ---
SOAP Progress Note Assessment/Plan: Assessment: 1. Hypercalcemia of malignancy 2. Mediastinal adenopathy, lung nodules, splenomegaly. lymph node bx pending 3. Anemia of chronic inflammation 4. Altered mental status, due to #1, resolved 5. 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 They are fairly confident it is a b-cell malignancy. Plan: - appreciate cardiology consult - will need to modify chemo (drop anthracycline) if this is a DLBCL. Likely R- CVP and consider adding etoposide instead of doxorubicin - await final path results -continue lovenox for now for AF. Will convert back to Xarelto once final Rx plan in place and she has her Port or PICC placed. 07/07/17 09:38 Subjective: feels well today Objective: Exam: NAD lungs CTAB CV RRR no MGR ABd: +BS NT ND Ext: 2+ edema Neuro: a+ox3 Vital Signs Temp Pulse Resp BP Pulse Ox 36.3 C 84 24 H 155/57 H 92 07/07/17 07:04 07/07/17 08:34 07/07/17 07:04 07/07/17 08:34 07/07/17 07:04 Microbiology 06/29/17 20:00 Gram Stain - Final Axilla - Tissue Anaerobic Culture - Final Laboratory Results 07/07/17 04:20 07/07/17 04:20 07/06/17 07/07/17 07/08/17 05:59 05:59 05:59 Intake Total 700 417 Output Total 401 Balance 299 417 PT 18.1 SEC (12.0-15.0) H 07/04/17 09:18 INR 1.50 (0.83-1.16) H 07/04/17 09:18 ICD10 Worksheet Patient Problems: Problems Problem Status Onset Acute decompensated heart failure Acute Palliative care encounter Acute Dyslipidemia Active Peripheral vascular disease Active Acute exacerbation of congestive heart failure Acute Afib - Atrial fibrillation Acute Atrial fibrillation Acute CHF (congestive heart failure) Acute CHF exacerbation Acute Congestive heart failure Acute Fever Acute Hypoxia Acute Hypoxia Acute Rapid atrial fibrillation Acute Respiratory failure Acute chronic disease mgmt/transitional care Acute
[2017-07-07] MEDS: MULTIVITAMINS 1 EACH TAB PO SCH (11:51)
--- NOTE | 2017-07-07 12:42 | HOSPPROG ---
Hospitalist Progress Note Assessment/Plan: 77-year-old with a history of chronic diastolic heart failure and pacemaker placement is admitted with weakness and hypercalcemia being worked up for lymphoma and hospital course complicated by AMS Encephalopathy - possibly related to hypercalcemia as has improved with decreased calcium levels. Much improved today, patient reports having hallucinations in prior days but no longer having any. resolved w normalization of calcium Hypercalcemia- received calcitonin Zalendronic acid, calcium levels now normalized stop IVF Lymphoma, awaiting final path from [place]. 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 Had been on xarelto but holding for now and treating with lovenox for the time being. Bowel/Bladder - bowel regimen for constipation. Nutrition: continue to work on pushing nutrition DVT prophylaxis - anticoagulated Dispo - anticipate SNF placement for rehab. Since she may need chemo, will await path and determine management before dispo. Subjective: case d/w dr garza Objective: Vital Signs Temp Pulse Resp BP Pulse Ox 36.5 C 71 20 115/54 L 96 07/07/17 11:27 07/07/17 11:27 07/07/17 11:27 07/07/17 11:27 07/07/17 11:27 Microbiology 06/29/17 20:00 Gram Stain - Final Axilla - Tissue Anaerobic Culture - Final Laboratory Results 07/07/17 04:20 07/07/17 04:20 07/06/17 07/07/17 07/08/17 05:59 05:59 05:59 Intake Total 700 417 Output Total 401 Balance 299 417 PT 18.1 SEC (12.0-15.0) H 07/04/17 09:18 INR 1.50 (0.83-1.16) H 07/04/17 09:18 - Physical Exam Constitutional: no apparent distress, appears nourished Eyes: PERRL, anicteric sclera Ears, Nose, Mouth, Throat: moist mucous membranes, hearing normal Cardiovascular: regular rate and rhythym, no murmur, rub, or gallop, edema Respiratory: no respiratory distress, other (bibasilar crackles), No expiratory wheeze Gastrointestinal: normoactive bowel sounds, soft, non-tender abdomen Genitourinary: no bladder fullness, No flores in urethra Skin: warm, normal color Neurologic: AAOx3, sensation intact bilaterally Psychiatric: interacting appropriately, not anxious ICD10 Worksheet Patient Problems: Problems Problem Status Onset Acute decompensated heart failure Acute Palliative care encounter Acute Dyslipidemia Active Peripheral vascular disease Active Acute exacerbation of congestive heart failure Acute Afib - Atrial fibrillation Acute Atrial fibrillation Acute CHF (congestive heart failure) Acute CHF exacerbation Acute Congestive heart failure Acute Fever Acute Hypoxia Acute Hypoxia Acute Rapid atrial fibrillation Acute Respiratory failure Acute chronic disease mgmt/transitional care Acute
--- NOTE | 2017-07-07 16:54 | PDCARPN ---
Cardiology Progress Note Chief Complaint: SOB, LEGGETT Assessment/Plan: Assessment: 1. New onset systolic CHF with LVEF 34% 2. Chronic diastolic CHF 3. Chronic Afib 4. Lymphoma (waiting on pathology from [place]) Plan: 1. DC po Lasix 2. Start Lasix 20 mg IV bid 3. Troponin and BNP pending 4. Discussed consideration on Left heart cath, pt does not wish to pursue 5. Will follow 07/07/17 16:51 Subjective: Mrs. Quintero has noted some increased lower extremity edema today. Fluid balance is positive for the day. No complaints of palpitations, chest pain, pnd, orthopnea. Mild leggett and sob. Objective: Vital Signs (8 Hrs) Temp Pulse Resp BP Pulse Ox 07/07/17 15:14 36.6 C 61 16 103/52 L 94 07/07/17 11:27 36.5 C 71 20 115/54 L 96 Intake/Output (24 Hrs) 07/06/17 07/07/17 07/08/17 05:59 05:59 05:59 Intake Total 700 417 Output Total 401 Balance 299 417 Intake: Oral (ml) 250 417 IV Infused (ml) 450 D5w 1/2 Ns 1,000 ml @ 125 450 mls/hr IV CONT KARLA Rx#: [id number] Output: Urine (ml) 401 Toilet 401 Other: Weight 80.4 kg 80.785 kg Number of Voids Incontinence 1 Toilet 1 1 Number of Stools Toilet 2 1 1 Result Diagrams: 07/07/17 04:20 07/07/17 04:20 - Physical Exam Constitutional: WDWN, no apparent distress Psychiatric: cooperative, interactive, following commands (3+ pitting edema to mid calf bilaterally) ICD10 Worksheet Patient Problems: Problems Problem Status Onset CHF exacerbation Acute Respiratory failure Acute Fever Acute Acute decompensated heart failure Acute Palliative care encounter Acute chronic disease mgmt/transitional care Acute Afib - Atrial fibrillation Acute Dyslipidemia Active Peripheral vascular disease Active Congestive heart failure Acute Atrial fibrillation Acute Hypoxia Acute Rapid atrial fibrillation Acute CHF (congestive heart failure) Acute Acute exacerbation of congestive heart failure Acute Hypoxia Acute
[2017-07-07] MEDS: ATORVASTATIN CALCIUM 20 MG TAB PO SCH (20:47)
[2017-07-08] MEDS: LEVOTHYROXINE 125 MCG TAB PO SCH (05:01)
[2017-07-08 05:07] LABS: % IMMATURE GRANULYOCYTES 1.4 % (0.0-1.1); ABSOLUTE IMMATURE GRANULOCYTES 0.12 10^3/uL (0.00-0.10); ADD DIFF? NO; ADD MORPH? NO; ADD SCAN? NO; ATYPICAL LYMPHOCYTE FLAG 10 (0-99); FRAGMENT RBC FLAG 20 (0-99); HEMATOCRIT 28.1 % (38.0-47.0); HEMOGLOBIN 9.3 g/dL (12.6-16.3); LEFT SHIFT FLG 10 (0-99); LIPEMIA HEMOLYSIS FLAG 80 (0-99); MEAN CELL HEMOGLOBIN 26.3 pg (27.9-34.1); MEAN CELL HEMOGLOBIN CONCENTR. 33.1 g/dL (32.4-36.7); MEAN CELL VOLUME 79.6 fL (81.5-99.8); MEAN PLATELET VOLUME 10.2 fL (8.7-11.7); PLATELET CLUMPS FLAG 20 (0-99); PLATELET COUNT 272 10^3/uL (150-400); RED BLOOD CELL COUNT 3.53 10^6/uL (4.18-5.33); RED CELL DISTRIBUTION WIDTH 17.9 % (11.5-15.2)
[2017-07-08 05:25] LABS: ALANINE AMINOTRANSFERASE 58 IU/L (9-52); ALBUMIN 2.1 g/dL (3.5-5.0); ALKALINE PHOSPHATASE 92 IU/L (38-126); ANION GAP 7 mEq/L (8-16); ASPARTATE AMINOTRANSFERASE 32 IU/L (14-46); BILIRUBIN,TOTAL 0.4 mg/dL (0.1-1.4); CALCIUM 8.8 mg/dL (8.5-10.4); CARBON DIOXIDE 24 mEq/l (22-31); CHLORIDE 108 mEq/L (97-110); GLOMERULAR FILTRATION RATE 54; GLUCOSE 89 mg/dL (70-100); SODIUM 139 mEq/L (134-144); TOTAL PROTEIN 4.2 g/dL (6.3-8.2)
[2017-07-08 05:33] LABS: TROPONIN I 0.021 ng/mL (0.000-0.034)
[2017-07-08] MEDS: PRESERVISION AREDS2 FORMULA EYE VIT 1 EACH PO SCH ×2 (08:33→20:15)
[2017-07-08] MEDS: CYANO/VITAMIN B12 1000 MCG TAB PO SCH (08:33)
[2017-07-08] MEDS: DILTIAZEM CD 120 MG CAP PO SCH ×2 (08:34→20:14)
[2017-07-08] MEDS: ENOXAPARIN 80 MG/0.8 ML SYR SC SCH ×2 (08:37→20:16)
[2017-07-08] MEDS: MBX SOLN 30 ML BOTTLE PO PRN ×4 (08:40→20:15)
[2017-07-08] MEDS: CLOTRIMAZOLE 1% 15 GM CRTUBE TP SCH ×2 (08:43→20:22)
[2017-07-08] MEDS ORDERED: FUROSEMIDE 20 MG/2 ML VIAL IVP SCH (09:00)
[2017-07-08] MEDS ORDERED: FUROSEMIDE 20 MG TAB PO SCH ×2 (09:00→11:45)
--- NOTE | 2017-07-08 12:05 | SOAPPROG ---
SOAP Progress Note Assessment/Plan: Assessment: 1. Hypercalcemia of malignancy 2. Mediastinal adenopathy, lung nodules, splenomegaly. lymph node bx pending 3. Anemia of chronic inflammation 4. Altered mental status, due to #1, resolved 5. Cardiomyopathy, EF 35% (ischemic?) Lymph node path still pending @ [place]. Plan: - appreciate cardiology consult - will need to modify chemo (drop anthracycline) if this is a DLBCL. Likely R- CVP and consider adding etoposide instead of doxorubicin - await final path results -continue lovenox for now for AF. Will convert back to Xarelto once final Rx plan in place and she has her Port or PICC placed. We discussed placing a PICC today - she did not want to do that yet. 25 min spent w/ pt and in coordination of care. 07/07/17 09:38 07/08/17 12:04 Subjective: feeling better. Objective: exam unchanged Vital Signs Temp Pulse Resp BP Pulse Ox 36.3 C 66 20 126/63 H 93 07/08/17 08:00 07/08/17 08:00 07/08/17 08:00 07/08/17 08:34 07/08/17 08:00 Laboratory Results 07/08/17 03:32 07/08/17 03:32 07/07/17 07/08/17 07/09/17 05:59 05:59 05:59 Intake Total 417 750 Balance 417 750 PT 18.1 SEC (12.0-15.0) H 07/04/17 09:18 INR 1.50 (0.83-1.16) H 07/04/17 09:18 ICD10 Worksheet Patient Problems: Problems Problem Status Onset Acute decompensated heart failure Acute Palliative care encounter Acute Dyslipidemia Active Peripheral vascular disease Active Acute exacerbation of congestive heart failure Acute Afib - Atrial fibrillation Acute Atrial fibrillation Acute CHF (congestive heart failure) Acute CHF exacerbation Acute Congestive heart failure Acute Fever Acute Hypoxia Acute Hypoxia Acute Rapid atrial fibrillation Acute Respiratory failure Acute chronic disease mgmt/transitional care Acute
[2017-07-08] MEDS: MULTIVITAMINS 1 EACH TAB PO SCH (12:30)
--- NOTE | 2017-07-08 13:19 | HOSPPROG ---
Hospitalist Progress Note Assessment/Plan: 77-year-old with a history of chronic diastolic heart failure and pacemaker placement is admitted with weakness and hypercalcemia being worked up for lymphoma and hospital course complicated by AMS Encephalopathy - possibly related to hypercalcemia as has improved with decreased calcium levels. Much improved today, patient reports having hallucinations in prior days but no longer having any. resolved w normalization of calcium dc prn hs Zyprexa Hypercalcemia- received calcitonin Zalendronic acid, calcium levels now normalized stop IVF Lymphoma, awaiting final path from [place]. 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 Had been on xarelto but holding for now and treating with lovenox for the time being. Bowel/Bladder - bowel regimen for constipation. Nutrition: continue to work on pushing nutrition DVT prophylaxis - anticoagulated Dispo - anticipate SNF placement for rehab. Since she may need chemo, will await path and determine management before dispo. Subjective: case d/w Dr. Hale Objective: Vital Signs Temp Pulse Resp BP Pulse Ox 36.6 C 63 18 121/63 H 92 07/08/17 12:37 07/08/17 12:37 07/08/17 12:37 07/08/17 12:37 07/08/17 12:37 Laboratory Results 07/08/17 03:32 07/08/17 03:32 07/07/17 07/08/17 07/09/17 05:59 05:59 05:59 Intake Total 417 750 Balance 417 750 PT 18.1 SEC (12.0-15.0) H 07/04/17 09:18 INR 1.50 (0.83-1.16) H 07/04/17 09:18 - Physical Exam Constitutional: no apparent distress, appears nourished Eyes: PERRL, anicteric sclera Ears, Nose, Mouth, Throat: moist mucous membranes, hearing normal Cardiovascular: regular rate and rhythym, no murmur, rub, or gallop, edema Respiratory: no respiratory distress, no rales or rhonchi Gastrointestinal: normoactive bowel sounds, soft, non-tender abdomen Genitourinary: no bladder fullness, no renal bruits, No flores in urethra Skin: warm, normal color Musculoskeletal: full muscle strength, no muscle tenderness Neurologic: AAOx3, sensation intact bilaterally Psychiatric: interacting appropriately ICD10 Worksheet Patient Problems: Problems Problem Status Onset Acute decompensated heart failure Acute Palliative care encounter Acute Dyslipidemia Active Peripheral vascular disease Active Acute exacerbation of congestive heart failure Acute Afib - Atrial fibrillation Acute Atrial fibrillation Acute CHF (congestive heart failure) Acute CHF exacerbation Acute Congestive heart failure Acute Fever Acute Hypoxia Acute Hypoxia Acute Rapid atrial fibrillation Acute Respiratory failure Acute chronic disease mgmt/transitional care Acute
--- NOTE | 2017-07-08 14:46 | PDCARPN ---
Cardiology Progress Note Assessment/Plan: Assessment: 1. New onset systolic CHF with LVEF 34% 2. Chronic diastolic CHF 3. Chronic Afib 4. Lymphoma (waiting on pathology from [place]) Plan: 1. Continue Lasix 40 mg po bid 2. Anticoagulation with Lovenox 4. Discussed consideration on Left heart cath, pt does not wish to pursue further work up at this time 5. Will follow 07/08/17 14:46 Subjective: Mrs. Quintero is up in a chair today. She notes LLE has improved. Her weight is down from 80.785 Kg to 80.286 Kg. She refused IV lasix secondary to no IV access currently. She is back on Lasix 40 mg bid. No complaints of sob at rest , pnd or orthopnea. We discussed in detail work up for new onset heart failure again. She is not interested in Left Heart Cath or further cardiac work up. She is waiting to learn about her path report from the [facility] regarding Lymphoma diagnosis. Note weight is up from 74.83 Kg on Jun 25, 2017 to 80.286 Kg today. BNP has increased from 5190 (jun 27, 2017) [place] 37365 today Reviewed/Discussed With: family, hospitalist Objective: Vital Signs (8 Hrs) Temp Pulse Resp BP Pulse Ox 07/08/17 12:37 36.6 C 63 18 121/63 H 92 07/08/17 08:34 126/63 H 07/08/17 08:00 36.3 C 66 20 114/59 L 93 Intake/Output (24 Hrs) 07/07/17 07/08/17 07/09/17 05:59 05:59 05:59 Intake Total 417 750 Balance 417 750 Intake: Oral (ml) 417 750 Other: Weight 80.785 kg 80.286 kg Number of Voids Incontinence 1 1 Toilet 1 1 Number of Stools Toilet 1 1 1 Result Diagrams: 07/08/17 03:32 07/08/17 03:32 Cardiac Labs: Cardiac Lab Results (72 Hrs) 07/08/17 07/07/17 03:32 19:30 Troponin I 0.021 0.023 - Physical Exam Constitutional: no apparent distress (2+ pitting edema to mid calf bilaterally ) ICD10 Worksheet Patient Problems: Problems Problem Status Onset Acute decompensated heart failure Acute Palliative care encounter Acute Dyslipidemia Active Peripheral vascular disease Active Acute exacerbation of congestive heart failure Acute Afib - Atrial fibrillation Acute Atrial fibrillation Acute CHF (congestive heart failure) Acute CHF exacerbation Acute Congestive heart failure Acute Fever Acute Hypoxia Acute Hypoxia Acute Rapid atrial fibrillation Acute Respiratory failure Acute chronic disease mgmt/transitional care Acute
[2017-07-08] MEDS ORDERED: FUROSEMIDE 40 MG TAB PO SCH (15:00)
--- NOTE | 2017-07-08 16:30 | ASMTCMCOM ---
CM Note CM Note Notes: 06/07 Plan unchanged, path still pending. CM to follow. 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 Awaiting final path from [place]. Spoke with Dr Hale today. Pt cannot DC to a SNF and have chemo there. If pt decides to proceed with treatment, best plan would be chemo while inpt at [facility] before DC to [facility]. C/M to follow for DC needs. Date Signed: 07/08/2017 04:29 PM Electronically Signed By:Marilynn Zhou RN
[2017-07-08] MEDS: FUROSEMIDE 40 MG TAB PO SCH (16:31)
[2017-07-08] MEDS: ATORVASTATIN CALCIUM 20 MG TAB PO SCH (20:15)
[2017-07-08] MEDS: ACETAMINOPHEN 325 MG TAB PO PRN (21:55)
[2017-07-09] MEDS: LEVOTHYROXINE 125 MCG TAB PO SCH (05:01)
[2017-07-09 05:22] LABS: % IMMATURE GRANULYOCYTES 1.6 % (0.0-1.1); ABSOLUTE IMMATURE GRANULOCYTES 0.11 10^3/uL (0.00-0.10); ADD DIFF? NO; ADD MORPH? NO; ADD SCAN? NO; ATYPICAL LYMPHOCYTE FLAG 10 (0-99); FRAGMENT RBC FLAG 20 (0-99); HEMATOCRIT 31.5 % (38.0-47.0); HEMOGLOBIN 10.2 g/dL (12.6-16.3); LEFT SHIFT FLG 10 (0-99); LIPEMIA HEMOLYSIS FLAG 80 (0-99); MEAN CELL HEMOGLOBIN CONCENTR. 32.4 g/dL (32.4-36.7); MEAN CELL VOLUME 80.2 fL (81.5-99.8); MEAN PLATELET VOLUME 9.9 fL (8.7-11.7); PLATELET CLUMPS FLAG 0 (0-99); PLATELET COUNT 303 10^3/uL (150-400); RED BLOOD CELL COUNT 3.93 10^6/uL (4.18-5.33); RED CELL DISTRIBUTION WIDTH 17.9 % (11.5-15.2)
[2017-07-09 05:39] LABS: ALANINE AMINOTRANSFERASE 64 IU/L (9-52); ALBUMIN 2.4 g/dL (3.5-5.0); ALKALINE PHOSPHATASE 101 IU/L (38-126); ANION GAP 10 mEq/L (8-16); ASPARTATE AMINOTRANSFERASE 38 IU/L (14-46); BILIRUBIN,TOTAL 0.6 mg/dL (0.1-1.4); CALCIUM 8.6 mg/dL (8.5-10.4); CARBON DIOXIDE 25 mEq/l (22-31); CHLORIDE 103 mEq/L (97-110); CREATININE 1.1 mg/dL (0.6-1.0); GLOMERULAR FILTRATION RATE 48; GLUCOSE 77 mg/dL (70-100); POTASSIUM 3.3 mEq/L (3.5-5.2); SODIUM 138 mEq/L (134-144); TOTAL PROTEIN 4.7 g/dL (6.3-8.2)
[2017-07-09] MEDS: ENOXAPARIN 80 MG/0.8 ML SYR SC SCH ×2 (08:59→20:18)
[2017-07-09] MEDS: PRESERVISION AREDS2 FORMULA EYE VIT 1 EACH PO SCH ×2 (08:59→20:18)
[2017-07-09] MEDS: CYANO/VITAMIN B12 1000 MCG TAB PO SCH (09:00)
[2017-07-09] MEDS: DILTIAZEM CD 120 MG CAP PO SCH ×2 (09:00→20:18)
[2017-07-09] MEDS: FUROSEMIDE 40 MG TAB PO SCH ×2 (09:00→17:22)
[2017-07-09] MEDS: CLOTRIMAZOLE 1% 15 GM CRTUBE TP SCH ×2 (09:03→20:28)
--- NOTE | 2017-07-09 09:48 | SOAPPROG ---
SOAP Progress Note Assessment/Plan: Assessment: 77 y/o woman with CHF LVEF 34%, PAF and probably newly diagnosed lymphoma. Her LVEF was normal in past. Pt currently not interested in ischemic evaluation. Appears euvolemic to slightly hypervolemic. PLAN: 1)start Aldactone 25mg PO qam. 2)start KCL 20meq PO qam. 3)for now rest of meds without changes. 4)once have plan from oncology and chemo.... might change Diltiazem to Coreg and ARB. 5)AM labs (BMP and BNP level). 07/09/17 09:45 Subjective: complains of ulcers in mouth and trouble eating. Edema in legs present but improving. Denies CP, palpitations or PND. Walks with PT for 100ft with mild LEGGETT. Objective: Vital Signs Temp Pulse Resp BP Pulse Ox 36.4 C 85 18 114/61 95 07/09/17 08:00 07/09/17 08:00 07/09/17 08:00 07/09/17 08:00 07/09/17 08:00 Laboratory Results 07/09/17 05:11 07/09/17 05:11 07/08/17 07/09/17 07/10/17 05:59 05:59 05:59 Intake Total 750 625 Output Total 250 Balance 750 375 PT 18.1 SEC (12.0-15.0) H 07/04/17 09:18 INR 1.50 (0.83-1.16) H 07/04/17 09:18 Physical Exam - Physical Exam General Appearance: alert EENT: normal ENT inspection Neck: full range of motion Respiratory: lungs clear Cardiac/Chest: regular rate, rhythm, systolic murmur, No gallop, No JVD Peripheral Pulses: 2+: carotid (R), carotid (L), femoral (R), femoral (L), dorsalis-pedis (R), dorsalis-pedis (L) Abdomen: non-tender, No rebound Skin: warm/dry Extremities: pedal edema (trace bilateral pretibial edema.) Neuro/Psych: alert ICD10 Worksheet Patient Problems: Problems Problem Status Onset Acute decompensated heart failure Acute Palliative care encounter Acute Dyslipidemia Active Peripheral vascular disease Active Acute exacerbation of congestive heart failure Acute Afib - Atrial fibrillation Acute Atrial fibrillation Acute CHF (congestive heart failure) Acute CHF exacerbation Acute Congestive heart failure Acute Fever Acute Hypoxia Acute Hypoxia Acute Rapid atrial fibrillation Acute Respiratory failure Acute chronic disease mgmt/transitional care Acute
[2017-07-09] MEDS: POTASSIUM CL 20 MEQ/15 ML UDCUP PO SCH (10:15)
[2017-07-09] MEDS: MBX SOLN 30 ML BOTTLE PO PRN ×4 (10:15→22:51)
[2017-07-09] MEDS: SPIRONOLACTONE 25 MG TAB PO SCH (10:15)
--- NOTE | 2017-07-09 10:30 | SOAPPROG ---
SOAP Progress Note Assessment/Plan: Assessment: 1. 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 I talked to Mikie her son and told him it looks like stage IIIB/IVB. We dont know if it is germinal center cell or not. the [facility] protocol. She msot likely will not be able to take curative therapy. 2. HCM: normal today. Plan: 07/09/17 10:29 07/09/17 10:52 Subjective: [place] is confortable today. Pathology is pending Objective: Vital Signs Temp Pulse Resp BP Pulse Ox 36.4 C 85 18 114/61 86 L 07/09/17 08:00 07/09/17 08:00 07/09/17 08:00 07/09/17 08:00 07/09/17 09:19 Laboratory Results 07/09/17 05:11 07/09/17 05:11 07/08/17 07/09/17 07/10/17 05:59 05:59 05:59 Intake Total 750 625 Output Total 250 Balance 750 375 PT 18.1 SEC (12.0-15.0) H 07/04/17 09:18 INR 1.50 (0.83-1.16) H 07/04/17 09:18 - Time Spent With Patient Time Spent With Patient: 35 min ICD10 Worksheet Patient Problems: Problems Problem Status Onset Acute decompensated heart failure Acute Palliative care encounter Acute Dyslipidemia Active Peripheral vascular disease Active Acute exacerbation of congestive heart failure Acute Afib - Atrial fibrillation Acute Atrial fibrillation Acute CHF (congestive heart failure) Acute CHF exacerbation Acute Congestive heart failure Acute Fever Acute Hypoxia Acute Hypoxia Acute Rapid atrial fibrillation Acute Respiratory failure Acute chronic disease mgmt/transitional care Acute
[2017-07-09] MEDS: MULTIVITAMINS 1 EACH TAB PO SCH (12:39)
--- NOTE | 2017-07-09 15:48 | HOSPPROG ---
Hospitalist Progress Note Assessment/Plan: 77-year-old with a history of chronic diastolic heart failure and pacemaker placement is admitted with weakness and hypercalcemia being worked up for lymphoma and hospital course complicated by AMS mouth sores: getting mbx not neutropenic start ACV abd fluconazole Encephalopathy - possibly related to hypercalcemia as has improved with decreased calcium levels. Much improved today, patient reports having hallucinations in prior days but no longer having any. resolved w normalization of calcium dc prn hs Zyprexa Hypercalcemia- received calcitonin Zalendronic acid, calcium levels now normalized stop IVF Lymphoma, awaiting final path from [place]. 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 Had been on xarelto but holding for now and treating with lovenox for the time being. Bowel/Bladder - bowel regimen for constipation. Nutrition: continue to work on pushing nutrition DVT prophylaxis - anticoagulated Dispo - anticipate SNF placement for rehab. Since she may need chemo, will await path and determine management before dispo. Subjective: case d/w dr randall. c/o sores in mouth Objective: Vital Signs Temp Pulse Resp BP Pulse Ox 36.5 C 78 18 113/59 L 93 07/09/17 11:52 07/09/17 11:52 07/09/17 11:52 07/09/17 11:52 07/09/17 11:52 Laboratory Results 07/09/17 05:11 07/09/17 05:11 07/08/17 07/09/17 07/10/17 05:59 05:59 05:59 Intake Total 750 625 Output Total 250 Balance 750 375 PT 18.1 SEC (12.0-15.0) H 07/04/17 09:18 INR 1.50 (0.83-1.16) H 07/04/17 09:18 - Physical Exam Constitutional: no apparent distress, appears nourished Eyes: PERRL, anicteric sclera Ears, Nose, Mouth, Throat: moist mucous membranes, hearing normal, other (flat white based ulcers throughout toingue, mouth) Cardiovascular: regular rate and rhythym, no murmur, rub, or gallop, edema Respiratory: no respiratory distress, no rales or rhonchi Gastrointestinal: normoactive bowel sounds, soft, non-tender abdomen Genitourinary: no bladder fullness, No flores in urethra Skin: warm, normal color Musculoskeletal: full muscle strength Neurologic: AAOx3 ICD10 Worksheet Patient Problems: Problems Problem Status Onset Acute decompensated heart failure Acute Palliative care encounter Acute Dyslipidemia Active Peripheral vascular disease Active Acute exacerbation of congestive heart failure Acute Afib - Atrial fibrillation Acute Atrial fibrillation Acute CHF (congestive heart failure) Acute CHF exacerbation Acute Congestive heart failure Acute Fever Acute Hypoxia Acute Hypoxia Acute Rapid atrial fibrillation Acute Respiratory failure Acute chronic disease mgmt/transitional care Acute
[2017-07-09] MEDS: FLUCONAZOLE 100 MG TAB PO SCH (17:23)
[2017-07-09] MEDS: ACYCLOVIR 400 MG TAB PO SCH (20:19)
[2017-07-09] MEDS: ATORVASTATIN CALCIUM 20 MG TAB PO SCH (20:19)
[2017-07-10] MEDS: MBX SOLN 30 ML BOTTLE PO PRN ×3 (03:29→12:58)
[2017-07-10 05:12] LABS: % IMMATURE GRANULYOCYTES 0.9 % (0.0-1.1); ABSOLUTE IMMATURE GRANULOCYTES 0.06 10^3/uL (0.00-0.10); ADD DIFF? NO; ADD MORPH? NO; ADD SCAN? NO; ATYPICAL LYMPHOCYTE FLAG 10 (0-99); FRAGMENT RBC FLAG 20 (0-99); HEMATOCRIT 29.9 % (38.0-47.0); HEMOGLOBIN 9.7 g/dL (12.6-16.3); LEFT SHIFT FLG 0 (0-99); LIPEMIA HEMOLYSIS FLAG 80 (0-99); MEAN CELL HEMOGLOBIN 25.5 pg (27.9-34.1); MEAN CELL HEMOGLOBIN CONCENTR. 32.4 g/dL (32.4-36.7); MEAN CELL VOLUME 78.7 fL (81.5-99.8); MEAN PLATELET VOLUME 9.9 fL (8.7-11.7); PLATELET CLUMPS FLAG 0 (0-99); PLATELET COUNT 320 10^3/uL (150-400); RED CELL DISTRIBUTION WIDTH 18.2 % (11.5-15.2)
[2017-07-10 05:31] LABS: ALANINE AMINOTRANSFERASE 53 IU/L (9-52); ALBUMIN 2.5 g/dL (3.5-5.0); ALKALINE PHOSPHATASE 94 IU/L (38-126); ANION GAP 9 mEq/L (8-16); ASPARTATE AMINOTRANSFERASE 30 IU/L (14-46); BILIRUBIN,TOTAL 0.5 mg/dL (0.1-1.4); CALCIUM 8.4 mg/dL (8.5-10.4); CARBON DIOXIDE 23 mEq/l (22-31); CHLORIDE 104 mEq/L (97-110); CREATININE 1.1 mg/dL (0.6-1.0); GLOMERULAR FILTRATION RATE 48; GLUCOSE 80 mg/dL (70-100); POTASSIUM 3.5 mEq/L (3.5-5.2); SODIUM 136 mEq/L (134-144); TOTAL PROTEIN 4.1 g/dL (6.3-8.2)
[2017-07-10] MEDS: LEVOTHYROXINE 125 MCG TAB PO SCH (05:59)
--- NOTE | 2017-07-10 08:45 | SOAPPROG ---
SOAP Progress Note Assessment/Plan: Assessment: 1. Probable DLBCL pending the final path now at [place]: She has a low EF of 35% and is therefore not a candidate for full dose R-CHOP. I talked to Mikie her son and told him it looks like stage IIIB/IVB. We don't know if it is germinal center cell type or ABC type or other. The Ayoub algorithm is pending. She most likely will not be able to take curative therapy. R-CVP or R-COEP are options. 2. HCM: normal today. This is paraneoplastic 3. CHF: worsening BNP level. 4. Oral stomatitis: ulcerative. Is this pemphigus? I called ENT. [phone]. She may need a biopsy.Trial of oral dexamethasone mouth rinse Plan: 07/09/17 10:29 07/09/17 10:52 07/10/17 08:56 07/10/17 08:58 07/10/17 09:01 07/10/17 09:05 Subjective: Antonella is a 64 y woman [facility]. 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 She came in with low plts and anemia. Objective: Vital Signs Temp Pulse Resp BP Pulse Ox 36.4 C 76 16 130/93 H 94 07/10/17 08:00 07/10/17 08:00 07/10/17 08:00 07/10/17 08:00 07/10/17 08:00 Laboratory Results 07/10/17 04:56 07/10/17 04:56 07/09/17 07/10/17 07/11/17 05:59 05:59 05:59 Intake Total 625 300 Output Total 250 900 200 Balance 375 -600 -200 PT 18.1 SEC (12.0-15.0) H 07/04/17 09:18 INR 1.50 (0.83-1.16) H 07/04/17 09:18 oral ulcerations under the tongue. ICD10 Worksheet Patient Problems: Problems Problem Status Onset Acute decompensated heart failure Acute Palliative care encounter Acute Dyslipidemia Active Peripheral vascular disease Active Acute exacerbation of congestive heart failure Acute Afib - Atrial fibrillation Acute Atrial fibrillation Acute CHF (congestive heart failure) Acute CHF exacerbation Acute Congestive heart failure Acute Fever Acute Hypoxia Acute Hypoxia Acute Rapid atrial fibrillation Acute Respiratory failure Acute chronic disease mgmt/transitional care Acute
--- NOTE | 2017-07-10 09:16 | SOAPPROG ---
SOAP Progress Note Assessment/Plan: Assessment: 77 y/o woman with CHF LVEF 34%, PAF and probably newly diagnosed lymphoma. Her LVEF was normal in past. Pt currently not interested in ischemic evaluation. Appears euvolemic to slightly hypervolemic. PLAN: 1)stop PO Diltiazem 2)start Coreg 12.5mg PO BID 3)gently increase Lasix to 60mg PO BID 4)increase Aldactone to 50mg PO qam. 5)AM labs (BMP) 07/10/17 09:13 Subjective: overall feels a little better. Ambulating in hallway without CP or near syncope. Denies PND or palpitations. Still main issue is painful oral ulcers and trouble eating. Objective: Vital Signs Temp Pulse Resp BP Pulse Ox 36.4 C 76 16 130/93 H 94 07/10/17 08:00 07/10/17 08:00 07/10/17 08:00 07/10/17 08:00 07/10/17 08:00 Laboratory Results 07/10/17 04:56 07/10/17 04:56 07/09/17 07/10/17 07/11/17 05:59 05:59 05:59 Intake Total 625 300 Output Total 250 900 200 Balance 375 -600 -200 PT 18.1 SEC (12.0-15.0) H 07/04/17 09:18 INR 1.50 (0.83-1.16) H 07/04/17 09:18 Physical Exam - Physical Exam General Appearance: alert EENT: normal ENT inspection Neck: full range of motion Respiratory: lungs clear Cardiac/Chest: regular rate, rhythm, JVD, systolic murmur, No gallop Peripheral Pulses: 2+: carotid (R), carotid (L), femoral (R), femoral (L), dorsalis-pedis (R), dorsalis-pedis (L) Abdomen: non-tender, No rebound Skin: warm/dry Extremities: pedal edema (2+ edema bilaterally to mid calves.) Neuro/Psych: oriented x 3 ICD10 Worksheet Patient Problems: Problems Problem Status Onset Acute decompensated heart failure Acute Palliative care encounter Acute Dyslipidemia Active Peripheral vascular disease Active Acute exacerbation of congestive heart failure Acute Afib - Atrial fibrillation Acute Atrial fibrillation Acute CHF (congestive heart failure) Acute CHF exacerbation Acute Congestive heart failure Acute Fever Acute Hypoxia Acute Hypoxia Acute Rapid atrial fibrillation Acute Respiratory failure Acute chronic disease mgmt/transitional care Acute
[2017-07-10] MEDS ORDERED: FUROSEMIDE 20 MG TAB PO ONE (09:30)
[2017-07-10] MEDS: CARVEDILOL 25 MG TAB PO SCH ×2 (10:12→17:21)
[2017-07-10] MEDS: ACYCLOVIR 400 MG TAB PO SCH ×2 (10:13→21:31)
[2017-07-10] MEDS: FLUCONAZOLE 100 MG TAB PO SCH (10:13)
[2017-07-10] MEDS: PRESERVISION AREDS2 FORMULA EYE VIT 1 EACH PO SCH ×2 (10:14→21:30)
[2017-07-10] MEDS: CYANO/VITAMIN B12 1000 MCG TAB PO SCH (10:14)
[2017-07-10] MEDS: CLOTRIMAZOLE 1% 15 GM CRTUBE TP SCH ×2 (10:14→21:32)
[2017-07-10] MEDS ORDERED: LIDO/EPI 1% **Not for Epidural 20 ML MDV IF ONE (10:15)
[2017-07-10] MEDS: DILTIAZEM CD 120 MG CAP PO SCH (12:47)
[2017-07-10] MEDS: [UNRECOGNIZED DRUG - OTHER] MISC SCH ×4 (12:49→21:31)
[2017-07-10] MEDS: DEXAMETHASONE 0.5 MG/5 ML MISC SCH ×4 (12:49→21:31)
[2017-07-10] MEDS: POTASSIUM CL 20 MEQ/15 ML UDCUP PO SCH (12:56)
[2017-07-10] MEDS: MULTIVITAMINS 1 EACH TAB PO SCH (12:57)
[2017-07-10] MEDS ORDERED: SPIRONOLACTONE 25 MG TAB PO ONE (13:00)
[2017-07-10] MEDS: ENOXAPARIN 80 MG/0.8 ML SYR SC SCH ×2 (13:01→21:31)
--- NOTE | 2017-07-10 13:12 | GCON ---
[f rep st] CONSULTATION INDICATION FOR CONSULTATION: Stomatitis, rule out pemphigoid. HISTORY OF PRESENT ILLNESS: The patient is a pleasant 77-year-old female, who is currently in the [facility] and being worked up for a lymphoma. She states that 2 days ago, she started with mouth sores. She has never had problems with this prior. She has not been started on chemotherapy and is not cu rrently on any other immunotherapy medications. The patient has been receiving fluconazole and Magic Mouthwash with lidocaine. I think they started dexamethasone today. Patient is afebrile. PAST MEDICAL HISTORY: Significant for chronic diastolic congestive heart failure, chronic atrial fib rillation, hypertension, CVA, pacemaker, hyperlipidemia, hypothyroidism with mild renal insufficiency . PAST SURGICAL HISTORY: Bladder surgery and hysterectomy. MEDICATIONS: Aldactone, Lasix, atorvastatin, diltiazem, Xarelto, vitamin D 3, levothyroxine, multivi tamins, vitamin B12, Wellbutrin SR, and currently Lovenox. ALLERGIES: Lisinopril, silver, and nickel. FAMILY HISTORY: Noncontributory. SOCIAL HISTORY: She lives at home. PHYSICAL EXAMINATION: GENERAL: Patient is alert and orientated, sitting upright in bed. HEAD: Atr aumatic, normocephalic. EARS: EACs are clear. NOSE: Clear. ORAL CAVITY AND OROPHARYNX: Patient with very dry mucosa. She has extensive plaque lesions over her tongue and palate. No vesicles are appreciated. NECK: Supple. PROCEDURE: The patient's right lateral tongue was anesthetized with lidocaine plus epi. Using a 3 m m punch biopsy, a piece of tissue was taken for pathology. The patient tolerated this well. Minimal bleeding was encountered. ASSESSMENT AND PLAN: Patient with a severe stomatitis. I am unsure of the etiology of this. It ware s not appear related to herpes as there are no fascicular lesions. It also does not appear to be con sistent with a thrush infection. I have adjusted her mouth rinses to include dexamethasone, Benadryl , Mylanta and lidocaine to be given 4 times a day prior to meals. A biopsy was sent to rule out poss ible pemphigoid. Thank you for allowing us to participate in her care. Please contact us should you need any further assistance. /[id number]/MODL
[2017-07-10] MEDS: FUROSEMIDE 40 MG TAB PO SCH ×2 (13:24→15:19)
[2017-07-10] MEDS: SPIRONOLACTONE 25 MG TAB PO SCH (13:24)
[2017-07-10] MEDS ORDERED: FUROSEMIDE 80 MG TAB PO SCH (15:00)
--- NOTE | 2017-07-10 15:10 | HOSPPROG ---
Hospitalist Progress Note Assessment/Plan: 77-year-old with a history of chronic diastolic heart failure and pacemaker placement is admitted with weakness and hypercalcemia being worked up for lymphoma and hospital course complicated by AMS mouth sores: getting mbx not neutropenic start ACV abd fluconazole biopsied to rule out pemphigoid Encephalopathy - possibly related to hypercalcemia as has improved with decreased calcium levels. Much improved today, patient reports having hallucinations in prior days but no longer having any. resolved w normalization of calcium dc prn hs Zyprexa Hypercalcemia- received calcitonin Zalendronic acid, calcium levels now normalized stop IVF Lymphoma, awaiting final path from [place]. 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 Had been on xarelto but holding for now and treating with lovenox for the time being. Bowel/Bladder - bowel regimen for constipation. Nutrition: continue to work on pushing nutrition DVT prophylaxis - anticoagulated Dispo - anticipate SNF placement for rehab. Since she may need chemo, will await path and determine management before dispo. Subjective: case d/w dr randall Objective: Vital Signs Temp Pulse Resp BP Pulse Ox 36.8 C 50 L 12 95/41 L 94 07/10/17 14:53 07/10/17 14:53 07/10/17 14:53 07/10/17 14:53 07/10/17 14:53 Laboratory Results 07/10/17 04:56 07/10/17 04:56 07/09/17 07/10/17 07/11/17 05:59 05:59 05:59 Intake Total 625 300 Output Total 250 900 200 Balance 375 -600 -200 PT 18.1 SEC (12.0-15.0) H 07/04/17 09:18 INR 1.50 (0.83-1.16) H 07/04/17 09:18 - Physical Exam Constitutional: no apparent distress, appears nourished Eyes: PERRL, anicteric sclera Ears, Nose, Mouth, Throat: other (innumerable flat ulcers in mouth, on tongue. unchange) Cardiovascular: regular rate and rhythym, no murmur, rub, or gallop Respiratory: no respiratory distress, no rales or rhonchi Gastrointestinal: normoactive bowel sounds, soft, non-tender abdomen Genitourinary: no bladder fullness, No flores in urethra Skin: warm, normal color Musculoskeletal: full muscle strength, no muscle tenderness Neurologic: AAOx3 Psychiatric: interacting appropriately Lymph, Heme, Immunologic: no cervical LAD ICD10 Worksheet Patient Problems: Problems Problem Status Onset Acute decompensated heart failure Acute Palliative care encounter Acute Dyslipidemia Active Peripheral vascular disease Active Acute exacerbation of congestive heart failure Acute Afib - Atrial fibrillation Acute Atrial fibrillation Acute CHF (congestive heart failure) Acute CHF exacerbation Acute Congestive heart failure Acute Fever Acute Hypoxia Acute Hypoxia Acute Rapid atrial fibrillation Acute Respiratory failure Acute chronic disease mgmt/transitional care Acute
[2017-07-10] MEDS: MBX SOLN 30 ML BOTTLE PO SCH ×2 (17:22→21:36)
[2017-07-10] MEDS: ATORVASTATIN CALCIUM 20 MG TAB PO SCH (21:31)
[2017-07-11] MEDS: DEXAMETHASONE 0.5 MG/5 ML MISC SCH ×4 (05:37→20:53)
[2017-07-11] MEDS: [UNRECOGNIZED DRUG - OTHER] MISC SCH ×4 (05:37→20:53)
[2017-07-11] MEDS: LEVOTHYROXINE 125 MCG TAB PO SCH (05:37)
[2017-07-11] MEDS: MBX SOLN 30 ML BOTTLE PO SCH ×4 (05:37→20:53)
[2017-07-11 05:55] LABS: % IMMATURE GRANULYOCYTES 1.1 % (0.0-1.1); ABSOLUTE IMMATURE GRANULOCYTES 0.06 10^3/uL (0.00-0.10); ADD DIFF? NO; ADD MORPH? NO; ADD SCAN? NO; ATYPICAL LYMPHOCYTE FLAG 10 (0-99); FRAGMENT RBC FLAG 20 (0-99); HEMATOCRIT 28.3 % (38.0-47.0); HEMOGLOBIN 9.2 g/dL (12.6-16.3); LEFT SHIFT FLG 0 (0-99); LIPEMIA HEMOLYSIS FLAG 80 (0-99); MEAN CELL HEMOGLOBIN 25.7 pg (27.9-34.1); MEAN CELL HEMOGLOBIN CONCENTR. 32.5 g/dL (32.4-36.7); MEAN CELL VOLUME 79.1 fL (81.5-99.8); PLATELET CLUMPS FLAG 20 (0-99); PLATELET COUNT 295 10^3/uL (150-400); RED BLOOD CELL COUNT 3.58 10^6/uL (4.18-5.33); RED CELL DISTRIBUTION WIDTH 18.2 % (11.5-15.2)
[2017-07-11 06:18] LABS: ALANINE AMINOTRANSFERASE 55 IU/L (9-52); ALBUMIN 2.2 g/dL (3.5-5.0); ALKALINE PHOSPHATASE 82 IU/L (38-126); ANION GAP 10 mEq/L (8-16); ASPARTATE AMINOTRANSFERASE 27 IU/L (14-46); BILIRUBIN,TOTAL 0.4 mg/dL (0.1-1.4); CALCIUM 7.9 mg/dL (8.5-10.4); CARBON DIOXIDE 25 mEq/l (22-31); CHLORIDE 101 mEq/L (97-110); CREATININE 1.2 mg/dL (0.6-1.0); GLOMERULAR FILTRATION RATE 44; GLUCOSE 74 mg/dL (70-100); POTASSIUM 3.5 mEq/L (3.5-5.2); SODIUM 136 mEq/L (134-144); TOTAL PROTEIN 3.8 g/dL (6.3-8.2)
[2017-07-11] MEDS: CARVEDILOL 25 MG TAB PO SCH ×2 (09:05→17:22)
[2017-07-11] MEDS: ACYCLOVIR 400 MG TAB PO SCH ×2 (09:08→20:49)
[2017-07-11] MEDS: FLUCONAZOLE 100 MG TAB PO SCH (09:09)
[2017-07-11] MEDS: SPIRONOLACTONE 50 MG TAB PO SCH (09:09)
[2017-07-11] MEDS: CYANO/VITAMIN B12 1000 MCG TAB PO SCH (09:09)
[2017-07-11] MEDS: FUROSEMIDE 40 MG TAB PO SCH ×2 (09:10→15:02)
[2017-07-11] MEDS: POTASSIUM CL 20 MEQ/15 ML UDCUP PO SCH (09:11)
[2017-07-11] MEDS: CLOTRIMAZOLE 1% 15 GM CRTUBE TP SCH ×2 (09:13→20:50)
[2017-07-11] MEDS: PRESERVISION AREDS2 FORMULA EYE VIT 1 EACH PO SCH ×2 (09:16→20:49)
[2017-07-11] MEDS: ENOXAPARIN 80 MG/0.8 ML SYR SC SCH ×2 (09:18→20:49)
[2017-07-11] MEDS: MULTIVITAMINS 1 EACH TAB PO SCH (11:43)
--- NOTE | 2017-07-11 12:15 | PDCARPN ---
Cardiology Progress Note Chief Complaint: new SCHF Assessment/Plan: Assessment: 77F PMH new onset SCHF with LVEF 34%, AF s/p AVN ablation, PPM, DD, mod MR, PAH , who was recently admitted with worsening fatigue. Found by echo to have decrement in EF in comparison to 05/15 echo with normal EF. Likely also has new diagnosis of lymphoma. #. SCHF: EF 34 pt has declined LHC and other ischemic workup on PO diuretics due to no IV access weight down from 80 kg to 76 kg today net negative I/O 1075 ml reports feeling comfortable at rest though noting severe peripheral edema stay at Lasix 60 BID, Aldactone 50 daily #. AF: Xarelto on hold in case a procedure needs to be undertaken on full dose Lovenox dosing #. lymphoma: awaiting path 07/11/17 12:06 Subjective: Feels comfortable. No dyspnea at rest. Still notes edema. Difficult to stand/ ambulate. Objective: Vital Signs (8 Hrs) Temp Pulse Resp BP Pulse Ox 07/11/17 09:05 65 105/54 L 07/11/17 07:30 97.3 F 65 17 105/54 L 93 Intake/Output (24 Hrs) 07/10/17 07/11/17 07/12/17 05:59 05:59 05:59 Intake Total 300 Output Total 900 1075 Balance -600 -1075 Intake: Oral (ml) 300 Output: Urine (ml) 900 1075 Incontinence 700 Toilet 200 1075 Other: Weight 76.612 kg Number of Voids Incontinence 3 1 Toilet 1 3 Number of Stools Incontinence 1 Toilet 1 1 Result Diagrams: 07/11/17 05:33 07/11/17 05:33 - Physical Exam Constitutional: no apparent distress Eyes: PERRL, anicteric sclera Respiratory: clear to auscultate bilat, no crackles Gastrointestinal: normoactive bowel sounds, no tenderness Psychiatric: cooperative, interactive ICD10 Worksheet Patient Problems: Problems Problem Status Onset CHF exacerbation Acute Respiratory failure Acute Fever Acute Acute decompensated heart failure Acute Palliative care encounter Acute chronic disease mgmt/transitional care Acute Afib - Atrial fibrillation Acute Dyslipidemia Active Peripheral vascular disease Active Congestive heart failure Acute Atrial fibrillation Acute Hypoxia Acute Rapid atrial fibrillation Acute CHF (congestive heart failure) Acute Acute exacerbation of congestive heart failure Acute Hypoxia Acute
--- NOTE | 2017-07-11 13:39 | SOAPPROG ---
SOИВАН Progress Note Assessment/Plan: Assessment: 1. Probable DLBCL pending the final path now at [place]: She has a low EF of 35% and is therefore not a candidate for full dose R-CHOP. It looks like stage IIIB/ IVB. We don't know if it is germinal center cell type or ABC type or other. The Ayoub algorithm is pending. She most likely will not be able to take curative therapy. R-CVP or R-COEP are options. 2. HCM: normal today. This is paraneoplastic 3. CHF: diuresing 4. Oral stomatitis: ulcerative. Is this pemphigus? I called ENT. [phone]. She may need a biopsy.Trial of oral dexamethasone mouth rinse. She is eating a little better today. Plan: Continue cardiac optimization Await final path from [place] Await oral bx results 07/11/17 13:34 Subjective: Mouth is sore but she is eating some and talking without difficulty Objective: Vital Signs Temp Pulse Resp BP Pulse Ox 36.3 C 65 17 105/54 L 93 07/11/17 07:30 07/11/17 09:05 07/11/17 07:30 07/11/17 09:05 07/11/17 07:30 Laboratory Results 07/11/17 05:33 07/11/17 05:33 07/09/17 07/10/17 07/11/17 23:59 23:59 23:59 Intake Total 350 300 Output Total 450 1275 500 Balance -100 -975 -500 PT 18.1 SEC (12.0-15.0) H 07/04/17 09:18 INR 1.50 (0.83-1.16) H 07/04/17 09:18 Physical Exam - Physical Exam General Appearance: alert, mild distress Respiratory: rales (R base) Cardiac/Chest: regular rate, rhythm Abdomen: normal bowel sounds Neuro/Psych: alert ICD10 Worksheet Patient Problems: Problems Problem Status Onset Acute decompensated heart failure Acute Palliative care encounter Acute Dyslipidemia Active Peripheral vascular disease Active Acute exacerbation of congestive heart failure Acute Afib - Atrial fibrillation Acute Atrial fibrillation Acute CHF (congestive heart failure) Acute CHF exacerbation Acute Congestive heart failure Acute Fever Acute Hypoxia Acute Hypoxia Acute Rapid atrial fibrillation Acute Respiratory failure Acute chronic disease mgmt/transitional care Acute
--- NOTE | 2017-07-11 15:23 | HOSPPROG ---
Hospitalist Progress Note Assessment/Plan: 77-year-old with a history of chronic diastolic heart failure and pacemaker placement is admitted with weakness and hypercalcemia being worked up for lymphoma and hospital course complicated by AMS. Today is my first encounter with the patient, chart reviewed. *Probable large B cell type lymphoma -awaiting pathology -she has a low EF of 35% & not a candidate for full dose R-CHOP *oral stomatitis -pemphigus ? -fluconazole -started on oral dexamethasone mouth rinse -ENT seeing -pain is a bit better today *acute encephalopathy -resolved w normalization of calcium levels *Hypercalcemia -calcitonin, Zolendronic acid -IVF stopped *Acute systolic heart failure on chronic diastolic heart failure -weight down from 80 kg to 76 kg today -Lasix 60 mg bid and Aldactone 50 mg daily -Coreg bid/ is allergic to ACEI -buddy wraps on Qhs for lower extremity swelling -appreciate cardiology *Hypernatremia -resolved *ANDRY -creat is 1.2,continued monitored *AF -Xarelto on hold for now, rate controlled w Diltiazem -on Lovenox DVT prophylaxis - anticoagulated Subjective: [place] says pain in mouth is a bit better/ popsicles help. Objective: Vital Signs Temp Pulse Resp BP Pulse Ox 36.3 C 65 17 105/54 L 93 07/11/17 07:30 07/11/17 09:05 07/11/17 07:30 07/11/17 09:05 07/11/17 07:30 Laboratory Results 07/11/17 05:33 07/11/17 05:33 07/10/17 07/11/17 07/12/17 05:59 05:59 05:59 Intake Total 300 Output Total 900 1075 Balance -600 -1075 PT 18.1 SEC (12.0-15.0) H 07/04/17 09:18 INR 1.50 (0.83-1.16) H 07/04/17 09:18 - Physical Exam Constitutional: appears nourished, chronically ill appearing, uncomfortable Eyes: PERRL Ears, Nose, Mouth, Throat: hearing normal Cardiovascular: regular rate and rhythym, edema (bilateral lower ext swelling/2+ ) Respiratory: no respiratory distress Gastrointestinal: normoactive bowel sounds Skin: warm, normal color Musculoskeletal: generalized weakness Neurologic: AAOx3 Psychiatric: interacting appropriately, not anxious, not encephalopathic ICD10 Worksheet Patient Problems: Problems Problem Status Onset Acute decompensated heart failure Acute Palliative care encounter Acute Dyslipidemia Active Peripheral vascular disease Active Acute exacerbation of congestive heart failure Acute Afib - Atrial fibrillation Acute Atrial fibrillation Acute CHF (congestive heart failure) Acute CHF exacerbation Acute Congestive heart failure Acute Fever Acute Hypoxia Acute Hypoxia Acute Rapid atrial fibrillation Acute Respiratory failure Acute chronic disease mgmt/transitional care Acute
[2017-07-11] MEDS: ATORVASTATIN CALCIUM 20 MG TAB PO SCH (20:49)
[2017-07-12 05:21] LABS: % IMMATURE GRANULYOCYTES 1.3 % (0.0-1.1); ABSOLUTE IMMATURE GRANULOCYTES 0.06 10^3/uL (0.00-0.10); ADD DIFF? NO; ADD MORPH? NO; ADD SCAN? NO; ATYPICAL LYMPHOCYTE FLAG 50 (0-99); FRAGMENT RBC FLAG 20 (0-99); HEMATOCRIT 29.1 % (38.0-47.0); HEMOGLOBIN 9.5 g/dL (12.6-16.3); LEFT SHIFT FLG 0 (0-99); LIPEMIA HEMOLYSIS FLAG 80 (0-99); MEAN CELL HEMOGLOBIN 25.7 pg (27.9-34.1); MEAN CELL HEMOGLOBIN CONCENTR. 32.6 g/dL (32.4-36.7); MEAN CELL VOLUME 78.6 fL (81.5-99.8); MEAN PLATELET VOLUME 9.7 fL (8.7-11.7); PLATELET CLUMPS FLAG 0 (0-99); PLATELET COUNT 281 10^3/uL (150-400); RED CELL DISTRIBUTION WIDTH 18.1 % (11.5-15.2)
[2017-07-12 05:34] LABS: ALANINE AMINOTRANSFERASE 50 IU/L (9-52); ALBUMIN 2.3 g/dL (3.5-5.0); ALKALINE PHOSPHATASE 83 IU/L (38-126); ANION GAP 10 mEq/L (8-16); ASPARTATE AMINOTRANSFERASE 27 IU/L (14-46); BILIRUBIN,TOTAL 0.4 mg/dL (0.1-1.4); CALCIUM 8.1 mg/dL (8.5-10.4); CARBON DIOXIDE 26 mEq/l (22-31); CHLORIDE 99 mEq/L (97-110); CREATININE 1.4 mg/dL (0.6-1.0); GLOMERULAR FILTRATION RATE 37; GLUCOSE 77 mg/dL (70-100); POTASSIUM 3.2 mEq/L (3.5-5.2); SODIUM 135 mEq/L (134-144); TOTAL PROTEIN 3.9 g/dL (6.3-8.2)
[2017-07-12] MEDS: LEVOTHYROXINE 125 MCG TAB PO SCH (05:41)
[2017-07-12] MEDS: MBX SOLN 30 ML BOTTLE PO SCH ×4 (05:55→20:26)
[2017-07-12] MEDS: DEXAMETHASONE 0.5 MG/5 ML MISC SCH ×4 (05:56→20:25)
[2017-07-12] MEDS: [UNRECOGNIZED DRUG - OTHER] MISC SCH ×4 (05:56→20:25)
[2017-07-12] MEDS ORDERED: MBX SOLN 30 ML BOTTLE PO PRN (08:46)
[2017-07-12] MEDS: ACETAMINOPHEN 325 MG TAB PO PRN ×2 (08:48→17:05)
[2017-07-12] MEDS: ENOXAPARIN 80 MG/0.8 ML SYR SC SCH ×2 (08:49→20:25)
[2017-07-12] MEDS: PRESERVISION AREDS2 FORMULA EYE VIT 1 EACH PO SCH ×2 (08:49→20:25)
[2017-07-12] MEDS: FLUCONAZOLE 100 MG TAB PO SCH (08:50)
[2017-07-12] MEDS: CYANO/VITAMIN B12 1000 MCG TAB PO SCH (08:50)
[2017-07-12] MEDS: ACYCLOVIR 400 MG TAB PO SCH ×2 (08:50→20:25)
[2017-07-12] MEDS: POTASSIUM CL 20 MEQ PKT PO SCH ×2 (08:50→09:03)
[2017-07-12] MEDS: SPIRONOLACTONE 50 MG TAB PO SCH (08:50)
[2017-07-12] MEDS: CARVEDILOL 25 MG TAB PO SCH ×2 (08:52→18:18)
[2017-07-12] MEDS: CLOTRIMAZOLE 1% 15 GM CRTUBE TP SCH ×2 (09:04→20:27)
--- NOTE | 2017-07-12 11:09 | PDCARPN ---
Cardiology Progress Note Chief Complaint: SCHF Assessment/Plan: Assessment: 77F PMH new onset SCHF with LVEF 34%, AF s/p AVN ablation, PPM, DD, mod MR, PAH , who was recently admitted with worsening fatigue. Found by echo to have decrement in EF in comparison to 05/15 echo with normal EF. Likely also has new diagnosis of lymphoma. #. SCHF: EF 34 pt has declined LHC and other ischemic workup on PO diuretics due to no IV access which is on hold today due to some ANDRY weight down to 75 kg from 81 kg net negative I/O 1075 ml reports feeling comfortable at rest though noting severe peripheral edema no pnd/orthopnea or dyspnea #. AF: Xarelto on hold in case a procedure needs to be undertaken on full dose Lovenox dosing #. ANDRY: OK to hold Lasix today and recheck BMP in AM resume 60 mg daily of Lasix starting tomorrow #. lymphoma: awaiting path 07/12/17 11:06 Subjective: No pnd/orhtopnea, dyspnea, palpitations, cp. Reviewed/Discussed With: hospitalist (Sharmila Cook) Objective: Vital Signs (8 Hrs) Temp Pulse Resp BP Pulse Ox 07/12/17 08:52 65 120/63 07/12/17 07:50 97.9 F 93 16 108/64 92 07/12/17 03:18 97.4 F 97 18 114/64 90 L Intake/Output (24 Hrs) 07/11/17 07/12/17 07/13/17 05:59 05:59 05:59 Intake Total 650 Output Total 1075 725 Balance -1075 -75 Intake: Oral (ml) 650 Output: Urine (ml) 1075 725 Toilet 1075 725 Other: Weight 76.612 kg 75.2 kg Number of Voids Incontinence 1 1 Toilet 1 1 Number of Stools Incontinence 1 1 Toilet 1 Result Diagrams: 07/12/17 05:06 07/12/17 05:06 - Physical Exam Constitutional: no apparent distress Cardiovascular: regular rate and rhythm, no murmurs Respiratory: other (minimal crackles L base) Gastrointestinal: normoactive bowel sounds, no tenderness, No ascites Neurologic: AAOx3 Psychiatric: cooperative, interactive ICD10 Worksheet Patient Problems: Problems Problem Status Onset Acute decompensated heart failure Acute Palliative care encounter Acute Dyslipidemia Active Peripheral vascular disease Active Acute exacerbation of congestive heart failure Acute Afib - Atrial fibrillation Acute Atrial fibrillation Acute CHF (congestive heart failure) Acute CHF exacerbation Acute Congestive heart failure Acute Fever Acute Hypoxia Acute Hypoxia Acute Rapid atrial fibrillation Acute Respiratory failure Acute chronic disease mgmt/transitional care Acute
--- NOTE | 2017-07-12 11:52 | HOSPPROG ---
Hospitalist Progress Note Assessment/Plan: 77-year-old with a history of chronic diastolic heart failure and pacemaker placement is admitted with weakness and hypercalcemia being worked up for lymphoma and hospital course complicated by AMS. 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 -fluconazole -started on oral dexamethasone mouth rinse -ENT seeing -she is eating better *acute encephalopathy -resolved w normalization of calcium levels *Hypercalcemia -calcitonin, Zolendronic acid -IVF stopped *Acute systolic heart failure on chronic diastolic heart failure -weight down from 80 kg to 76 kg today -Lasix 60 mg bid and Aldactone 50 mg daily -Coreg bid/ is allergic to ACEI -buddy wraps on Qhs for lower extremity swelling -appreciate cardiology *Hypernatremia -resolved *ANDRY -creat is 1.4 -reviewed w cards, they are ok to hold the Lasix for now *AF -Xarelto on hold for now, rate controlled w Diltiazem -on Lovenox DVT prophylaxis - anticoagulated *Plan: if stable, will dc in the next 1-2 days/ discussed this w Dr Jean-Baptiste, pathology may take a bit and she can f/u with oncology as an OP. If cardiology is ok with dc, consider this tomorrow or the next day. Subjective: Borden said eating is easier today than yesterday. Objective: Vital Signs Temp Pulse Resp BP Pulse Ox 36.6 C 93 16 120/63 92 07/12/17 07:50 07/12/17 09:00 07/12/17 07:50 07/12/17 08:52 07/12/17 09:00 Microbiology 06/29/17 20:00 Mycobacterial Smear (JOE) - Final Axilla - Tissue 06/28/17 17:15 Mycobacterial Smear (JOE) - Final Sputum, Expectorated 06/27/17 20:00 Mycobacterial Smear (JOE) - Final Blood Laboratory Results 07/12/17 05:06 07/12/17 05:06 07/11/17 07/12/17 07/13/17 05:59 05:59 05:59 Intake Total 650 Output Total 1075 725 Balance -1075 -75 PT 18.1 SEC (12.0-15.0) H 07/04/17 09:18 INR 1.50 (0.83-1.16) H 07/04/17 09:18 - Physical Exam Constitutional: no apparent distress, appears nourished, not in pain Eyes: PERRL Ears, Nose, Mouth, Throat: hearing normal Cardiovascular: regular rate and rhythym, edema (1-2+ ankle edema) Respiratory: no respiratory distress Gastrointestinal: normoactive bowel sounds Skin: warm, normal color Musculoskeletal: generalized weakness Neurologic: AAOx3 Psychiatric: interacting appropriately, not anxious ICD10 Worksheet Patient Problems: Problems Problem Status Onset Acute decompensated heart failure Acute Palliative care encounter Acute Dyslipidemia Active Peripheral vascular disease Active Acute exacerbation of congestive heart failure Acute Afib - Atrial fibrillation Acute Atrial fibrillation Acute CHF (congestive heart failure) Acute CHF exacerbation Acute Congestive heart failure Acute Fever Acute Hypoxia Acute Hypoxia Acute Rapid atrial fibrillation Acute Respiratory failure Acute chronic disease mgmt/transitional care Acute
[2017-07-12] MEDS: MULTIVITAMINS 1 EACH TAB PO SCH (12:26)
--- NOTE | 2017-07-12 13:24 | SOAPPROG ---
ANGELA Progress Note Assessment/Plan: Assessment: 1. Probable DLBCL pending the final path now at [facility]: She has a low EF of 35% and is therefore not a candidate for full dose R-CHOP. It looks like stage IIIB/ IVB. We don't know if it is germinal center cell type or ABC type or other. The Ayoub algorithm is pending. She most likely will not be able to take curative therapy. R-CVP or R-COEP are options. 2. HCM: normal today. This is paraneoplastic 3. CHF: diuresing. Her Cr is up a little today at 1.4 with a K+ of 3.2 4. Oral stomatitis: ulcerative. Is this pemphigus? She is eating better today and feels hungry. Plan: Continue cardiac optimization Await final path from [facility] - She can be discharged for f/u as an outpatient to review the results and for further treatment planning Await oral bx results Subjective: Feeling better. Hungry and eating. Objective: Vital Signs Temp Pulse Resp BP Pulse Ox 36.6 C 93 16 120/63 92 07/12/17 07:50 07/12/17 09:00 07/12/17 07:50 07/12/17 08:52 07/12/17 09:00 Microbiology 06/29/17 20:00 Mycobacterial Smear (JOE) - Final Axilla - Tissue 06/28/17 17:15 Mycobacterial Smear (JOE) - Final Sputum, Expectorated 06/27/17 20:00 Mycobacterial Smear (JOE) - Final Blood Laboratory Results 07/12/17 05:06 07/12/17 05:06 07/10/17 07/11/17 07/12/17 23:59 23:59 23:59 Intake Total 300 300 350 Output Total 1275 750 475 Balance -975 -450 -125 PT 18.1 SEC (12.0-15.0) H 07/04/17 09:18 INR 1.50 (0.83-1.16) H 07/04/17 09:18 Physical Exam - Physical Exam Respiratory: lungs clear Cardiac/Chest: regular rate, rhythm, edema (2+ bilaterally) ICD10 Worksheet Patient Problems: Problems Problem Status Onset Acute decompensated heart failure Acute Palliative care encounter Acute Dyslipidemia Active Peripheral vascular disease Active Acute exacerbation of congestive heart failure Acute Afib - Atrial fibrillation Acute Atrial fibrillation Acute CHF (congestive heart failure) Acute CHF exacerbation Acute Congestive heart failure Acute Fever Acute Hypoxia Acute Hypoxia Acute Rapid atrial fibrillation Acute Respiratory failure Acute chronic disease mgmt/transitional care Acute
--- NOTE | 2017-07-12 17:42 | ASMTCMCOM ---
CM Note CM Note Notes: Hospitalist today said that because of patients EF she will be unable to start chemo without damage to her heart. She currently is refusing to have a heart cath. This C/M contacted [facility], whom patient had requested and they are ready to take her on 07/13. Case management will ofllow. Date Signed: 07/12/2017 05:41 PM Electronically Signed By:JOSE Lima
[2017-07-12] MEDS: ATORVASTATIN CALCIUM 20 MG TAB PO SCH (20:24)
[2017-07-13 05:34] LABS: % IMMATURE GRANULYOCYTES 0.4 % (0.0-1.1); ABSOLUTE IMMATURE GRANULOCYTES 0.02 10^3/uL (0.00-0.10); ADD DIFF? NO; ADD MORPH? NO; ADD SCAN? NO; ATYPICAL LYMPHOCYTE FLAG 80 (0-99); FRAGMENT RBC FLAG 20 (0-99); HEMATOCRIT 31.2 % (38.0-47.0); HEMOGLOBIN 10.2 g/dL (12.6-16.3); LEFT SHIFT FLG 0 (0-99); LIPEMIA HEMOLYSIS FLAG 80 (0-99); MEAN CELL HEMOGLOBIN CONCENTR. 32.7 g/dL (32.4-36.7); MEAN CELL VOLUME 79.4 fL (81.5-99.8); MEAN PLATELET VOLUME 9.7 fL (8.7-11.7); PLATELET CLUMPS FLAG 0 (0-99); PLATELET COUNT 316 10^3/uL (150-400); RED BLOOD CELL COUNT 3.93 10^6/uL (4.18-5.33); RED CELL DISTRIBUTION WIDTH 18.3 % (11.5-15.2)
[2017-07-13] MEDS: DEXAMETHASONE 0.5 MG/5 ML MISC SCH ×2 (05:38→11:58)
[2017-07-13] MEDS: LEVOTHYROXINE 125 MCG TAB PO SCH (05:38)
[2017-07-13] MEDS: [UNRECOGNIZED DRUG - OTHER] MISC SCH ×2 (05:38→11:58)
[2017-07-13] MEDS: MBX SOLN 30 ML BOTTLE PO SCH ×2 (05:40→11:57)
[2017-07-13 05:59] LABS: ALANINE AMINOTRANSFERASE 48 IU/L (9-52); ALBUMIN 2.5 g/dL (3.5-5.0); ALKALINE PHOSPHATASE 86 IU/L (38-126); ANION GAP 10 mEq/L (8-16); ASPARTATE AMINOTRANSFERASE 25 IU/L (14-46); BILIRUBIN,TOTAL 0.3 mg/dL (0.1-1.4); CALCIUM 8.3 mg/dL (8.5-10.4); CARBON DIOXIDE 26 mEq/l (22-31); CHLORIDE 100 mEq/L (97-110); CREATININE 1.4 mg/dL (0.6-1.0); GLOMERULAR FILTRATION RATE 37; GLUCOSE 79 mg/dL (70-100); POTASSIUM 3.9 mEq/L (3.5-5.2); SODIUM 136 mEq/L (134-144); TOTAL PROTEIN 4.1 g/dL (6.3-8.2)
[2017-07-13] MEDS: ACETAMINOPHEN 325 MG TAB PO PRN (08:28)
[2017-07-13] MEDS: POTASSIUM CL 20 MEQ PKT PO SCH (08:33)
[2017-07-13] MEDS: CARVEDILOL 25 MG TAB PO SCH (08:35)
[2017-07-13 08:37] VITALS: BP 113/60; RESP 18; TEMP 97.3; O2SAT 95
[2017-07-13] MEDS: CYANO/VITAMIN B12 1000 MCG TAB PO SCH (08:37)
[2017-07-13] MEDS: FLUCONAZOLE 100 MG TAB PO SCH (08:37)
[2017-07-13] MEDS: ACYCLOVIR 400 MG TAB PO SCH (08:37)
[2017-07-13] MEDS: ENOXAPARIN 80 MG/0.8 ML SYR SC SCH (08:44)
[2017-07-13 08:52] VITALS: PULSE 73
[2017-07-13] MEDS: PRESERVISION AREDS2 FORMULA EYE VIT 1 EACH PO SCH (08:55)
[2017-07-13] MEDS: CLOTRIMAZOLE 1% 15 GM CRTUBE TP SCH (08:55)
[2017-07-13] MEDS ORDERED: FUROSEMIDE 40 MG TAB PO SCH (09:00)
[2017-07-13] MEDS ORDERED: FUROSEMIDE 80 MG TAB PO SCH (09:00)
--- NOTE | 2017-07-13 10:16 | HOSPPROG ---
Hospitalist Progress Note Assessment/Plan: 77-year-old with a history of chronic diastolic heart failure and pacemaker placement is admitted with weakness and hypercalcemia being worked up for lymphoma and hospital course complicated by AMS. 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 -on Acyclovir/ will need this long term care pharmacist due to being immunocompromised -fluconazole -started on oral dexamethasone mouth rinse *acute encephalopathy -resolved w normalization of calcium levels *Hypercalcemia -calcitonin, Zolendronic acid -IVF stopped *Acute systolic heart failure on chronic diastolic heart failure -weight down from 80 kg to 76 kg today -Lasix 60 mg dailyvand Aldactone 50 mg daily -Coreg bid/ is allergic to ACEI -buddy wraps on Qhs for lower extremity swelling -appreciate cardiology *Hypernatremia -resolved *ANDRY -creat is 1.4 -reviewed w cards,they decreased her lasix dose to daily *AF -Xarelto resumed DVT prophylaxis - anticoagulated *Plan: dc to [facility] for strengthening Subjective: Monica has no complaints. Objective: Vital Signs Temp Pulse Resp BP Pulse Ox 36.3 C 73 18 113/60 95 07/13/17 08:27 07/13/17 08:35 07/13/17 08:27 07/13/17 08:35 07/13/17 08:27 Microbiology 06/29/17 20:00 Mycobacterial Smear (JOE) - Final Axilla - Tissue 06/28/17 17:15 Mycobacterial Smear (JOE) - Final Sputum, Expectorated 06/27/17 20:00 Mycobacterial Smear (JOE) - Final Blood Laboratory Results 07/13/17 05:19 07/13/17 05:19 07/12/17 07/13/17 07/14/17 05:59 05:59 05:59 Intake Total 650 986 Output Total 725 975 Balance -75 11 PT 18.1 SEC (12.0-15.0) H 07/04/17 09:18 INR 1.50 (0.83-1.16) H 07/04/17 09:18 - Physical Exam Constitutional: no apparent distress, chronically ill appearing Eyes: PERRL Ears, Nose, Mouth, Throat: hearing normal Cardiovascular: regular rate and rhythym, edema (better in calves but feet have pitting edema) Respiratory: no respiratory distress Gastrointestinal: normoactive bowel sounds Skin: warm, other (mulitple petechiae around the ankle and darkened spots on the dorsal part of the foot/ patient says the spots have been there for a period of time), No normal color (pale) Musculoskeletal: generalized weakness Neurologic: AAOx3 Psychiatric: interacting appropriately, not anxious ICD10 Worksheet Patient Problems: Problems Problem Status Onset Acute decompensated heart failure Acute Palliative care encounter Acute Dyslipidemia Active Peripheral vascular disease Active Acute exacerbation of congestive heart failure Acute Afib - Atrial fibrillation Acute Atrial fibrillation Acute CHF (congestive heart failure) Acute CHF exacerbation Acute Congestive heart failure Acute Fever Acute Hypoxia Acute Hypoxia Acute Rapid atrial fibrillation Acute Respiratory failure Acute chronic disease mgmt/transitional care Acute
[2017-07-13 11:31] LABS: PATH CONS ACCESSION # CR-17-63884; PATH CONS FINAL DIAGNOSIS See Comments; PATH CONS MATERIAL See Comments
[2017-07-13] MEDS: MULTIVITAMINS 1 EACH TAB PO SCH (11:54)
[2017-07-13] MEDS: SPIRONOLACTONE 50 MG TAB PO SCH (11:54)
--- NOTE | 2017-07-13 12:53 | PDCARPN ---
Cardiology Progress Note Chief Complaint: new SCHF Assessment/Plan: Assessment: 77F PMH new onset SCHF with LVEF 34%, AF s/p AVN ablation, PPM, DD, mod MR, PAH , who was recently admitted with worsening fatigue. Found by echo to have decrement in EF in comparison to 05/15 echo with normal EF. Has new diagnosis of lymphoma. #. SCHF: EF 34 pt has declined LHC and other ischemic workup on PO diuretics due to no IV access weight down to 74 kg reports feeling comfortable at rest though noting severe peripheral edema no pnd/orthopnea or dyspnea #. AF: may resume Xarelto at previous dosing of 20 mg hs (CrCl >30) #. ANDRY: Cr stable will plan on BMP in 1 week #. lymphoma: awaiting path Pt safe to d/c from cardiology perspective 07/13/17 12:49 Subjective: Notes pain in feet from edema. Otherwise breathing feels stable. Objective: Vital Signs (8 Hrs) Temp Pulse Resp BP Pulse Ox 07/13/17 08:35 73 113/60 07/13/17 08:27 97.3 F 81 18 113/60 95 07/13/17 05:15 98.1 F 88 16 111/66 34 L Intake/Output (24 Hrs) 07/12/17 07/13/17 07/14/17 05:59 05:59 05:59 Intake Total 650 986 Output Total 725 975 Balance -75 11 Intake: Oral (ml) 650 986 Output: Urine (ml) 725 975 Toilet 725 975 Other: Weight 75.2 kg 74.752 kg Number of Voids Incontinence 1 Toilet 1 2 Number of Stools Incontinence 1 Result Diagrams: 07/13/17 05:19 07/13/17 05:19 - Physical Exam Constitutional: no apparent distress Eyes: PERRL Cardiovascular: regular rate and rhythm, no murmurs Respiratory: clear to auscultate bilat, no crackles Skin: other (small scabs bilateral feet) Neurologic: AAOx3 Psychiatric: cooperative, interactive ICD10 Worksheet Patient Problems: Problems Problem Status Onset Acute decompensated heart failure Acute Palliative care encounter Acute Dyslipidemia Active Peripheral vascular disease Active Acute exacerbation of congestive heart failure Acute Afib - Atrial fibrillation Acute Atrial fibrillation Acute CHF (congestive heart failure) Acute CHF exacerbation Acute Congestive heart failure Acute Fever Acute Hypoxia Acute Hypoxia Acute Rapid atrial fibrillation Acute Respiratory failure Acute chronic disease mgmt/transitional care Acute
--- NOTE | 2017-07-13 13:26 | SOAPPROG ---
SOAP Progress Note Assessment/Plan: Assessment: 1. Preliminary report on lymph node from the analysis at the [facility] shows a T cell lymphoma with a B cell component. This tends to be an aggressive lymphoma. She is going to rehab in [place] today. She would like her oncology follow up in [place], so I'll refer her to my partner, Dr. Zeina Brugess there. I discussed this with the patient and her son, John Paul. 2. HCM: normal today. This is paraneoplastic 3. CHF: cardiology service feels that she is adequately optimized for discharge to rehab 4. Oral stomatitis: due to herpes. Plan: To rehab in [place] today F/U with Dr. Zeina Burgess in our [place] office for discussion of palliative chemo options vs. best supportive care only. She should be seen there within about a week. Subjective: No new complaints. Objective: Vital Signs Temp Pulse Resp BP Pulse Ox 36.3 C 73 18 113/60 95 07/13/17 08:27 07/13/17 08:35 07/13/17 08:27 07/13/17 08:35 07/13/17 08:27 Microbiology 06/29/17 20:00 Mycobacterial Smear (JOE) - Final Axilla - Tissue 06/28/17 17:15 Mycobacterial Smear (JOE) - Final Sputum, Expectorated 06/27/17 20:00 Mycobacterial Smear (JOE) - Final Blood Laboratory Results 07/13/17 05:19 07/13/17 05:19 07/11/17 07/12/17 07/13/17 23:59 23:59 23:59 Intake Total 300 1086 250 Output Total 750 800 650 Balance -450 286 -400 PT 18.1 SEC (12.0-15.0) H 07/04/17 09:18 INR 1.50 (0.83-1.16) H 07/04/17 09:18 Physical Exam - Physical Exam General Appearance: alert, no apparent distress ICD10 Worksheet Patient Problems: Problems Problem Status Onset Acute decompensated heart failure Acute Palliative care encounter Acute Dyslipidemia Active Peripheral vascular disease Active Acute exacerbation of congestive heart failure Acute Afib - Atrial fibrillation Acute Atrial fibrillation Acute CHF (congestive heart failure) Acute CHF exacerbation Acute Congestive heart failure Acute Fever Acute Hypoxia Acute Hypoxia Acute Rapid atrial fibrillation Acute Respiratory failure Acute chronic disease mgmt/transitional care Acute
--- NOTE | 2017-07-13 14:23 | PDIAF ---
- Diagnosis Diagnosis: likely T cell lymphoma, Systolic heart failure Code Status: Do Not Resuscitate - Medication Management Discharge Medications: Medications to Continue on Transfer Rivaroxaban [Xarelto 10mg (*)] 20 mg PO HS 08/17/16 [Last Taken 06/25/17] Dextran/Hypromellose/Glycerin [Genteal Tears 0.1%-0.2%-0.3%] 1 drop EACHEYE DAILY PRN 04/29/17 [Last Taken 05/15/17] Multivitamins [Multivitamin (*)] 1 each PO DAILY@12 04/29/17 [Last Taken ] Atorvastatin Calcium [Lipitor 20 mg (*)] 20 mg PO HS 05/16/17 [Last Taken ] Herbals/Supplements -Info Only 1 ea PO DAILY 05/16/17 [Last Taken Unknown] Levothyroxine [Synthroid 125 mcg (*)] 125 mcg PO DAILY AT 6AM #30 tab 05/19/17 [ Last Taken 06/25/17] Bupropion HCl [Bupropion HCl Sr] 150 mg PO DAILY 06/25/17 [Last Taken 06/24/17] C/E/Zn/Cu/OM3/DHA/EPA/LUT/ZEAX [Preservision Areds 2 Softgel] 1 each PO BID [Last Taken 06/24/17] Cholecalciferol Vit D3 [Vitamin D3 2000 units tab (OTC)] 2,000 units PO DAILY [Last Taken 06/24/17] Clotrimazole 1 ana TP BID 06/25/17 [Last Taken 06/24/17] Cyanocobalamin [Vitamin B12 (*)] 1,000 mcg PO DAILY 06/25/17 [Last Taken ] Acetaminophen [Tylenol 325mg (*)] 650 mg PO Q4HRS PRN tab 07/13/17 [Last Taken Unknown] Acyclovir [Zovirax 400 mg (*)] 400 mg PO BID tab 07/13/17 [Last Taken Unknown] Carvedilol [Coreg (*)] 12.5 mg PO BIDMEAL tab 07/13/17 [Last Taken Unknown] Fluconazole [Diflucan (*)] 100 mg PO DAILY tab 07/13/17 [Last Taken Unknown] Furosemide [Lasix 40 MG (*)] 60 mg PO DAILY tab 07/13/17 [Last Taken Unknown] Mbx Soln;Maalox/Diphen/Lido [Maalox/Diphenhydramine/Lido] 5 ml PO BID PRN bottle 07/13/17 [Last Taken Unknown] Mbx Soln;Maalox/Diphen/Lido [Maalox/Diphenhydramine/Lido] 5 ml PO QID bottle [Last Taken Unknown] Potassium Chloride Po [Klor Packets 20 meq (*)] 20 meq PO DAILY pkt 07/13/17 [ Last Taken Unknown] Spironolactone [Aldactone] 50 mg PO DAILY tab 07/13/17 [Last Taken Unknown] Discharge Medications: Refer to the Discharge Home Medication list for PRN reason. 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 Also on diflucan prophylactically due to being immunocompromised. To discuss these meds w Mary Aditya with oncology. She should make an appt to see her in the next 2 weeks. - Labs/Radiology BMP Date: 07/18/17 (weekly) - Follow Up Care Current Providers and Referrals: Yocasta Johnson MD [Primary Care Provider] - As per Instructions Zeina Burgess MD [Medical Doctor] - Enoch Ocasio, BUSINESS SYSTEMS LEAD [Certified Nurse Practioner] - 07/29/17 2:00 pm
--- NOTE | 2017-07-13 14:29 | PDIAF ---
- Diagnosis Diagnosis: likely T cell lymphoma, Systolic heart failure Code Status: Do Not Resuscitate - Medication Management Discharge Medications: Medications to Continue on Transfer Rivaroxaban [Xarelto 10mg (*)] 20 mg PO HS 08/17/16 [Last Taken 06/25/17] Dextran/Hypromellose/Glycerin [Genteal Tears 0.1%-0.2%-0.3%] 1 drop EACHEYE DAILY PRN 04/29/17 [Last Taken 05/15/17] Multivitamins [Multivitamin (*)] 1 each PO DAILY@12 04/29/17 [Last Taken ] Atorvastatin Calcium [Lipitor 20 mg (*)] 20 mg PO HS 05/16/17 [Last Taken ] Herbals/Supplements -Info Only 1 ea PO DAILY 05/16/17 [Last Taken Unknown] Levothyroxine [Synthroid 125 mcg (*)] 125 mcg PO DAILY AT 6AM #30 tab 05/19/17 [ Last Taken 06/25/17] C/E/Zn/Cu/OM3/DHA/EPA/LUT/ZEAX [Preservision Areds 2 Softgel] 1 each PO BID [Last Taken 06/24/17] Cholecalciferol Vit D3 [Vitamin D3 2000 units tab (OTC)] 2,000 units PO DAILY [Last Taken 06/24/17] Clotrimazole 1 ana TP BID 06/25/17 [Last Taken 06/24/17] Cyanocobalamin [Vitamin B12 (*)] 1,000 mcg PO DAILY 06/25/17 [Last Taken ] Acetaminophen [Tylenol 325mg (*)] 650 mg PO Q4HRS PRN tab 07/13/17 [Last Taken Unknown] Acyclovir [Zovirax 400 mg (*)] 400 mg PO BID tab 07/13/17 [Last Taken Unknown] Carvedilol [Coreg (*)] 12.5 mg PO BIDMEAL tab 07/13/17 [Last Taken Unknown] Fluconazole [Diflucan (*)] 100 mg PO DAILY tab 07/13/17 [Last Taken Unknown] Furosemide [Lasix 40 MG (*)] 60 mg PO DAILY tab 07/13/17 [Last Taken Unknown] Mbx Soln;Maalox/Diphen/Lido [Maalox/Diphenhydramine/Lido] 5 ml PO BID PRN bottle 07/13/17 [Last Taken Unknown] Mbx Soln;Maalox/Diphen/Lido [Maalox/Diphenhydramine/Lido] 5 ml PO QID bottle [Last Taken Unknown] Potassium Chloride Po [Klor Packets 20 meq (*)] 20 meq PO DAILY pkt 07/13/17 [ Last Taken Unknown] Spironolactone [Aldactone] 50 mg PO DAILY tab 07/13/17 [Last Taken Unknown] Discharge Medications: Refer to the Discharge Home Medication list for PRN reason. 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 Also on diflucan prophylactically due to being immunocompromised. To discuss these meds w Mary Burgess with oncology. She should make an appt to see her in the next 2 weeks. - Labs/Radiology BMP Date: 07/18/17 (weekly) - Follow Up Care Current Providers and Referrals: Yocasta Johnson MD [Primary Care Provider] - As per Instructions Zeina Burgess MD [Medical Doctor] - Enoch Ocasio, MERCHANDISE COMPLAINT ADJUSTER [Certified Nurse Practioner] - 07/29/17 2:00 pm
[2017-07-13] MEDS ORDERED: RIVAROXABAN 20 MG TAB PO SCH (18:00)
--- NOTE | 2017-07-13 21:58 | GDS ---
[f rep st] DISCHARGE SUMMARY DISCHARGE DIAGNOSES: 1. T-cell lymphoma with a B-cell component. This is a preliminary report from the [facility]. 2. Herpes simplex virus with oral stomatitis. 3. Acute encephalopathy. 4. Hypercalcemia. 5. Acute systolic heart failure and chronic diastolic heart failure. 6. Hypernatremia. 7. Acute kidney injury. 8. Atrial fibrillation. CONSULTATIONS: 1. Dr. Murtaza Gomez. 2. Anastasiya Berger, physician assistant shift supervisor, with Dr. Pires. 3. Dr. Anson Petre with social service agency director. 4. Dr. Ramin Xavier. 5. Kristal Graham, nurse practitioner, with palliative care team. 6. Dr. Calvin Salas with Cardiology. HISTORY: Briefly, the patient is a 77-year-old woman who was admitted to [facility] with generalized weakness and worsening rash on her trunk. She was also noted to be hypoxic. She started to develop an itchy macular red rash over her belt line. Prior to admission, she had been started on Wellbutrin. This was discontinued out of concern that she had a reaction to it. Due to her hypoxia, she had a chest x-ray. This showed diffuse interstitial infiltrates. Followup CT scan showed interstitial infiltrates with small nodules. There was concern of tuberculosis raised. She was seen and evaluated by the infectious disease team. AFB cultures were sent. These were negative. She was seen evaluated by Pulmonology. There was concern that she could have had some type of vasculitis. Surgery was consulted to obtain tissue from her axillary area to help provide diagnosis. In addition, she had elevated calcium levels. This resolved during her stay. Also of note, she was being worked up for lymphoma and was being seen by Dr. Xavier, Dr. Hale and Dr. Jean-Baptiste. Today, the pending results from the [facility] were performed which showed a T- cell lymphoma with a B-cell component. The patient is undecided if she would like palliative treatment for this. In addition, she was seen by Cardiology because her EF decreased to 35%. She is being treated with diuretics. She will be discharged to [facility] for rehab and further follow up with Dr. Zeina Burgess with Oncology and with Enoch Ocasio with Cardiology. HOSPITAL COURSE: 1. T-cell lymphoma with a B-cell component. This is a preliminary report from the [facility]. Further follow up with Dr. Burgess. 2. HSV with oral stomatitis. This was confirmed by tongue biopsy. Will continue on acyclovir. She will need this alf due to being immunocompromised. She is also on fluconazole. 3. Acute encephalopathy. This resolved with normal levels and calcium levels. 4. Hypercalcemia. She was treated with calcitonin and zoledronic acid. 5. Acute systolic heart failure on chronic diastolic failure. She is on Lasix daily as well as Aldactone, Coreg b.i.d. Her diltiazem has been discontinued. 6. Hyponatremia, resolved. 7. Acute kidney injury. Her creatinine is 1.4. We will have this monitored weekly at the rehab facility. 8. Atrial fibrillation. Xarelto was resumed. DISCHARGE CONDITION: Stable. VITAL SIGNS: Blood pressure is 113/60. Heart rate is 81. Respiratory rate is 18. O2 saturation on room air 95%. Temperature is 36.3 Celsius. DISCHARGE MEDICATIONS: There have been multiple changes to her medications. Recommendation is to stop the Wellbutrin because of concern of rash from this. DISCHARGE INSTRUCTIONS: 1. To follow up with Dr. Zeina Burgess to discuss treatment options for the lymphoma. 2. To follow up with Enoch Ocasio NP. 3. To continue diuretics as scheduled. 4. To get weekly chemistry panels. TIME SPENT: Greater than 30 minutes discharging and coordinating the patient's discharge. /[id number]/MODL MTDD
--- NOTE | 2017-07-14 09:57 | ASDISCHSUM ---
Discharge Information Plan Status:SNF Medically Cleared to Leave: Discharge Date:07/13/2017 04:00 PM CM D/C Disposition:Alf Facility ADT D/C Disposition:Alf Facility Projected Discharge Date:07/13/2017 11:00 AM Transportation at D/C:Wheelchair Van Discharge Delay Reason: Follow-Up Date:07/13/2017 11:00 AM Discharge Slot: Final Diagnosis: Placement Information Referral Type:*Usp/SNF Referral ID:[id number] Provider Name:[facility] Address 1:[address] [place] [address] Address 2: City:[place] Selection Factors: State:[place] Patient Contact Information Contact Name:DAMARISVINHOLIMPIA Relationship:Son Address: Work Phone: City: [facility] Phone: State/Zip Code: Email: Financial Information Financial Class: Primary Plan Desc:MEDICARE INPATIENT Primary Plan Number:[id number] Secondary Plan Desc:AARP/MDR SUPPLEMENT Secondary Plan Number:[id number] Assessment Information [facility] CM Progress Note CM Note CM Note Notes: 77 year old female admitted for fatigue, rash, anemia. She has a hx of Afib w/ablation, moderate MVR, pHTN, HTN, HLD, CHF, Chronic Respiratory Failure-2 lits O2. Patient lives alone in [place] and has a son named John Paul. At this time PT recommending SNF vs HC; OT HC w/24 hr supervision. CM to follow for discharge planning. Date Signed: 06/26/2017 03:51 PM Electronically Signed By:Argelia Nur LCSW [facility] CM Progress Note CM Note CM Note Notes: 06/28/2017 Case Management Note Met w/ pt to discuss multiple hospitalizations in last 6 months. Pt in agreement that Home Care is not addressing issues adequately. Discussed PT recommendation for SNF rehab. Pt in agreement. Requested referrals to [facility] and [facility] in [place]. Faxed referrals, awaiting acceptance. Case management d/c poc: To SNF rehab once accepted when medically stable. Case management to follow. Date Signed: 06/28/2017 12:03 PM Electronically Signed By:Sabina Ny RN [facility] CM Progress Note CM Note CM Note Notes: Chart reviewed. Final AF[facility] from [facility] pending.Plan to SNF upon discharge when medically stable. Date Signed: 07/01/2017 02:40 PM Electronically Signed By:Marilynn Zhou RN [facility] CM Progress Note CM Note CM Note Notes: DC needs not clear yet, awaiting more definitive diagnosis. Met w/pt and very supportive family (son-Mikie, dtr in law, and sisters). Pt lives independantly in patio home w/family near by. D/W RN who said family considering palliative care conference but would like to have confirmed diagnosis first. FMLA paperwork for son to fill out in chart- will need more info on diagnosis and plan of treatment to complete. CM w/f. Date Signed: 07/04/2017 11:45 AM Electronically Signed By:Heaven Sloan RN [facility] CM Progress Note CM Note CM Note Notes: Patient had Palliative consult today with Miriam of Palliative care. patient has new diagnosis of B CellLymphoma and is unsure whether she is going to want to proceed with treatment. Her main consideration seems to be her quality of life. Depending on patients plans forward, patient may needs a SNF. Lynne from [facility] came today and said she would be willing to take if she needs SNF. Case management will follow. Date Signed: 07/05/2017 06:38 PM Electronically Signed By:JOSE Lima BHAVANI BHAVANI Length of stay for Answers: 7-13 days current admission Acuity / Level of Care Answers: Was the patient admitted to hospital via the emergency department? 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 Awaiting final path from [place]. Spoke with Dr Hale today. Pt cannot DC to a SNF and have chemo there. If pt decides to proceed with treatment, best plan would be chemo while inpt at [facility] before DC to [facility]. C/M to follow for DC needs. Date Signed: 07/06/2017 04:15 PM Electronically Signed By:Sushma Hernández LCSW [facility] CM Progress Note CM Note CM Note Notes: 06/07 Plan unchanged, path still pending. CM to follow. 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 Awaiting final path from [facility]. Spoke with Dr Hale today. Pt cannot DC to a SNF and have chemo there. If pt decides to proceed with treatment, best plan would be chemo while inpt at [facility] before DC to [facility]. C/M to follow for DC needs. Date Signed: 07/08/2017 04:29 PM Electronically Signed By:Marilynn Zhou RN [facility] CM Progress Note CM Note CM Note Notes: Hospitalist today said that because of patients EF she will be unable to start chemo without damage to her heart. She currently is refusing to have a heart cath. This C/M contacted [facility], whom patient had requested and they are ready to take her on 07/13. Case management will ofllow. Date Signed: 07/12/2017 05:41 PM Electronically Signed By:JOSE Lima Case Management Discharge Plan Note Case Management Discharge Discharge Order Complete? Answers: Yes Patient to Obtain Answers: Other Notes: [facility] Transportation Arranged Answers: Other Notes: [facility] v an Faxed Final Orders Answers: Yes Notes: [facility] Agency/Facility Transfer Answers: Yes Report Printed & Faxed to Receiving Agency Family Notified Answers: Yes Notes: sister present Discharge Comments Notes: Pt will dc to [facility] SNF today. Originally had [facility] arranged, Lynne from [facility] here this morning but pt let me know she would prefer to go to [facility]. Referral updates sent to [facility] and spoke w/quiana. They are able to accept pt. Orders/info sent through [facility] but facility not able to read so faxed manually as well. Discussed with pt, Hospitalist, RN, pt and sister- all in agreement w/dc poc. [facility] will pick pt up at 3:15. Date Signed: 07/13/2017 02:50 PM Electronically Signed By:Heaven Sloan RN Intervention Information Intervention Type:*IM-Signed Date of Service:07/13/2017 03:42 PM Patient Type:Inpatient Staff Member:Yasmin Barnes Hours: Discipline: Severity: Comment:
== END 2017-07-13 16:00 | DRG 823 ==
LOC: EDUNIT# → F2W 22:13 → UNDOADMIN 22:13 → INTOOBSV 22:13 → F2W 23:01 → OBSVTOIN 06-26 10:27 → F2W 06-26 16:42 → F1N 07-04 16:01
PROVIDERS: ADMIT Student in an Organized Health Care Education/Training Program; ATTEND Internal Medicine
PROC: 0HBHXZX Excision of Right Upper Leg Skin, External Approach, Diagnostic (ICD-10-PCS; principal; 2017-06-29 19:00)
PROC: 07B50ZX Excision of Right Axillary Lymphatic, Open Approach, Diagnostic (ICD-10-PCS; principal; 2017-06-29 19:00)
PROC: 0CB7XZX Excision of Tongue, External Approach, Diagnostic (ICD-10-PCS; 2017-07-10)
DX: C86.5 Angioimmunoblastic T-cell lymphoma (principal); B00.2 Herpesviral gingivostomatitis and pharyngotonsillitis; G93.40 Encephalopathy, unspecified; I50.21 Acute systolic (congestive) heart failure; I50.32 Chronic diastolic (congestive) heart failure; E87.0 Hyperosmolality and hypernatremia; N17.9 Acute kidney failure, unspecified; E83.52 Hypercalcemia; F41.9 Anxiety disorder, unspecified; E78.5 Hyperlipidemia, unspecified; I13.0 Hypertensive heart and chronic kidney disease with heart failure and stage 1 through stage 4 chronic kidney disease, or unspecified chronic kidney disease; J96.10 Chronic respiratory failure, unspecified whether with hypoxia or hypercapnia; E87.1 Hypo-osmolality and hyponatremia; I48.2 Chronic atrial fibrillation; E86.0 Dehydration; E03.9 Hypothyroidism, unspecified; D63.8 Anemia in other chronic diseases classified elsewhere; I27.20 Pulmonary hypertension, unspecified; N18.9 Chronic kidney disease, unspecified; Z96.651 Presence of right artificial knee joint; Z95.0 Presence of cardiac pacemaker; Z86.73 Personal history of transient ischemic attack (TIA), and cerebral infarction without residual deficits; Z79.01 Long term (current) use of anticoagulants; Z99.81 Dependence on supplemental oxygen
CPT/HCPCS: 82232-90; 82607-90; 82784-90; 83516-90; 83520-90; 84134-90; 86334-90; 86704-90; 88184-90; 88185-91; 92526-GN; 92610-GN; 92611-GN; 97110-GP; 97116-GP; 97161-GP; 97166-GO; 97530-GO; 97530-GP; 97535-GO; G0472; G8978-GP-CI; G8978-GP-CJ; G8979-GP-CH; G8979-GP-CI; G8987-GO-CJ; G8987-GO-CK; G8988-GO-CI; G8996-GN-CK; G8996-GN-CL; G8997-GN-CI; G8997-GN-CK; G8998-GN-CK; J0630; J1200; J1650; J1940; J2405; J2704; J3489; Q9967